=== PATIENT | male | born 1955 | race Caucasian/White ===

== ENCOUNTER 2017-10-15 14:39 | Emergency (ER) | payer MEDICARE ==
[2017-10-15] MEDS ORDERED: Sodium Chloride 0.9% 1000 ML 1,000 ML IV STA (15:03)
[2017-10-15] MEDS ORDERED: solu-MEDROL 125 MG IV ONE (15:03)
[2017-10-15] MEDS ORDERED: PROVENTIL 2.5 MG/3 ML NEB IH ONE ×2 (15:03→15:11)
--- NOTE | 2017-10-15 15:10 | ERPHSYRPT ---
- History of Present Illness Time Seen by Provider: 10/15/17 15:00 Source: patient Exam Limitations: no limitations Patient Subjective Stated Complaint: Pt states "I cannot catch my breath, I am having horrible body aches and I feel like crap" Triage Nursing Assessment: Pt alert and oriented X3, skin pwd. PT ambulates weakly, audible wheezes noted, able to speak in clear full sentences but gets short of breath when he speaks Physician History: 61-year-old white male with history of asthma, COPD arrives with complaint of shortness of breath cough productive of yellow sputum wheezing and generalized aches symptoms for one week. Patient denies any vomiting. Past medical history includes asthma, COPD. Past surgical history includes appendectomy and back surgery Timing/Duration: week(s) (1 week) Activities at Onset: none Severity of Dyspnea-Max: moderate Severity of Dyspnea-Current: moderate Possible Cause: occasional episodes Associated Symptoms: constant, cough, wheezing, weakness, productive cough, No anxiety, No chest pain/discomfort, No edema, No fever, No insomnia, No loss of appetite, No lightheadedness, No ankle swelling, No chills, No hemoptysis, No calf pain, No dizziness, No heaviness, No heart racing, No lightheadedness, No leg swelling, No muscle spasms feet, No muscle spasms hands, No painful breathing, No sweating, No tightness, No tingling face, No tingling hands International travel in last 2 weeks: No Allergies/Adverse Reactions: milk Allergy (Mild, Verified 10/15/17 14:55) Penicillins Allergy (Verified 06/19/13 16:47) RASH Home Medications: Aspirin EC 325 mg [Ecotrin 325 MG] 325 mg PO DAILY 06/19/13 [History] Carvedilol 3.125 mg [Coreg 3.125 MG] 6.25 mg PO BID 06/19/13 [History] Cyclobenzaprine HCl 10 mg [Cyclobenzaprine 10 MG] 0.5 tab PO BID 06/19/13 [History] Furosemide 20 mg [Lasix 20 mg] 20 mg PO DAILY 06/19/13 [History] Lisinopril [Zestril] 5 mg PO DAILY 06/19/13 [History] Loratadine 10 mg [Claritin 10 mg] 10 mg PO DAILY 06/19/13 [History] Omeprazole 20 MG [Prilosec 20 mg] 20 mg PO DAILY 06/19/13 [History] Ropinirole HCl 0.5 mg [Requip 0.5 MG] 2 - 3 tab PO HS 06/19/13 [History] Tramadol HCl 50 mg [Ultram 50 mg] 50 mg PO CLARIFY 06/19/13 [History] Hx Tetanus, Diphtheria Vaccination/Date Given: No Hx Influenza Vaccination/Date Given: Yes Hx Pneumococcal Vaccination/Date Given: Yes Immunizations Up to Date: Yes - Review of Systems Constitutional: Malaise, Weakness, No Fever, No Chills Eyes: No Symptoms Ears, Nose, & Throat: No Symptoms, Nose Congestion, No Ear Pain, No Ear Discharge, No Hearing Changes, No Tinnitus, No Nose Pain, No Nose Discharge, No Sinus Drainage, No Epistaxis, No Mouth Pain, No Mouth Swelling, No Loose Teeth, No Throat Pain, No Throat Swelling, No Hoarse, No Painful Swallowing, No Snoring , No Stridor Respiratory: Cough, Dyspnea, Wheezing Cardiac: No Chest Pain, No Edema, No Syncope Abdominal/Gastrointestinal: No Abdominal Pain, No Nausea, No Vomiting, No Diarrhea Genitourinary Symptoms: No Dysuria Musculoskeletal: Myalgias, No Back Pain, No Neck Pain Skin: No Symptoms, No Rash Neurological: No Dizziness, No Focal Weakness, No Sensory Changes Psychological: No Symptoms Endocrine: No Symptoms All Other Systems: Reviewed and Negative - Past Medical History Pertinent Past Medical History: Yes Cardiac History: Other Respiratory History: Asthma, COPD - Past Surgical History Past Surgical History: Yes Gastrointestinal: Appendectomy Other Surgical History: BACK SURG - Social History Smoking Status: Former smoker Exposure to second hand smoke: Yes Drug Use: none Patient Lives Alone: No - Nursing Vital Signs Nursing Vital Signs: Initial Vital Signs Temperature 97.5 F 10/15/17 14:49 Pulse Rate 78 10/15/17 14:49 Respiratory Rate 24 10/15/17 14:49 Blood Pressure 128/87 10/15/17 14:49 O2 Sat by Pulse Oximetry 96 10/15/17 14:49 Pain Scale Pain Intensity 9 - Physical Exam General Appearance: mild distress Eye Exam: PERRL/EOMI (patient him), eyes nml inspection, No scleral icterus, No pale conjunctivae, No photophobia Ears, Nose, Throat Exam: hearing grossly normal, normal ENT inspection, normal pharynx, No abnormal TM (R), No abnormal TM (L), No sinus pain/drainage, No hearing decreased, No nasal congestion, No tonsillar exudate Neck Exam: normal inspection, supple Respiratory Exam: diminished breath sounds, wheezing Cardiovascular/Chest Exam: normal heart sounds, regular rate/rhythm Abdominal/Gastrointestinal Exam: soft, No tenderness, No distention, No mass Extremity Exam: non-tender, normal range of motion, normal inspection, no calf tenderness, no pedal edema Peripheral Pulses Exam: dorsalis-pedis (R): 2+, dorsalis-pedis (L): 2+ Neurologic Exam: alert, oriented x 3, cooperative, regulatory intern II-XII nml as tested, sensation nml, No motor deficits Skin Exam: normal color, warm, No dry SpO2 Interpretation: normal (96%) SpO2: 96 Oxygen Delivery: Room Air - Course Nursing assessment & vital signs reviewed: Yes EKG Interpreted by Me: RATE (74 bpm), Other (EKG: Sinus arrhythmia with frequent PVCs 74 bpm, left axis deviation no acute ST or T wave changes noted Pacer spikes noted) - Radiology Exams Chest X-ray Interpretation: Discussed w/ radiologist (chest x-ray: Normal heart, lungs , and bony thorax with incidental calcified granuloma and left sided dual-lead pacemaker ), No Pneumonia, No Pneumothorax Ordered Tests: Active Orders 24 hr Category Date Time Status [place] Mine STAT Care 10/15/17 15:04 Active EKG-ER Only STAT Care 10/15/17 15:03 Active IV Insertion STAT Care 10/15/17 15:03 Active CHEST 1 VIEW (PORTABLE) Stat Exams 10/15/17 15:04 Completed BLOOD CULTURE Stat Lab 10/15/17 15:20 Received CBC W DIFF Stat Lab 10/15/17 15:20 Completed CMP Stat Lab 10/15/17 15:20 Completed CULTURE,SPUTUM Stat Lab 10/15/17 16:30 Received Manual Differential NC Stat Lab 10/15/17 15:20 Completed NT PRO BNP Stat Lab 10/15/17 15:20 Completed TROPONIN Q3H Lab 12/08/17 18:15 Ordered TROPONIN Q3H Lab 10/15/17 21:15 Ordered TROPONIN Q3H Lab 10/16/17 00:15 Ordered TROPONIN Q3H Lab 10/16/17 03:15 Ordered TROPONIN Stat Lab 10/15/17 15:20 Completed VENOUS BLOOD GAS Stat Lab 10/15/17 15:25 Completed Respiratory Nebulizer STAT RT 10/15/17 15:05 Completed Respiratory Nebulizer STAT RT 10/15/17 17:03 Completed Medication Summary Discontinued Medications Generic Name Dose Route Start Last Admin Trade Name Tyrone PRN Reason Stop Dose Admin Albuterol Sulfate 2.5 mg 10/15/17 15:03 10/15/17 15:12 Proventil 2.5 Mg/3 Ml Neb IH 10/15/17 15:04 2.5 mg STAT ONE Administration Albuterol Sulfate Confirm 10/15/17 15:11 Proventil 2.5 Mg/3 Ml Neb Administered 10/15/17 15:12 Dose 2.5 mg IH .STK-MED ONE Albuterol/Ipratropium 3 ml 10/15/17 17:03 10/15/17 17:09 Duoneb 0.5-3 Mg/3 Ml Neb IH 10/15/17 17:04 3 ml STAT ONE Administration Albuterol/Ipratropium Confirm 10/15/17 17:07 Duoneb 0.5-3 Mg/3 Ml Neb Administered 10/15/17 17:08 Dose 3 ml IH .STK-MED ONE Sodium Chloride 1,000 mls @ 999 mls/hr 10/15/17 15:03 10/15/17 15:32 Sodium Chloride 0.9% 1000 Ml IV 10/15/17 16:03 999 mls/hr .Q1H1M STA Administration Sodium Chloride Confirm 10/15/17 15:12 Sodium Chloride 0.9% 1000 Ml Administered 10/15/17 15:13 Dose 1,000 mls @ ud .ROUTE .STK-MED ONE Methylprednisolone Sodium Succinate 125 mg 10/15/17 15:03 10/15/17 15:36 Solu-Medrol 125 Mg IV 10/15/17 15:04 125 mg STAT ONE Administration Methylprednisolone Sodium Succinate Confirm 10/15/17 15:12 Solu-Medrol 125 Mg Administered 10/15/17 15:13 Dose 125 mg .ROUTE .STK-MED ONE Lab/Rad Data: Laboratory Result Diagrams 10/15/17 15:20 10/15/17 15:20 Laboratory Results 10/15/17 10/15/17 10/15/17 Range/Units 15:25 15:20 15:20 WBC 4.8 (4.0-10.5) K/mm3 RBC 4.39 (4.1-5.6) M/mm3 Hgb 13.7 (12.5-18.0) gm/dl Hct 41.1 L (42-50) % MCV 93.6 (78-100) fl MCH 31.2 (26-32) pg MCHC 33.3 (32-36) g/dl RDW 14.7 H (11.5-14.0) % Plt Count 176 (150-450) K/mm3 MPV 10.7 H (6-9.5) fl Segmented Neutrophils 54 (36.-66.) % Band Neutrophils 1 (0.0-2.0) % Lymphocytes (Manual) 36 (24-44) % Monocytes (Manual) 5 (0.0-12.0) % Differential Comment NORMAL Atypical Lymphocytes 4 % Platelet Estimate NORMAL (NORMAL) VBG pH 7.44 H (7.32-7.42) VBG pCO2 at Pat Temp 36 L (42-55) mm/Hg VBG pO2 at Pat Temp 38 (25-40) mm/Hg VBG HCO3 24.5 (22-28) meq/L VBG O2 Sat ([place]) 78.1 L (95-100) VBG Base Excess 0.7 (-2.0-2.0) VBG Hemoglobin 15.0 VBG Carboxyhemoglobin 2.2 (0.0-6.9) % T HGB POC Potassium 5.1 (3.5-5.1) Sodium 135 L (136-145) mEq/L Potassium 5.2 H (3.5-5.1) mEq/L Chloride 100 (98-107) mEq/L Carbon Dioxide 24.9 (21-32) mEq/L Anion Gap 15.5 H (5-15) MEQ/L BUN 14 (9-20) mg/dL Creatinine 1.01 (0.55-1.30) mg/dl Estimated GFR > 60 ML/MIN Glucose 98 (70-110) MG/DL Calcium 8.8 (8.5-10.1) mg/dL Total Bilirubin 0.30 (0.2-1.0) mg/dL AST 26 (15-37) U/L ALT 28 (12-78) U/L Alkaline Phosphatase 59 (46-116) U/L Troponin I < 0.017 (0.000-0.056) ng/ml NT-Pro-B Natriuret Pep 530 H (0-125) pg/ml Serum Total Protein 6.4 (6.4-8.2) gm/dL Albumin 3.1 L (3.4-5.0) g/dL - Progress Progress: improved Air Movement: fair Progress Note: 10/15/17 17:03 This is a 61-year-old white male with history of COPD arrives with complaint of shortness of breath cough productive of yellow sputum and wheezing feeling Patient with a moderate distress on arrival wheezes throughout his lung gore the patient is given Solu-Medrol IV DuoNeb treatment IV fluids. Patient is feeling much better chest x-ray on this patient no acute disease process noted EKG sinus arrhythmia with PVCs there does appear to be a paced rhythm underlying no acute changes are noted Labs essentially normal potassium is mildly elevated at 5.2 patient has been eating bananas troponin within normal limits BNP 530 CBC 4.8 patient is feeling markedly better he states he would like to go home if possible. Patient with still a few wheezes on the reexamination Will give patient an albuterol treatment. If he continues to feel well and wants to go home we will consider Zithromax prednisone and home on nebulizers. 10/15/17 17:39 Patient markedly improved.lungs are essentially clear Will discharge. 10/15/17 17:39 - Departure Time of Disposition: 17:39 Departure Disposition: Home Clinical Impression: COPD with exacerbation, Shortness of breath Condition: Fair Critical Care Time: No Referrals: DOCTOR,NO FAMILY [Primary Care Provider] - Instructions: Chronic Obstructive Pulmonary Disease Additional Instructions: Return home. Zithromax Z-MALENA as directed. Use your albuterol inhaler every 4-6 hours as needed for shortness of breath or wheezing. Tapering dose of prednisone as directed. Follow-up with your family doctor. Return for acute distress or for severe symptoms. Prescriptions: Azithromycin 250 mg [Zithromax 250 MG TABLET] 0 mg PO ZPACK #6 tablet
[2017-10-15] MEDS ORDERED: Sodium Chloride 0.9% 1000 ML 1,000 ML ONE (15:12)
[2017-10-15] MEDS ORDERED: solu-MEDROL 125 MG ONE (15:12)
--- NOTE | 2017-10-15 15:20 | XRAY ---
Indication: Cough. Comparison: None Portable chest demonstrates normal heart, lungs, and bony thorax with incidental calcified granulomas and left-sided dual-lead pacemaker.
[2017-10-15 15:31] LABS: VBG BASE EXCESS 0.7 (-2.0-2.0); VBG CARBOXYHEMOGLOBIN 2.2 % T HGB (0.0-6.9); VBG HCO3- 24.5 meq/L (22-28); VBG O2 SATURATION 78.1 (95-100); VBG POTASSIUM 5.1 (3.5-5.1); VBG pH 7.44 (7.32-7.42)
[2017-10-15 15:44] LABS: Mean Cell Volume 93.6 fl (78-100); Mean Corpuscular Hemoglobin 31.2 pg (26-32); Mean Platelet Volume 10.7 fl (6-9.5); Platelet Count 176 K/mm3 (150-450); Red Blood Count 4.39 M/mm3 (4.1-5.6); Red Cell Distribution Width 14.7 % (11.5-14.0); White Blood Count 4.8 K/mm3 (4.0-10.5)
[2017-10-15 16:45] LABS: ALBUMIN 3.1 g/dL (3.4-5.0); ALKALINE PHOSPHATASE 59 U/L (46-116); ANION GAP 15.5 MEQ/L (5-15); BLOOD UREA NITROGEN 14 mg/dL (9-20); CHLORIDE 100 mEq/L (98-107); Carbon Dioxide 24.9 mEq/L (21-32); Glucose 98 MG/DL (70-110); Potassium 5.2 mEq/L (3.5-5.1); SGOT/AST 26 U/L (15-37); SGPT/ALT 28 U/L (12-78); SODIUM 135 mEq/L (136-145); Total Protein 6.4 gm/dL (6.4-8.2)
[2017-10-15 16:49] LABS: TROPONIN < 0.017 ng/ml (0.000-0.056)
[2017-10-15 16:54] LABS: ATYPICAL LYMPHS 4 %; BAND 1 % (0.0-2.0); Platelet Estimate NORMAL (NORMAL); Total Cells Counted 100
[2017-10-15 16:58] VITALS: BP 123/69
[2017-10-15] MEDS ORDERED: DUONEB 0.5-3 MG/3 ml Neb IH ONE ×2 (17:03→17:07)
[2017-10-15 17:44] VITALS: PULSE 74; O2SAT 96
== END 2017-10-15 18:13 | disposition home or self-care (01) ==
LOC: ED 14:39
DX: J44.1 Chronic obstructive pulmonary disease with (acute) exacerbation (principal); R06.02 Shortness of breath
CPT/HCPCS: 36000; 36415; 71010; 80053; 82805; 83880; 84484; 85025; 87040; 87070; 87077; 93005; 93041; 94640; 96360; 96374; 99284; J2930; A9270-GY

== ENCOUNTER 2017-10-31 | Emergency (ER) | payer MEDICARE ==
[2017-10-31] MEDS ORDERED: DUONEB 0.5-3 MG/3 ml Neb IH ONE ×2 (00:23→01:01)
[2017-10-31] MEDS ORDERED: solu-MEDROL 125 MG IM ONE (00:23)
--- NOTE | 2017-10-31 00:25 | ERPHSYRPT ---
- History of Present Illness Time Seen by Provider: 10/31/17 00:25 Source: patient Exam Limitations: no limitations Patient Subjective Stated Complaint: pt states he has been having increased nasal congestion and shortness of breath at home. Triage Nursing Assessment: pt alert and oriented, answers questions approp. pt arrive per ambulance and transfered over without assist. skin pink warm and dry. respirations nonlabored with insp and exp wheezes throughout. Physician History: pt states he has been having increased nasal congestion and shortness of breath at home. Timing/Duration: day(s) (3-4 days) Activities at Onset: none Severity of Dyspnea-Max: mild Severity of Dyspnea-Current: moderate Possible Cause: frequent episodes Associated Symptoms: cough, wheezing, productive cough Allergies/Adverse Reactions: milk Allergy (Mild, Verified 10/31/17 00:45) Penicillins Allergy (Verified 10/31/17 00:45) RASH ipratropium Adverse Reaction (Verified 10/31/17 01:26) Vomiting Home Medications: Aspirin EC 325 mg [Ecotrin 325 MG] 325 mg PO DAILY 06/19/13 [History] Furosemide 20 mg [Lasix 20 mg] 20 mg PO DAILY 06/19/13 [History] Lisinopril [Zestril] 5 mg PO BID 06/19/13 [History] Loratadine 10 mg [Claritin 10 mg] 10 mg PO DAILY 06/19/13 [History] Omeprazole 20 MG [Prilosec 20 mg] 40 mg PO DAILY 06/19/13 [History] Ropinirole HCl 0.5 mg [Requip 0.5 MG] 2 - 3 tab PO HS 06/19/13 [History] Tramadol HCl 50 mg [Ultram 50 mg] 50 mg PO BID 06/19/13 [History] Cholecalciferol (Vitamin D3) [Vitamin D] 1,000 unit PO DAILY 10/31/17 [ History] Fluticasone/Salmeterol [Advair 250-50 Diskus] 1 each IH BID 10/31/17 [History] Hx Tetanus, Diphtheria Vaccination/Date Given: No Hx Influenza Vaccination/Date Given: Yes Hx Pneumococcal Vaccination/Date Given: Yes Immunizations Up to Date: No - Review of Systems Constitutional: No Fever, No Chills Eyes: No Symptoms Ears, Nose, & Throat: No Symptoms Respiratory: Cough, Dyspnea on Exertion (MADERA), Wheezing, No Dyspnea Cardiac: No Chest Pain, No Edema, No Syncope Abdominal/Gastrointestinal: No Abdominal Pain, No Nausea, No Vomiting, No Diarrhea Genitourinary Symptoms: No Dysuria Musculoskeletal: No Back Pain, No Neck Pain Skin: No Rash Neurological: No Dizziness, No Focal Weakness, No Sensory Changes Psychological: No Symptoms Endocrine: No Symptoms All Other Systems: Reviewed and Negative - Past Medical History Pertinent Past Medical History: Yes Cardiac History: Other Respiratory History: Asthma, COPD Other Medical History: pacer defib - Past Surgical History Past Surgical History: Yes Cardiac: Internal Defibrillator, Pacemaker Gastrointestinal: Appendectomy Other Surgical History: BACK SURG - Social History Smoking Status: Former smoker Exposure to second hand smoke: Yes Drug Use: none Patient Lives Alone: No - Nursing Vital Signs Nursing Vital Signs: Initial Vital Signs Temperature 99.1 F 10/31/17 00:07 Pulse Rate 98 H 10/31/17 00:07 Respiratory Rate 18 10/31/17 00:07 Blood Pressure 136/67 10/31/17 00:07 O2 Sat by Pulse Oximetry 94 L 10/31/17 00:07 Pain Scale Pain Intensity 0 - Physical Exam General Appearance: no apparent distress, alert Eye Exam: PERRL/EOMI Neck Exam: normal inspection, supple Respiratory Exam: diminished breath sounds, rhonchi, wheezing Cardiovascular/Chest Exam: normal heart sounds, regular rate/rhythm Abdominal/Gastrointestinal Exam: soft, No tenderness, No distention, No mass Extremity Exam: non-tender, normal range of motion, normal inspection, no calf tenderness, no pedal edema Neurologic Exam: alert, oriented x 3, cooperative, finance effectiveness manager II-XII nml as tested, sensation nml, No motor deficits Skin Exam: normal color, warm, No dry SpO2 Interpretation: borderline oxygenation SpO2: 94 Oxygen Delivery: Room Air - Course Nursing assessment & vital signs reviewed: Yes - Radiology Exams Chest X-ray Interpretation: Reviewed by me Ordered Tests: Active Orders 24 hr Category Date Time Status EKG-ER Only STAT Care 10/31/17 00:45 Active Oxygen-ED Only NASAL CANNULA 2 lpm Care 10/31/17 00:23 Active CHEST 2 VIEWS (PA AND LAT) Stat Exams 12/24/17 00:24 Taken CBC W DIFF Stat Lab 10/31/17 01:20 Completed CMP Stat Lab 10/31/17 01:20 Completed TROPONIN Q3H Lab 10/31/17 00:45 Ordered TROPONIN Q3H Lab 10/31/17 03:45 Ordered TROPONIN Q3H Lab 10/31/17 06:45 Ordered TROPONIN Q3H Lab 10/31/17 09:45 Ordered TROPONIN Q3H Lab 10/31/17 12:45 Ordered TROPONIN Q3H Lab 10/31/17 15:45 Ordered TROPONIN Q3H Lab 10/31/17 18:45 Ordered TROPONIN Q3H Lab 10/31/17 21:45 Ordered Respiratory Nebulizer STAT RT 10/31/17 00:33 Completed Medication Summary Discontinued Medications Generic Name Dose Route Start Last Admin Trade Name Freq PRN Reason Stop Dose Admin Albuterol Sulfate 2.5 mg 10/31/17 01:23 10/31/17 01:25 Proventil 2.5 Mg/3 Ml Neb IH 10/31/17 01:24 2.5 mg STAT ONE Administration Albuterol Sulfate Confirm 10/31/17 01:24 Proventil 2.5 Mg/3 Ml Neb Administered 10/31/17 01:25 Dose 2.5 mg IH .STK-MED ONE Albuterol/Ipratropium 3 ml 10/31/17 00:23 Duoneb 0.5-3 Mg/3 Ml Neb IH 10/31/17 00:24 STAT ONE Albuterol/Ipratropium Confirm 10/31/17 01:01 Duoneb 0.5-3 Mg/3 Ml Neb Administered 10/31/17 01:02 Dose 3 ml IH .STK-MED ONE Budesonide 0.5 mg 10/31/17 00:33 Pulmicort 0.5 Mg/2 Ml Respules IH 10/31/17 00:34 STAT ONE Ceftriaxone Sodium 1,000 mg 10/31/17 00:34 Rocephin 1000 Mg Inj IM 10/31/17 00:35 STAT ONE Ceftriaxone Sodium/Dextrose Confirm 10/31/17 00:42 Rocephin 1 Gm-D5w 50 Ml Bag Administered 10/31/17 00:43 Dose 1 g in 50 mls @ IV .STK-MED ONE Ceftriaxone Sodium/Dextrose 1 g in 50 mls @ 100 mls/hr 10/31/17 00:48 00:54 Rocephin 1 Gm-D5w 50 Ml Bag IV 10/31/17 01:17 100 mls/hr STAT STA Administration Methylprednisolone Sodium Succinate 125 mg 10/31/17 00:23 Solu-Medrol 125 Mg IM 10/31/17 00:24 STAT ONE Methylprednisolone Sodium Succinate Confirm 10/31/17 00:39 Solu-Medrol 125 Mg Administered 10/31/17 00:40 Dose 125 mg .ROUTE .STK-MED ONE Methylprednisolone Sodium Succinate 125 mg 10/31/17 00:47 10/31/17 00:53 Solu-Medrol 125 Mg IV 10/31/17 00:48 125 mg STAT ONE Administration Lab/Rad Data: Laboratory Result Diagrams 10/31/17 01:20 10/31/17 01:20 Laboratory Results 10/31/17 10/31/17 Range/Units 01:20 01:20 WBC 7.4 (4.0-10.5) K/mm3 RBC 4.30 (4.1-5.6) M/mm3 Hgb 13.3 (12.5-18.0) gm/dl Hct 41.2 L (42-50) % MCV 95.8 (78-100) fl MCH 30.9 (26-32) pg MCHC 32.3 (32-36) g/dl RDW 14.8 H (11.5-14.0) % Plt Count 162 (150-450) K/mm3 MPV 10.1 H (6-9.5) fl Gran % 69.1 H (36.0-66.0) % Lymphocytes % 15.9 L (24.0-44.0) % Monocytes % 14.3 H (0.0-12.0) % Eosinophils % 0.3 (0.00-5.0) % Basophils % 0.4 (0.0-0.4) % Basophils # 0.03 (0-0.4) Sodium 137 (136-145) mEq/L Potassium 4.2 (3.5-5.1) mEq/L Chloride 98 (98-107) mEq/L Carbon Dioxide 31.0 (21-32) mEq/L Anion Gap 12.2 (5-15) MEQ/L BUN 18 (9-20) mg/dL Creatinine 1.28 (0.55-1.30) mg/dl Estimated GFR > 60 ML/MIN Glucose 108 (70-110) MG/DL Calcium 8.9 (8.5-10.1) mg/dL Total Bilirubin 0.50 (0.2-1.0) mg/dL AST 13 L (15-37) U/L ALT 18 (12-78) U/L Alkaline Phosphatase 64 (46-116) U/L Serum Total Protein 6.8 (6.4-8.2) gm/dL Albumin 3.0 L (3.4-5.0) g/dL - Progress Progress: improved Air Movement: good Blood Culture(s) Obtained: No Antibiotics given: Yes Counseled pt/family regarding: lab results, diagnosis, need for follow-up, rad results - Departure Time of Disposition: 02:03 Departure Disposition: Home Clinical Impression: Chronic bronchitis with acute exacerbation Condition: Stable Critical Care Time: No Referrals: DOCTOR,NO FAMILY [Primary Care Provider] - Instructions: Chronic Obstructive Pulmonary Disease Additional Instructions: Please follow the instructions given to you. Please take your medication as prescribed if given. If symptoms recur or get worse, come back to the emergency room if you cannot reach your primary care physician, or call your primary care physician for an appointment. Again if your symptoms get worse, come back to the emergency room. Thanks for visiting emergency room, and let us take care of you. Prescriptions: Doxycycline Hyclate 100 mg PO BID #20 tablet Methylprednisolone Packet [Medrol Dosepack] 4 mg PO UD #30 packet Guaifenesin/Dextromethorphan [Mucinex Dm ER 600-30 mg Tablet] 1 each PO BID #20 tab.er.12h
[2017-10-31] MEDS ORDERED: PULMICORT 0.5 MG/2 ML RESPULES IH ONE (00:33)
[2017-10-31] MEDS ORDERED: Rocephin 1000 MG INJ IM ONE (00:34)
[2017-10-31] MEDS ORDERED: solu-MEDROL 125 MG ONE (00:39)
[2017-10-31] MEDS ORDERED: ROCEPHIN 1 Gm-D5w 50 ml Bag** 1 G/50 ML IVPB IV ONE (00:42)
[2017-10-31] MEDS ORDERED: solu-MEDROL 125 MG IV ONE (00:47)
[2017-10-31] MEDS ORDERED: ROCEPHIN 1 Gm-D5w 50 ml Bag** 1 G/50 ML IVPB IV STA (00:48)
[2017-10-31] MEDS ORDERED: PROVENTIL 2.5 MG/3 ML NEB IH ONE ×2 (01:23→01:24)
[2017-10-31 01:25] LABS: BASOPHIL % 0.4 % (0.0-0.4); Eosinophil % 0.3 % (0.00-5.0); Granulocytes % 69.1 % (36.0-66.0); Lymphocytes % 15.9 % (24.0-44.0); Mean Cell Volume 95.8 fl (78-100); Mean Corpuscular Hemoglobin 30.9 pg (26-32); Mean Platelet Volume 10.1 fl (6-9.5); Monocytes % 14.3 % (0.0-12.0); Platelet Count 162 K/mm3 (150-450); Red Cell Distribution Width 14.8 % (11.5-14.0); White Blood Count 7.4 K/mm3 (4.0-10.5)
[2017-10-31 01:46] LABS: ALKALINE PHOSPHATASE 64 U/L (46-116); ANION GAP 12.2 MEQ/L (5-15); BLOOD UREA NITROGEN 18 mg/dL (9-20); CHLORIDE 98 mEq/L (98-107); Glucose 108 MG/DL (70-110); Potassium 4.2 mEq/L (3.5-5.1); SGOT/AST 13 U/L (15-37); SGPT/ALT 18 U/L (12-78); SODIUM 137 mEq/L (136-145); Total Protein 6.8 gm/dL (6.4-8.2)
[2017-10-31 02:42] VITALS: BP 126/87; PULSE 73; O2SAT 100
--- NOTE | 2017-10-31 09:06 | XRAY ---
Indication: Short of breath. Comparison: October 15, 2017. Portable chest again hyperinflated and clear with incidental calcified granulomas. Heart and mediastinal structures within normal limits again with left-sided dual-lead pacemaker. No new/acute findings. Impression: Stable nonacute chest with chronic features.
== END 2017-10-31 02:40 | disposition home or self-care (01) ==
LOC: ED
DX: J44.1 Chronic obstructive pulmonary disease with (acute) exacerbation (principal); R05 Cough; R06.02 Shortness of breath; R06.2 Wheezing; R09.81 Nasal congestion; Z79.899 Other long term (current) drug therapy
CPT/HCPCS: 36415; 71020; 80053; 84484; 85025; 93005; 94640; 96374; 99284; J0696; J2930; A9270-GY

== ENCOUNTER 2019-07-28 17:37 | Emergency (ER) | payer MEDICARE ==
[2019-07-28] MEDS ORDERED: Zithromax 250 MG TABLET PO ONE (18:00)
[2019-07-28] MEDS ORDERED: DUONEB 0.5-3 MG/3 ml Neb IH ONE ×2 (18:00→18:13)
--- NOTE | 2019-07-28 18:00 | ERPHSYRPT ---
- History of Present Illness Time Seen by Provider: 07/28/19 17:40 Source: patient, family Exam Limitations: no limitations Physician History: patient came to the ER with a history of sore throat for 2 days. also has a cough with productive sputum.. Patient states he has a history of COPD. Last time he had this he ended up having pneumonia. Timing/Duration: day(s) (2) Cough Quality/Degree: moderate, productive cough Possible Cause: occasional episodes Modifying Factors: Improves With: nothing Associated Symptoms: cough, sore throat International travel in last 2 weeks: No Allergies/Adverse Reactions: milk Allergy (Mild, Verified 10/31/17 00:45) Penicillins Allergy (Verified 10/31/17 00:45) RASH ipratropium Adverse Reaction (Verified 10/31/17 01:26) Vomiting Home Medications: Aspirin EC 325 mg [Ecotrin 325 MG] 325 mg PO DAILY 06/19/13 [History] Furosemide 20 mg [Lasix 20 mg] 20 mg PO DAILY 06/19/13 [History] Lisinopril [Zestril] 5 mg PO BID 06/19/13 [History] Loratadine 10 mg [Claritin 10 mg] 10 mg PO DAILY 06/19/13 [History] Omeprazole 20 MG [Prilosec 20 mg] 40 mg PO DAILY 06/19/13 [History] Ropinirole HCl 0.5 mg [Requip 0.5 MG] 2 - 3 tab PO HS 06/19/13 [History] Tramadol HCl 50 mg [Ultram 50 mg] 50 mg PO BID 06/19/13 [History] Cholecalciferol (Vitamin D3) [Vitamin D] 1,000 unit PO DAILY 10/31/17 [ History] Fluticasone/Salmeterol [Advair 250-50 Diskus] 1 each IH BID 10/31/17 [History] Hx Tetanus, Diphtheria Vaccination/Date Given: No Hx Influenza Vaccination/Date Given: Yes Hx Pneumococcal Vaccination/Date Given: Yes - Review of Systems Constitutional: No Fever, No Chills Eyes: No Symptoms Ears, Nose, & Throat: Throat Pain Respiratory: Cough Cardiac: No Chest Pain, No Edema, No Syncope Abdominal/Gastrointestinal: No Abdominal Pain, No Nausea, No Vomiting, No Diarrhea Genitourinary Symptoms: No Dysuria Musculoskeletal: No Back Pain, No Neck Pain Skin: No Rash Neurological: No Dizziness, No Focal Weakness, No Sensory Changes Psychological: No Symptoms Endocrine: No Symptoms All Other Systems: Reviewed and Negative - Past Medical History Pertinent Past Medical History: Yes Cardiac History: Other Respiratory History: Asthma, COPD Other Medical History: pacer defib - Past Surgical History Past Surgical History: Yes Cardiac: Internal Defibrillator, Pacemaker Gastrointestinal: Appendectomy Other Surgical History: BACK SURG - Social History Smoking Status: Former smoker Exposure to second hand smoke: Yes Drug Use: none Patient Lives Alone: No - Physical Exam General Appearance: no apparent distress, alert Eye Exam: PERRL/EOMI, eyes nml inspection Ears, Nose, Throat Exam: normal ENT inspection, TMs normal, moist mucous membranes, pharyngeal erythema Neck Exam: normal inspection, non-tender, supple, full range of motion Respiratory Exam: normal breath sounds, lungs clear, No respiratory distress Cardiovascular Exam: regular rate/rhythm, normal heart sounds Gastrointestinal/Abdomen Exam: soft, No tenderness Back Exam: normal inspection, No CVA tenderness, No vertebral tenderness Extremity Exam: normal inspection, normal range of motion Neurologic Exam: alert, oriented x 3, cooperative, normal mood/affect, sensation nml, No motor deficits Skin Exam: normal color, warm, dry, No rash Lymphatic Exam: No adenopathy O2 Delivery: Room Air - Course Nursing assessment & vital signs reviewed: Yes Ordered Tests: Medication Summary Discontinued Medications Generic Name Dose Route Start Last Admin Trade Name Freq PRN Reason Stop Dose Admin Albuterol/Ipratropium 3 ml 07/28/19 18:00 Duoneb 0.5-3 Mg/3 Ml Neb IH 07/28/19 18:01 STAT ONE Azithromycin 500 mg 07/28/19 18:00 Zithromax 250 Mg Tablet PO 07/28/19 18:01 STAT ONE - Progress Progress: improved, unchanged Air Movement: fair Blood Culture(s) Obtained: No Antibiotics given: Yes Discussed with : Other Will see patient in: office Counseled pt/family regarding: diagnosis, need for follow-up - Departure Departure Disposition: Home Clinical Impression: Acute pharyngitis Qualifiers: Pharyngitis/tonsillitis etiology: unspecified etiology Qualified Code(s): J02.9 - Acute pharyngitis, unspecified Acute bronchitis Qualifiers: Bronchitis organism: unspecified organism Qualified Code(s): J20.9 - Acute bronchitis, unspecified Condition: Stable Critical Care Time: No Referrals: BEATRIZ ALMENDAREZ [Primary Care Provider] - Instructions: Sore Throat, Adult (DC) Prescriptions: Azithromycin 250 mg [Zithromax 250 MG TABLET] 250 mg PO ZPACK #6 tablet
[2019-07-28 18:03] VITALS: BP 99/63
[2019-07-28] MEDS ORDERED: Zithromax 250 MG TABLET ONE (18:13)
[2019-07-28 18:28] VITALS: PULSE 81; O2SAT 96
== END 2019-07-28 18:39 | disposition home or self-care (01) ==
LOC: ED 17:37
DX: J02.9 Acute pharyngitis, unspecified (principal); J20.9 Acute bronchitis, unspecified
CPT/HCPCS: 94640; 99283; A9270-GY

== ENCOUNTER 2019-08-22 09:17 | Emergency (ER) | payer OTHER, MEDICARE ==
--- NOTE | 2019-08-22 09:40 | ERPHSYRPT ---
- History of Present Illness Time Seen by Provider: 08/22/19 09:35 Source: patient, family Exam Limitations: no limitations Patient Subjective Stated Complaint: pt states that he ran out inhaler, pt states that he was short of breath at 6 this morning, pt states he has hx of copd Triage Nursing Assessment: pt was wheeled into the er with sob, pt has increase resp rate, wheezing exp, pt stated at 93% on ra, pt on 2L via N, vitals wnl Physician History: 63 y/o white male former smoker not on home oxygen therapy, presents with cough and soa. sx present for a week but worsened this am. pt ran out of his inhalers a week ago. pt denies fever and denies cp. pt denies abd pain. pt has h/o recurrent bronchitis and copd exacerbation Timing/Duration: today, worse Activities at Onset: none Severity of Dyspnea-Max: moderate Severity of Dyspnea-Current: moderate Possible Cause: occasional episodes Modifying Factors: Improves With: coughing Associated Symptoms: cough, No chest pain/discomfort, No fever, No chills, No heaviness Allergies/Adverse Reactions: milk Allergy (Mild, Verified 08/22/19 09:38) Penicillins Allergy (Verified 08/22/19 09:38) RASH ipratropium Adverse Reaction (Verified 08/22/19 09:38) Vomiting Home Medications: Furosemide 20 mg [Lasix 20 mg] 20 mg PO DAILY 06/19/13 [History] Lisinopril [Zestril] 5 mg PO BID 06/19/13 [History] Omeprazole 20 MG [Prilosec 20 mg] 20 mg PO DAILY 06/19/13 [History] Ropinirole HCl 0.5 mg [Requip 0.5 MG] 4 mg PO HS 06/19/13 [History] Tramadol HCl 50 mg [Ultram 50 mg] 50 mg PO TID 06/19/13 [History] Cholecalciferol (Vitamin D3) [Vitamin D] 1,000 unit PO TID 10/31/17 [ History] Fluticasone/Salmeterol [Advair 250-50 Diskus] 1 each IH BID 10/31/17 [History] Carvedilol 12.5 mg [Coreg 12.5 mg] 12.5 mg PO BID 08/22/19 [History] Fexofenadine HCl [Allergy Relief] 180 mg PO DAILY 08/22/19 [History] Metformin HCl [Metformin ER Osmotic] 500 mg PO BID 08/22/19 [History] Potassium Chloride [K-Dur] 20 meq PO DAILY 08/22/19 [History] Propylene Glycol/Peg 400 [Systane 0.3-0.4% Eye Drops] 1 drop OP QID 08/22/19 [ History] Tramadol HCl [Ultram] 100 mg PO HS 08/22/19 [History] Hx Tetanus, Diphtheria Vaccination/Date Given: No Hx Influenza Vaccination/Date Given: No Hx Pneumococcal Vaccination/Date Given: No - Review of Systems Constitutional: No Symptoms Eyes: No Symptoms Ears, Nose, & Throat: No Symptoms Respiratory: Cough, Dyspnea Cardiac: No Symptoms, No Chest Pain, No Palpitations Abdominal/Gastrointestinal: No Symptoms Genitourinary Symptoms: No Symptoms Musculoskeletal: No Symptoms Skin: No Symptoms Neurological: No Symptoms Psychological: No Symptoms Endocrine: No Symptoms Hematologic/Lymphatic: No Symptoms Immunological/Allergic: No Symptoms All Other Systems: Reviewed and Negative - Past Medical History Pertinent Past Medical History: Yes Neurological History: Seizures, TIA ENT History: No Pertinent History Cardiac History: Other Respiratory History: Asthma, COPD Endocrine Medical History: Diabetes Type II Musculoskeletal History: Arthritis GI Medical History: No Pertinent History History: No Pertinent History Psycho-Social History: No Pertinent History Male Reproductive Disorders: No Pertinent History Other Medical History: pacer defib - Past Surgical History Past Surgical History: Yes Neuro Surgical History: No Pertinent History Cardiac: Internal Defibrillator, Pacemaker Respiratory: No Pertinent History Gastrointestinal: Appendectomy Genitourinary: No Pertinent History Musculoskeletal: Orthopedic Surgery Male Surgical History: No Pertinent History Other Surgical History: BACK SURG - Social History Smoking Status: Former smoker Exposure to second hand smoke: Yes Drug Use: none Patient Lives Alone: No - Nursing Vital Signs Nursing Vital Signs: Initial Vital Signs Temperature 97.8 F 08/22/19 09:18 Pulse Rate 89 08/22/19 09:18 Respiratory Rate 23 08/22/19 09:18 Blood Pressure 119/80 08/22/19 09:18 O2 Sat by Pulse Oximetry 98 08/22/19 09:18 Pain Scale Pain Intensity 8 - Physical Exam General Appearance: mild distress, alert, anxiety Eye Exam: PERRL/EOMI, eyes nml inspection Ears, Nose, Throat Exam: hearing grossly normal Neck Exam: normal inspection, non-tender, supple, full range of motion Respiratory Exam: airway intact, diminished breath sounds, No chest tenderness, No respiratory distress Cardiovascular/Chest Exam: normal heart sounds, regular rate/rhythm, normal peripheral pulses Abdominal/Gastrointestinal Exam: soft, normal bowel sounds, No tenderness Rectal Exam: not done Extremity Exam: non-tender, normal range of motion, normal inspection Neurologic Exam: alert, oriented x 3, cooperative, delivery table feeder II-XII nml as tested, nml cerebellar function, nml station & gait Skin Exam: normal color, warm, dry Lymphatic Exam: No adenopathy SpO2 Interpretation: normal SpO2: 98 O2 Delivery: Nasal Cannula - Course Nursing assessment & vital signs reviewed: Yes EKG Interpreted by Me: RATE, Left [place] Deviation, NORMAL INTERVALS, NORMAL QRS, Other (comparison ekg 10/31/17, new bradycardia, new left axis deviation, nonspecific st segment changes resolved) Ordered Tests: Active Orders 24 hr Category Date Time Status Barrel Lathe Operator Outside STAT Care 08/22/19 09:42 Active EKG-ER Only STAT Care 08/22/19 09:41 Active EKG-ER Only STAT Care 08/22/19 12:37 Active IV Insertion STAT Care 08/22/19 09:41 Active Pulse Oximetry (ED) STAT Care 08/22/19 09:41 Active CHEST 1 VIEW (PORTABLE) Stat Exams 08/22/19 09:43 Completed CBC W DIFF Stat Lab 08/22/19 09:41 Completed CMP Stat Lab 08/22/19 09:41 Completed NT PRO BNP Stat Lab 08/22/19 09:41 Completed TROPONIN Q3H Lab 08/22/19 10:00 Completed TROPONIN Q3H Lab 08/22/19 13:00 Ordered TROPONIN Q3H Lab 08/22/19 16:00 Ordered TROPONIN Q3H Lab 08/22/19 19:00 Ordered TROPONIN Q3H Lab 08/22/19 22:00 Ordered Medication Summary Discontinued Medications Generic Name Dose Route Start Last Admin Trade Name Freq PRN Reason Stop Dose Admin Methylprednisolone Sodium Succinate 125 mg 08/22/19 09:41 08/22/19 09:51 Solu-Medrol 125 Mg IV 08/22/19 09:42 125 mg STAT ONE Administration Methylprednisolone Sodium Succinate Confirm 08/22/19 09:47 Solu-Medrol 125 Mg Administered 08/22/19 09:48 Dose 125 mg .ROUTE .STK-MED ONE Lab/Rad Data: Laboratory Result Diagrams 08/22/19 09:41 08/22/19 09:41 Laboratory Results 08/22/19 08/22/19 08/22/19 Range/Units 10:00 09:41 09:41 WBC 6.6 (4.0-10.5) K/mm3 RBC 5.14 (4.1-5.6) M/mm3 Hgb 15.4 (12.5-18.0) gm/dl Hct 47.5 (42-50) % MCV 92.4 (78-100) fl MCH 30.0 (26-32) pg MCHC 32.4 (32-36) g/dl RDW 13.9 (11.5-14.0) % Plt Count 222 (150-450) K/mm3 MPV 10.3 H (6-9.5) fl Gran % 61.4 (36.0-66.0) % Eos # (Auto) 0.16 (0-0.5) Absolute Lymphs (auto) 1.81 (1.0-4.6) Absolute Monos (auto) 0.53 (0.0-1.3) Lymphocytes % 27.4 (24.0-44.0) % Monocytes % 8.0 (0.0-12.0) % Eosinophils % 2.4 (0.00-5.0) % Basophils % 0.8 (0.0-0.4) % Absolute Granulocytes 4.05 (1.4-6.9) Basophils # 0.05 (0-0.4) Sodium 139 (137-145) mmol/L Potassium 5.0 (3.5-5.1) mmol/L Chloride 98 (98-107) mmol/L Carbon Dioxide 31 H (22-30) mmol/L Anion Gap 14.6 (5-15) MEQ/L BUN 19 (9-20) mg/dL Creatinine 1.04 (0.66-1.25) mg/dL Estimated GFR > 60.0 ML/MIN Glucose 122 H (74-106) mg/dL Calcium 9.8 (8.4-10.2) mg/dL Total Bilirubin 0.40 (0.2-1.3) mg/dL AST 22 (17-59) U/L ALT 17 (0-50) U/L Alkaline Phosphatase 74 (38-126) U/L Troponin I < 0.012 (0.000-0.034) ng/mL NT-Pro-B Natriuret Pep 332 (0-900) pg/mL Serum Total Protein 7.7 (6.3-8.2) g/dL Albumin 4.2 (3.5-5.0) g/dL - Progress Progress: improved Air Movement: good Progress Note: 08/22/19 12:45 repeat 12 ekg bradycardia resolved @ 1241 hr 68 left axis deviation. nonspecific st segment changes. 08/22/19 12:47 pt states he is out of spiriva Blood Culture(s) Obtained: No Antibiotics given: No Counseled pt/family regarding: lab results, diagnosis, need for follow-up, rad results - Departure Departure Disposition: Home Clinical Impression: Shortness of breath, Bradycardia Condition: Stable Critical Care Time: No Referrals: BEATRIZ ALMENDAREZ [Primary Care Provider] - Additional Instructions: follow up with hospital per holter monitor instructions. take medications as prescribed. Prescriptions: Tiotropium [place] [Spiriva] 18 mcg UD #1 cap.w.dev
[2019-08-22] MEDS ORDERED: solu-MEDROL 125 MG IV ONE (09:41)
[2019-08-22] MEDS ORDERED: solu-MEDROL 125 MG ONE (09:47)
[2019-08-22 10:00] LABS: Absolute Neutrophil Ct (ANC) 4.05 (1.4-6.9); BASOPHIL % 0.8 % (0.0-0.4); Basophil (Absolute #) 0.05 (0-0.4); Eosinophil % 2.4 % (0.00-5.0); Eosinophil (Absolute #) 0.16 (0-0.5); Hematocrit 47.5 % (42-50); Hemoglobin 15.4 gm/dl (12.5-18.0); Lymphocyte (Absolute #) 1.81 (1.0-4.6); Lymphocytes % 27.4 % (24.0-44.0); Mean Cell Volume 92.4 fl (78-100); Mean Corpuscular Hgb Concent. 32.4 g/dl (32-36); Mean Platelet Volume 10.3 fl (6-9.5); Monocyte (Absolute #) 0.53 (0.0-1.3); Neutrophil % 61.4 % (36.0-66.0); Platelet Count 222 K/mm3 (150-450); Red Blood Count 5.14 M/mm3 (4.1-5.6); Red Cell Distribution Width 13.9 % (11.5-14.0); White Blood Count 6.6 K/mm3 (4.0-10.5)
--- NOTE | 2019-08-22 10:10 | XRAY ---
Indication: Short of breath. Comparison: October 31, 2017. Portable chest again demonstrates normal heart and lungs with incidental right base calcified granuloma and left sided pacemaker/leads. Bony thorax intact. No new/acute findings.
[2019-08-22 10:14] LABS: ALBUMIN 4.2 g/dL (3.5-5.0); ALKALINE PHOSPHATASE 74 U/L (38-126); ANION GAP 14.6 MEQ/L (5-15); BLOOD UREA NITROGEN 19 mg/dL (9-20); CHLORIDE 98 mmol/L (98-107); Calcium 9.8 mg/dL (8.4-10.2); Carbon Dioxide 31 mmol/L (22-30); Creatinine 1 1.04 mg/dL (0.66-1.25); Glucose 122 mg/dL (74-106); NT PRO BNP 332 pg/mL (0-900); SGOT/AST 22 U/L (17-59); SGPT/ALT 17 U/L (0-50); SODIUM 139 mmol/L (137-145); Total Protein 7.7 g/dL (6.3-8.2)
[2019-08-22 12:54] VITALS: BP 107/67; PULSE 77; O2SAT 95
== END 2019-08-22 13:16 | disposition home or self-care (01) ==
LOC: ED 09:17
DX: R06.02 Shortness of breath (principal); R00.1 Bradycardia, unspecified; J44.9 Chronic obstructive pulmonary disease, unspecified; R05 Cough; Z87.891 Personal history of nicotine dependence; Z79.899 Other long term (current) drug therapy; E11.9 Type 2 diabetes mellitus without complications; Z95.0 Presence of cardiac pacemaker; Z95.810 Presence of automatic (implantable) cardiac defibrillator
CPT/HCPCS: 36000; 36415; 71045; 80053; 83880; 84484; 85025; 93005; 93041; 94760; 96374; 99284; J2930

== ENCOUNTER 2020-01-26 06:37 | Emergency (ER) | payer MEDICARE, OTHER ==
[2020-01-26] MEDS ORDERED: PROVENTIL 2.5 MG/3 ML NEB IH ONE ×2 (06:43→07:37)
[2020-01-26] MEDS ORDERED: Zithromax 500 MG/ 250 ML NaCl Premix 500 MG/250 ML IVPB IV STA (06:43)
[2020-01-26] MEDS ORDERED: ROCEPHIN 1 Gm-D5w 50 ml Bag** 1 G/50 ML IVPB IV STA (06:43)
--- NOTE | 2020-01-26 06:43 | ERPHSYRPT ---
- History of Present Illness Source: patient Exam Limitations: no limitations Hx Tetanus, Diphtheria Vaccination/Date Given: No Hx Influenza Vaccination/Date Given: No Hx Pneumococcal Vaccination/Date Given: No <JULIA BRYANT - Last Filed: 01/26/20 06:57> <ELTON FARRIS - Last Filed: 01/26/20 09:35> - History of Present Illness Time Seen by Provider: 01/26/20 06:37 Physician History: For the past 2 days pt has had a cough productive of yellow-green phlegm; for the past 7 hours diaphoresis; today a sore throat. Pt denies vomiting, abdominal pain, rash; admits to restless legs. (JULIA BRYANT) Allergies/Adverse Reactions: milk Allergy (Mild, Verified 01/26/20 06:55) Penicillins Allergy (Verified 01/26/20 06:55) RASH ipratropium Adverse Reaction (Verified 01/26/20 06:55) Vomiting Home Medications: Furosemide 20 mg [Lasix 20 mg] 20 mg PO DAILY 06/19/13 [History] Omeprazole 20 MG [Prilosec 20 mg] 20 mg PO DAILY 06/19/13 [History] Ropinirole HCl 0.5 mg [Requip 0.5 MG] 2 mg PO BID 06/19/13 [History] Tramadol HCl 50 mg [Ultram 50 mg] 50 mg PO TID 06/19/13 [History] lisinopriL [Zestril] 5 mg PO DAILY 06/19/13 [History] Cholecalciferol (Vitamin D3) [Vitamin D] 1,000 unit PO TID 10/31/17 [ History] Fluticasone/Salmeterol [Advair 250-50 Diskus] 1 each IH BID 10/31/17 [History] Carvedilol 12.5 mg [Coreg 12.5 mg] 25 mg PO BID 08/22/19 [History] Fexofenadine HCl [Allergy Relief] 180 mg PO DAILY 08/22/19 [History] Metformin HCl [Metformin ER Osmotic] 500 mg PO BID 08/22/19 [History] Potassium Chloride [K-Dur] 20 meq PO DAILY 08/22/19 [History] Propylene Glycol/Peg 400 [Systane 0.3-0.4% Eye Drops] 1 drop OP QID 08/22/19 [ History] Tramadol HCl [Ultram] 100 mg PO HS 08/22/19 [History] Meloxicam 15 mg PO DAILY 01/26/20 [History] Ropinirole 2Mg [Requip 2Mg Tab] 6 mg PO HS 01/26/20 [History] - Review of Systems Constitutional: Other (diaphoresis) Ears, Nose, & Throat: Throat Pain Respiratory: Cough Cardiac: No Chest Pain Abdominal/Gastrointestinal: No Abdominal Pain, No Vomiting Neurological: Other (restless legs) All Other Systems: Reviewed and Negative <JULIA BRYANT - Last Filed: 01/26/20 06:57> - Past Medical History Pertinent Past Medical History: Yes Neurological History: Other ENT History: No Pertinent History Cardiac History: Arrhythmia, Coronary Artery Disease, High Cholesterol, Hypertension, Myocardial Infarction ([place]) Respiratory History: COPD Endocrine Medical History: Diabetes Type II Musculoskeletal History: Arthritis, Rheumatoid Arthritis GI Medical History: No Pertinent History History: No Pertinent History Psycho-Social History: No Pertinent History Male Reproductive Disorders: No Pertinent History Other Medical History: PACEMAKER - Past Surgical History Past Surgical History: Yes Neuro Surgical History: No Pertinent History Cardiac: Internal Defibrillator, Pacemaker Respiratory: No Pertinent History Gastrointestinal: Appendectomy Genitourinary: No Pertinent History Musculoskeletal: Orthopedic Surgery Male Surgical History: No Pertinent History Other Surgical History: BACK SURG - Social History Smoking Status: Former smoker Exposure to second hand smoke: Yes Drug Use: none Patient Lives Alone: No <JULIA BRYANT - Last Filed: 01/26/20 06:57> - Physical Exam General Appearance: alert Eye Exam: PERRL/EOMI Ears, Nose, Throat Exam: pharyngeal erythema Neck Exam: normal inspection Respiratory Exam: wheezing (mild expiratory wheezing over bases A & P.) Cardiovascular Exam: normal heart sounds Gastrointestinal/Abdomen Exam: soft, normal bowel sounds Back Exam: rash (psoriasis over right lower back) Extremity Exam: No pedal edema Neurologic Exam: alert, cooperative, sensation nml, No motor deficits Skin Exam: rash (scattered psoriasis) SpO2 Interpretation: normal SpO2: 97 O2 Delivery: Room Air <JULIA BRYANT - Last Filed: 01/26/20 06:57> <ELTON FARRIS - Last Filed: 01/26/20 09:35> - Nursing Vital Signs Nursing Vital Signs: Initial Vital Signs Temperature 98 F 01/26/20 06:42 Pulse Rate 84 01/26/20 06:42 Respiratory Rate 23 01/26/20 06:42 Blood Pressure 129/78 01/26/20 06:42 O2 Sat by Pulse Oximetry 97 01/26/20 06:42 Pain Scale Pain Intensity 0 Ordered Tests: Active Orders 24 hr Category Date Time Status Estimator Paperboard Boxes STAT Care 01/26/20 06:46 Active EKG-ER Only STAT Care 01/26/20 06:43 Active IV Insertion STAT Care 01/26/20 06:43 Active Oxygen-ED Only Nasal Cannula 2 lpm Care 01/26/20 06:43 Active Pulse Oximetry (ED) STAT Care 01/26/20 06:43 Active CHEST 2 VIEWS (PA AND LAT) Stat Exams 01/26/20 06:46 Taken BLOOD CULTURE Stat Lab 01/26/20 08:03 Received CBC W DIFF Stat Lab 01/26/20 07:00 Completed CMP Stat Lab 01/26/20 07:00 Completed CULTURE,SPUTUM Stat Lab 01/26/20 06:46 Uncollected D-DIMER QUANTITATIVE Stat Lab 01/26/20 07:00 Completed MAGNESIUM Stat Lab 01/26/20 07:00 Completed NT PRO BNP Stat Lab 01/26/20 07:00 Completed TROPONIN Q3H Lab 01/26/20 07:00 Completed TROPONIN Q3H Lab 01/26/20 09:45 Ordered TROPONIN Q3H Lab 01/26/20 12:45 Ordered TROPONIN Q3H Lab 01/26/20 15:45 Ordered TROPONIN Q3H Lab 01/26/20 18:45 Ordered UA W/RFX UR CULTURE Stat Lab 01/26/20 07:45 Completed VENOUS BLOOD GAS Stat Lab 01/26/20 07:30 Completed Peak Expiratory Flow Rate ONCE RT 01/26/20 07:41 Active Respiratory Therapy Assessment ONCE RT 01/26/20 07:41 Active Medication Summary Generic Name Dose Route Start Last Admin Trade Name Freq PRN Reason Stop Dose Admin Sodium Chloride 1,000 mls @ 100 mls/hr 01/26/20 06:45 01/26/20 07:39 Sodium Chloride 0.9% 1000 Ml IV 02/25/20 06:44 100 mls/hr .Q10H GINA Administration Discontinued Medications Generic Name Dose Route Start Last Admin Trade Name [place] PRN Reason Stop Dose Admin Albuterol Sulfate 2.5 mg 01/26/20 06:43 01/26/20 07:44 Proventil 2.5 Mg/3 Ml Neb IH 01/26/20 06:44 2.5 mg STAT ONE Administration Albuterol Sulfate Confirm 01/26/20 07:37 Proventil 2.5 Mg/3 Ml Neb Administered 01/26/20 07:38 Dose 2.5 mg IH .STK-MED ONE Furosemide 40 mg 01/26/20 08:25 01/26/20 08:38 Lasix 40 Mg/4 Ml IV 01/26/20 08:26 40 mg STAT ONE Administration Furosemide Confirm 01/26/20 08:33 Lasix 40 Mg/4 Ml Administered 01/26/20 08:34 Dose 40 mg .ROUTE .STK-MED ONE Ceftriaxone Sodium/Dextrose 1 g in 50 mls @ 100 mls/hr 01/26/20 06:43 09:05 Rocephin 1 Gm-D5w 50 Ml Bag IV 01/26/20 07:12 Infused STAT STA Infusion Azithromycin 500 mg in 250 mls @ 250 mls/hr 01/26/20 06:43 01/26/20 09:05 Zithromax 500 Mg/ 250 Ml Nacl Premix IV 01/26/20 07:42 Infused STAT STA Infusion Azithromycin Confirm 01/26/20 07:30 Zithromax 500 Mg/ 250 Ml Nacl Premix Administered 01/26/20 07:31 Dose 500 mg in 250 mls @ ud IV .STK-MED ONE Ceftriaxone Sodium/Dextrose Confirm 01/26/20 07:30 Rocephin 1 Gm-D5w 50 Ml Bag Administered 01/26/20 07:31 Dose 1 g in 50 mls @ ud IV .STK-MED ONE Methylprednisolone Sodium Succinate 125 mg 01/26/20 08:25 01/26/20 08:38 Solu-Medrol 125 Mg IV 01/26/20 08:26 125 mg STAT ONE Administration Methylprednisolone Sodium Succinate Confirm 01/26/20 08:33 Solu-Medrol 125 Mg Administered 01/26/20 08:34 Dose 125 mg .ROUTE .STK-MED ONE Lab/Rad Data: Laboratory Result Diagrams 01/26/20 07:00 01/26/20 07:00 Laboratory Results 01/26/20 01/26/20 01/26/20 Range/Units 07:45 07:30 07:11 WBC (4.0-10.5) K/mm3 RBC (4.1-5.6) M/mm3 Hgb (12.5-18.0) gm/dl Hct (42-50) % MCV (78-100) fl MCH (26-32) pg MCHC (32-36) g/dl RDW (11.5-14.0) % Plt Count (150-450) K/mm3 MPV (7.5-11.0) fl Gran % (36.0-66.0) % Eos # (Auto) (0-0.5) Absolute Lymphs (auto) (1.0-4.6) Absolute Monos (auto) (0.0-1.3) Lymphocytes % (24.0-44.0) % Monocytes % (0.0-12.0) % Eosinophils % (0.00-5.0) % Basophils % (0.0-0.4) % Absolute Granulocytes (1.4-6.9) Basophils # (0-0.4) D-Dimer (215-500) ng/mL pO2/FiO2 Ratio 21.0 % VBG pH 7.41 (7.32-7.42) VBG pCO2 at Pat Temp 45 (42-55) mm/Hg VBG pO2 at Pat Temp 75 H (25-40) mm/Hg VBG HCO3 28.5 H (22-28) meq/L VBG O2 Sat ([place]) 96.7 (95-100) VBG Base Excess 3.2 H (-2.0-2.0) VBG Hemoglobin 13.9 VBG Carboxyhemoglobin 2.4 (0.0-6.9) % T HGB POC Potassium 4.0 (3.5-5.1) Sodium (137-145) mmol/L Potassium (3.5-5.1) mmol/L Chloride (98-107) mmol/L Carbon Dioxide (22-30) mmol/L Anion Gap (5-15) MEQ/L BUN (9-20) mg/dL Creatinine (0.66-1.25) mg/dL Estimated GFR ML/MIN Glucose (74-106) mg/dL Calcium (8.4-10.2) mg/dL Magnesium (1.6-2.3) mg/dL Total Bilirubin (0.2-1.3) mg/dL AST (17-59) U/L ALT (0-50) U/L Alkaline Phosphatase (38-126) U/L Troponin I (0.000-0.034) ng/mL NT-Pro-B Natriuret Pep (0-900) pg/mL Serum Total Protein (6.3-8.2) g/dL Albumin (3.5-5.0) g/dL Urine Color YELLOW (YELLOW) Urine Appearance CLEAR (CLEAR) Urine pH 5.0 (5-6) Ur Specific [place] 1.012 (1.005-1.025) Urine Protein NEGATIVE (Negative) Urine Ketones NEGATIVE (NEGATIVE) Urine Blood NEGATIVE (0-5) Marc/ul Urine Nitrite NEGATIVE (NEGATIVE) Urine Bilirubin NEGATIVE (NEGATIVE) Urine Urobilinogen NEGATIVE (0-1) mg/dL Ur Leukocyte Esterase NEGATIVE (NEGATIVE) Urine WBC (Auto) NONE (0-5) /HPF Urine RBC (Auto) NONE (0-2) /HPF U Hyaline Cast (Auto) 3-5 (0-2) /LPF U Epithel Cells (Auto) NONE (FEW) /HPF Urine Bacteria (Auto) NONE (NEGATIVE) /HPF Urine Mucus (Auto) SLIGHT (NEGATIVE) /HPF Urine Sperm (Auto) PRESENT (NEGATIVE) /HPF Urine Culture Reflexed NO (NO) Urine Glucose NEGATIVE (NEGATIVE) mg/dL Influenza Type A Ag NEGATIVE (NEGATIVE) Influenza Type B Ag NEGATIVE (NEGATIVE) RSV (PCR) NEGATIVE (Negative) Group A Strep Antibody NOT DETECTED (NEGATIVE) 01/26/20 01/26/20 01/26/20 Range/Units 07:00 07:00 07:00 WBC (4.0-10.5) K/mm3 RBC (4.1-5.6) M/mm3 Hgb (12.5-18.0) gm/dl Hct (42-50) % MCV (78-100) fl MCH (26-32) pg MCHC (32-36) g/dl RDW (11.5-14.0) % Plt Count (150-450) K/mm3 MPV (7.5-11.0) fl Gran % (36.0-66.0) % Eos # (Auto) (0-0.5) Absolute Lymphs (auto) (1.0-4.6) Absolute Monos (auto) (0.0-1.3) Lymphocytes % (24.0-44.0) % Monocytes % (0.0-12.0) % Eosinophils % (0.00-5.0) % Basophils % (0.0-0.4) % Absolute Granulocytes (1.4-6.9) Basophils # (0-0.4) D-Dimer 475 (215-500) ng/mL pO2/FiO2 Ratio % VBG pH (7.32-7.42) VBG pCO2 at Pat Temp (42-55) mm/Hg VBG pO2 at Pat Temp (25-40) mm/Hg VBG HCO3 (22-28) meq/L VBG O2 Sat ([place]) (95-100) VBG Base Excess (-2.0-2.0) VBG Hemoglobin VBG Carboxyhemoglobin (0.0-6.9) % T HGB POC Potassium (3.5-5.1) Sodium 137 (137-145) mmol/L Potassium 3.8 (3.5-5.1) mmol/L Chloride 103 (98-107) mmol/L Carbon Dioxide 25 (22-30) mmol/L Anion Gap 12.8 (5-15) MEQ/L BUN 16 (9-20) mg/dL Creatinine 0.91 (0.66-1.25) mg/dL Estimated GFR > 60.0 ML/MIN Glucose 104 (74-106) mg/dL Calcium 8.6 (8.4-10.2) mg/dL Magnesium 1.4 L (1.6-2.3) mg/dL Total Bilirubin 0.50 (0.2-1.3) mg/dL AST 20 (17-59) U/L ALT 16 (0-50) U/L Alkaline Phosphatase 84 (38-126) U/L Troponin I < 0.012 (0.000-0.034) ng/mL NT-Pro-B Natriuret Pep 1030 H (0-900) pg/mL Serum Total Protein 6.5 (6.3-8.2) g/dL Albumin 3.6 (3.5-5.0) g/dL Urine Color (YELLOW) Urine Appearance (CLEAR) Urine pH (5-6) Ur Specific [place] (1.005-1.025) Urine Protein (Negative) Urine Ketones (NEGATIVE) Urine Blood (0-5) Marc/ul Urine Nitrite (NEGATIVE) Urine Bilirubin (NEGATIVE) Urine Urobilinogen (0-1) mg/dL Ur Leukocyte Esterase (NEGATIVE) Urine WBC (Auto) (0-5) /HPF Urine RBC (Auto) (0-2) /HPF U Hyaline Cast (Auto) (0-2) /LPF U Epithel Cells (Auto) (FEW) /HPF Urine Bacteria (Auto) (NEGATIVE) /HPF Urine Mucus (Auto) (NEGATIVE) /HPF Urine Sperm (Auto) (NEGATIVE) /HPF Urine Culture Reflexed (NO) Urine Glucose (NEGATIVE) mg/dL Influenza Type A Ag (NEGATIVE) Influenza Type B Ag (NEGATIVE) RSV (PCR) (Negative) Group A Strep Antibody (NEGATIVE) 01/26/20 Range/Units 07:00 WBC 11.1 H (4.0-10.5) K/mm3 RBC 4.30 (4.1-5.6) M/mm3 Hgb 13.3 (12.5-18.0) gm/dl Hct 40.5 L (42-50) % MCV 94.2 (78-100) fl MCH 30.9 (26-32) pg MCHC 32.8 (32-36) g/dl RDW 13.4 (11.5-14.0) % Plt Count 162 (150-450) K/mm3 MPV 11.1 H (7.5-11.0) fl Gran % 71.5 H (36.0-66.0) % Eos # (Auto) 0.18 (0-0.5) Absolute Lymphs (auto) 1.99 (1.0-4.6) Absolute Monos (auto) 0.93 (0.0-1.3) Lymphocytes % 18.0 L (24.0-44.0) % Monocytes % 8.4 (0.0-12.0) % Eosinophils % 1.6 (0.00-5.0) % Basophils % 0.5 (0.0-0.4) % Absolute Granulocytes 7.92 H (1.4-6.9) Basophils # 0.05 (0-0.4) D-Dimer (215-500) ng/mL pO2/FiO2 Ratio % VBG pH (7.32-7.42) VBG pCO2 at Pat Temp (42-55) mm/Hg VBG pO2 at Pat Temp (25-40) mm/Hg VBG HCO3 (22-28) meq/L VBG O2 Sat ([place]) (95-100) VBG Base Excess (-2.0-2.0) VBG Hemoglobin VBG Carboxyhemoglobin (0.0-6.9) % T HGB POC Potassium (3.5-5.1) Sodium (137-145) mmol/L Potassium (3.5-5.1) mmol/L Chloride (98-107) mmol/L Carbon Dioxide (22-30) mmol/L Anion Gap (5-15) MEQ/L BUN (9-20) mg/dL Creatinine (0.66-1.25) mg/dL Estimated GFR ML/MIN Glucose (74-106) mg/dL Calcium (8.4-10.2) mg/dL Magnesium (1.6-2.3) mg/dL Total Bilirubin (0.2-1.3) mg/dL AST (17-59) U/L ALT (0-50) U/L Alkaline Phosphatase (38-126) U/L Troponin I (0.000-0.034) ng/mL NT-Pro-B Natriuret Pep (0-900) pg/mL Serum Total Protein (6.3-8.2) g/dL Albumin (3.5-5.0) g/dL Urine Color (YELLOW) Urine Appearance (CLEAR) Urine pH (5-6) Ur Specific [place] (1.005-1.025) Urine Protein (Negative) Urine Ketones (NEGATIVE) Urine Blood (0-5) Marc/ul Urine Nitrite (NEGATIVE) Urine Bilirubin (NEGATIVE) Urine Urobilinogen (0-1) mg/dL Ur Leukocyte Esterase (NEGATIVE) Urine WBC (Auto) (0-5) /HPF Urine RBC (Auto) (0-2) /HPF U Hyaline Cast (Auto) (0-2) /LPF U Epithel Cells (Auto) (FEW) /HPF Urine Bacteria (Auto) (NEGATIVE) /HPF Urine Mucus (Auto) (NEGATIVE) /HPF Urine Sperm (Auto) (NEGATIVE) /HPF Urine Culture Reflexed (NO) Urine Glucose (NEGATIVE) mg/dL Influenza Type A Ag (NEGATIVE) Influenza Type B Ag (NEGATIVE) RSV (PCR) (Negative) Group A Strep Antibody (NEGATIVE) <JULIA BRYANT - Last Filed: 01/26/20 06:57> - Progress Progress: improved Air Movement: good Blood Culture(s) Obtained: Yes Antibiotics given: Yes Counseled pt/family regarding: lab results, diagnosis, need for follow-up, rad results <ELTON FARRIS - Last Filed: 01/26/20 09:35> - Progress Progress Note: 01/26/20 09:34 Chest x-ray reveals right lower lobe atelectasis versus early infiltrate. Not significantly different from chest x-ray dated August 22, 2019 (ELTON FARRIS) <JULIA BRYANT - Last Filed: 01/26/20 06:57> - Departure Departure Disposition: Home Critical Care Time: No <ELTON FARRIS - Last Filed: 01/26/20 09:35> - Departure Clinical Impression: Mild congestive heart failure, Bronchitis Condition: Stable Referrals: BEATRIZ ALMENDAREZ [Primary Care Provider] - Instructions: Heart Failure Additional Instructions: Take your medication as prescribed. Follow-up with your prescribing physician for further management. Prescriptions: Azithromycin 250 mg [Zithromax 250 MG TABLET] 250 mg PO ZPACK #6 tablet Hydrocodone Bit/Acetaminophen [Hydrocodone-Acetaminophen Soln] 10 ml PO Q6H # 120 ml
[2020-01-26] MEDS ORDERED: Sodium Chloride 0.9% 1000 ML 1,000 ML IV SCH (06:45)
[2020-01-26] MEDS ORDERED: ROCEPHIN 1 Gm-D5w 50 ml Bag** 1 G/50 ML IVPB IV ONE (07:30)
[2020-01-26] MEDS ORDERED: Zithromax 500 MG/ 250 ML NaCl Premix 500 MG/250 ML IVPB IV ONE (07:30)
[2020-01-26] MEDS ORDERED: Sodium Chloride 0.9% 1000 ML 1,000 ML ONE (07:30)
[2020-01-26 07:31] LABS: Absolute Neutrophil Ct (ANC) 7.92 (1.4-6.9); BASOPHIL % 0.5 % (0.0-0.4); Basophil (Absolute #) 0.05 (0-0.4); Eosinophil % 1.6 % (0.00-5.0); Eosinophil (Absolute #) 0.18 (0-0.5); Hematocrit 40.5 % (42-50); Hemoglobin 13.3 gm/dl (12.5-18.0); Lymphocyte (Absolute #) 1.99 (1.0-4.6); Mean Cell Volume 94.2 fl (78-100); Mean Corpuscular Hemoglobin 30.9 pg (26-32); Mean Corpuscular Hgb Concent. 32.8 g/dl (32-36); Mean Platelet Volume 11.1 fl (7.5-11.0); Monocyte (Absolute #) 0.93 (0.0-1.3); Monocytes % 8.4 % (0.0-12.0); Neutrophil % 71.5 % (36.0-66.0); Platelet Count 162 K/mm3 (150-450); Red Cell Distribution Width 13.4 % (11.5-14.0); White Blood Count 11.1 K/mm3 (4.0-10.5)
[2020-01-26 07:35] LABS: VBG BASE EXCESS 3.2 (-2.0-2.0); VBG CARBOXYHEMOGLOBIN 2.4 % T HGB (0.0-6.9); VBG HCO3- 28.5 meq/L (22-28); VBG HEMOGLOBIN 13.9; VBG O2 SATURATION 96.7 (95-100); VBG pH 7.41 (7.32-7.42)
[2020-01-26 07:50] LABS: ALBUMIN 3.6 g/dL (3.5-5.0); ALKALINE PHOSPHATASE 84 U/L (38-126); ANION GAP 12.8 MEQ/L (5-15); BLOOD UREA NITROGEN 16 mg/dL (9-20); CHLORIDE 103 mmol/L (98-107); Calcium 8.6 mg/dL (8.4-10.2); Carbon Dioxide 25 mmol/L (22-30); Creatinine 1 0.91 mg/dL (0.66-1.25); Glucose 104 mg/dL (74-106); MAGNESIUM 1.4 mg/dL (1.6-2.3); NT PRO BNP 1030 pg/mL (0-900); Potassium 3.8 mmol/L (3.5-5.1); SGOT/AST 20 U/L (17-59); SGPT/ALT 16 U/L (0-50); SODIUM 137 mmol/L (137-145); Total Protein 6.5 g/dL (6.3-8.2)
[2020-01-26 08:05] VITALS: BP 129/94
[2020-01-26 08:15] LABS: Appearance CLEAR (CLEAR); Bilirubin NEGATIVE (NEGATIVE); Blood NEGATIVE Ery/ul (0-5); Glucose NEGATIVE (NEGATIVE); Ketones NEGATIVE (NEGATIVE); Leukocyte Esterase NEGATIVE (NEGATIVE); Mucus SLIGHT /HPF (NEGATIVE); Nitrite NEGATIVE (NEGATIVE); Protein,Urine Dip NEGATIVE (Negative); Specific Gravity 1.012 (1.005-1.025); Sperm PRESENT /HPF (NEGATIVE); Urobilinogen NEGATIVE mg/dL (0-1)
[2020-01-26 08:20] LABS: Group A Strep NOT DETECTED (NEGATIVE)
[2020-01-26] MEDS ORDERED: Lasix 40 MG/4 ML IV ONE (08:25)
[2020-01-26] MEDS ORDERED: solu-MEDROL 125 MG IV ONE (08:25)
[2020-01-26 08:30] LABS: INFLUENZA A NEGATIVE (NEGATIVE); INFLUENZA B NEGATIVE (NEGATIVE); RESPIRATORY SYNCTIAL VIRUS NEGATIVE (Negative)
[2020-01-26] MEDS ORDERED: solu-MEDROL 125 MG ONE (08:33)
[2020-01-26] MEDS ORDERED: Lasix 40 MG/4 ML ONE (08:33)
--- NOTE | 2020-01-26 09:45 | XRAY ---
Indication: Cough, congestion, short of breath, and weakness. Comparison: August 22, 2019. PA/lateral chest remains clear again with a few incidental calcified granulomas. Heart is not enlarged again with left-sided dual-lead pacemaker. Bony thorax intact. Impression: Continue nonacute chest with chronic features.
[2020-01-26 10:04] VITALS: PULSE 85; O2SAT 97
== END 2020-01-26 10:33 | disposition home or self-care (01) ==
LOC: ED 06:37
DX: I50.9 Heart failure, unspecified (principal); J40 Bronchitis, not specified as acute or chronic; Z95.810 Presence of automatic (implantable) cardiac defibrillator; Z79.899 Other long term (current) drug therapy; I25.10 Atherosclerotic heart disease of native coronary artery without angina pectoris; E78.00 Pure hypercholesterolemia, unspecified; I10 Essential (primary) hypertension; I25.2 Old myocardial infarction; E11.9 Type 2 diabetes mellitus without complications; M06.9 Rheumatoid arthritis, unspecified
CPT/HCPCS: 36000; 36415; 71046; 80053; 81001; 82805; 83735; 83880; 84484; 85025; 85379; 87040; 87070; 87631; 87651; 93005; 93041; 94150; 94640; 94760; 96360; 96361; 96365; 96368; 96374; 96375; 99285; J0456; J0696; J1940; J2930; J7609; A9270-GY

== ENCOUNTER 2020-03-31 01:20 | Observation (INO) | payer OTHER ==
[2020-03-31] MEDS ORDERED: solu-MEDROL 125 MG IV ONE (01:49)
[2020-03-31] MEDS ORDERED: solu-MEDROL 125 MG ONE (01:58)
[2020-03-31] MEDS ORDERED: Sodium Chloride 0.9% 1000 ML 1,000 ML ONE (01:58)
[2020-03-31] MEDS ORDERED: Sodium Chloride 0.9% 1000 ML 1,000 ML IV SCH ×2 (02:00→04:30)
[2020-03-31] MEDS ORDERED: Xopenex 1.25 MG/0.5 ML UD NEBULE IH ONE ×2 (02:29)
[2020-03-31] MEDS ORDERED: Sodium Chloride 3 ML UD NEBULES IH ONE (02:30)
[2020-03-31 02:32] LABS: Absolute Neutrophil Ct (ANC) 6.29 (1.4-6.9); BASOPHIL % 0.2 % (0.0-0.4); Basophil (Absolute #) 0.02 (0-0.4); Eosinophil % 1.9 % (0.00-5.0); Eosinophil (Absolute #) 0.17 (0-0.5); Hematocrit 40.3 % (42-50); Hemoglobin 13.2 gm/dl (12.5-18.0); Lymphocytes % 19.1 % (24.0-44.0); Mean Cell Volume 94.2 fl (78-100); Mean Corpuscular Hemoglobin 30.8 pg (26-32); Mean Corpuscular Hgb Concent. 32.8 g/dl (32-36); Mean Platelet Volume 10.9 fl (7.5-11.0); Monocyte (Absolute #) 0.72 (0.0-1.3); Monocytes % 8.1 % (0.0-12.0); Neutrophil % 70.7 % (36.0-66.0); Platelet Count 175 K/mm3 (150-450); Red Blood Count 4.28 M/mm3 (4.1-5.6); Red Cell Distribution Width 13.5 % (11.5-14.0); White Blood Count 8.9 K/mm3 (4.0-10.5)
[2020-03-31 02:40] LABS: INR 1.51 (0.8-3.0); PROTIME 17.2 SECONDS (8.83-12.87)
[2020-03-31 02:43] LABS: PTT 40.4 SECONDS (24.1-36.1)
[2020-03-31 02:54] LABS: ALBUMIN 3.5 g/dL (3.5-5.0); ALKALINE PHOSPHATASE 76 U/L (38-126); ANION GAP 11.8 MEQ/L (5-15); BLOOD UREA NITROGEN 13 mg/dL (9-20); CHLORIDE 102 mmol/L (98-107); Calcium 8.9 mg/dL (8.4-10.2); Carbon Dioxide 27 mmol/L (22-30); Glucose 123 mg/dL (74-106); MAGNESIUM 1.7 mg/dL (1.6-2.3); NT PRO BNP 614 pg/mL (0-900); Potassium 3.9 mmol/L (3.5-5.1); SGOT/AST 15 U/L (17-59); SGPT/ALT 15 U/L (0-50); SODIUM 137 mmol/L (137-145); Total Protein 6.4 g/dL (6.3-8.2)
[2020-03-31 03:22] LABS: Appearance CLEAR (CLEAR); Bilirubin NEGATIVE (NEGATIVE); Blood NEGATIVE Ery/ul (0-5); Glucose NEGATIVE (NEGATIVE); Hyaline Casts 0-2 /LPF (0-2); Ketones NEGATIVE (NEGATIVE); Leukocyte Esterase NEGATIVE (NEGATIVE); Nitrite NEGATIVE (NEGATIVE); Protein,Urine Dip NEGATIVE (Negative); Urobilinogen NEGATIVE mg/dL (0-1)
[2020-03-31 03:28] LABS: INFLUENZA A NEGATIVE (NEGATIVE); INFLUENZA B NEGATIVE (NEGATIVE); RESPIRATORY SYNCTIAL VIRUS NEGATIVE (Negative)
--- NOTE | 2020-03-31 03:46 | ERPHSYRPT ---
- History of Present Illness Time Seen by Provider: 03/31/20 01:30 Patient Subjective Stated Complaint: SOB / lung pain while coughing Triage Nursing Assessment: pt to ED by EMS c/o SOB and cough x3 days. states hx COPD and states this feels like a flare up. no fever at home and pt has not been out in public lately. pt on RA at home but has home breathing tx that he has been using with no relief. pt lives home with . lung sounds dimished and wheezing throughout. heart sounds clear. bowel sounds in all quads. pt ambulatory to EMS cot from home and from cot to bed with minimal assistance. A& Ox3. Physician History: 64 yo male w COPD worse over past three days.Increased cough and sputum production.very dyspneic "cant breath.Not on home O2. denies any F,C,S. Timing/Duration: day(s) Activities at Onset: activity Severity of Dyspnea-Max: moderate Severity of Dyspnea-Current: moderate Possible Cause: occasional episodes Modifying Factors: Improves With: activity, albuterol nebulizer, coughing Associated Symptoms: cough, wheezing, No fever, No chills Allergies/Adverse Reactions: milk Allergy (Mild, Verified 03/31/20 01:44) hornet venom Allergy (Verified 03/31/20 01:43) Penicillins Allergy (Verified 03/31/20 01:44) RASH ipratropium Adverse Reaction (Verified 03/31/20 01:44) Vomiting Home Medications: Furosemide 20 mg [Lasix 20 mg] 20 mg PO DAILY 06/19/13 [History] Omeprazole 20 MG [Prilosec 20 mg] 20 mg PO DAILY 06/19/13 [History] Ropinirole HCl 0.5 mg [Requip 0.5 MG] 2 mg PO BID 06/19/13 [History] Tramadol HCl 50 mg [Ultram 50 mg] 50 mg PO TID 06/19/13 [History] lisinopriL [Zestril] 5 mg PO DAILY 06/19/13 [History] Cholecalciferol (Vitamin D3) [Vitamin D] 1,000 unit PO TID 10/31/17 [ History] Fluticasone/Salmeterol [Advair 250-50 Diskus] 1 each IH BID 10/31/17 [History] Carvedilol 12.5 mg [Coreg 12.5 mg] 25 mg PO BID 08/22/19 [History] Fexofenadine HCl [Allergy Relief] 180 mg PO DAILY 08/22/19 [History] Metformin HCl [Metformin ER Osmotic] 500 mg PO BID 08/22/19 [History] Potassium Chloride [K-Dur] 20 meq PO DAILY 08/22/19 [History] Propylene Glycol/Peg 400 [Systane 0.3-0.4% Eye Drops] 1 drop OP QID 08/22/19 [ History] Tramadol HCl [Ultram] 100 mg PO HS 08/22/19 [History] Meloxicam 15 mg PO DAILY 01/26/20 [History] Ropinirole 2Mg [Requip 2Mg Tab] 6 mg PO HS 01/26/20 [History] Hx Tetanus, Diphtheria Vaccination/Date Given: No Hx Influenza Vaccination/Date Given: No Hx Pneumococcal Vaccination/Date Given: No Travel Risk - International Travel Have you traveled outside of the country in past 3 weeks: No Have you or anyone close to you been diagnosed with or: No Do your reside in a community with a known COVID-19 case?: Yes If Yes where:: [place] - Coronavirus Screening Has patient experienced Coronavirus symptoms: Yes Symptoms experienced: respiratory symptoms (i.e.Cought,shortness of breath) Date of respiratory symptoms onset:: 03/27/20 - Review of Systems Constitutional: No Fever, No Chills Eyes: No Symptoms Ears, Nose, & Throat: No Symptoms Respiratory: Cough, Dyspnea, Dyspnea on Exertion (MADERA), Wheezing Cardiac: No Chest Pain, No Edema, No Syncope Abdominal/Gastrointestinal: No Abdominal Pain, No Nausea, No Vomiting, No Diarrhea Genitourinary Symptoms: No Dysuria Musculoskeletal: No Back Pain, No Neck Pain Skin: No Rash Neurological: No Dizziness, No Focal Weakness, No Sensory Changes Psychological: No Symptoms Endocrine: No Symptoms All Other Systems: Reviewed and Negative - Past Medical History Pertinent Past Medical History: Yes Neurological History: Other ENT History: No Pertinent History Cardiac History: Arrhythmia, Coronary Artery Disease, High Cholesterol, Hypertension, Myocardial Infarction ([place]) Respiratory History: COPD Endocrine Medical History: Diabetes Type II Musculoskeletal History: Arthritis, Rheumatoid Arthritis GI Medical History: No Pertinent History History: No Pertinent History Psycho-Social History: No Pertinent History Male Reproductive Disorders: No Pertinent History Other Medical History: PACEMAKER - Past Surgical History Past Surgical History: Yes Neuro Surgical History: No Pertinent History Cardiac: Internal Defibrillator, Pacemaker Respiratory: No Pertinent History Gastrointestinal: Appendectomy Genitourinary: No Pertinent History Musculoskeletal: Orthopedic Surgery Male Surgical History: No Pertinent History Other Surgical History: BACK SURG - Social History Smoking Status: Former smoker Exposure to second hand smoke: Yes Drug Use: none Patient Lives Alone: No - Nursing Vital Signs Nursing Vital Signs: Initial Vital Signs Temperature 97.4 F 03/31/20 01:25 Pulse Rate 77 03/31/20 01:25 Respiratory Rate 28 H 03/31/20 01:25 Blood Pressure 109/58 03/31/20 01:25 O2 Sat by Pulse Oximetry 95 03/31/20 01:25 Pain Scale Pain Intensity 5 - Physical Exam General Appearance: moderate distress, alert Eye Exam: PERRL/EOMI Neck Exam: normal inspection, supple Respiratory Exam: respiratory distress, diminished breath sounds, crackles/rales , rhonchi, wheezing Cardiovascular/Chest Exam: normal heart sounds, regular rate/rhythm Abdominal/Gastrointestinal Exam: soft, No tenderness, No distention, No mass Extremity Exam: non-tender, normal range of motion, normal inspection, no calf tenderness, no pedal edema Peripheral Pulses Exam: carotid (R): 2+, carotid (L): 2+ Neurologic Exam: alert, oriented x 3, cooperative, mems device scientist II-XII nml as tested, sensation nml, No motor deficits Skin Exam: normal color, warm, No dry SpO2 Interpretation: normal SpO2: 97 O2 Delivery: Nasal Cannula (2L) - Course Nursing assessment & vital signs reviewed: Yes EKG Interpreted by Me: RATE (71), Sinus Rhythm, Left [place] Deviation, NORMAL INTERVALS, Non-specific ST Changes, Other (poor R wave progression) - Radiology Exams Chest X-ray Interpretation: Interpreted by me, Other (COPD) Ordered Tests: Active Orders 24 hr Category Date Time Status Hospice Physician STAT Care 03/31/20 01:50 Active EKG-ER Only STAT Care 03/31/20 01:49 Active Isolation, Initiate & Maintain Q12H Care 03/31/20 01:40 Active Oxygen-ED Only Nasal Cannula 3 lpm Care 03/31/20 01:49 Active CHEST 1 VIEW (PORTABLE) Stat Exams 03/31/20 01:49 Taken CBC W DIFF Stat Lab 03/31/20 02:00 Completed CMP Stat Lab 03/31/20 02:00 Completed CULTURE,SPUTUM Stat Lab 03/31/20 01:49 Ordered D-DIMER QUANTITATIVE Stat Lab 03/31/20 02:00 Completed Lactic Acid Stat Lab 03/31/20 02:32 Completed MAGNESIUM Stat Lab 03/31/20 02:00 Completed NT PRO BNP Stat Lab 03/31/20 02:00 Completed PROTIME WITH INR Stat Lab 03/31/20 02:00 Completed PTT Stat Lab 03/31/20 02:00 Completed TROPONIN Q3H Lab 03/31/20 02:00 Completed TROPONIN Q3H Lab 03/31/20 05:00 Ordered TROPONIN Q3H Lab 03/31/20 08:00 Ordered TROPONIN Q3H Lab 03/31/20 11:00 Ordered TROPONIN Q3H Lab 03/31/20 14:00 Ordered UA W/RFX UR CULTURE Stat Lab 03/31/20 02:55 Completed Respiratory Therapy Consult ONCE RT 03/31/20 01:52 Active Medication Summary Generic Name Dose Route Start Last Admin Trade Name Freq PRN Reason Stop Dose Admin Sodium Chloride 1,000 mls @ 100 mls/hr 03/31/20 02:00 03/31/20 02:02 Sodium Chloride 0.9% 1000 Ml IV 04/30/20 01:59 100 mls/hr .Q10H GINA Administration Discontinued Medications Generic Name Dose Route Start Last Admin Trade Name Freq PRN Reason Stop Dose Admin Levalbuterol HCl 1.25 mg 03/31/20 02:29 Xopenex 1.25 Mg/0.5 Ml Ud Nebule IH 03/31/20 02:30 STAT ONE Levalbuterol HCl Confirm 03/31/20 02:29 Xopenex 1.25 Mg/0.5 Ml Ud Nebule Administered 03/31/20 02:30 Dose 1.25 mg IH .STK-MED ONE Methylprednisolone Sodium Succinate 125 mg 03/31/20 01:49 03/31/20 02:02 Solu-Medrol 125 Mg IV 03/31/20 01:50 125 mg STAT ONE Administration Methylprednisolone Sodium Succinate Confirm 03/31/20 01:58 Solu-Medrol 125 Mg Administered 03/31/20 01:59 Dose 125 mg .ROUTE .STK-MED ONE Sodium Chloride Confirm 03/31/20 02:30 Sodium Chloride 3 Ml Ud Nebules Administered 03/31/20 02:31 Dose 3 ml IH .STK-MED ONE Lab/Rad Data: Laboratory Result Diagrams 03/31/20 02:00 03/31/20 02:00 Laboratory Results 03/31/20 03/31/20 03/31/20 Range/Units 02:55 02:55 02:32 WBC (4.0-10.5) K/mm3 RBC (4.1-5.6) M/mm3 Hgb (12.5-18.0) gm/dl Hct (42-50) % MCV (78-100) fl MCH (26-32) pg MCHC (32-36) g/dl RDW (11.5-14.0) % Plt Count (150-450) K/mm3 MPV (7.5-11.0) fl Gran % (36.0-66.0) % Eos # (Auto) (0-0.5) Absolute Lymphs (auto) (1.0-4.6) Absolute Monos (auto) (0.0-1.3) Lymphocytes % (24.0-44.0) % Monocytes % (0.0-12.0) % Eosinophils % (0.00-5.0) % Basophils % (0.0-0.4) % Absolute Granulocytes (1.4-6.9) Basophils # (0-0.4) PT (8.83-12.87) SECONDS INR (0.8-3.0) APTT (24.1-36.1) SECONDS D-Dimer (215-500) ng/mL Sodium (137-145) mmol/L Potassium (3.5-5.1) mmol/L Chloride (98-107) mmol/L Carbon Dioxide (22-30) mmol/L Anion Gap (5-15) MEQ/L BUN (9-20) mg/dL Creatinine (0.66-1.25) mg/dL Estimated GFR ML/MIN Glucose (74-106) mg/dL Lactic Acid 1.7 (0.4-2.0) Calcium (8.4-10.2) mg/dL Magnesium (1.6-2.3) mg/dL Total Bilirubin (0.2-1.3) mg/dL AST (17-59) U/L ALT (0-50) U/L Alkaline Phosphatase (38-126) U/L Troponin I (0.000-0.034) ng/mL NT-Pro-B Natriuret Pep (0-900) pg/mL Serum Total Protein (6.3-8.2) g/dL Albumin (3.5-5.0) g/dL Urine Color YELLOW (YELLOW) Urine Appearance CLEAR (CLEAR) Urine pH 5.0 (5-6) Ur Specific [place] 1.020 (1.005-1.025) Urine Protein NEGATIVE (Negative) Urine Ketones NEGATIVE (NEGATIVE) Urine Blood NEGATIVE (0-5) Marc/ul Urine Nitrite NEGATIVE (NEGATIVE) Urine Bilirubin NEGATIVE (NEGATIVE) Urine Urobilinogen NEGATIVE (0-1) mg/dL Ur Leukocyte Esterase NEGATIVE (NEGATIVE) Urine WBC (Auto) NONE (0-5) /HPF Urine RBC (Auto) NONE (0-2) /HPF U Hyaline Cast (Auto) 0-2 (0-2) /LPF U Epithel Cells (Auto) NONE (FEW) /HPF Urine Bacteria (Auto) NONE (NEGATIVE) /HPF Urine Culture Reflexed NO (NO) Urine Glucose NEGATIVE (NEGATIVE) mg/dL Influenza Type A Ag NEGATIVE (NEGATIVE) Influenza Type B Ag NEGATIVE (NEGATIVE) RSV (PCR) NEGATIVE (Negative) 03/31/20 03/31/20 03/31/20 Range/Units 02:00 02:00 02:00 WBC (4.0-10.5) K/mm3 RBC (4.1-5.6) M/mm3 Hgb (12.5-18.0) gm/dl Hct (42-50) % MCV (78-100) fl MCH (26-32) pg MCHC (32-36) g/dl RDW (11.5-14.0) % Plt Count (150-450) K/mm3 MPV (7.5-11.0) fl Gran % (36.0-66.0) % Eos # (Auto) (0-0.5) Absolute Lymphs (auto) (1.0-4.6) Absolute Monos (auto) (0.0-1.3) Lymphocytes % (24.0-44.0) % Monocytes % (0.0-12.0) % Eosinophils % (0.00-5.0) % Basophils % (0.0-0.4) % Absolute Granulocytes (1.4-6.9) Basophils # (0-0.4) PT 17.2 H (8.83-12.87) SECONDS INR 1.51 (0.8-3.0) APTT 40.4 H (24.1-36.1) SECONDS D-Dimer 232 (215-500) ng/mL Sodium 137 (137-145) mmol/L Potassium 3.9 (3.5-5.1) mmol/L Chloride 102 (98-107) mmol/L Carbon Dioxide 27 (22-30) mmol/L Anion Gap 11.8 (5-15) MEQ/L BUN 13 (9-20) mg/dL Creatinine 1.00 (0.66-1.25) mg/dL Estimated GFR > 60.0 ML/MIN Glucose 123 H (74-106) mg/dL Lactic Acid (0.4-2.0) Calcium 8.9 (8.4-10.2) mg/dL Magnesium 1.7 (1.6-2.3) mg/dL Total Bilirubin 0.30 (0.2-1.3) mg/dL AST 15 L (17-59) U/L ALT 15 (0-50) U/L Alkaline Phosphatase 76 (38-126) U/L Troponin I < 0.012 (0.000-0.034) ng/mL NT-Pro-B Natriuret Pep 614 (0-900) pg/mL Serum Total Protein 6.4 (6.3-8.2) g/dL Albumin 3.5 (3.5-5.0) g/dL Urine Color (YELLOW) Urine Appearance (CLEAR) Urine pH (5-6) Ur Specific [place] (1.005-1.025) Urine Protein (Negative) Urine Ketones (NEGATIVE) Urine Blood (0-5) Marc/ul Urine Nitrite (NEGATIVE) Urine Bilirubin (NEGATIVE) Urine Urobilinogen (0-1) mg/dL Ur Leukocyte Esterase (NEGATIVE) Urine WBC (Auto) (0-5) /HPF Urine RBC (Auto) (0-2) /HPF U Hyaline Cast (Auto) (0-2) /LPF U Epithel Cells (Auto) (FEW) /HPF Urine Bacteria (Auto) (NEGATIVE) /HPF Urine Culture Reflexed (NO) Urine Glucose (NEGATIVE) mg/dL Influenza Type A Ag (NEGATIVE) Influenza Type B Ag (NEGATIVE) RSV (PCR) (Negative) 03/31/20 Range/Units 02:00 WBC 8.9 (4.0-10.5) K/mm3 RBC 4.28 (4.1-5.6) M/mm3 Hgb 13.2 (12.5-18.0) gm/dl Hct 40.3 L (42-50) % MCV 94.2 (78-100) fl MCH 30.8 (26-32) pg MCHC 32.8 (32-36) g/dl RDW 13.5 (11.5-14.0) % Plt Count 175 (150-450) K/mm3 MPV 10.9 (7.5-11.0) fl Gran % 70.7 H (36.0-66.0) % Eos # (Auto) 0.17 (0-0.5) Absolute Lymphs (auto) 1.70 (1.0-4.6) Absolute Monos (auto) 0.72 (0.0-1.3) Lymphocytes % 19.1 L (24.0-44.0) % Monocytes % 8.1 (0.0-12.0) % Eosinophils % 1.9 (0.00-5.0) % Basophils % 0.2 (0.0-0.4) % Absolute Granulocytes 6.29 (1.4-6.9) Basophils # 0.02 (0-0.4) PT (8.83-12.87) SECONDS INR (0.8-3.0) APTT (24.1-36.1) SECONDS D-Dimer (215-500) ng/mL Sodium (137-145) mmol/L Potassium (3.5-5.1) mmol/L Chloride (98-107) mmol/L Carbon Dioxide (22-30) mmol/L Anion Gap (5-15) MEQ/L BUN (9-20) mg/dL Creatinine (0.66-1.25) mg/dL Estimated GFR ML/MIN Glucose (74-106) mg/dL Lactic Acid (0.4-2.0) Calcium (8.4-10.2) mg/dL Magnesium (1.6-2.3) mg/dL Total Bilirubin (0.2-1.3) mg/dL AST (17-59) U/L ALT (0-50) U/L Alkaline Phosphatase (38-126) U/L Troponin I (0.000-0.034) ng/mL NT-Pro-B Natriuret Pep (0-900) pg/mL Serum Total Protein (6.3-8.2) g/dL Albumin (3.5-5.0) g/dL Urine Color (YELLOW) Urine Appearance (CLEAR) Urine pH (5-6) Ur Specific [place] (1.005-1.025) Urine Protein (Negative) Urine Ketones (NEGATIVE) Urine Blood (0-5) Marc/ul Urine Nitrite (NEGATIVE) Urine Bilirubin (NEGATIVE) Urine Urobilinogen (0-1) mg/dL Ur Leukocyte Esterase (NEGATIVE) Urine WBC (Auto) (0-5) /HPF Urine RBC (Auto) (0-2) /HPF U Hyaline Cast (Auto) (0-2) /LPF U Epithel Cells (Auto) (FEW) /HPF Urine Bacteria (Auto) (NEGATIVE) /HPF Urine Culture Reflexed (NO) Urine Glucose (NEGATIVE) mg/dL Influenza Type A Ag (NEGATIVE) Influenza Type B Ag (NEGATIVE) RSV (PCR) (Negative) - Progress Progress: improved Air Movement: fair Blood Culture(s) Obtained: Yes Antibiotics given: Yes Discussed with DrMichael: [place], Other (Dr Barlow) - Departure Departure Disposition: Observation Clinical Impression: COPD exacerbation, COVID-19 Condition: Fair Critical Care Time: No Referrals: BEATRIZ ALMENDAREZ [Primary Care Provider] - Instructions: Chronic Obstructive Pulmonary Disease, Exacerbation of COPD (DC)
[2020-03-31] MEDS ORDERED: Merrem 1 GM IV ONE (05:21)
[2020-03-31] MEDS ORDERED: Sodium Chloride 100ML MINI-BAG PLUS 100 ML IV ONE (05:23)
[2020-03-31] MEDS: Merrem 1 GM 1 G in Sodium Chloride 100ML MINI-BAG PLUS 100 ML IV SCH ×3 (06:34→22:33)
[2020-03-31] MEDS: PROVENTIL 2.5 MG/3 ML NEB IH SCH ×3 (07:57→19:48)
[2020-03-31] MEDS: ADVAIR 250-50 DISKUS 14 DOSE IH SCH ×2 (07:58→19:48)
--- NOTE | 2020-03-31 08:04 | XRAY ---
Indication: Short of breath. Comparison: January 26, 2020. Portable chest unchanged again demonstrating normal heart and lungs with incidental calcified granulomas and left pacemaker. Bony thorax intact. No new/acute findings.
[2020-03-31] MEDS: Zithromax 500 MG/ 250 ML NaCl Premix 500 MG/250 ML IVPB IV SCH (10:16)
[2020-03-31] MEDS ORDERED: TYLENOL EXTRA STRENGTH 500 MG PO PRN (12:16)
[2020-03-31] MEDS: HUMALOG SQ PRN ×3 (12:48→22:34)
[2020-03-31] MEDS: Spiriva 18 Mcg/Cap Inhaler IH SCH (13:08)
[2020-03-31] MEDS ORDERED: PEG OP PRN (13:34)
[2020-03-31] MEDS ORDERED: PROPYLENE GLYCOL OP PRN (13:34)
[2020-03-31] MEDS ORDERED: Artificial Tears 15 ML OP PRN (13:45)
[2020-03-31] MEDS: Flonase NASAL NS SCH (14:16)
[2020-03-31] MEDS: CLARITIN 10 MG PO SCH (14:17)
[2020-03-31] MEDS: COREG 12.5 MG PO SCH ×2 (14:17→22:33)
[2020-03-31] MEDS: Klor Con 10 MEQ PO SCH (14:17)
[2020-03-31] MEDS: MELOXICAM PO SCH (14:18)
[2020-03-31] MEDS: LASIX 20 MG PO SCH (14:18)
[2020-03-31] MEDS: Protonix 40MG Tablet PO SCH (14:18)
[2020-03-31] MEDS: Sodium Chloride 0.9% 10 ML FLUSH Syringe IV SCH ×2 (14:20→22:33)
[2020-03-31] MEDS: Zestril 5 MG PO SCH (14:21)
[2020-03-31] MEDS: XARELTO 10 MG TABLET PO SCH (14:21)
[2020-03-31] MEDS: ULTRAM 50 MG PO SCH ×2 (14:21→22:33)
[2020-03-31] MEDS: Glucophage 500 MG PO SCH (17:11)
[2020-03-31] MEDS ORDERED: REQUIP 2MG TAB PO SCH ×2 (22:00)
[2020-04-01] MEDS ORDERED: OCEAN Nasal Spray NS PRN (00:28)
[2020-04-01 05:56] LABS: Hematocrit 38.8 % (42-50); Hemoglobin 12.6 gm/dl (12.5-18.0); Mean Cell Volume 93.9 fl (78-100); Mean Corpuscular Hemoglobin 30.5 pg (26-32); Mean Corpuscular Hgb Concent. 32.5 g/dl (32-36); Mean Platelet Volume 10.7 fl (7.5-11.0); Platelet Count 165 K/mm3 (150-450); Red Blood Count 4.13 M/mm3 (4.1-5.6); Red Cell Distribution Width 13.2 % (11.5-14.0); White Blood Count 11.5 K/mm3 (4.0-10.5)
[2020-04-01 06:14] LABS: ALBUMIN 3.4 g/dL (3.5-5.0); ALKALINE PHOSPHATASE 62 U/L (38-126); ANION GAP 12.5 MEQ/L (5-15); BLOOD UREA NITROGEN 17 mg/dL (9-20); CHLORIDE 101 mmol/L (98-107); Calcium 8.4 mg/dL (8.4-10.2); Carbon Dioxide 26 mmol/L (22-30); Creatinine 1 0.92 mg/dL (0.66-1.25); Glucose 142 mg/dL (74-106); NT PRO BNP 2300 pg/mL (0-900); Potassium 4.4 mmol/L (3.5-5.1); SGOT/AST 14 U/L (17-59); SGPT/ALT 14 U/L (0-50); SODIUM 135 mmol/L (137-145); Total Protein 6.2 g/dL (6.3-8.2)
[2020-04-01] MEDS: Merrem 1 GM 1 G in Sodium Chloride 100ML MINI-BAG PLUS 100 ML IV SCH (06:30)
[2020-04-01] MEDS: Sodium Chloride 0.9% 10 ML FLUSH Syringe IV SCH (06:30)
[2020-04-01] MEDS ORDERED: VENTOLIN COMMON CANISTER IH SCH (07:00)
[2020-04-01] MEDS: Glucophage 500 MG PO SCH (07:38)
[2020-04-01] MEDS: ADVAIR 250-50 DISKUS 14 DOSE IH SCH (07:45)
[2020-04-01 07:50] VITALS: BP 115/73
[2020-04-01] MEDS ORDERED: REQUIP 2MG TAB PO SCH (08:00)
[2020-04-01] MEDS: XARELTO 10 MG TABLET PO SCH (09:29)
[2020-04-01] MEDS: Zithromax 500 MG/ 250 ML NaCl Premix 500 MG/250 ML IVPB IV SCH (09:29)
[2020-04-01] MEDS: Spiriva 18 Mcg/Cap Inhaler IH SCH (09:29)
[2020-04-01] MEDS: Zestril 5 MG PO SCH (09:30)
[2020-04-01] MEDS: Klor Con 10 MEQ PO SCH (09:30)
[2020-04-01] MEDS: CLARITIN 10 MG PO SCH (09:30)
[2020-04-01] MEDS: ULTRAM 50 MG PO SCH (09:30)
[2020-04-01] MEDS: Protonix 40MG Tablet PO SCH (09:30)
[2020-04-01] MEDS: COREG 12.5 MG PO SCH (09:30)
[2020-04-01] MEDS: Flonase NASAL NS SCH (09:31)
[2020-04-01] MEDS: LASIX 20 MG PO SCH (09:31)
[2020-04-01] MEDS: MELOXICAM PO SCH (09:31)
[2020-04-01] MEDS ORDERED: NON-FORMULARY ITEM (Omeprazole 20 Mg [Prilosec 20 Mg] 20 MG) PO SCH (10:00)
[2020-04-01] MEDS ORDERED: NON-FORMULARY ITEM (Potassium Chloride [K-Dur] 20 MEQ) PO SCH (10:00)
[2020-04-01] MEDS ORDERED: NON-FORMULARY ITEM (Rivaroxaban [Xarelto] 20 MG) PO SCH (10:00)
[2020-04-01] MEDS ORDERED: LISINOPRIL 5 MG PO SCH (10:00)
[2020-04-01 10:16] VITALS: PULSE 83
[2020-04-01 12:04] VITALS: O2SAT 96
== END 2020-04-01 11:30 | disposition home or self-care (01) ==
LOC: ED 01:20 → INTOOBSV 04:54 → MED SURG 04:54
PROVIDERS: ADMIT Family Medicine; ATTEND Family Medicine
DX: J44.1 Chronic obstructive pulmonary disease with (acute) exacerbation (principal); I10 Essential (primary) hypertension; E11.9 Type 2 diabetes mellitus without complications; E78.00 Pure hypercholesterolemia, unspecified; Z86.79 Personal history of other diseases of the circulatory system; I25.2 Old myocardial infarction; Z79.899 Other long term (current) drug therapy
CPT/HCPCS: 36000; 36415; 71045; 80053; 81001; 82962; 83605; 83735; 83880; 84484; 85025; 85027; 85379; 85610; 85730; 87070; 87077; 87631; 93005; 93041; 93268; 94640; 94762; 96360; 96361; 96374; 99284; G0378; U0003; J0456; J1817; J2930; J7609; A9270-GY

== ENCOUNTER 2020-09-26 09:41 | Emergency (ER) | payer MEDICARE ==
[2020-09-26] MEDS ORDERED: Sodium Chloride 0.9% 1000 ML 1,000 ML IV STA (10:01)
[2020-09-26] MEDS ORDERED: Sodium Chloride 0.9% 1000 ML 1,000 ML ONE (10:19)
--- NOTE | 2020-09-26 10:27 | XRAY ---
Indication: Dyspnea. Comparison: March 31, 2020. Portable chest unchanged again demonstrating normal heart and lungs with incidental calcified granulomas and left dual-lead pacemaker. Bony thorax intact. No new/acute findings.
[2020-09-26 10:49] LABS: VBG BASE EXCESS 2.8 (-2.0-2.0); VBG CARBOXYHEMOGLOBIN 3.6 % T HGB (0.0-6.9); VBG HCO3- 28.5 meq/L (22-28); VBG HEMOGLOBIN 14.2; VBG O2 SATURATION 72.3 (95-100); VBG POTASSIUM 4.4 (3.5-5.1); VBG pH 7.39 (7.32-7.42)
[2020-09-26 11:03] LABS: Absolute Neutrophil Ct (ANC) 7.22 (1.4-6.9); BASOPHIL % 0.4 % (0.0-0.4); Basophil (Absolute #) 0.04 (0-0.4); Hemoglobin 13.3 gm/dl (12.5-18.0); Lymphocyte (Absolute #) 1.83 (1.0-4.6); Lymphocytes % 18.2 % (24.0-44.0); Mean Cell Volume 94.8 fl (78-100); Mean Corpuscular Hgb Concent. 31.7 g/dl (32-36); Mean Platelet Volume 10.7 fl (7.5-11.0); Monocyte (Absolute #) 0.84 (0.0-1.3); Monocytes % 8.4 % (0.0-12.0); Platelet Count 168 K/mm3 (150-450); Red Blood Count 4.43 M/mm3 (4.1-5.6); Red Cell Distribution Width 13.5 % (11.5-14.0)
[2020-09-26 11:06] LABS: INR 2.1 (0.8-3.0); PROTIME 23.9 SECONDS (8.83-12.87)
[2020-09-26 11:09] LABS: PTT 44.9 SECONDS (24.1-36.1)
[2020-09-26 11:12] LABS: Appearance CLEAR (CLEAR); Bilirubin NEGATIVE (NEGATIVE); Blood NEGATIVE Ery/ul (0-5); Glucose NEGATIVE (NEGATIVE); Hyaline Casts 0-2 /LPF (0-2); Ketones NEGATIVE (NEGATIVE); Leukocyte Esterase NEGATIVE (NEGATIVE); Mucus SLIGHT /HPF (NEGATIVE); Nitrite NEGATIVE (NEGATIVE); Protein,Urine Dip NEGATIVE (Negative); Specific Gravity 1.005 (1.005-1.025); Urobilinogen NEGATIVE mg/dL (0-1)
[2020-09-26 11:14] LABS: Bacteria FEW /HPF (NEGATIVE); Epithelial Cells FEW /HPF (FEW); RBC 0-2 /HPF (0-2); WBC 0-2 /HPF (0-5)
[2020-09-26 11:21] LABS: ALBUMIN 3.6 g/dL (3.5-5.0); ALKALINE PHOSPHATASE 72 U/L (38-126); ANION GAP 9.7 MEQ/L (5-15); BLOOD UREA NITROGEN 18 mg/dL (9-20); CHLORIDE 101 mmol/L (98-107); Calcium 8.6 mg/dL (8.4-10.2); Carbon Dioxide 28 mmol/L (22-30); Creatinine 1 0.96 mg/dL (0.66-1.25); EST GLOMERULAR FILTRATION RATE > 60.0 ML/MIN; Glucose 114 mg/dL (74-106); MAGNESIUM 1.8 mg/dL (1.6-2.3); NT PRO BNP 574 pg/mL (0-900); Potassium 4.8 mmol/L (3.5-5.1); SGOT/AST 15 U/L (17-59); SGPT/ALT 13 U/L (0-50); SODIUM 134 mmol/L (137-145); Total Protein 6.5 g/dL (6.3-8.2)
--- NOTE | 2020-09-26 11:23 | ERPHSYRPT ---
- History of Present Illness Time Seen by Provider: 09/26/20 10:25 Source: patient Exam Limitations: no limitations Patient Subjective Stated Complaint: pt here for increase sob for last 3 days with a cough, no fever, Triage Nursing Assessment: pt arrvied per wc, resp labored with excertion, skin w/d/p, has face mask in place, moves all ext well, cap refill 3 seconds Physician History: Patient has had three days of cough with increased sputum production with mild shortness of breath Timing/Duration: day(s) (three) Activities at Onset: none Severity of Dyspnea-Max: mild Severity of Dyspnea-Current: mild Possible Cause: occasional episodes Modifying Factors: Worsens With: activity, coughing Associated Symptoms: intermittent, cough, wheezing, productive cough, No anxiety, No chest pain/discomfort, No fever, No loss of appetite, No lightheadedness, No weakness, No ankle swelling, No chills, No dizziness, No heart racing, No lightheadedness, No leg swelling, No muscle spasms hands, No painful breathing, No sweating Allergies/Adverse Reactions: Penicillins Allergy (Intermediate, Verified 09/26/20 10:10) RASH milk Allergy (Mild, Verified 09/26/20 10:10) hornet venom Allergy (Verified 09/26/20 10:10) ipratropium Adverse Reaction (Intermediate, Verified 09/26/20 10:10) Vomiting Home Medications: Furosemide 20 mg [Lasix 20 mg] 20 mg PO DAILY 06/19/13 [History] Omeprazole 20 MG [Prilosec 20 mg] 20 mg PO DAILY 06/19/13 [History] Tramadol HCl 50 mg [Ultram 50 mg] 50 mg PO TID 06/19/13 [History] lisinopriL [Zestril] 5 mg PO DAILY 06/19/13 [History] Cholecalciferol (Vitamin D3) [Vitamin D] 1,000 unit PO DAILY 10/31/17 [History] Fluticasone/Salmeterol [Advair 250-50 Diskus] 1 each IH BID 10/31/17 [History] Carvedilol 12.5 mg [Coreg 12.5 mg] 25 mg PO BID 08/22/19 [History] Potassium Chloride [K-Dur] 20 meq PO DAILY 08/22/19 [History] Propylene Glycol/Peg 400 [Systane 0.3-0.4% Eye Drops] 1 drop OP QIDPRN PRN 08/22/19 [History] Meloxicam 15 mg PO DAILY 01/26/20 [History] Ropinirole 2Mg [Requip 2Mg Tab] 6 mg PO HS 01/26/20 [History] Albuterol 2.5 mg/3 ml Neb [Proventil 2.5 mg/3 ml Neb] 2.5 mg IH UD 03/31/20 [History] Fluticasone Propionate [Flonase NASAL] 2 puff NS DAILY 03/31/20 [History] Ipratropium/Albuterol Sulfate [Iprat-Albut 0.5-3(2.5) mg/3 ml] 3 ml IH Q6H 03/31/20 [History] Loratadine 10 mg [Claritin 10 mg] 10 mg PO DAILY 03/31/20 [History] Metformin HCl 500 mg [Glucophage 500 MG] 500 mg PO BIDWM 03/31/20 [History] Rivaroxaban [Xarelto] 20 mg PO DAILY 03/31/20 [History] Ropinirole 2Mg [Requip 2Mg Tab] 2 mg PO BIDWM 03/31/20 [History] Hx Tetanus, Diphtheria Vaccination/Date Given: No Hx Influenza Vaccination/Date Given: No Hx Pneumococcal Vaccination/Date Given: No Immunizations Up to Date: Yes Travel Risk - International Travel Have you traveled outside of the country in past 3 weeks: No - Coronavirus Screening Are you exhibiting any of the following symptoms?: Yes Symptoms: Shortness of Breath Close contact with a COVID-19 positive Pt in past 14-21 Days: No - Review of Systems Constitutional: No Fever, No Chills Eyes: No Discharge, No Eye Pain Ears, Nose, & Throat: No Symptoms, No Nose Congestion, No Sinus Drainage, No Throat Pain Respiratory: Cough, Dyspnea, No Dyspnea on Exertion ([place]ER[place]) Cardiac: No Chest Pain, No Edema, No Syncope Abdominal/Gastrointestinal: No Abdominal Pain, No Nausea, No Vomiting, No Diarrhea Genitourinary Symptoms: No Dysuria, No Hematuria, No Flank Pain Musculoskeletal: No Back Pain, No Neck Pain Skin: No Rash Neurological: No Dizziness, No Focal Weakness, No Sensory Changes Psychological: No Anxiety Endocrine: No Symptoms Hematologic/Lymphatic: No Easy Bleeding All Other Systems: Reviewed and Negative - Past Medical History Pertinent Past Medical History: Yes Neurological History: Other ENT History: No Pertinent History Cardiac History: Arrhythmia, Coronary Artery Disease, High Cholesterol, Hypertension, Myocardial Infarction ([place]) Respiratory History: COPD Endocrine Medical History: Diabetes Type II Musculoskeletal History: Arthritis, Rheumatoid Arthritis GI Medical History: No Pertinent History History: No Pertinent History Psycho-Social History: No Pertinent History Male Reproductive Disorders: No Pertinent History Other Medical History: PACEMAKER - Past Surgical History Past Surgical History: Yes Neuro Surgical History: No Pertinent History Cardiac: Internal Defibrillator, Pacemaker Respiratory: No Pertinent History Gastrointestinal: Appendectomy Genitourinary: No Pertinent History Musculoskeletal: Orthopedic Surgery Male Surgical History: No Pertinent History Other Surgical History: BACK SURG - Social History Smoking Status: Former smoker Exposure to second hand smoke: No Drug Use: none Patient Lives Alone: No - Nursing Vital Signs Nursing Vital Signs: Initial Vital Signs Temperature 98.2 F 09/26/20 10:02 Pulse Rate 64 09/26/20 10:02 Respiratory Rate 28 H 09/26/20 10:02 Blood Pressure 121/67 09/26/20 10:02 O2 Sat by Pulse Oximetry 96 09/26/20 10:02 Pain Scale Pain Intensity 0 - Physical Exam General Appearance: no apparent distress, alert Eye Exam: PERRL/EOMI Ears, Nose, Throat Exam: normal pharynx, No abnormal TM (R), No abnormal TM (L), No sinus pain/drainage, No nasal congestion, No pharyngeal erythema Neck Exam: normal inspection, non-tender, supple, full range of motion, No meningismus, No JVD, No lymphadenopathy (R), No lymphadenopathy (L), No t enderness lateral, No tenderness midline Cardiovascular/Chest Exam: normal heart sounds, regular rate/rhythm Abdominal/Gastrointestinal Exam: soft, normal bowel sounds, No tenderness, No distention, No mass, No guarding, No rebound Extremity Exam: non-tender, normal range of motion, normal inspection, no calf tenderness, no pedal edema Neurologic Exam: alert, oriented x 3, cooperative, legal coordinator II-XII nml as tested, sensation nml, No motor deficits Skin Exam: normal color, warm, No dry, No rash, No petechiae, No jaundice SpO2 Interpretation: normal SpO2: 97 O2 Delivery: Room Air - Course Nursing assessment & vital signs reviewed: Yes EKG Interpreted by Me: RATE (71), Other (Paced rhythm with occasional PVC appreciable change in comparison to EKG from 08/22/2019) - Radiology Exams Chest X-ray Interpretation: Interpreted by me, Reviewed by me, Other (Per radiologist interpretation, in comparison to chest x-ray from 03/31/2020, portable chest unchanged again demonstrating normal heart and lungs with incidental calcified granulomas and left dual-lead pacemaker. Bony thorax intact. No new/acute findings) Ordered Tests: Active Orders 24 hr Category Date Time Status EKG-ER Only STAT Care 09/26/20 10:15 Active Pulse Oximetry (ED) STAT Care 09/26/20 10:01 Active CHEST 1 VIEW (PORTABLE) Stat Exams 09/26/20 10:02 Completed BLOOD CULTURE Stat Lab 09/26/20 10:43 Received BNP [NT PRO BNP] Stat Lab 09/26/20 10:40 Completed CBC W DIFF Stat Lab 09/26/20 10:01 Completed CMP Stat Lab 09/26/20 10:40 Completed INFLUENZA A+B HAFSA Stat Lab 09/26/20 10:45 Received Lactic Acid Stat Lab 09/26/20 10:45 Completed MAGNESIUM Stat Lab 09/26/20 10:40 Completed MAGNESIUM Stat Lab 09/26/20 10:40 Completed NT PRO BNP Stat Lab 09/26/20 10:40 Completed PROTIME WITH INR Stat Lab 09/26/20 10:40 Completed PTT Stat Lab 09/26/20 10:40 Completed TROPONIN Q3H Lab 09/26/20 10:40 Completed TROPONIN Q3H Lab 09/26/20 13:15 Ordered TROPONIN Q3H Lab 09/26/20 16:15 Ordered TROPONIN Q3H Lab 09/26/20 19:15 Ordered TROPONIN Q3H Lab 09/26/20 22:15 Ordered UA W/RFX UR CULTURE Stat Lab 09/26/20 10:12 Completed VENOUS BLOOD GAS Stat Lab 09/26/20 10:45 Completed Medication Summary Discontinued Medications Generic Name Dose Route Start Last Admin Trade Name Freq PRN Reason Stop Dose Admin Sodium Chloride 1,000 mls @ 999 mls/hr 09/26/20 10:01 09/26/20 11:39 Sodium Chloride 0.9% 1000 Ml IV 09/26/20 11:01 Infused .Q1H1M STA Infusion Sodium Chloride Confirm 09/26/20 10:19 Sodium Chloride 0.9% 1000 Ml Administered 09/26/20 10:20 Dose 1,000 mls @ ud .ROUTE .STK-MED ONE Lab/Rad Data: Laboratory Result Diagrams 09/26/20 10:01 09/26/20 10:40 Laboratory Results 09/26/20 09/26/20 09/26/20 Range/Units 10:45 10:45 10:40 WBC (4.0-10.5) K/mm3 RBC (4.1-5.6) M/mm3 Hgb (12.5-18.0) gm/dl Hct (42-50) % MCV (78-100) fl MCH (26-32) pg MCHC (32-36) g/dl RDW (11.5-14.0) % Plt Count (150-450) K/mm3 MPV (7.5-11.0) fl Gran % (36.0-66.0) % Eos # (Auto) (0-0.5) Absolute Lymphs (auto) (1.0-4.6) Absolute Monos (auto) (0.0-1.3) Lymphocytes % (24.0-44.0) % Monocytes % (0.0-12.0) % Eosinophils % (0.00-5.0) % Basophils % (0.0-0.4) % Absolute Granulocytes (1.4-6.9) Basophils # (0-0.4) PT (8.83-12.87) SECONDS INR (0.8-3.0) APTT (24.1-36.1) SECONDS pO2/FiO2 Ratio 21.0 % VBG pH 7.39 (7.32-7.42) VBG pCO2 at Pat Temp 47 (42-55) mm/Hg VBG pO2 at Pat Temp 41 H (25-40) mm/Hg VBG HCO3 28.5 H (22-28) meq/L VBG O2 Sat ([place]) 72.3 L (95-100) VBG Base Excess 2.8 H (-2.0-2.0) VBG Hemoglobin 14.2 VBG Carboxyhemoglobin 3.6 (0.0-6.9) % T HGB POC Potassium 4.4 (3.5-5.1) Sodium (137-145) mmol/L Potassium (3.5-5.1) mmol/L Chloride (98-107) mmol/L Carbon Dioxide (22-30) mmol/L Anion Gap (5-15) MEQ/L BUN (9-20) mg/dL Creatinine (0.66-1.25) mg/dL Estimated GFR ML/MIN Glucose (74-106) mg/dL Lactic Acid 1.0 (0.4-2.0) Calcium (8.4-10.2) mg/dL Magnesium (1.6-2.3) mg/dL Total Bilirubin (0.2-1.3) mg/dL AST (17-59) U/L ALT (0-50) U/L Alkaline Phosphatase (38-126) U/L Troponin I < 0.012 (0.000-0.034) ng/mL NT-Pro-B Natriuret Pep (0-900) pg/mL Serum Total Protein (6.3-8.2) g/dL Albumin (3.5-5.0) g/dL Urine Color (YELLOW) Urine Appearance (CLEAR) Urine pH (5-6) Ur Specific Coila (1.005-1.025) Urine Protein (Negative) Urine Ketones (NEGATIVE) Urine Blood (0-5) Marc/ul Urine Nitrite (NEGATIVE) Urine Bilirubin (NEGATIVE) Urine Urobilinogen (0-1) mg/dL Ur Leukocyte Esterase (NEGATIVE) Urine WBC (Auto) (0-5) /HPF Urine RBC (Auto) (0-2) /HPF U Hyaline Cast (Auto) (0-2) /LPF U Epithel Cells (Auto) (FEW) /HPF Urine Bacteria (Auto) (NEGATIVE) /HPF Urine Mucus (Auto) (NEGATIVE) /HPF Urine Culture Reflexed (NO) Urine Glucose (NEGATIVE) mg/dL 09/26/20 09/26/20 09/26/20 Range/Units 10:40 10:40 10:40 WBC (4.0-10.5) K/mm3 RBC (4.1-5.6) M/mm3 Hgb (12.5-18.0) gm/dl Hct (42-50) % MCV (78-100) fl MCH (26-32) pg MCHC (32-36) g/dl RDW (11.5-14.0) % Plt Count (150-450) K/mm3 MPV (7.5-11.0) fl Gran % (36.0-66.0) % Eos # (Auto) (0-0.5) Absolute Lymphs (auto) (1.0-4.6) Absolute Monos (auto) (0.0-1.3) Lymphocytes % (24.0-44.0) % Monocytes % (0.0-12.0) % Eosinophils % (0.00-5.0) % Basophils % (0.0-0.4) % Absolute Granulocytes (1.4-6.9) Basophils # (0-0.4) PT 23.9 H (8.83-12.87) SECONDS INR 2.10 (0.8-3.0) APTT 44.9 H (24.1-36.1) SECONDS pO2/FiO2 Ratio % VBG pH (7.32-7.42) VBG pCO2 at Pat Temp (42-55) mm/Hg VBG pO2 at Pat Temp (25-40) mm/Hg VBG HCO3 (22-28) meq/L VBG O2 Sat ([place]) (95-100) VBG Base Excess (-2.0-2.0) VBG Hemoglobin VBG Carboxyhemoglobin (0.0-6.9) % T HGB POC Potassium (3.5-5.1) Sodium (137-145) mmol/L Potassium (3.5-5.1) mmol/L Chloride (98-107) mmol/L Carbon Dioxide (22-30) mmol/L Anion Gap (5-15) MEQ/L BUN (9-20) mg/dL Creatinine (0.66-1.25) mg/dL Estimated GFR ML/MIN Glucose (74-106) mg/dL Lactic Acid (0.4-2.0) Calcium (8.4-10.2) mg/dL Magnesium 1.8 (1.6-2.3) mg/dL Total Bilirubin (0.2-1.3) mg/dL AST (17-59) U/L ALT (0-50) U/L Alkaline Phosphatase (38-126) U/L Troponin I (0.000-0.034) ng/mL NT-Pro-B Natriuret Pep 582 (0-900) pg/mL Serum Total Protein (6.3-8.2) g/dL Albumin (3.5-5.0) g/dL Urine Color (YELLOW) Urine Appearance (CLEAR) Urine pH (5-6) Ur Specific [place] (1.005-1.025) Urine Protein (Negative) Urine Ketones (NEGATIVE) Urine Blood (0-5) Marc/ul Urine Nitrite (NEGATIVE) Urine Bilirubin (NEGATIVE) Urine Urobilinogen (0-1) mg/dL Ur Leukocyte Esterase (NEGATIVE) Urine WBC (Auto) (0-5) /HPF Urine RBC (Auto) (0-2) /HPF U Hyaline Cast (Auto) (0-2) /LPF U Epithel Cells (Auto) (FEW) /HPF Urine Bacteria (Auto) (NEGATIVE) /HPF Urine Mucus (Auto) (NEGATIVE) /HPF Urine Culture Reflexed (NO) Urine Glucose (NEGATIVE) mg/dL 09/26/20 09/26/20 09/26/20 Range/Units 10:40 10:12 10:01 WBC 10.0 (4.0-10.5) K/mm3 RBC 4.43 (4.1-5.6) M/mm3 Hgb 13.3 (12.5-18.0) gm/dl Hct 42.0 (42-50) % MCV 94.8 (78-100) fl MCH 30.0 (26-32) pg MCHC 31.7 L (32-36) g/dl RDW 13.5 (11.5-14.0) % Plt Count 168 (150-450) K/mm3 MPV 10.7 (7.5-11.0) fl Gran % 72.0 H (36.0-66.0) % Eos # (Auto) 0.10 (0-0.5) Absolute Lymphs (auto) 1.83 (1.0-4.6) Absolute Monos (auto) 0.84 (0.0-1.3) Lymphocytes % 18.2 L (24.0-44.0) % Monocytes % 8.4 (0.0-12.0) % Eosinophils % 1.0 (0.00-5.0) % Basophils % 0.4 (0.0-0.4) % Absolute Granulocytes 7.22 H (1.4-6.9) Basophils # 0.04 (0-0.4) PT (8.83-12.87) SECONDS INR (0.8-3.0) APTT (24.1-36.1) SECONDS pO2/FiO2 Ratio % VBG pH (7.32-7.42) VBG pCO2 at Pat Temp (42-55) mm/Hg VBG pO2 at Pat Temp (25-40) mm/Hg VBG HCO3 (22-28) meq/L VBG O2 Sat ([place]) (95-100) VBG Base Excess (-2.0-2.0) VBG Hemoglobin VBG Carboxyhemoglobin (0.0-6.9) % T HGB POC Potassium (3.5-5.1) Sodium 134 L (137-145) mmol/L Potassium 4.8 (3.5-5.1) mmol/L Chloride 101 (98-107) mmol/L Carbon Dioxide 28 (22-30) mmol/L Anion Gap 9.7 (5-15) MEQ/L BUN 18 (9-20) mg/dL Creatinine 0.96 (0.66-1.25) mg/dL Estimated GFR > 60.0 ML/MIN Glucose 114 H (74-106) mg/dL Lactic Acid (0.4-2.0) Calcium 8.6 (8.4-10.2) mg/dL Magnesium 1.8 (1.6-2.3) mg/dL Total Bilirubin 0.50 (0.2-1.3) mg/dL AST 15 L (17-59) U/L ALT 13 (0-50) U/L Alkaline Phosphatase 72 (38-126) U/L Troponin I (0.000-0.034) ng/mL NT-Pro-B Natriuret Pep 574 (0-900) pg/mL Serum Total Protein 6.5 (6.3-8.2) g/dL Albumin 3.6 (3.5-5.0) g/dL Urine Color STRAW (YELLOW) Urine Appearance CLEAR (CLEAR) Urine pH 5.0 (5-6) Ur Specific [place] 1.005 (1.005-1.025) Urine Protein NEGATIVE (Negative) Urine Ketones NEGATIVE (NEGATIVE) Urine Blood NEGATIVE (0-5) Marc/ul Urine Nitrite NEGATIVE (NEGATIVE) Urine Bilirubin NEGATIVE (NEGATIVE) Urine Urobilinogen NEGATIVE (0-1) mg/dL Ur Leukocyte Esterase NEGATIVE (NEGATIVE) Urine WBC (Auto) 0-2 (0-5) /HPF Urine RBC (Auto) 0-2 (0-2) /HPF U Hyaline Cast (Auto) 0-2 (0-2) /LPF U Epithel Cells (Auto) FEW (FEW) /HPF Urine Bacteria (Auto) FEW (NEGATIVE) /HPF Urine Mucus (Auto) SLIGHT (NEGATIVE) /HPF Urine Culture Reflexed NO (NO) Urine Glucose NEGATIVE (NEGATIVE) mg/dL - Progress Progress: re-examined Air Movement: fair Progress Note: 09/26/20 11:47 Patient has no tachypnea, no hypoxia, no accessory muscle use and appears to be in no type of distress and does not require inpatient mission for further monitoring, treatment or any other further evaluation required here in the emergency department this time 09/26/20 12:00 Patient came in with increasing sputum production and mild shortness of breath as he has a history of COPD. Patient's work-up did not show any significant abnormalities as he had a paced rhythm on his EKG chest x-ray was negative and his lab work did not show any acute changes but his troponin was negative and h is proBNP was in a very manageable range with negative chest x-ray and no signs of failure on his examination. Patient did not require any oxygen support or any breathing treatments here in the emergency department as he maintained his oxygenation throughout his time in the emergency department and maintained in a paced rhythm and had a normal venous blood gas here in the emergency department. Patient be sent home with dami mcdonnell to every 4 hours, a short 3-day burst of prednisone as well as doxycycline for 1 week as he probably has a mild exacerbation of his COPD to go along with his medications he already takes. I reviewed with patient the importance of follow-up as we did do a nasopharyngeal swab for SARS-CoV-2, but the result is not back at the time of disposition. I reviewed in detail with the patient with signs and symptoms to return back to the emergency department as he does not meet criteria for inpatient admission at this time as he did not require any supportive measures or further treatments with his negative evaluation at this time Blood Culture(s) Obtained: No Antibiotics given: No Counseled pt/family regarding: lab results, diagnosis, need for follow-up, rad results - Departure Departure Disposition: Home Clinical Impression: COPD with exacerbation Hypertension Qualifiers: Hypertension type: essential hypertension Qualified Code(s): I10 - Essential (primary) hypertension Clinical Impression: (Ruled Out): CKD (chronic kidney disease) stage 3, GFR 30-59 ml/min Condition: Stable Critical Care Time: No Referrals: BEATRIZ ALMENDAREZ [Primary Care Provider] - Follow Up with PCP/3 days Instructions: High Blood Pressure (DC), Shortness of Breath (Dyspnea) (DC), Exacerbation of COPD (DC) Additional Instructions: Return immediately back to the emergency room if you have any worsening shortness of breath, new fever, new productive cough, new coughing up blood, new chest pain, new back pain, new abdominal pain, new blood in the stool, new blood in the urine, controlled with diarrhea or any other concerning signs or symptoms that were not present at today's emergency room visit for immediate reevaluation in the emergency department Prescriptions: Albuterol/Ipratropium 3ml Neb* [DUONEB 0.5-3 MG/3 ml Neb] 3 ml NEBULIZE Q4H PRN PRN #1 box PRN Reason: Wheezing/Chest Congestion Prednisone 20 mg [Deltasone 20 mg] 60 mg PO DAILY PRN #9 tablet PRN Reason: Sore Throat Relief Doxycycline Hyclate 100 mg [Vibramycin 100 MG] 100 mg PO BID #14 tab
[2020-09-26 11:47] VITALS: O2SAT 97
[2020-09-26 12:16] VITALS: BP 128/73; PULSE 80
[2020-09-26 12:46] LABS: INFLUENZA A NEGATIVE (NEGATIVE); INFLUENZA B NEGATIVE (NEGATIVE)
== END 2020-09-26 12:13 | disposition home or self-care (01) ==
LOC: ED 09:41
DX: I10 Essential (primary) hypertension (principal); N18.30 Chronic kidney disease, stage 3 unspecified; J44.1 Chronic obstructive pulmonary disease with (acute) exacerbation; R05 Cough; I25.10 Atherosclerotic heart disease of native coronary artery without angina pectoris; R06.02 Shortness of breath; E78.00 Pure hypercholesterolemia, unspecified; I25.2 Old myocardial infarction; E11.9 Type 2 diabetes mellitus without complications; Z20.828 Contact with and (suspected) exposure to other viral communicable diseases; Z79.899 Other long term (current) drug therapy
CPT/HCPCS: 36415; 71045; 80053; 81001; 82805; 83605; 83735; 83880; 84484; 85025; 85610; 85730; 87040; 87400; 93005; 93041; 94760; 96360; 99284; 99291; U0003

== ENCOUNTER → 2021-01-21 | Day surgery (SDC) | payer MEDICARE ==
[2013-06-19 17:17] VITALS: BP 131/87
== END ==
LOC: SDC 14:00
PROVIDERS: ATTEND Surgery
DX: Z53.8 Procedure and treatment not carried out for other reasons (principal)

== ENCOUNTER 2021-06-22 00:20 | Emergency (ER) | payer MEDICARE, OTHER ==
--- NOTE | 2021-06-22 00:46 | ERPHSYRPT ---
- History of Present Illness Time Seen by Provider: 06/22/21 00:41 Source: patient Exam Limitations: no limitations Physician History: pt relates that he has had nausea and vomiting dry heaves last few days, and even had brief CP today and has PMHx for defib implant and decreased EF following with Farhat Maldonado. No CP now. abd is questionable tenderness - se will check CT - has Diarrhea also and on blood thinner for heart. Timing/Duration: day(s) Severity: moderate Modifying Factors: Improves With: nothing Associated Symptoms: nausea, vomiting, abdominal pain, chest pain, malaise Allergies/Adverse Reactions: Penicillins Allergy (Intermediate, Verified 06/22/21 00:32) RASH milk Allergy (Mild, Verified 06/22/21 00:32) hornet venom Allergy (Verified 06/22/21 00:32) ipratropium Adverse Reaction (Intermediate, Verified 06/22/21 00:32) Vomiting Home Medications: Furosemide 20 mg [Lasix 20 mg] 20 mg PO DAILY 06/19/13 [History] Omeprazole 20 MG [Prilosec 20 mg] 20 mg PO DAILY 06/19/13 [History] lisinopriL [Zestril] 5 mg PO DAILY 06/19/13 [History] Cholecalciferol (Vitamin D3) [Vitamin D] 1,000 unit PO TID 10/31/17 [History] Fluticasone/Salmeterol [Advair 250-50 Diskus] 1 each IH BID 10/31/17 [History] Carvedilol 12.5 mg [Coreg 12.5 mg] 6.25 mg PO BID 08/22/19 [History] Potassium Chloride [K-Dur] 20 meq PO DAILY 08/22/19 [History] Meloxicam 15 mg PO DAILY 01/26/20 [History] Ropinirole 2Mg [Requip 2Mg Tab] 6 mg PO HS 01/26/20 [History] Fluticasone Propionate [Flonase NASAL] 2 puff NS BID 03/31/20 [History] Ipratropium/Albuterol Sulfate [Iprat-Albut 0.5-3(2.5) mg/3 ml] 3 ml IH Q6H 03/31/20 [History] Loratadine 10 mg [Claritin 10 mg] 10 mg PO DAILY 03/31/20 [History] Metformin HCl 500 mg [Glucophage 500 MG] 500 mg PO BIDWM 03/31/20 [History] Rivaroxaban [Xarelto] 20 mg PO DAILY 03/31/20 [History] Ropinirole 2Mg [Requip 2Mg Tab] 2 mg PO DAILY 03/31/20 [History] Albuterol/Ipratropium 3ml Neb* [DUONEB 0.5-3 MG/3 ml Neb] 3 ml NEBULIZE Q6HPRN PRN 01/10/21 [History] Hx Tetanus, Diphtheria Vaccination/Date Given: No Hx Influenza Vaccination/Date Given: No Hx Pneumococcal Vaccination/Date Given: No - Review of Systems Constitutional: Malaise, No Fever, No Chills Eyes: No Symptoms Ears, Nose, & Throat: No Symptoms Respiratory: No Cough, No Dyspnea Cardiac: Chest Pain, No Edema, No Syncope Abdominal/Gastrointestinal: Abdominal Pain, Nausea, Vomiting, No Diarrhea Genitourinary Symptoms: No Dysuria Musculoskeletal: No Back Pain, No Neck Pain Skin: No Symptoms, No Rash Neurological: No Dizziness, No Focal Weakness, No Sensory Changes Psychological: No Symptoms Endocrine: No Symptoms Hematologic/Lymphatic: No Symptoms Immunological/Allergic: No Symptoms All Other Systems: Reviewed and Negative - Past Medical History Pertinent Past Medical History: Yes Neurological History: Other ENT History: No Pertinent History Cardiac History: Arrhythmia, Coronary Artery Disease, High Cholesterol, Hypertension, Myocardial Infarction ([place]) Respiratory History: COPD Endocrine Medical History: Diabetes Type II, Liver Disease Musculoskeletal History: Arthritis, Rheumatoid Arthritis GI Medical History: No Pertinent History History: Other Psycho-Social History: No Pertinent History Male Reproductive Disorders: No Pertinent History Other Medical History: PACEMAKER - Past Surgical History Past Surgical History: Yes Neuro Surgical History: No Pertinent History Cardiac: Internal Defibrillator, Pacemaker Respiratory: No Pertinent History Gastrointestinal: Appendectomy Genitourinary: No Pertinent History Musculoskeletal: Orthopedic Surgery Male Surgical History: No Pertinent History Other Surgical History: BACK SURG - Social History Smoking Status: Former smoker Exposure to second hand smoke: No Drug Use: none Patient Lives Alone: No - Nursing Vital Signs Nursing Vital Signs: Initial Vital Signs Temperature 97.9 F 08/15/21 00:32 Pulse Rate 96 H 06/22/21 00:32 Respiratory Rate 24 06/22/21 00:32 Blood Pressure 123/67 06/22/21 00:32 O2 Sat by Pulse Oximetry 95 06/22/21 00:32 Pain Scale Pain Intensity 6 - Physical Exam General Appearance: no apparent distress, alert Eye Exam: PERRL/EOMI, eyes nml inspection Ears, Nose, Throat Exam: normal ENT inspection, TMs normal, pharynx normal, moist mucous membranes Neck Exam: normal inspection, non-tender, supple, full range of motion Respiratory Exam: normal breath sounds, lungs clear, airway intact, No respiratory distress Cardiovascular Exam: regular rate/rhythm, normal heart sounds, normal peripheral pulses Gastrointestinal/Abdomen Exam: soft, normal bowel sounds, tenderness, distention, guarding, No mass, No pulsatile mass, No rebound Rectal Exam: deferred Back Exam: normal inspection, normal range of motion, No CVA tenderness, No vertebral tenderness Extremity Exam: normal inspection, normal range of motion, pelvis stable Neurologic Exam: alert, oriented x 3, cooperative, normal mood/affect, nml cerebellar function, nml station & gait, sensation nml, No motor deficits Skin Exam: normal color, warm, dry, No rash Lymphatic Exam: No adenopathy - Course Nursing assessment & vital signs reviewed: Yes EKG Interpreted by Me: Sinus Rhythm, Non-specific ST Changes, Other (PVCs) - CT Exams Abdomen/Pelvis CT Interpretation: No appendicitis, Other (bilateral perinephric stranding but nontender and nl UA.) Ordered Tests: Active Orders 24 hr Category Date Time Status EKG-ER Only STAT Care 06/22/21 00:47 Active IV Insertion STAT Care 06/22/21 00:47 Active ABDOMEN AND PELVIS W/0 CONTRAS [CT] Stat Exams 06/22/21 00:48 Taken AMYLASE Stat Lab 06/22/21 01:00 Completed CBC W DIFF Stat Lab 06/22/21 01:00 Completed CMP Stat Lab 06/22/21 01:00 Completed LIPASE Stat Lab 06/22/21 01:00 Completed Lactic Acid Stat Lab 06/22/21 01:00 Completed Lactic Acid Stat Lab 06/22/21 03:10 Received TROPONIN Q3H Lab 06/22/21 01:00 Completed TROPONIN Q3H Lab 06/22/21 04:00 Completed TROPONIN Q3H Lab 06/22/21 07:00 Ordered TROPONIN Q3H Lab 06/22/21 10:00 Ordered TROPONIN Q3H Lab 06/22/21 13:00 Ordered UA W/RFX UR CULTURE Stat Lab 06/22/21 01:54 Completed Medication Summary Generic Name Dose Route Start Last Admin Trade Name Tyrone PRN Reason Stop Dose Admin Sodium Chloride 1,000 mls @ 100 mls/hr 06/22/21 01:00 06/22/21 01:12 Sodium Chloride 0.9% 1000 Ml IV 07/22/21 00:59 100 mls/hr .Q10H GINA Administration Discontinued Medications Generic Name Dose Route Start Last Admin Trade Name Freq PRN Reason Stop Dose Admin Famotidine 20 mg 06/22/21 00:47 06/22/21 01:11 Pepcid 20 Mg Vial IV 06/22/21 00:48 20 mg STAT ONE Administration Famotidine Confirm 06/22/21 01:09 Pepcid 20 Mg Vial Administered 06/22/21 01:10 Dose 20 mg IV .STK-MED ONE Ondansetron HCl 4 mg 06/22/21 00:47 06/22/21 01:11 Zofran 4 Mg/2 Ml Vial IV 06/22/21 00:48 4 mg STAT ONE Administration Ondansetron HCl Confirm 06/22/21 01:09 Zofran 4 Mg/2 Ml Vial Administered 06/22/21 01:10 Dose 4 mg .ROUTE .STK-MED ONE Pantoprazole Sodium 40 mg 06/22/21 00:47 06/22/21 01:11 Protonix 40 Mg Iv IV 06/22/21 00:48 40 mg STAT ONE Administration Pantoprazole Sodium Confirm 06/22/21 01:09 Protonix 40 Mg Iv Administered 06/22/21 01:10 Dose 40 mg IV .STK-MED ONE Lab/Rad Data: Laboratory Result Diagrams 06/22/21 01:00 06/22/21 01:00 Laboratory Results 06/22/21 06/22/21 06/22/21 Range/Units 04:00 01:54 01:00 WBC (4.0-10.5) K/mm3 RBC (4.1-5.6) M/mm3 Hgb (12.5-18.0) gm/dl Hct (42-50) % MCV (78-100) fl MCH (26-32) pg MCHC (32-36) g/dl RDW (11.5-14.0) % Plt Count (150-450) K/mm3 MPV (7.5-11.0) fl Gran % (36.0-66.0) % Eos # (Auto) (0-0.5) Absolute Lymphs (auto) (1.0-4.6) Absolute Monos (auto) (0.0-1.3) Lymphocytes % (24.0-44.0) % Monocytes % (0.0-12.0) % Eosinophils % (0.00-5.0) % Basophils % (0.0-0.4) % Absolute Granulocytes (1.4-6.9) Basophils # (0-0.4) Sodium (137-145) mmol/L Potassium (3.5-5.1) mmol/L Chloride (98-107) mmol/L Carbon Dioxide (22-30) mmol/L Anion Gap (5-15) MEQ/L BUN (9-20) mg/dL Creatinine (0.66-1.25) mg/dL Estimated GFR ML/MIN Glucose (74-106) mg/dL Lactic Acid (0.4-2.0) Calcium (8.4-10.2) mg/dL Total Bilirubin (0.2-1.3) mg/dL AST (17-59) U/L ALT (0-50) U/L Alkaline Phosphatase (38-126) U/L Troponin I 0.013 < 0.012 (0.000-0.034) ng/mL Serum Total Protein (6.3-8.2) g/dL Albumin (3.5-5.0) g/dL Amylase (30-110) U/L Lipase (23-300) U/L Urine Color YELLOW (YELLOW) Urine Appearance CLEAR (CLEAR) Urine pH 5.0 (5-6) Ur Specific [place] 1.025 (1.005-1.025) Urine Protein NEGATIVE (Negative) Urine Ketones NEGATIVE (NEGATIVE) Urine Blood NEGATIVE (0-5) Marc/ul Urine Nitrite NEGATIVE (NEGATIVE) Urine Bilirubin NEGATIVE (NEGATIVE) Urine Urobilinogen NEGATIVE (0-1) mg/dL Ur Leukocyte Esterase NEGATIVE (NEGATIVE) Urine WBC (Auto) 0-2 (0-5) /HPF Urine RBC (Auto) NONE (0-2) /HPF U Epithel Cells (Auto) NONE (FEW) /HPF Urine Bacteria (Auto) NONE (NEGATIVE) /HPF Urine Mucus (Auto) SLIGHT (NEGATIVE) /HPF Urine Culture Reflexed NO (NO) Urine Glucose NEGATIVE (NEGATIVE) mg/dL 06/22/21 06/22/21 06/22/21 Range/Units 01:00 01:00 01:00 WBC 4.9 (4.0-10.5) K/mm3 RBC 4.33 (4.1-5.6) M/mm3 Hgb 12.7 (12.5-18.0) gm/dl Hct 39.6 L (42-50) % MCV 91.5 (78-100) fl MCH 29.3 (26-32) pg MCHC 32.1 (32-36) g/dl RDW 13.7 (11.5-14.0) % Plt Count 176 (150-450) K/mm3 MPV 10.0 (7.5-11.0) fl Gran % 67.6 H (36.0-66.0) % Eos # (Auto) 0.09 (0-0.5) Absolute Lymphs (auto) 0.88 L (1.0-4.6) Absolute Monos (auto) 0.61 (0.0-1.3) Lymphocytes % 17.8 L (24.0-44.0) % Monocytes % 12.4 H (0.0-12.0) % Eosinophils % 1.8 (0.00-5.0) % Basophils % 0.4 (0.0-0.4) % Absolute Granulocytes 3.33 (1.4-6.9) Basophils # 0.02 (0-0.4) Sodium 129 L (137-145) mmol/L Potassium 4.0 (3.5-5.1) mmol/L Chloride 96 L (98-107) mmol/L Carbon Dioxide 23 (22-30) mmol/L Anion Gap 13.9 (5-15) MEQ/L BUN 15 (9-20) mg/dL Creatinine 1.08 (0.66-1.25) mg/dL Estimated GFR > 60.0 ML/MIN Glucose 146 H (74-106) mg/dL Lactic Acid 2.5 H (0.4-2.0) Calcium 8.9 (8.4-10.2) mg/dL Total Bilirubin 0.30 (0.2-1.3) mg/dL AST 26 (17-59) U/L ALT 23 (0-50) U/L Alkaline Phosphatase 89 (38-126) U/L Troponin I (0.000-0.034) ng/mL Serum Total Protein 6.1 L (6.3-8.2) g/dL Albumin 3.4 L (3.5-5.0) g/dL Amylase 54 (30-110) U/L Lipase 125 (23-300) U/L Urine Color (YELLOW) Urine Appearance (CLEAR) Urine pH (5-6) Ur Specific [place] (1.005-1.025) Urine Protein (Negative) Urine Ketones (NEGATIVE) Urine Blood (0-5) Marc/ul Urine Nitrite (NEGATIVE) Urine Bilirubin (NEGATIVE) Urine Urobilinogen (0-1) mg/dL Ur Leukocyte Esterase (NEGATIVE) Urine WBC (Auto) (0-5) /HPF Urine RBC (Auto) (0-2) /HPF U Epithel Cells (Auto) (FEW) /HPF Urine Bacteria (Auto) (NEGATIVE) /HPF Urine Mucus (Auto) (NEGATIVE) /HPF Urine Culture Reflexed (NO) Urine Glucose (NEGATIVE) mg/dL - Progress Progress: improved, re-examined Progress Note: 06/22/21 03:[address] read progress and found that there are delays tonight at the reading center. 06/22/21 05:14 discussed findings with pt and that undetected pathology abd, cardiac , vascular or other could be evolving undetected - some signs of lyte abnormalities, slight elevated lactate and others all require further workup - he prefers outpt f/u rather than further w/u in ER at this time and has the capacity to make this choice. now jed PO well - he states that his diarrhea actually has been chronic ever since GB out . Counseled pt/family regarding: lab results, diagnosis, need for follow-up, rad results - Departure Departure Disposition: Home Clinical Impression: vomiting, unknown cause, electrolyte abn Condition: Good Critical Care Time: No Referrals: MARGARITA KABA [Primary Care Provider] - Instructions: Nausea and Vomiting, Adult (DC), Hyponatremia (DC), Dehydration, Adult (DC) Additional Instructions: we have not determined a precise cause for your vomiting and since serious conditions could still be evolving, further workup with your is advised. You do have hyponatremia - low blood sodium , and some signs of dehydration which may be from the vomiting itself , but could be from your required CHF treatments and chronic for you. In the meantime return if you have any symptoms of concern, dizziness, shortness of breath ,chest or abdominal pain or other concerns.
[2021-06-22] MEDS ORDERED: PROTONIX 40 MG IV IV ONE ×2 (00:47→01:09)
[2021-06-22] MEDS ORDERED: Pepcid 20 MG VIAL IV ONE ×2 (00:47→01:09)
[2021-06-22] MEDS ORDERED: Zofran 4 MG/2 ML VIAL IV ONE (00:47)
[2021-06-22] MEDS ORDERED: Sodium Chloride 0.9% 1000 ML 1,000 ML IV SCH (01:00)
[2021-06-22] MEDS ORDERED: Zofran 4 MG/2 ML VIAL ONE (01:09)
[2021-06-22] MEDS ORDERED: Sodium Chloride 0.9% 1000 ML 1,000 ML ONE (01:09)
[2021-06-22 01:12] LABS: Absolute Neutrophil Ct (ANC) 3.33 (1.4-6.9); BASOPHIL % 0.4 % (0.0-0.4); Basophil (Absolute #) 0.02 (0-0.4); Eosinophil % 1.8 % (0.00-5.0); Eosinophil (Absolute #) 0.09 (0-0.5); Hematocrit 39.6 % (42-50); Hemoglobin 12.7 gm/dl (12.5-18.0); Lymphocyte (Absolute #) 0.88 (1.0-4.6); Lymphocytes % 17.8 % (24.0-44.0); Mean Cell Volume 91.5 fl (78-100); Mean Corpuscular Hemoglobin 29.3 pg (26-32); Mean Corpuscular Hgb Concent. 32.1 g/dl (32-36); Monocyte (Absolute #) 0.61 (0.0-1.3); Monocytes % 12.4 % (0.0-12.0); Neutrophil % 67.6 % (36.0-66.0); Platelet Count 176 K/mm3 (150-450); Red Blood Count 4.33 M/mm3 (4.1-5.6); Red Cell Distribution Width 13.7 % (11.5-14.0); White Blood Count 4.9 K/mm3 (4.0-10.5)
[2021-06-22 01:55] LABS: ALBUMIN 3.4 g/dL (3.5-5.0); ALKALINE PHOSPHATASE 89 U/L (38-126); AMYLASE 54 U/L (30-110); ANION GAP 13.9 MEQ/L (5-15); BLOOD UREA NITROGEN 15 mg/dL (9-20); CHLORIDE 96 mmol/L (98-107); Calcium 8.9 mg/dL (8.4-10.2); Carbon Dioxide 23 mmol/L (22-30); Creatinine 1 1.08 mg/dL (0.66-1.25); EST GLOMERULAR FILTRATION RATE > 60.0 ML/MIN; Glucose 146 mg/dL (74-106); LIPASE 125 U/L (23-300); SGOT/AST 26 U/L (17-59); SGPT/ALT 23 U/L (0-50); SODIUM 129 mmol/L (137-145); Total Protein 6.1 g/dL (6.3-8.2)
[2021-06-22 01:59] LABS: Appearance CLEAR (CLEAR); Bilirubin NEGATIVE (NEGATIVE); Blood NEGATIVE Ery/ul (0-5); Glucose NEGATIVE (NEGATIVE); Ketones NEGATIVE (NEGATIVE); Leukocyte Esterase NEGATIVE (NEGATIVE); Mucus SLIGHT /HPF (NEGATIVE); Nitrite NEGATIVE (NEGATIVE); Protein,Urine Dip NEGATIVE (Negative); Specific Gravity 1.025 (1.005-1.025); Urobilinogen NEGATIVE mg/dL (0-1); WBC 0-2 /HPF (0-5)
[2021-06-22 06:10] VITALS: BP 115/73; PULSE 88; O2SAT 97
--- NOTE | 2021-06-22 06:57 | XRAY ---
Indication: Abdomen pain, nausea, and vomiting. Multiple contiguous axial images obtained through the abdomen and pelvis without contrast. Comparison: None Lung bases demonstrates small right lower lobe calcified granuloma. No infiltrate or effusion. Heart is not enlarged with incidental pacer leads. Noncontrasted stomach and bowel loops appear nonobstructed. Appendectomy reported. Mild scattered left hemicolon diverticulosis. Previous cholecystectomy. No free fluid/air. Remaining liver, pancreas, spleen, adrenal glands, kidneys, ureters, and bladder are unremarkable for noncontrast exam. Heavy scattered vascular calcifications, especially iliac vessels bilaterally. Osseous structures intact with minimal degenerative changes throughout the spine. Impression: 1. Colonic diverticulosis, scattered arteriosclerotic disease, and old granulomatous disease. 2. Remaining CT abdomen/pelvis without contrast exam is negative. Comment: Preliminary interpretation made by C. No critical discrepancy.
== END 2021-06-22 06:15 | disposition home or self-care (01) ==
LOC: ED 00:20
DX: R11.10 Vomiting, unspecified (principal); E87.8 Other disorders of electrolyte and fluid balance, not elsewhere classified; Z79.899 Other long term (current) drug therapy; E11.9 Type 2 diabetes mellitus without complications; Z95.810 Presence of automatic (implantable) cardiac defibrillator; M06.9 Rheumatoid arthritis, unspecified; K76.9 Liver disease, unspecified
CPT/HCPCS: 36000; 36415; 74176; 80053; 81001; 82150; 83605; 83690; 84484; 85025; 93005; 96360; 96361; 96374; 99284; J2405

== ENCOUNTER 2021-06-25 19:51 | Observation (INO) | payer MEDICARE, OTHER ==
[2021-06-25 20:41] LABS: Absolute Neutrophil Ct (ANC) 3.25 (1.4-6.9); BASOPHIL % 0.2 % (0.0-0.4); Basophil (Absolute #) 0.01 (0-0.4); Eosinophil % 0.4 % (0.00-5.0); Eosinophil (Absolute #) 0.02 (0-0.5); Lymphocyte (Absolute #) 1.21 (1.0-4.6); Lymphocytes % 24.7 % (24.0-44.0); Mean Cell Volume 86.6 fl (78-100); Mean Corpuscular Hemoglobin 29.7 pg (26-32); Mean Corpuscular Hgb Concent. 34.3 g/dl (32-36); Mean Platelet Volume 10.5 fl (7.5-11.0); Monocyte (Absolute #) 0.41 (0.0-1.3); Monocytes % 8.4 % (0.0-12.0); Neutrophil % 66.3 % (36.0-66.0); Platelet Count 182 K/mm3 (150-450); Red Blood Count 4.04 M/mm3 (4.1-5.6); Red Cell Distribution Width 13.2 % (11.5-14.0); White Blood Count 4.9 K/mm3 (4.0-10.5)
[2021-06-25 20:53] LABS: ALBUMIN 3.3 g/dL (3.5-5.0); ALKALINE PHOSPHATASE 49 U/L (38-126); ANION GAP 11.6 MEQ/L (5-15); BLOOD UREA NITROGEN 11 mg/dL (9-20); CHLORIDE 87 mmol/L (98-107); Carbon Dioxide 25 mmol/L (22-30); Creatinine 1 0.91 mg/dL (0.66-1.25); EST GLOMERULAR FILTRATION RATE > 60.0 ML/MIN; Glucose 111 mg/dL (74-106); SGOT/AST 39 U/L (17-59); SGPT/ALT 30 U/L (0-50)
[2021-06-25 21:02] LABS: INFLUENZA A NEGATIVE (NEGATIVE); INFLUENZA B NEGATIVE (NEGATIVE)
[2021-06-25 21:05] LABS: SODIUM 119 mmol/L (137-145)
[2021-06-25] MEDS ORDERED: solu-MEDROL 125 MG, Sterile H2O 10 ml 2 ML IV ONE ×2 (21:28)
[2021-06-25] MEDS ORDERED: PROVENTIL 2.5 MG/3 ML NEB IH ONE ×2 (21:28→21:31)
--- NOTE | 2021-06-25 21:31 | ERPHSYRPT ---
- History of Present Illness Time Seen by Provider: 06/25/21 20:20 Source: patient Exam Limitations: no limitations Patient Subjective Stated Complaint: pt states he was here 4 days ago with shortness of breath and has been more short of breath today. states he has been waking up with increased shortness of breath and panicking and gasping. Triage Nursing Assessment: pt alert and oriented, answers questions approp. pt back per wheelchair and transfers to stretcher with minimal assist of 1. skin warm and dry. pt short of breath with exertion. exp wheezes noted throughout. Physician History: Patient is a 65-year-old male presents to our emergency department for evaluation of shortness of breath. Patient states he has been experiencing shortness of breath for the past week. He presented to our ED 4 days ago for the same. Patient was discharged home. Patient states his symptoms progressively worsen. Patient states shortness of breath wakes him at night. Patient wakes up in a panic and gasping for air. Symptoms are progressive. Patient is currently wheezing. No fevers. No nausea or vomiting. No chest pain. Patient voices no other complaints or concerns at this time. Timing/Duration: day(s) (4 days ago) Activities at Onset: sleep Severity of Dyspnea-Max: moderate Severity of Dyspnea-Current: mild Possible Cause: occasional episodes Modifying Factors: Improves With: lying down Associated Symptoms: anxiety, cough, wheezing, lightheadedness, painful breathing, tightness, tingling face, No intermittent, No edema, No fever, No ankle swelling Allergies/Adverse Reactions: Penicillins Allergy (Intermediate, Verified 06/22/21 00:32) RASH milk Allergy (Mild, Verified 06/22/21 00:32) hornet venom Allergy (Verified 06/22/21 00:32) ipratropium Adverse Reaction (Intermediate, Verified 06/22/21 00:32) Vomiting Home Medications: Furosemide 20 mg [Lasix 20 mg] 20 mg PO DAILY 06/19/13 [History] Omeprazole 20 MG [Prilosec 20 mg] 20 mg PO DAILY 06/19/13 [History] lisinopriL [Zestril] 5 mg PO DAILY 06/19/13 [History] Cholecalciferol (Vitamin D3) [Vitamin D] 1,000 unit PO TID 10/31/17 [History] Fluticasone/Salmeterol [Advair 250-50 Diskus] 1 each IH BID 10/31/17 [History] Carvedilol 12.5 mg [Coreg 12.5 mg] 6.25 mg PO BID 08/22/19 [History] Potassium Chloride [K-Dur] 20 meq PO DAILY 08/22/19 [History] Meloxicam 15 mg PO DAILY 01/26/20 [History] Ropinirole 2Mg [Requip 2Mg Tab] 6 mg PO HS 01/26/20 [History] Fluticasone Propionate [Flonase NASAL] 2 puff NS BID 03/31/20 [History] Ipratropium/Albuterol Sulfate [Iprat-Albut 0.5-3(2.5) mg/3 ml] 3 ml IH Q6H 03/31/20 [History] Loratadine 10 mg [Claritin 10 mg] 10 mg PO DAILY 03/31/20 [History] Metformin HCl 500 mg [Glucophage 500 MG] 500 mg PO BIDWM 03/31/20 [Histo ry] Rivaroxaban [Xarelto] 20 mg PO DAILY 03/31/20 [History] Ropinirole 2Mg [Requip 2Mg Tab] 2 mg PO DAILY 03/31/20 [History] Albuterol/Ipratropium 3ml Neb* [DUONEB 0.5-3 MG/3 ml Neb] 3 ml NEBULIZE Q6HPRN PRN 01/10/21 [History] Hx Tetanus, Diphtheria Vaccination/Date Given: No Hx Influenza Vaccination/Date Given: No Hx Pneumococcal Vaccination/Date Given: No Immunizations Up to Date: No Travel Risk - International Travel Have you traveled outside of the country in past 3 weeks: No - Coronavirus Screening Are you exhibiting any of the following symptoms?: Yes Symptoms: Shortness of Breath, Vomiting/Diarrhea, Headaches/Body Aches/Fatigue Close contact with a COVID-19 positive Pt in past 14-21 Days: No - Vaccine Status Have you recieved a Covid-19 vaccination: Yes Back Closer: [facility] - Review of Systems Constitutional: No Symptoms, No Fever, No Chills Eyes: No Symptoms Ears, Nose, & Throat: No Symptoms Respiratory: No Symptoms, No Cough, No Dyspnea Cardiac: No Symptoms, No Chest Pain, No Edema, No Syncope Abdominal/Gastrointestinal: No Symptoms, No Abdominal Pain, No Nausea, No Vomit ing, No Diarrhea Genitourinary Symptoms: No Symptoms, No Dysuria Musculoskeletal: No Symptoms, No Back Pain, No Neck Pain Skin: No Symptoms, No Rash Neurological: No Symptoms, No Dizziness, No Focal Weakness, No Sensory Changes Psychological: No Symptoms Endocrine: No Symptoms Hematologic/Lymphatic: No Symptoms Immunological/Allergic: No Symptoms All Other Systems: Reviewed and Negative - Past Medical History Pertinent Past Medical History: Yes Neurological History: Other ENT History: No Pertinent History Cardiac History: Arrhythmia, Coronary Artery Disease, High Cholesterol, Hypertension, Myocardial Infarction ([place]) Respiratory History: COPD Endocrine Medical History: Diabetes Type II, Liver Disease Musculoskeletal History: Arthritis, Rheumatoid Arthritis GI Medical History: No Pertinent History History: Other Psycho-Social History: No Pertinent History Male Reproductive Disorders: No Pertinent History Other Medical History: PACEMAKER - Past Surgical History Past Surgical History: Yes Neuro Surgical History: No Pertinent History Cardiac: Internal Defibrillator, Pacemaker Respiratory: No Pertinent History Gastrointestinal: Appendectomy Genitourinary: No Pertinent History Musculoskeletal: Orthopedic Surgery Male Surgical History: No Pertinent History Other Surgical History: BACK SURG - Social History Smoking Status: Former smoker Exposure to second hand smoke: No Drug Use: none Patient Lives Alone: No - Nursing Vital Signs Nursing Vital Signs: Initial Vital Signs Temperature 97.8 F 06/25/21 20:12 Pulse Rate 76 06/25/21 20:12 Respiratory Rate 24 06/25/21 20:12 Blood Pressure 99/53 06/25/21 20:12 O2 Sat by Pulse Oximetry 97 06/25/21 20:12 Pain Scale Pain Intensity 0 - Physical Exam General Appearance: no apparent distress, alert Eye Exam: PERRL/EOMI Ears, Nose, Throat Exam: hearing grossly normal, normal ENT inspection, normal pharynx Neck Exam: normal inspection, supple, full range of motion Respiratory Exam: airway intact, wheezing, No respiratory distress Cardiovascular/Chest Exam: normal heart sounds, regular rate/rhythm Abdominal/Gastrointestinal Exam: soft, No tenderness, No distention, No mass Extremity Exam: non-tender, normal range of motion, normal inspection, no calf tenderness, no pedal edema Neurologic Exam: alert, oriented x 3, cooperative, peeler 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 Normal heart and lungs. Calcified granuloma. Left dual lead pacemaker. Intact bony thorax.) Ordered Tests: Active Orders 24 hr Category Date Time Status Leather Roller STAT Care 06/25/21 20:11 Active EKG-ER Only STAT Care 06/25/21 20:10 Active IV Insertion STAT Care 06/25/21 20:10 Active Pulse Oximetry (ED) STAT Care 06/25/21 20:10 Active CHEST 1 VIEW (PORTABLE) Stat Exams 06/25/21 20:11 Taken BLOOD CULTURE Stat Lab 06/25/21 20:12 Ordered CBC W DIFF Stat Lab 06/25/21 20:10 Completed CMP Stat Lab 06/25/21 20:10 Completed INFLUENZA A+B HAFSA Stat Lab 06/25/21 Completed TROPONIN Q3H Lab 06/25/21 20:15 Completed TROPONIN Q3H Lab 06/25/21 23:05 Completed TROPONIN Q3H Lab 06/26/21 02:15 Ordered TROPONIN Q3H Lab 06/26/21 05:15 Ordered TROPONIN Q3H Lab 06/26/21 08:15 Ordered UA W/RFX UR CULTURE Stat Lab 06/25/21 22:25 Completed Respiratory Therapy Assessment DAILY RT 06/25/21 21:39 Active Medication Summary Generic Name Dose Route Start Last Admin Trade Name Freq PRN Reason Stop Dose Admin Doxycycline Hyclate 100 mg/ 100 mls @ 100 mls/hr 06/26/21 10:00 06/25/21 22:23 Dextrose IV 07/26/21 09:59 100 mls/hr Q12HT GINA Administration Remdesivir 250 mg/ Sodium 250 mls @ 125 mls/hr 06/26/21 00:22 Chloride IV 06/26/21 02:21 ONCE ONE Discontinued Medications Generic Name Dose Route Start Last Admin Trade Name Freq PRN Reason Stop Dose Admin Albuterol Sulfate 2.5 mg 06/25/21 21:28 06/25/21 21:36 Proventil 2.5 Mg/3 Ml Neb IH 06/25/21 21:29 2.5 mg STAT ONE Administration Albuterol Sulfate Confirm 06/25/21 21:31 Proventil 2.5 Mg/3 Ml Neb Administered 06/25/21 21:32 Dose 2.5 mg IH .STK-MED ONE Methylprednisolone Sodium 0 mg 06/25/21 21:28 06/25/21 21:37 Succinate 125 mg/ Sterile IV 06/25/21 21:29 125 mg Water 2 ml STAT ONE Administration Doxycycline Hyclate Confirm 06/25/21 22:21 Vibramycin 100 Mg Administered 06/25/21 22:22 Dose 100 mg IV .STK-MED ONE Dextrose Confirm 06/25/21 22:21 D5w 100ml Mini Bag 100 Ml Administered 06/25/21 22:22 Dose 100 mls @ ud IV .STK-MED ONE Methylprednisolone Sodium Succinate Confirm 06/25/21 21:35 Solu-Medrol Administered 06/25/21 21:36 Dose 125 mg .ROUTE .STK-MED ONE Sterile Water Confirm 06/25/21 21:35 Sterile H2o 10 Ml Administered 06/25/21 21:36 Dose 10 ml IJ .STK-MED ONE Lab/Rad Data: Laboratory Result Diagrams 06/25/21 20:10 06/25/21 20:10 Laboratory Results 06/25/21 06/25/21 06/25/21 Range/Units Unknown 23:05 22:39 WBC (4.0-10.5) K/mm3 RBC (4.1-5.6) M/mm3 Hgb (12.5-18.0) gm/dl Hct (42-50) % MCV (78-100) fl MCH (26-32) pg MCHC (32-36) g/dl RDW (11.5-14.0) % Plt Count (150-450) K/mm3 MPV (7.5-11.0) fl Gran % (36.0-66.0) % Eos # (Auto) (0-0.5) Absolute Lymphs (auto) (1.0-4.6) Absolute Monos (auto) (0.0-1.3) Lymphocytes % (24.0-44.0) % Monocytes % (0.0-12.0) % Eosinophils % (0.00-5.0) % Basophils % (0.0-0.4) % Absolute Granulocytes (1.4-6.9) Basophils # (0-0.4) Sodium (137-145) mmol/L Potassium (3.5-5.1) mmol/L Chloride (98-107) mmol/L Carbon Dioxide (22-30) mmol/L Anion Gap (5-15) MEQ/L BUN (9-20) mg/dL Creatinine (0.66-1.25) mg/dL Estimated GFR ML/MIN Glucose (74-106) mg/dL Calcium (8.4-10.2) mg/dL Total Bilirubin (0.2-1.3) mg/dL AST (17-59) U/L ALT (0-50) U/L Alkaline Phosphatase (38-126) U/L Troponin I 0.025 (0.000-0.034) ng/mL Serum Total Protein (6.3-8.2) g/dL Albumin (3.5-5.0) g/dL Urine Color (YELLOW) Urine Appearance (CLEAR) Urine pH (5-6) Ur Specific [place] (1.005-1.025) Urine Protein (Negative) Urine Ketones (NEGATIVE) Urine Blood (0-5) Marc/ul Urine Nitrite (NEGATIVE) Urine Bilirubin (NEGATIVE) Urine Urobilinogen (0-1) mg/dL Ur Leukocyte Esterase (NEGATIVE) Urine WBC (Auto) (0-5) /HPF Urine RBC (Auto) (0-2) /HPF U Hyaline Cast (Auto) (0-2) /LPF U Epithel Cells (Auto) (FEW) /HPF Urine Bacteria (Auto) (NEGATIVE) /HPF Urine Culture Reflexed (NO) Urine Glucose (NEGATIVE) mg/dL Influenza Type A Ag NEGATIVE (NEGATIVE) Influenza Type B Ag NEGATIVE (NEGATIVE) SARS-CoV-2 (PCR) POSITIVE A (NEGATIVE) 06/25/21 06/25/21 06/25/21 Range/Units 22:25 20:15 20:10 WBC (4.0-10.5) K/mm3 RBC (4.1-5.6) M/mm3 Hgb (12.5-18.0) gm/dl Hct (42-50) % MCV (78-100) fl MCH (26-32) pg MCHC (32-36) g/dl RDW (11.5-14.0) % Plt Count (150-450) K/mm3 MPV (7.5-11.0) fl Gran % (36.0-66.0) % Eos # (Auto) (0-0.5) Absolute Lymphs (auto) (1.0-4.6) Absolute Monos (auto) (0.0-1.3) Lymphocytes % (24.0-44.0) % Monocytes % (0.0-12.0) % Eosinophils % (0.00-5.0) % Basophils % (0.0-0.4) % Absolute Granulocytes (1.4-6.9) Basophils # (0-0.4) Sodium 119 L* (137-145) mmol/L Potassium 4.0 (3.5-5.1) mmol/L Chloride 87 L (98-107) mmol/L Carbon Dioxide 25 (22-30) mmol/L Anion Gap 11.6 (5-15) MEQ/L BUN 11 (9-20) mg/dL Creatinine 0.91 (0.66-1.25) mg/dL Estimated GFR > 60.0 ML/MIN Glucose 111 H (74-106) mg/dL Calcium 8.0 L (8.4-10.2) mg/dL Total Bilirubin 0.40 (0.2-1.3) mg/dL AST 39 (17-59) U/L ALT 30 (0-50) U/L Alkaline Phosphatase 49 (38-126) U/L Troponin I 0.019 (0.000-0.034) ng/mL Serum Total Protein 6.0 L (6.3-8.2) g/dL Albumin 3.3 L (3.5-5.0) g/dL Urine Color YELLOW (YELLOW) Urine Appearance CLEAR (CLEAR) Urine pH 5.0 (5-6) Ur Specific [place] 1.015 (1.005-1.025) Urine Protein NEGATIVE (Negative) Urine Ketones NEGATIVE (NEGATIVE) Urine Blood NEGATIVE (0-5) Marc/ul Urine Nitrite NEGATIVE (NEGATIVE) Urine Bilirubin NEGATIVE (NEGATIVE) Urine Urobilinogen NEGATIVE (0-1) mg/dL Ur Leukocyte Esterase NEGATIVE (NEGATIVE) Urine WBC (Auto) NONE (0-5) /HPF Urine RBC (Auto) NONE (0-2) /HPF U Hyaline Cast (Auto) 0-2 (0-2) /LPF U Epithel Cells (Auto) NONE (FEW) /HPF Urine Bacteria (Auto) NONE (NEGATIVE) /HPF Urine Culture Reflexed NO (NO) Urine Glucose NEGATIVE (NEGATIVE) mg/dL Influenza Type A Ag (NEGATIVE) Influenza Type B Ag (NEGATIVE) SARS-CoV-2 (PCR) (NEGATIVE) 06/25/21 Range/Units 20:10 WBC 4.9 (4.0-10.5) K/mm3 RBC 4.04 L (4.1-5.6) M/mm3 Hgb 12.0 L (12.5-18.0) gm/dl Hct 35.0 L (42-50) % MCV 86.6 (78-100) fl MCH 29.7 (26-32) pg MCHC 34.3 (32-36) g/dl RDW 13.2 (11.5-14.0) % Plt Count 182 (150-450) K/mm3 MPV 10.5 (7.5-11.0) fl Gran % 66.3 H (36.0-66.0) % Eos # (Auto) 0.02 (0-0.5) Absolute Lymphs (auto) 1.21 (1.0-4.6) Absolute Monos (auto) 0.41 (0.0-1.3) Lymphocytes % 24.7 (24.0-44.0) % Monocytes % 8.4 (0.0-12.0) % Eosinophils % 0.4 (0.00-5.0) % Basophils % 0.2 (0.0-0.4) % Absolute Granulocytes 3.25 (1.4-6.9) Basophils # 0.01 (0-0.4) Sodium (137-145) mmol/L Potassium (3.5-5.1) mmol/L Chloride (98-107) mmol/L Carbon Dioxide (22-30) mmol/L Anion Gap (5-15) MEQ/L BUN (9-20) mg/dL Creatinine (0.66-1.25) mg/dL Estimated GFR ML/MIN Glucose (74-106) mg/dL Calcium (8.4-10.2) mg/dL Total Bilirubin (0.2-1.3) mg/dL AST (17-59) U/L ALT (0-50) U/L Alkaline Phosphatase (38-126) U/L Troponin I (0.000-0.034) ng/mL Serum Total Protein (6.3-8.2) g/dL Albumin (3.5-5.0) g/dL Urine Color (YELLOW) Urine Appearance (CLEAR) Urine pH (5-6) Ur Specific [place] (1.005-1.025) Urine Protein (Negative) Urine Ketones (NEGATIVE) Urine Blood (0-5) Marc/ul Urine Nitrite (NEGATIVE) Urine Bilirubin (NEGATIVE) Urine Urobilinogen (0-1) mg/dL Ur Leukocyte Esterase (NEGATIVE) Urine WBC (Auto) (0-5) /HPF Urine RBC (Auto) (0-2) /HPF U Hyaline Cast (Auto) (0-2) /LPF U Epithel Cells (Auto) (FEW) /HPF Urine Bacteria (Auto) (NEGATIVE) /HPF Urine Culture Reflexed (NO) Urine Glucose (NEGATIVE) mg/dL Influenza Type A Ag (NEGATIVE) Influenza Type B Ag (NEGATIVE) SARS-CoV-2 (PCR) (NEGATIVE) - Progress Progress: improved Air Movement: good Progress Note: Patient is a 65-year-old male with a history of COPD. Patient arrived to our ED via EMS. Patient complained of progressive shortness of breath. He was in our ED 4 days ago for the same. Patient wheezing. Patient likely experiencing a COPD exacerbation additionally patient is hyponatremic at 119. Patient Covid positive. Blood cultures obtained. Antibiotics infused. Patient received a dose of Solu-Medrol. IV fluids infused. Case discussed with Dr. Gomez who accepts admission. Troponin negative x2. However second troponin is somewhat higher than the first. We will continue to monitor troponin. Patient has no chest pain. We will admit patient to the Covid unit plan of care discussed with patient. He agrees to admission [facility] for further evaluation. 06/26/21 00:25 Blood Culture(s) Obtained: Yes Antibiotics given: Yes Will see patient in: hospital (observation) Counseled pt/family regarding: lab results, diagnosis, need for follow-up, rad results - Departure Departure Disposition: Observation Clinical Impression: Hyponatremia, SOB (shortness of breath), Wheezing, COPD exacerbation, COVID-19 Condition: Stable Critical Care Time: No Referrals: MARGARITA KABA [Primary Care Provider] - Instructions: Chronic Obstructive Pulmonary Disease Additional Instructions: Discharge/Care Plan ANABELLA SHER was seen on 06/25/21 in the Emergency Room. The patient was counseled regarding Diagnosis,Lab results, Imaging studies, need for follow up and when to return to the Emergency Room. Prescriptions given: Discharge Note I have spoken with the patient and/or caregivers. I have explained the patient's condition, diagnosis and treatment plan based on the information available to me at this time. I have answered the patient's and/or caregiver's questions and addressed any concerns. The patient and/or caregivers have as good understanding of the patient's diagnosis, condition and treatment plan as can be expected at this point. The vital signs have been stable. The patient's condition is stable and appropriate for discharge from the emergency department. The patient will pursue further outpatient evaluation with the primary care physician or other designated or consulting physician as outlined in the discharge instructions. The patient and/or caregivers are agreeable to this plan of care and follow-up instructions have been explained in detail. The patient and/or caregivers have received these instruction. The patient/and or caregivers are aware that any significant change in condition or worsening of symptoms should prompt an immediate return to this or the closest emergency department or call 911.
[2021-06-25] MEDS ORDERED: Sterile H2O 10 ml IJ ONE (21:35)
[2021-06-25] MEDS ORDERED: solu-MEDROL ONE (21:35)
[2021-06-25] MEDS ORDERED: D5w 100ML Mini Bag 100 ML 100 ML IV ONE (22:21)
[2021-06-25] MEDS ORDERED: VIBRAMYCIN 100 MG IV ONE (22:21)
[2021-06-25 22:45] LABS: Appearance CLEAR (CLEAR); Bilirubin NEGATIVE (NEGATIVE); Blood NEGATIVE Ery/ul (0-5); Glucose NEGATIVE (NEGATIVE); Hyaline Casts 0-2 /LPF (0-2); Ketones NEGATIVE (NEGATIVE); Leukocyte Esterase NEGATIVE (NEGATIVE); Nitrite NEGATIVE (NEGATIVE); Protein,Urine Dip NEGATIVE (Negative); Specific Gravity 1.015 (1.005-1.025); Urobilinogen NEGATIVE mg/dL (0-1)
[2021-06-26] MEDS ORDERED: REMDESIVIR 250 MG in Sodium Chloride 0.9% 250 ML 250 ML IV ONE (00:22)
[2021-06-26] MEDS ORDERED: REMDESIVIR 200 MG in Sodium Chloride 0.9% 250 ML 250 ML IV ONE (01:56)
[2021-06-26] MEDS ORDERED: VENTOLIN COMMON CANISTER IH PRN (02:04)
[2021-06-26] MEDS ORDERED: MORPHINE SULFATE 4 MG INJ IV PRN (02:04)
[2021-06-26] MEDS: VENTOLIN COMMON CANISTER IH SCH ×2 (02:38→07:14)
[2021-06-26] MEDS ORDERED: Sodium Chloride 0.9% 250 ML 250 ML IV ONE (02:41)
[2021-06-26 05:57] LABS: Absolute Neutrophil Ct (ANC) 2.17 (1.4-6.9); BASOPHIL % 0.4 % (0.0-0.4); Basophil (Absolute #) 0.01 (0-0.4); Eosinophil % 0.4 % (0.00-5.0); Eosinophil (Absolute #) 0.01 (0-0.5); Hematocrit 40.5 % (42-50); Hemoglobin 13.9 gm/dl (12.5-18.0); Lymphocyte (Absolute #) 0.46 (1.0-4.6); Lymphocytes % 16.8 % (24.0-44.0); Mean Cell Volume 86.2 fl (78-100); Mean Corpuscular Hemoglobin 29.6 pg (26-32); Mean Corpuscular Hgb Concent. 34.3 g/dl (32-36); Mean Platelet Volume 10.4 fl (7.5-11.0); Monocyte (Absolute #) 0.09 (0.0-1.3); Monocytes % 3.3 % (0.0-12.0); Neutrophil % 79.1 % (36.0-66.0); Platelet Count 157 K/mm3 (150-450); Red Cell Distribution Width 13.4 % (11.5-14.0); White Blood Count 2.7 K/mm3 (4.0-10.5)
[2021-06-26 06:05] VITALS: O2SAT 96
[2021-06-26 06:09] LABS: INR 2.03 (0.8-3.0)
[2021-06-26 06:12] LABS: ALKALINE PHOSPHATASE 61 U/L (38-126); ANION GAP 16.5 MEQ/L (5-15); BLOOD UREA NITROGEN 10 mg/dL (9-20); CHLORIDE 89 mmol/L (98-107); Calcium 8.7 mg/dL (8.4-10.2); Carbon Dioxide 24 mmol/L (22-30); Creatinine 1 0.81 mg/dL (0.66-1.25); EST GLOMERULAR FILTRATION RATE > 60.0 ML/MIN; Glucose 237 mg/dL (74-106); Potassium 4.6 mmol/L (3.5-5.1); SGOT/AST 41 U/L (17-59); SGPT/ALT 37 U/L (0-50); SODIUM 125 mmol/L (137-145); Total Protein 6.8 g/dL (6.3-8.2)
[2021-06-26 07:01] LABS: Slide Review 1 YES
[2021-06-26] MEDS ORDERED: HUMALOG SQ PRN (07:23)
[2021-06-26] MEDS ORDERED: DECADRON 10MG INJ. IV SCH (08:00)
--- NOTE | 2021-06-26 09:21 | XRAY ---
Indication: Short of breath. Comparison: September 26, 2020. Portable chest again clear of focal infiltrate, consolidation, or large effusion. Stable right base calcified granuloma. Heart not enlarged again with left AICD. Bony thorax intact again with mild osteopenia. Impression: Continued nonacute chest with chronic features.
[2021-06-26] MEDS ORDERED: VIBRAMYCIN 100 MG*** 100 MG in Dextrose 5%/Water IV Soln. 100ML PLUS BAG 100 ML IV SCH (10:00)
[2021-06-26] MEDS ORDERED: TYLENOL 325 MG PO PRN (10:45)
[2021-06-26 11:00] VITALS: BP 142/68; PULSE 92
[2021-06-26] MEDS ORDERED: CLARITIN 10 MG PO SCH (11:00)
[2021-06-26] MEDS ORDERED: QUESTRAN Light 4 GM Packet PO SCH (11:00)
[2021-06-26] MEDS ORDERED: Coreg 6.25 MG PO SCH (11:00)
[2021-06-26] MEDS ORDERED: LASIX 20 MG PO SCH (11:00)
[2021-06-26] MEDS ORDERED: Zestril 5 MG PO SCH (11:15)
[2021-06-26] MEDS ORDERED: MELOXICAM PO SCH (11:15)
--- NOTE | 2021-06-26 13:29 | HP ---
CHIEF COMPLAINT: Weakness, diarrhea, instability of gait worse than usual, cough. HISTORY OF PRESENT ILLNESS: The patient was apparently in the emergency room four days ago with similar symptoms. He got worse and came in this evening very short of breath, panicking and gasping. His COVID test was positive. He has multiple health problems and he had a serious head injury apparently when he was in the [employer] perhaps. Sometimes I wonder if the history is true. He may be confabulating a little bit but states he lost his records for many years. He was actually here last year with pneumonia and he was in the COVID unit and discharged from the COVID unit because he had plain pneumonia. He denies having panic attacks. He does not know where he has been exposed to COVID and he states he has had the vaccine for COVID this year with the [employer]. 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 Coronary artery disease. He said "I have a maker but no coronary surgery". However he does have a defibrillator and pacemaker in. He is anticoagulated. He states he has disability of gait and he has to use a cane and a lot of trouble walking the last few days. 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 SOCIAL HISTORY: He does not smoke or drink, he states, but he used to smoke a lot. He lives alone. PHYSICAL EXAMINATION: The patient is alert, orientated, talks with oppressed speech, rapid, jumping from one subject to the next. VITAL SIGNS: Temperature 98F, pulse 72, respirations 20. Pulse ox was 93% on room air. HEENT: Pupils equal and reactive to light. NECK: Supple without adenopathy. CHEST: Clear. CVS: Regular rate. ABDOMEN: Soft. No masses or organomegaly. Scars from gallbladder surgery. LAB DATA AND TESTS: Abnormal lab with white count 2.7. His sodium was decreased to 125, glucose 237. INR was normal at 2.03. D-Dimer was normal at 236. Apparently his COVID test is positive. IMPRESSION: The patient has COVID and symptoms of cough but no severe shortness of breath, no severe hypoxia. Gait instability chronic but made worse by his weakness. Diarrhea perhaps from his post-gallbladder surgery from viral colitis or perhaps his Metformin. Diabetes mellitus, seizure disorder, cardiomyopathy, atrial fibrillation, history of stroke. PLAN: The patient will be treated with COVID medications Remdesivir, Decadron. He is already anticoagulated and we gave him Questran for his diarrhea. Consideration of discontinuing the Metformin and see if that does not stop the diarrhea. PROGNOSIS: Considered good.
[2021-06-26] MEDS ORDERED: VITAMIN D PO SCH (15:00)
[2021-06-26] MEDS ORDERED: Glucophage 500 MG PO SCH (17:00)
[2021-06-26] MEDS ORDERED: COREG 12.5 MG PO SCH (22:00)
[2021-06-26] MEDS ORDERED: REQUIP 2MG TAB PO SCH (22:00)
[2021-06-26] MEDS ORDERED: REMDESIVIR 100 MG in Sodium Chloride 0.9% 100 ML BAG 100 ML IV SCH (22:00)
[2021-06-26] MEDS ORDERED: Flonase NASAL NS SCH (22:00)
[2021-06-27] MEDS ORDERED: REQUIP 2MG TAB PO SCH (10:00)
[2021-06-27] MEDS ORDERED: Protonix 40MG Tablet PO SCH (10:00)
[2021-06-27] MEDS ORDERED: Spiriva 18 Mcg/Cap Inhaler IH SCH (10:00)
[2021-06-27] MEDS ORDERED: DECADRON 10MG INJ. IV SCH (10:00)
[2021-06-27] MEDS ORDERED: NON-FORMULARY ITEM (Omeprazole 20 Mg [Prilosec 20 Mg] 20 MG) PO SCH (10:00)
[2021-06-27] MEDS ORDERED: NON-FORMULARY ITEM (Potassium Chloride [K-Dur] 20 MEQ) PO SCH (10:00)
[2021-06-27] MEDS ORDERED: NON-FORMULARY ITEM (Rivaroxaban [Xarelto] 20 MG) PO SCH (10:00)
[2021-06-27] MEDS ORDERED: NON-FORMULARY ITEM (Fexofenadine Hcl [Allegra Allergy] 180 MG) PO SCH (10:00)
[2021-06-27] MEDS ORDERED: LISINOPRIL 5 MG PO SCH (10:00)
[2021-06-27] MEDS ORDERED: Klor Con 10 MEQ PO SCH (10:00)
[2021-06-27] MEDS ORDERED: XARELTO 10 MG TABLET PO SCH (10:00)
== END 2021-06-26 11:36 | disposition home or self-care (01) ==
LOC: ED 19:51 → MED SURG 06-26 01:55
PROVIDERS: ADMIT Family Medicine; ATTEND Family Medicine
DX: U07.1 COVID-19 (principal); R51.9 Headache, unspecified; J44.1 Chronic obstructive pulmonary disease with (acute) exacerbation; I10 Essential (primary) hypertension; E78.00 Pure hypercholesterolemia, unspecified; E87.1 Hypo-osmolality and hyponatremia; R53.1 Weakness; E11.9 Type 2 diabetes mellitus without complications; R19.7 Diarrhea, unspecified; Z79.01 Long term (current) use of anticoagulants; R26.89 Other abnormalities of gait and mobility; Z20.822 Contact with and (suspected) exposure to COVID-19; Z79.899 Other long term (current) drug therapy; Z95.0 Presence of cardiac pacemaker
CPT/HCPCS: 36000; 36415; 71045; 80053; 81001; 83036; 84484; 85025; 85379; 85610; 87400; 93005; 93041; 93268; 94640; 94760; 94762; 96374; 99284; G0378; U0003; J1100; J1817; J2930; J7609; A9270-GY

== ENCOUNTER 2023-07-06 09:20 | Emergency (ER) | payer OTHER, MEDICARE ==
[2023-07-06 09:51] VITALS: BP 102/55; RESP 17; TEMP 96.6
--- NOTE | 2023-07-06 10:25 | XRAY ---
Indication: Great toe pain following crush injury. Comparison: None 2 nonweightbearing views right foot demonstrates tiny plantar heel spur, tiny navicular/base 5th metatarsal accessory ossicles, and mild scattered vascular calcifications. No other bony, articular, or soft tissue abnormalities.
--- NOTE | 2023-07-06 10:36 | ERPHSYRPT ---
- History of Present Illness Time Seen by Provider: 07/06/23 10:37 Source: patient Exam Limitations: no limitations Patient Subjective Stated Complaint: Pt reports approx 3-4 days ago he was carrying a bucket of led when the handle broke and it droppped on first toe on right foot. Pt states today he noticed his nail is now black and first toe on right foot is more red than it was. Triage Nursing Assessment: Pt alert and oriented x3. No apparent respiratory distress. Accompanied by spouse. Ambulated to ED cot with assist of cane with steady gait. First toe on right foot red and nail thick and underneath nail is blackened. Physician History: Patient is a 67-year-old male presents to our ED for evaluation of pain to his right foot and toes. 3 to 4 days ago patient was carrying a bucket of lead. The handle broke and the bucket of lead fell onto the patient's foot. Patient is here today as he feels his toe appears to be turning red and the toenail is dark in color. No other injuries reported. Pain described as an ache that is localized. However patient declined pain medication. Patient is a and gets his care at the [place]. at bedside. They voiced no other complaints or concerns at this time. Portions of this note were created with voice recognition technology. There may be grammatical, spelling, punctuation or sound alike errors Method of Injury: direct blow Occurred: days ago (3 to 4 days ago) Quality: constant Severity of Pain-Max: moderate Severity of Pain-Current: mild Lower Extremities Pain: foot: right, 1st toe: right, 2nd toe: right Modifying Factors: Improves With: movement (Movement and palpation reproduce pain) Associated Symptoms: none Allergies/Adverse Reactions: Penicillins Allergy (Intermediate, Verified 07/06/23 09:40) RASH milk Allergy (Mild, Verified 07/06/23 09:40) hornet venom Allergy (Verified 07/06/23 09:40) ipratropium Adverse Reaction (Intermediate, Verified 07/06/23 09:40) Vomiting Home Medications: Furosemide 20 mg [Lasix 20 mg] 20 mg PO DAILY 06/19/13 [History] Omeprazole 20 MG [Prilosec 20 mg] 20 mg PO DAILY 06/19/13 [History] lisinopriL [Zestril] 5 mg PO DAILY 06/19/13 [History] Cholecalciferol (Vitamin D3) [Vitamin D] 1,000 unit PO TID 10/31/17 [History] Carvedilol 12.5 mg [Coreg 12.5 mg] 6.25 mg PO BID 08/22/19 [History] Potassium Chloride [K-Dur] 20 meq PO DAILY 08/22/19 [History] Meloxicam 15 mg PO DAILY 01/26/20 [History] Ropinirole 2Mg [Requip 2Mg Tab] 6 mg PO HS 01/26/20 [History] Fluticasone Propionate [Flonase NASAL] 2 puff NS BID 03/31/20 [History] Metformin HCl 500 mg [Glucophage 500 MG] 500 mg PO BIDWM 03/31/20 [History] Rivaroxaban [Xarelto] 20 mg PO DAILY 03/31/20 [History] Ropinirole 2Mg [Requip 2Mg Tab] 2 mg PO DAILY 03/31/20 [History] Acetaminophen 325 mg [Tylenol 325 mg] 650 mg PO Q4H PRN PRN 06/26/21 [History] Albuterol 2.5 mg/0.5 ml [PROVENTIL Solution 2.5 MG/0.5 ML] 2.5 mg IH Q6H PRN PRN 06/26/21 [History] Fexofenadine HCl [Aysha Allergy] 180 mg PO DAILY 06/26/21 [History] Tiotropium [place] Inhaler [Spiriva 18 Mcg/Cap Inhaler] 2 puff IH DAILY 06/26/21 [History] Hx Tetanus, Diphtheria Vaccination/Date Given: Yes Hx Influenza Vaccination/Date Given: Yes Hx Pneumococcal Vaccination/Date Given: Yes Travel Risk - International Travel Have you traveled outside of the country in past 3 weeks: No - Coronavirus Screening Are you exhibiting any of the following symptoms?: No Close contact with a COVID-19 positive Pt in past 14-21 Days: No - Vaccine Status Have you recieved a Covid-19 vaccination: Yes [employer]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: [employer] - Review of Systems Constitutional: No Symptoms, No Fever, No Chills Eyes: No Symptoms Ears, Nose, & Throat: No Symptoms Respiratory: No Symptoms, No Cough, No Dyspnea Cardiac: No Symptoms, No Chest Pain, No Edema, No Syncope Abdominal/Gastrointestinal: No Symptoms, No Abdominal Pain, No Nausea, No Vomiti ng, No Diarrhea Genitourinary Symptoms: No Symptoms, No Dysuria Musculoskeletal: No Symptoms, No Back Pain, No Neck Pain Skin: No Symptoms, No Rash Neurological: No Symptoms, No Dizziness, No Focal Weakness, No Sensory Changes Psychological: No Symptoms Endocrine: No Symptoms Hematologic/Lymphatic: No Symptoms Immunological/Allergic: No Symptoms All Other Systems: Reviewed and Negative - Past Medical History Pertinent Past Medical History: Yes Neurological History: Other ENT History: No Pertinent History Cardiac History: Arrhythmia, Coronary Artery Disease, High Cholesterol, Hypertension, Myocardial Infarction (ID) Respiratory History: COPD Endocrine Medical History: Diabetes Type II, Liver Disease Musculoskeletal History: Arthritis, Rheumatoid Arthritis GI Medical History: No Pertinent History History: Other Psycho-Social History: No Pertinent History Male Reproductive Disorders: No Pertinent History Other Medical History: PACEMAKER, Head injury 1974 - Past Surgical History Past Surgical History: Yes Neuro Surgical History: No Pertinent History Cardiac: Internal Defibrillator, Pacemaker Respiratory: No Pertinent History Gastrointestinal: Appendectomy, Cholecystectomy Genitourinary: No Pertinent History Musculoskeletal: Orthopedic Surgery Male Surgical History: No Pertinent History Other Surgical History: BACK SURG - Social History Smoking Status: Former smoker Exposure to second hand smoke: No Drug Use: none Patient Lives Alone: No - Nursing Vital Signs Nursing Vital Signs: Initial Vital Signs Temperature 96.6 F 07/06/23 09:40 Pulse Rate 74 07/06/23 09:40 Respiratory Rate 17 07/06/23 09:40 Blood Pressure 102/55 07/06/23 09:40 O2 Sat by Pulse Oximetry 97 07/06/23 09:40 Pain Scale Pain Intensity 0 - Physical Exam General Appearance: alert Eyes, Ears, Nose, Throat Exam: moist mucous membranes Neck Exam: non-tender, supple Cardiovascular/Respiratory Exam: chest non-tender, normal breath sounds, regular rate/rhythm, no respiratory distress Gastrointestinal/Abdominal Exam: non-tender, guarding Back Exam: normal inspection, No vertebral tenderness Hips Exam: bilateral: non-tender, normal inspection, normal range of motion, no evidence of injury Legs Exam: bilateral leg: non-tender, normal inspection, normal range of motion, no evidence of injury Knees Exam: bilateral knee: non-tender, normal inspection, normal range of motion, no evidence of injury Ankle Exam: bilateral ankle: non-tender, normal inspection, normal range of motion, no evidence of injury Foot Exam: right foot: pain, soft tissue tenderness (Contusion right great toe. Intact nail plate. Slight subungual hematoma), left foot: non-tender, normal inspection, normal range of motion, no evidence of injury Neuro/Tendon Exam: normal sensation, normal motor functions Mental Status Exam: alert, oriented x 3, cooperative Skin Exam: normal color, warm, dry SpO2 Interpretation: normal SpO2: 97 O2 Delivery: Room Air - Course Nursing assessment & vital signs reviewed: Yes - Radiology Exams Foot X-ray Interpretation: Teleradiologist Report (No fracture or dislocation. Chronic findings. Tiny plantar heel spur and accessory ossicle.) Ordered Tests: Active Orders 24 hr Category Date Time Status FOOT (2 VIEWS) Stat Exams 07/06/23 09:51 Completed - Progress Progress: improved Progress Note: Patient is a 67-year-old male presents to our ED for evaluation of right toe pain. Patient dropped a bucket full of LAT onto his foot 3 to 4 days ago. Patient observed that somewhat to be red and swollen. Toenail was darkening. X-ray negative for fracture dislocation. Patient has a toe contusion. Patient declined pain medication. A prescription for Toradol forwarded to patient's pharmacy. Patient agrees to follow-up with his primary care doctor within 48 hours for reevaluation. Patient voices no other complaints or concerns at this time. Portions of this note were created with voice recognition technology. There may be grammatical, spelling, punctuation or sound alike errors Complexity of problems addressed is low acute uncomplicated No critical care time Complexity of data reviewed and analyzed is moderate. X-ray dependently reviewed by Dr. Henderson. X-ray report generated by radiologist was reviewed by Dr. Henderson as well. Clinical correlation made between findings and history and physical examination. Risk complication and or risk morbidity/mortality patient management is moderate. A prescription for Toradol forwarded to patient's pharmacy. Patient be discharged home. Plan of care established for shared decision making. Time to discharge patient approximately 15 minutes. Vital stable. No social determinants of health presents impede follow-up. at bedside. They voiced no other complaints concerns at this time. Portions of this note were created with voice recognition technology. There may be grammatical, spelling, punctuation or sound alike errors 07/06/23 10:41 Patient declined crutches and orthopedic shoe 07/06/23 10:49 Counseled pt/family regarding: diagnosis, need for follow-up, rad results - Departure Departure Disposition: Home Clinical Impression: Toe contusion, Subungual hematoma Condition: Stable Critical Care Time: No Additional Instructions: Discharge/Care Plan ANABELLA SHER was seen on 07/06/23 in the Emergency Room. The patient was counseled regarding Diagnosis,Lab results, Imaging studies, need for follow up and when to return to the Emergency Room. Prescriptions given: Discharge Note I have spoken with the patient and/or caregivers. I have explained the patient's condition, diagnosis and treatment plan based on the information available to me at this time. I have answered the patient's and/or caregiver's questions and addressed any concerns. The patient and/or caregivers have as good understanding of the patient's diagnosis, condition and treatment plan as can be expected at this point. The vital signs have been stable. The patient's condition is stable and appropriate for discharge from the emergency department. The patient will pursue further outpatient evaluation with the primary care physician or other designated or consulting physician as outlined in the discharge instructions. The patient and/or caregivers are agreeable to this plan of care and follow-up instructions have been explained in detail. The patient and/or caregivers have received these instruction. The patient/and or caregivers are aware that any significant change in condition or worsening of symptoms should prompt an immediate return to this or the closest emergency department or call 911. Prescriptions: Ketorolac Trometh 10 mg Tab [TORAdol 10 MG TABLET] 10 mg PO TID 5 Days #15 tablet
[2023-07-06 10:58] VITALS: PULSE 78; O2SAT 96
== END 2023-07-06 11:03 | disposition home or self-care (01) ==
LOC: ED 09:20
DX: S90.211A Contusion of right great toe with damage to nail, initial encounter (principal); W20.8XXA Other cause of strike by thrown, projected or falling object, initial encounter; E78.5 Hyperlipidemia, unspecified; I10 Essential (primary) hypertension; E11.9 Type 2 diabetes mellitus without complications; Z79.01 Long term (current) use of anticoagulants; Z79.84 Long term (current) use of oral hypoglycemic drugs; Z79.899 Other long term (current) drug therapy
CPT/HCPCS: 73620; 99282

== ENCOUNTER 2023-11-18 12:16 | Observation (INO) | payer MEDICARE, OTHER ==
[2023-11-18] MEDS ORDERED: Sodium Chloride 0.9% 500 ML 500 ML IV ONE ×2 (12:51→13:15)
[2023-11-18 13:09] LABS: Absolute Neutrophil Ct (ANC) 3.85 x10^3/uL (1.4-6.9); BASOPHIL % 1.2 % (0.0-0.4); Basophil (Absolute #) 0.07 x10^3/uL (0-0.4); Eosinophil % 2.5 % (0.00-5.0); Eosinophil (Absolute #) 0.15 x10^3/uL (0-0.5); Hematocrit 44.2 % (42-50); IMMATURE GRAN # 0.01 x10^3u/L (0.00-0.03); IMMATURE GRAN % 0.2 % (0.00-0.4); Lymphocyte (Absolute #) 1.35 x10^3/uL (1.0-4.6); Lymphocytes % 22.8 % (24.0-44.0); Mean Cell Volume 93.2 fL (78-100); Mean Corpuscular Hemoglobin 29.5 pg (26-32); Mean Corpuscular Hgb Concent. 31.7 g/dL (32-36); Mean Platelet Volume 10.4 fL (7.5-11.0); Monocyte (Absolute #) 0.48 x10^3/uL (0.0-1.3); Monocytes % 8.1 % (0.0-12.0); Neutrophil % 65.2 % (36.0-66.0); Platelet Count 212 x10^3/uL (150-450); Red Blood Count 4.74 x10^6/uL (4.1-5.6); Red Cell Distribution Width 15.2 % (11.5-14.0); White Blood Count 5.9 x10^3/uL (4.0-10.5)
[2023-11-18 13:35] LABS: ANION GAP 11.9 MEQ/L (5-15); BILIRUBIN,TOTAL 0.5 mg/dL (0.2-1.3); Calcium 8.8 mg/dL (8.4-10.2); Creatinine 1 1.13 mg/dL (0.66-1.25); EST GLOMERULAR FILTRATION RATE 71.2 ML/MIN; MAGNESIUM 1.9 mg/dL (1.6-2.3); Potassium 3.9 mmol/L (3.5-5.1); Total Protein 7.1 g/dL (6.3-8.2)
--- NOTE | 2023-11-18 13:36 | XRAY ---
Indication: Hypertension. Comparison: June 25, 2021 Portable chest again hyperinflated with small right base calcified granuloma. No focal infiltrate, consolidation, or large effusion. Heart not enlarged again with left pacemaker. Bony thorax intact again with osteopenia. Impression: Continued nonacute chest with chronic features.
--- NOTE | 2023-11-18 16:26 | ERPHSYRPT ---
- History of Present Illness Time Seen by Provider: 11/18/23 12:50 Source: patient, family Exam Limitations: no limitations Patient Subjective Stated Complaint: pt sent here by home health nurse for low b/p at home today. pt drove self here . pt and are poor historians Triage Nursing Assessment: pt alert, resp easy, walked in, able to undress, skin w/d/p. slight edema noted to lower legs that is normal for him. pt is a poor historian Physician History: 68 old male with history of hypertension, hyperlipidemia, diabetes mellitus, COPD presented in the ER with complaints of low blood pressure noticed by home health nurse twice today. Patient reports he took his routine medication quarter to eat and around 830 his pressure was 80 systolic and later on again at 11:00 it was 78 systolic. Patient denies having any chest pain palpitations or shortness of breath but does report feeling a little weak than usual. Denies any difficulty breathing low back but he has at his baseline. No abdominal pain nausea vomiting or urinary complaints. No fever or chills reported. Patient blood pressure is in the 90s during my evaluation. Orthostatics are positive dropping from 114 systolic to 91 with standing from si tting position. Allergies/Adverse Reactions: Penicillins Allergy (Intermediate, Verified 11/18/23 12:32) RASH milk Allergy (Mild, Verified 11/18/23 12:32) hornet venom Allergy (Verified 11/18/23 12:32) lithium Allergy (Verified 11/19/23 10:04) verified by [facility] medication list ipratropium Adverse Reaction (Intermediate, Verified 11/18/23 12:32) Vomiting Home Medications: Omeprazole 20 MG [Prilosec 20 mg] 20 mg PO DAILY 06/19/13 [History] Cholecalciferol (Vitamin D3) [Vitamin D] 1,000 unit PO UD 10/31/17 [History] Carvedilol 12.5 mg [Coreg 12.5 mg] 6.25 mg PO BID 08/22/19 [History] Ropinirole 2Mg [Requip 2Mg Tab] 2 mg PO DAILY 01/26/20 [History] Fluticasone Propionate [Flonase NASAL] 2 sprays NS BID 03/31/20 [History] Metformin HCl 500 mg [Glucophage 500 MG] 500 mg PO BIDWM 03/31/20 [Hist ory] Rivaroxaban [Xarelto] 20 mg PO DAILY 03/31/20 [History] Ropinirole 2Mg [Requip 2Mg Tab] 6 mg PO HS 03/31/20 [History] Acetaminophen 325 mg [Tylenol 325 mg] 650 mg PO TID 06/26/21 [History] Albuterol 2.5 mg/0.5 ml [PROVENTIL Solution 2.5 MG/0.5 ML] 2.5 mg IH TID 06/26/21 [History] Fexofenadine HCl [Aysha Allergy] 180 mg PO HS 06/26/21 [History] Tiotropium Gaffney Inhaler [Spiriva 18 Mcg/Cap Inhaler] 2 puff IH DAILY 06/26/21 [History] Atorvastatin Calcium 10 mg PO HS 11/19/23 [History] Benzonatate 100 mg PO TID 11/19/23 [History] Empagliflozin [Jardiance] 10 mg PO DAILY 11/19/23 [History] Fluticasone Propion/Salmeterol [Wixela 500-50 Inhub] 1 puff IH BID 11/19/23 [History] Gabapentin 300 mg PO HS 11/19/23 [History] Guaifenesin/Dextromethorphan [Mucus Dm Max ER 1,200-60 mg Tb] 600 mg PO BIDPRN PRN 11/19/23 [History] Propylene Glycol/Peg 400/Pf [Lubricant Eye 0.4%-0.3% Drop] 1 drop OP QIDPRN PRN 11/19/23 [History] Sildenafil Citrate 100 mg PO DAILY PRN PRN 11/19/23 [History] Solifenacin Succinate 10 mg PO DAILY 11/19/23 [History] Tamsulosin HCl 0.4 mg [Flomax 0.4 MG] 0.4 mg PO DAILY 11/19/23 [History] Hx Tetanus, Diphtheria Vaccination/Date Given: Yes Hx Influenza Vaccination/Date Given: Yes Hx Pneumococcal Vaccination/Date Given: Yes Immunizations Up to Date: Yes Travel Risk - International Travel Have you traveled outside of the country in past 3 weeks: No - Coronavirus Screening Are you exhibiting any of the following symptoms?: No Close contact with a COVID-19 positive Pt in past 14-21 Days: No - Vaccine Status Have you recieved a Covid-19 vaccination: 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 - Review of Systems Constitutional: Fatigue Eyes: No Symptoms Ears, Nose, & Throat: No Symptoms Respiratory: Dyspnea Cardiac: No Symptoms Abdominal/Gastrointestinal: No Symptoms Genitourinary Symptoms: No Symptoms Neurological: No Symptoms Endocrine: No Symptoms Hematologic/Lymphatic: No Symptoms - Past Medical History Pertinent Past Medical History: Yes Neurological History: Other ENT History: No Pertinent History Cardiac History: Arrhythmia, Coronary Artery Disease, High Cholesterol, Hyper tension, Myocardial Infarction ([place]) Respiratory History: COPD Endocrine Medical History: Diabetes Type II, Liver Disease Musculoskeletal History: Arthritis, Rheumatoid Arthritis GI Medical History: No Pertinent History History: Other Psycho-Social History: No Pertinent History Male Reproductive Disorders: No Pertinent History Other Medical History: PACEMAKER, Head injury 1974 - Past Surgical History Past Surgical History: Yes Neuro Surgical History: No Pertinent History Cardiac: Internal Defibrillator, Pacemaker Respiratory: No Pertinent History Gastrointestinal: Appendectomy, Cholecystectomy Genitourinary: No Pertinent History Musculoskeletal: Orthopedic Surgery Male Surgical History: No Pertinent History Other Surgical History: BACK SURG - Social History Smoking Status: Former smoker Exposure to second hand smoke: No Drug Use: none Patient Lives Alone: No - Nursing Vital Signs Nursing Vital Signs: Initial Vital Signs Temperature 97.0 F 11/18/23 12:34 Pulse Rate 95 H 11/18/23 12:34 Respiratory Rate 20 11/18/23 12:34 Blood Pressure 101/61 11/18/23 12:34 O2 Sat by Pulse Oximetry 96 11/18/23 12:34 Pain Scale Pain Intensity 0 - Physical Exam General Appearance: no apparent distress, alert Eye Exam: PERRL/EOMI Ears, Nose, Throat Exam: normal ENT inspection Neck Exam: normal inspection, supple, full range of motion Respiratory Exam: normal breath sounds, lungs clear Cardiovascular Exam: regular rate/rhythm, normal heart sounds Gastrointestinal/Abdomen Exam: soft, normal bowel sounds, No tenderness Extremity Exam: normal inspection, normal range of motion Neurologic Exam: alert, oriented x 3, 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, 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 Skin Exam: normal color SpO2 Interpretation: O2 applied SpO2: 92 O2 Delivery: Nasal Cannula - Course EKG Interpreted by Me: RATE (77 atrial paced), Left [place] Deviation, Left Bundle Branch Block, Q-wave, Non-specific ST Changes Ordered Tests: Medication Summary Discontinued Medications Generic Name Dose Route Start Last Admin Trade Name Freq PRN Reason Stop Dose Admin Acetaminophen 650 mg 11/19/23 11:00 11/19/23 11:14 Acetaminophen 325 Mg Tablet PO 12/19/23 10:59 650 mg TID GINA Administration Albuterol Sulfate 2.5 mg 11/19/23 07:00 11/19/23 07:01 Albuterol Sulfate 2.5 Mg/3 Ml Neb IH 12/19/23 06:59 2.5 mg BIDRT GINA Administration Artificial Tears 0 ml 11/19/23 10:57 Polyvinyl Alcohol 15 Ml Bottle OP 12/19/23 10:56 QIDPRN PRN dry eyes Benzonatate 100 mg 11/19/23 11:00 11/19/23 11:14 Benzonatate 100 Mg Capsule PO 12/19/23 10:59 100 mg TID GINA Administration Carvedilol 6.25 mg 11/19/23 11:00 11/19/23 11:15 Carvedilol 6.25 Mg Tablet PO 12/19/23 10:59 6.25 mg BID GINA Administration Cholecalciferol 1,000 unit 11/19/23 11:00 11/19/23 11:14 Cholecalciferol (Vitamin D3) 1000 Unit Tablet PO 12/19/23 10:59 1,000 unit QAM GINA Administration Cholecalciferol 2,000 unit 11/19/23 22:00 Cholecalciferol (Vitamin D3) 1000 Unit Tablet PO 12/19/23 21:59 HS GINA Empagliflozin 10 mg 11/19/23 11:00 11/19/23 11:14 Empagliflozin 10 Mg Tablet PO 12/19/23 10:59 10 mg DAILY GINA Administration Enoxaparin Sodium 40 mg 11/19/23 10:00 11/19/23 11:13 Enoxaparin Sodium 40 Mg/0.4 Ml Syringe SQ 12/19/23 09:59 40 mg DAILY GINA Administration Fluticasone Propionate 0 gm 11/19/23 11:00 11/19/23 11:15 Fluticasone Propionate 16 Gm Bottle Nasal [place] NS 12/19/23 10:59 1 gm BID GINA Administration Gabapentin 300 mg 11/19/23 22:00 Gabapentin 300 Mg Capsule PO 12/19/23 21:59 HS GINA Guaifenesin/Dextromethorphan 2 tablet 11/19/23 10:54 Guaifenesin Dm 600mg/30 Mg Tablet PO 12/19/23 10:53 BIDPRN PRN congestion Sodium Chloride 500 mls @ 500 mls/hr 11/18/23 12:51 11/18/23 14:23 Sodium Chloride 0.9% 500 Ml IV 11/18/23 13:50 Infused .Q1H ONE Infusion Sodium Chloride Confirm 11/18/23 13:15 Sodium Chloride 0.9% 500 Ml Administered 11/18/23 13:16 Dose 500 mls @ ud IV .STK-MED ONE Lactated Ringer's 1,000 mls @ 100 mls/hr 11/18/23 23:00 11/19/23 09:12 Lactated Ringers IV 12/18/23 22:59 100 mls/hr .Q10H GINA Administration Insulin Human Lispro 0 unit 11/19/23 05:12 Insulin Lispro 1 Unit SQ 12/19/23 05:11 UD PRN HYPERGLYCEMIA Loratadine 10 mg 11/19/23 22:00 Loratadine 10 Mg Tablet PO 12/19/23 21:59 HS GINA Oxybutynin Chloride 5 mg 11/19/23 11:00 11/19/23 11:15 Oxybutynin Chloride 5 Mg Tablet PO 12/19/23 10:59 5 mg BID GINA Administration Pantoprazole Sodium 40 mg 11/19/23 11:00 11/19/23 11:15 Protonix (Pantoprazole) 40 Mg Tablet PO 12/19/23 10:59 40 mg DAILY GINA Administration Ropinirole HCl 2 mg 11/19/23 11:00 11/19/23 11:14 Ropinirole Hcl 2 Mg Tablet PO 12/19/23 10:59 2 mg DAILY GINA Administration Ropinirole HCl 6 mg 11/19/23 22:00 Ropinirole Hcl 2 Mg Tablet PO 12/19/23 21:59 HS GINA Fluticasone/Salmeterol 2 puff 11/19/23 07:00 11/19/23 07:33 Fluticasone/Salmeterol 115/21 - 120 Puff Common Canister IH 12/19/23 06:59 2 puff BIDRT GINA Administration Simvastatin 10 mg 11/19/23 22:00 Simvastatin 10 Mg Tablet PO 12/19/23 21:59 HS GINA Tamsulosin HCl 0.4 mg 11/19/23 11:00 11/19/23 11:14 Tamsulosin Hcl 0.4 Mg Cap PO 12/19/23 10:59 0.4 mg DAILY GINA Administration Tiotropium Gaffney 1 ea 11/19/23 10:00 11/19/23 07:10 Tiotropium Gaffney 18 Mcg/Cap Inhaler IH 12/19/23 09:59 1 ea DAILY GINA Administration Lab/Rad Data: Laboratory Result Diagrams 11/18/23 13:00 11/18/23 13:00 Laboratory Results 11/18/23 11/18/23 11/18/23 Range/Units 17:40 17:35 13:10 WBC (4.0-10.5) x10^3/uL RBC (4.1-5.6) x10^6/uL Hgb (12.5-18.0) g/dL Hct (42-50) % MCV (78-100) fL MCH (26-32) pg MCHC (32-36) g/dL RDW (11.5-14.0) % Plt Count (150-450) x10^3/uL MPV (7.5-11.0) fL Gran % (36.0-66.0) % Immature Gran % (Auto) (0.00-0.4) % Nucleat RBC Rel Count (0.00-0.1) % Eos # (Auto) (0-0.5) x10^3/uL Immature Gran # (Auto) (0.00-0.03) x10^3u/L Absolute Lymphs (auto) (1.0-4.6) x10^3/uL Absolute Monos (auto) (0.0-1.3) x10^3/uL Absolute Nucleated RBC (0.00-0.01) x10^3u/L Lymphocytes % (24.0-44.0) % Monocytes % (0.0-12.0) % Eosinophils % (0.00-5.0) % Basophils % (0.0-0.4) % Absolute Granulocytes (1.4-6.9) x10^3/uL Basophils # (0-0.4) x10^3/uL Sodium (137-145) mmol/L Potassium (3.5-5.1) mmol/L Chloride (98-107) mmol/L Carbon Dioxide (22-30) mmol/L Anion Gap (5-15) MEQ/L BUN (9-20) mg/dL Creatinine (0.66-1.25) mg/dL Estimated GFR ML/MIN Glucose (74-106) mg/dL Lactic Acid 1.4 2.7 H (0.4-2.0) Calcium (8.4-10.2) mg/dL Magnesium (1.6-2.3) mg/dL Total Bilirubin (0.2-1.3) mg/dL AST (17-59) U/L ALT (0-50) U/L Alkaline Phosphatase (38-126) U/L Troponin I 0.014 (0.000-0.034) ng/mL NT-Pro-B Natriuret Pep (<300) pg/mL Serum Total Protein (6.3-8.2) g/dL Albumin (3.5-5.0) g/dL 11/18/23 11/18/23 11/18/23 Range/Units 13:00 13:00 13:00 WBC 5.9 (4.0-10.5) x10^3/uL RBC 4.74 (4.1-5.6) x10^6/uL Hgb 14.0 (12.5-18.0) g/dL Hct 44.2 (42-50) % MCV 93.2 (78-100) fL MCH 29.5 (26-32) pg MCHC 31.7 L (32-36) g/dL RDW 15.2 H (11.5-14.0) % Plt Count 212 (150-450) x10^3/uL MPV 10.4 (7.5-11.0) fL Gran % 65.2 (36.0-66.0) % Immature Gran % (Auto) 0.2 (0.00-0.4) % Nucleat RBC Rel Count 0.0 (0.00-0.1) % Eos # (Auto) 0.15 (0-0.5) x10^3/uL Immature Gran # (Auto) 0.01 (0.00-0.03) x10^3u/L Absolute Lymphs (auto) 1.35 (1.0-4.6) x10^3/uL Absolute Monos (auto) 0.48 (0.0-1.3) x10^3/uL Absolute Nucleated RBC 0.00 (0.00-0.01) x10^3u/L Lymphocytes % 22.8 L (24.0-44.0) % Monocytes % 8.1 (0.0-12.0) % Eosinophils % 2.5 (0.00-5.0) % Basophils % 1.2 (0.0-0.4) % Absolute Granulocytes 3.85 (1.4-6.9) x10^3/uL Basophils # 0.07 (0-0.4) x10^3/uL Sodium 135 L (137-145) mmol/L Potassium 3.9 (3.5-5.1) mmol/L Chloride 105 (98-107) mmol/L Carbon Dioxide 22 (22-30) mmol/L Anion Gap 11.9 (5-15) MEQ/L BUN 24 H (9-20) mg/dL Creatinine 1.13 (0.66-1.25) mg/dL Estimated GFR 71.2 ML/MIN Glucose 142 H (74-106) mg/dL Lactic Acid (0.4-2.0) Calcium 8.8 (8.4-10.2) mg/dL Magnesium 1.9 (1.6-2.3) mg/dL Total Bilirubin 0.50 (0.2-1.3) mg/dL AST 18 (17-59) U/L ALT 16 (0-50) U/L Alkaline Phosphatase 92 (38-126) U/L Troponin I 0.013 (0.000-0.034) ng/mL NT-Pro-B Natriuret Pep 1300 (<300) pg/mL Serum Total Protein 7.1 (6.3-8.2) g/dL Albumin 4.0 (3.5-5.0) g/dL - Progress Progress: improved Progress Note: 11/18/23 16:25 68-year-old is evaluated for hypotension at home. Patient is given gentle hydration as he had a positive orthostatics. EKG is paced rhythm with no acute ischemic changes and negative troponins. Has a lactate of 2.7 with no focus of infection. Chest x-ray negative for any acute cardiopulmonary findings. I believe patient needs adjustment in dose of his antihypertensives. I have call ed hospitalist and patient would be admitted. 11/18/23 18:35 Called and discussed with hospitalist here, since patient is a [place] patient and we need to talk to [facility] before admitting here. I have spoken with Dr. Marshall at [place] hospitalist, reviewed history, recommended patient can be observed h ere overnight. Discussed with Dr. Tse and patient is being admitted. Discussed with Dr.: Other (Dr. Tse hospitalist) Counseled pt/family regarding: lab results, diagnosis, need for follow-up, rad results Medical Desision Making - Independent Historian Additional History obtained from: Spouse (Dr. Ramires [place] and Dr. Tse [facility] hospitalist) - Discussion of managment Care discussed with:: hospitalist (Dr. Tse) Reviewed:: Test results Agreed on:: Treatment plan Will see patient: in hospital - Diagnostic Testing Diagnostic test were ordered, analyzed, and reviewed by me: Yes Radiological Interpretation: Reviewed by me - Risk of complications The pt has a high risk of morbidity or mortality based on: Decision regarding hospitilization or escalation of hosp level of care - Departure Departure Disposition: Observation Clinical Impression: Orthostatic hypotension Condition: Stable Critical Care Time: No
--- NOTE | 2023-11-18 22:56 | PCM.HP ---
History of Present Illness - Chief Complaint Chief Complaint: Orthostatic Hypotension Date: 11/18/23 History of Present Illness: Mr. Harrison is a 68 year-old male with DM2, HTN, HLD, COPD, and prior CVA who presents with orthostatic hypotension His home health nurse noticed this morning that he was hypotensive with systolics in the 70s when taking him to the shower thus prompting care at [place]. Upon arrival, all his laboaratory data was unremarkable, and on exam, his SBP dropped from 114 to 91 from a sitting to standing position in the ED. On my examination, he is resting comfortably denying any current fevers, chills, nausea, vomiting, diarrhea, syncope, presyncope, visual changes, orthopnea, PND, odynophagia, dysphagia, chest pain, shortness of breath, belly pain, dysuria, hematuria, melena, hematochezia, or neurological changes. All other systems were reviewed and were negative. - Review of Systems Constitutional: No Fever, No Chills Eyes: No Symptoms Ears, Nose, & Throat: No Symptoms Respiratory: No Cough, No Short Of Breath Cardiac: No Chest Pain, No Edema, No Syncope Abdominal/Gastrointestinal: No Abdominal Pain, No Nausea, No Vomiting, No Diarrhea Genitourinary Symptoms: No Dysuria Musculoskeletal: No Back Pain, No Neck Pain Skin: No Rash Neurological: No Dizziness, No Focal Weakness, No Sensory Changes Psychological: No Symptoms Endocrine: No Symptoms Hematologic/Lymphatic: No Symptoms Immunological/Allergic: No Symptoms Medications & Allergies Home Medications: Home Medication List Furosemide 20 mg [Lasix 20 mg] 20 mg PO DAILY 06/19/13 [History Confirmed 06/26/21] Omeprazole 20 MG [Prilosec 20 mg] 20 mg PO DAILY 06/19/13 [History Confirmed 06/26/21] lisinopriL [Zestril] 5 mg PO DAILY 06/19/13 [History Confirmed 06/26/21] Cholecalciferol (Vitamin D3) [Vitamin D] 1,000 unit PO TID 10/31/17 [History Confirmed 06/26/21] Carvedilol 12.5 mg [Coreg 12.5 mg] 6.25 mg PO BID 08/22/19 [History Confirmed 06/26/21] Potassium Chloride [K-Dur] 20 meq PO DAILY 08/22/19 [History Confirmed 06/26/21] Meloxicam 15 mg PO DAILY 01/26/20 [History Confirmed 06/26/21] Ropinirole 2Mg [Requip 2Mg Tab] 6 mg PO HS 01/26/20 [History Confirmed 06/26/21] Fluticasone Propionate [Flonase NASAL] 2 puff NS BID 03/31/20 [History Confirmed 06/26/21] Metformin HCl 500 mg [Glucophage 500 MG] 500 mg PO BIDWM 03/31/20 [History Confirmed 06/26/21] Rivaroxaban [Xarelto] 20 mg PO DAILY 03/31/20 [History Confirmed 06/26/21] Ropinirole 2Mg [Requip 2Mg Tab] 2 mg PO DAILY 03/31/20 [History Confirmed 06/26/21] Acetaminophen 325 mg [Tylenol 325 mg] 650 mg PO Q4H PRN PRN 06/26/21 [History Confirmed 06/26/21] Albuterol 2.5 mg/0.5 ml [PROVENTIL Solution 2.5 MG/0.5 ML] 2.5 mg IH Q6H PRN PRN 06/26/21 [History Confirmed 06/26/21] Cholestyramine Light 4 gm [QUESTRAN Light 4 GM Packet] 4 gm PO DAILY #30 packet 06/26/21 [Rx] Fexofenadine HCl [Aysha Allergy] 180 mg PO DAILY 06/26/21 [History Confirmed 06/26/21] Tiotropium [place] Inhaler [Spiriva 18 Mcg/Cap Inhaler] 2 puff IH DAILY 06/26/21 [History Confirmed 06/26/21] Ketorolac Trometh 10 mg Tab [TORAdol 10 MG TABLET] 10 mg PO TID 5 Days #15 tablet 07/06/23 [Rx] Allergies/Adverse Reactions: Allergies Allergy/AdvReac Type Severity Reaction Status Date / Time Penicillins Allergy Intermediate Verified 11/18/23 12:32 milk Allergy Mild Verified 11/18/23 12:32 hornet venom Allergy Verified 11/18/23 12:32 ipratropium AdvReac Intermediate Vomiting Verified 11/18/23 12:32 - Past Medical History Past Medical History: Yes Neurological History: Other ENT History: No Pertinent History Cardiac History: Arrhythmia, Coronary Artery Disease, High Cholesterol, Hypertension, Myocardial Infarction (ID) Respiratory History: COPD Endocrine Medical History: Diabetes Type II, Liver Disease Musculoskelatal History: Arthritis, Rheumatoid Arthritis GI Medical History: No Pertinent History History: Other Pyscho-Social History: No Pertinent History Male Reproductive Disorders: No Pertinent History Comment: PACEMAKER, Head injury 1974 - Past Surgical History Past Surgical History: Yes Neuro Surgical History: No Pertinent History Cardiac History: Internal Defibrillator, Pacemaker Respiratory Surgery: No Pertinent History GI Surgical History: Appendectomy, Cholecystectomy Genitourinary Surgical Hx: No Pertinent History Musculskeletal Surgical Hx: Orthopedic Surgery Male Surgical History: No Pertinent History Other Surgical History: BACK SURG - Social History Smoking Status: Former smoker Exposure to second hand smoke: No Alcohol: None Drug Use: none - Physical Exam Vital Signs: Vital Signs - 24 hr Temp Pulse Resp BP BP Pulse Ox 11/18/23 20:13 97.1 F 70 19 116/71 97 11/18/23 19:35 97 11/18/23 18:38 92 L 11/18/23 18:11 74 19 111/78 95 11/18/23 18:00 78 19 110/78 89 L 11/18/23 17:50 72 27 H 111/67 95 11/18/23 17:40 78 20 112/82 95 11/18/23 17:30 72 27 H 114/68 95 11/18/23 17:10 75 20 102/71 95 11/18/23 17:00 75 23 111/67 94 L 11/18/23 16:50 74 21 111/72 93 L 11/18/23 16:40 73 21 102/67 95 11/18/23 16:30 82 25 H 101/64 93 L 11/18/23 16:20 76 19 102/64 94 L 11/18/23 16:10 70 17 97/60 95 11/18/23 16:00 71 20 98/59 95 11/18/23 15:50 86 17 102/61 92 L 11/18/23 15:40 75 19 95/63 94 L 11/18/23 15:31 79 21 91/58 94 L 11/18/23 15:26 79 24 114/56 92 L 11/18/23 15:23 54 L 22 91/64 94 L 11/18/23 15:20 75 20 100/61 94 L 11/18/23 15:10 77 14 91/57 95 11/18/23 15:09 79 21 90/61 96 11/18/23 15:08 71 25 H 93/63 95 11/18/23 15:05 76 23 91/59 94 L 11/18/23 15:00 74 18 95/56 93 L 11/18/23 14:45 75 16 101/65 92 L 11/18/23 14:30 73 20 96/48 93 L 11/18/23 14:15 78 22 95/58 92 L 11/18/23 14:00 90 20 91/64 92 L 11/18/23 13:45 74 19 97/59 91 L 11/18/23 13:30 79 18 94/60 90 L 11/18/23 13:16 72 21 93/60 91 L 11/18/23 13:04 79 25 H 91/67 93 L 11/18/23 13:00 86 24 93/54 93 L 11/18/23 12:34 97.0 F 95 H 20 101/61 96 General Appearance: no apparent distress, alert Neurologic Exam: alert, oriented x 3, cooperative, normal mood/affect, nml cerebellar function, nml station & gait, sensation nml, No motor deficits Eye Exam: PERRL/EOMI, eyes nml inspection Ears, Nose, Throat Exam: normal ENT inspection, TMs normal, pharynx normal, moist mucous membranes Neck Exam: normal inspection, non-tender, supple, full range of motion Respiratory Exam: normal breath sounds, lungs clear, No respiratory distress Cardiovascular Exam: regular rate/rhythm, normal heart sounds, normal peripheral pulses Gastrointestinal/Abdomen Exam: soft, normal bowel sounds, No tenderness, No mass Back Exam: normal inspection, normal range of motion, No CVA tenderness, No vertebral tenderness Extremity Exam: normal inspection, normal range of motion, pelvis stable Skin Exam: normal color, warm, dry, No rash Lymphatic Exam: No adenopathy Results - Labs Lab/Micro Results: Lab Results-Last 24 Hours 11/18/23 11/18/23 11/18/23 Range/Units 13:00 13:00 13:00 WBC 5.9 (4.0-10.5) x10^3/uL RBC 4.74 (4.1-5.6) x10^6/uL Hgb 14.0 (12.5-18.0) g/dL Hct 44.2 (42-50) % MCV 93.2 (78-100) fL MCH 29.5 (26-32) pg MCHC 31.7 L (32-36) g/dL RDW 15.2 H (11.5-14.0) % Plt Count 212 (150-450) x10^3/uL MPV 10.4 (7.5-11.0) fL Gran % 65.2 (36.0-66.0) % Immature Gran % (Auto) 0.2 (0.00-0.4) % Nucleat RBC Rel Count 0.0 (0.00-0.1) % Eos # (Auto) 0.15 (0-0.5) x10^3/uL Immature Gran # (Auto) 0.01 (0.00-0.03) x10^3u/L Absolute Lymphs (auto) 1.35 (1.0-4.6) x10^3/uL Absolute Monos (auto) 0.48 (0.0-1.3) x10^3/uL Absolute Nucleated RBC 0.00 (0.00-0.01) x10^3u/L Lymphocytes % 22.8 L (24.0-44.0) % Monocytes % 8.1 (0.0-12.0) % Eosinophils % 2.5 (0.00-5.0) % Basophils % 1.2 (0.0-0.4) % Absolute Granulocytes 3.85 (1.4-6.9) x10^3/uL Basophils # 0.07 (0-0.4) x10^3/uL Sodium 135 L (137-145) mmol/L Potassium 3.9 (3.5-5.1) mmol/L Chloride 105 (98-107) mmol/L Carbon Dioxide 22 (22-30) mmol/L Anion Gap 11.9 (5-15) MEQ/L BUN 24 H (9-20) mg/dL Creatinine 1.13 (0.66-1.25) mg/dL Estimated GFR 71.2 ML/MIN Glucose 142 H (74-106) mg/dL POC Glucometer (74 to 106) mg/dL Lactic Acid (0.4-2.0) Calcium 8.8 (8.4-10.2) mg/dL Magnesium 1.9 (1.6-2.3) mg/dL Total Bilirubin 0.50 (0.2-1.3) mg/dL AST 18 (17-59) U/L ALT 16 (0-50) U/L Alkaline Phosphatase 92 (38-126) U/L Troponin I 0.013 (0.000-0.034) ng/mL NT-Pro-B Natriuret Pep 1300 (<300) pg/mL Serum Total Protein 7.1 (6.3-8.2) g/dL Albumin 4.0 (3.5-5.0) g/dL 11/18/23 11/18/23 11/18/23 Range/Units 13:10 17:35 17:40 WBC (4.0-10.5) x10^3/uL RBC (4.1-5.6) x10^6/uL Hgb (12.5-18.0) g/dL Hct (42-50) % MCV (78-100) fL MCH (26-32) pg MCHC (32-36) g/dL RDW (11.5-14.0) % Plt Count (150-450) x10^3/uL MPV (7.5-11.0) fL Gran % (36.0-66.0) % Immature Gran % (Auto) (0.00-0.4) % Nucleat RBC Rel Count (0.00-0.1) % Eos # (Auto) (0-0.5) x10^3/uL Immature Gran # (Auto) (0.00-0.03) x10^3u/L Absolute Lymphs (auto) (1.0-4.6) x10^3/uL Absolute Monos (auto) (0.0-1.3) x10^3/uL Absolute Nucleated RBC (0.00-0.01) x10^3u/L Lymphocytes % (24.0-44.0) % Monocytes % (0.0-12.0) % Eosinophils % (0.00-5.0) % Basophils % (0.0-0.4) % Absolute Granulocytes (1.4-6.9) x10^3/uL Basophils # (0-0.4) x10^3/uL Sodium (137-145) mmol/L Potassium (3.5-5.1) mmol/L Chloride (98-107) mmol/L Carbon Dioxide (22-30) mmol/L Anion Gap (5-15) MEQ/L BUN (9-20) mg/dL Creatinine (0.66-1.25) mg/dL Estimated GFR ML/MIN Glucose (74-106) mg/dL POC Glucometer (74 to 106) mg/dL Lactic Acid 2.7 H 1.4 (0.4-2.0) Calcium (8.4-10.2) mg/dL Magnesium (1.6-2.3) mg/dL Total Bilirubin (0.2-1.3) mg/dL AST (17-59) U/L ALT (0-50) U/L Alkaline Phosphatase (38-126) U/L Troponin I 0.014 (0.000-0.034) ng/mL NT-Pro-B Natriuret Pep (<300) pg/mL Serum Total Protein (6.3-8.2) g/dL Albumin (3.5-5.0) g/dL 11/18/23 11/18/23 Range/Units 20:55 21:40 WBC (4.0-10.5) x10^3/uL RBC (4.1-5.6) x10^6/uL Hgb (12.5-18.0) g/dL Hct (42-50) % MCV (78-100) fL MCH (26-32) pg MCHC (32-36) g/dL RDW (11.5-14.0) % Plt Count (150-450) x10^3/uL MPV (7.5-11.0) fL Gran % (36.0-66.0) % Immature Gran % (Auto) (0.00-0.4) % Nucleat RBC Rel Count (0.00-0.1) % Eos # (Auto) (0-0.5) x10^3/uL Immature Gran # (Auto) (0.00-0.03) x10^3u/L Absolute Lymphs (auto) (1.0-4.6) x10^3/uL Absolute Monos (auto) (0.0-1.3) x10^3/uL Absolute Nucleated RBC (0.00-0.01) x10^3u/L Lymphocytes % (24.0-44.0) % Monocytes % (0.0-12.0) % Eosinophils % (0.00-5.0) % Basophils % (0.0-0.4) % Absolute Granulocytes (1.4-6.9) x10^3/uL Basophils # (0-0.4) x10^3/uL Sodium (137-145) mmol/L Potassium (3.5-5.1) mmol/L Chloride (98-107) mmol/L Carbon Dioxide (22-30) mmol/L Anion Gap (5-15) MEQ/L BUN (9-20) mg/dL Creatinine (0.66-1.25) mg/dL Estimated GFR ML/MIN Glucose (74-106) mg/dL POC Glucometer 97 (74 to 106) mg/dL Lactic Acid (0.4-2.0) Calcium (8.4-10.2) mg/dL Magnesium (1.6-2.3) mg/dL Total Bilirubin (0.2-1.3) mg/dL AST (17-59) U/L ALT (0-50) U/L Alkaline Phosphatase (38-126) U/L Troponin I < 0.012 (0.000-0.034) ng/mL NT-Pro-B Natriuret Pep (<300) pg/mL Serum Total Protein (6.3-8.2) g/dL Albumin (3.5-5.0) g/dL - Radiology Impressions Radiology Exams & Impressions: Radiology Procedures Category Date Time Status CHEST 1 VIEW (PORTABLE) Stat Exams 11/18/23 12:50 Completed - Other Procedures and Tests Respiratory Therapy 11/18/23 19:35 Respiratory Therapy Consult ONCE Assessment/Plan (1) Orthostatic hypotension Current Visit: Yes Status: Acute Assessment & Plan: ASSESSMENT 1. Orthostatic Hypotension 2. Type II Diabetes Mellitus 3. Hypertension 4. Hyperlipidemia 5. COPD 6. Prior CVA PLAN 1. Hydration with fluids 2. Check orthostatics in AM 3. Hold home medications until they can be properly reconciled in the AM Lovenox The entirety of this encounter was done via telemedicine Miquel Benton MD Pulmonary and Critical Care Medicine Code(s): I95.1 - ORTHOSTATIC HYPOTENSION Telemedicine Encounter - Telemedicine Encounter Telemedicine Encounter: The entirety of this encounter was performed via Telemedicine"
[2023-11-18] MEDS: Lactated Ringers 1,000 ML IV SCH (23:12)
[2023-11-19 04:52] LABS: BASOPHIL % 0.9 % (0.0-0.4); Basophil (Absolute #) 0.06 x10^3/uL (0-0.4); Eosinophil % 2.5 % (0.00-5.0); Eosinophil (Absolute #) 0.17 x10^3/uL (0-0.5); Hematocrit 42.4 % (42-50); Hemoglobin 13.2 g/dL (12.5-18.0); IMMATURE GRAN # 0.02 x10^3u/L (0.00-0.03); IMMATURE GRAN % 0.3 % (0.00-0.4); Lymphocyte (Absolute #) 1.84 x10^3/uL (1.0-4.6); Lymphocytes % 27.1 % (24.0-44.0); Mean Cell Volume 92.2 fL (78-100); Mean Corpuscular Hemoglobin 28.7 pg (26-32); Mean Corpuscular Hgb Concent. 31.1 g/dL (32-36); Mean Platelet Volume 10.7 fL (7.5-11.0); Monocyte (Absolute #) 0.51 x10^3/uL (0.0-1.3); Monocytes % 7.5 % (0.0-12.0); Neutrophil % 61.7 % (36.0-66.0); Platelet Count 192 x10^3/uL (150-450); Red Cell Distribution Width 15.4 % (11.5-14.0); White Blood Count 6.8 x10^3/uL (4.0-10.5)
--- NOTE | 2023-11-19 05:11 | PCM.NOTE ---
Date and Time: 11/19/23 0506 Subjective Assessment: Mr. Harrison is a 68 year-old male with DM2, HTN, HLD, COPD, and prior CVA who presents with orthostatic hypotension His home health nurse noticed this morning that he was hypotensive with systolics in the 70s when taking him to the shower thus prompting care at [place]. Upon arrival, all his laboaratory data was unremarkable, and on exam, his SBP dropped from 114 to 91 from a sitting to standing position in the ED. Patient admitted for observation of orthostatic hypotension OBJECTIVE DATA Vital Signs: Vital Signs - 24 hr Temp Pulse Resp BP BP Pulse Ox 11/19/23 04:00 97.2 F 78 20 126/61 93 L 11/19/23 00:00 97.6 F 92 H 20 109/55 93 L 11/18/23 20:13 97.1 F 70 19 116/71 97 11/18/23 19:45 80 18 96 11/18/23 19:35 97 11/18/23 18:38 92 L 11/18/23 18:11 74 19 111/78 95 11/18/23 18:00 78 19 110/78 89 L 11/18/23 17:50 72 27 H 111/67 95 11/18/23 17:40 78 20 112/82 95 11/18/23 17:30 72 27 H 114/68 95 11/18/23 17:10 75 20 102/71 95 11/18/23 17:00 75 23 111/67 94 L 11/18/23 16:50 74 21 111/72 93 L 11/18/23 16:40 73 21 102/67 95 11/18/23 16:30 82 25 H 101/64 93 L 11/18/23 16:20 76 19 102/64 94 L 11/18/23 16:10 70 17 97/60 95 11/18/23 16:00 71 20 98/59 95 11/18/23 15:50 86 17 102/61 92 L 11/18/23 15:40 75 19 95/63 94 L 11/18/23 15:31 79 21 91/58 94 L 11/18/23 15:26 79 24 114/56 92 L 11/18/23 15:23 54 L 22 91/64 94 L 11/18/23 15:20 75 20 100/61 94 L 11/18/23 15:10 77 14 91/57 95 11/18/23 15:09 79 21 90/61 96 11/18/23 15:08 71 25 H 93/63 95 11/18/23 15:05 76 23 91/59 94 L 11/18/23 15:00 74 18 95/56 93 L 11/18/23 14:45 75 16 101/65 92 L 11/18/23 14:30 73 20 96/48 93 L 11/18/23 14:15 78 22 95/58 92 L 11/18/23 14:00 90 20 91/64 92 L 11/18/23 13:45 74 19 97/59 91 L 11/18/23 13:30 79 18 94/60 90 L 11/18/23 13:16 72 21 93/60 91 L 11/18/23 13:04 79 25 H 91/67 93 L 11/18/23 13:00 86 24 93/54 93 L 11/18/23 12:34 97.0 F 95 H 20 101/61 96 Pain Assessment - Last Documented Pain Intensity 0 Intake and Output: Intake & Output 11/16/23 11/17/23 11/18/23 11/19/23 11:59 11:59 11:59 11:59 Intake Total 1040 Balance 1040 Weight 73.7 kg Lab Results: Lab Results-Last 24 Hours 11/18/23 11/18/23 11/18/23 Range/Units 13:00 13:00 13:00 WBC 5.9 (4.0-10.5) x10^3/uL RBC 4.74 (4.1-5.6) x10^6/uL Hgb 14.0 (12.5-18.0) g/dL Hct 44.2 (42-50) % MCV 93.2 (78-100) fL MCH 29.5 (26-32) pg MCHC 31.7 L (32-36) g/dL RDW 15.2 H (11.5-14.0) % Plt Count 212 (150-450) x10^3/uL MPV 10.4 (7.5-11.0) fL Gran % 65.2 (36.0-66.0) % Immature Gran % (Auto) 0.2 (0.00-0.4) % Nucleat RBC Rel Count 0.0 (0.00-0.1) % Eos # (Auto) 0.15 (0-0.5) x10^3/uL Immature Gran # (Auto) 0.01 (0.00-0.03) x10^3u/L Absolute Lymphs (auto) 1.35 (1.0-4.6) x10^3/uL Absolute Monos (auto) 0.48 (0.0-1.3) x10^3/uL Absolute Nucleated RBC 0.00 (0.00-0.01) x10^3u/L Lymphocytes % 22.8 L (24.0-44.0) % Monocytes % 8.1 (0.0-12.0) % Eosinophils % 2.5 (0.00-5.0) % Basophils % 1.2 (0.0-0.4) % Absolute Granulocytes 3.85 (1.4-6.9) x10^3/uL Basophils # 0.07 (0-0.4) x10^3/uL Sodium 135 L (137-145) mmol/L Potassium 3.9 (3.5-5.1) mmol/L Chloride 105 (98-107) mmol/L Carbon Dioxide 22 (22-30) mmol/L Anion Gap 11.9 (5-15) MEQ/L BUN 24 H (9-20) mg/dL Creatinine 1.13 (0.66-1.25) mg/dL Estimated GFR 71.2 ML/MIN Glucose 142 H (74-106) mg/dL POC Glucometer (74 to 106) mg/dL Lactic Acid (0.4-2.0) Calcium 8.8 (8.4-10.2) mg/dL Magnesium 1.9 (1.6-2.3) mg/dL Total Bilirubin 0.50 (0.2-1.3) mg/dL AST 18 (17-59) U/L ALT 16 (0-50) U/L Alkaline Phosphatase 92 (38-126) U/L Troponin I 0.013 (0.000-0.034) ng/mL NT-Pro-B Natriuret Pep 1300 (<300) pg/mL Serum Total Protein 7.1 (6.3-8.2) g/dL Albumin 4.0 (3.5-5.0) g/dL 11/18/23 11/18/23 11/18/23 Range/Units 13:10 17:35 17:40 WBC (4.0-10.5) x10^3/uL RBC (4.1-5.6) x10^6/uL Hgb (12.5-18.0) g/dL Hct (42-50) % MCV (78-100) fL MCH (26-32) pg MCHC (32-36) g/dL RDW (11.5-14.0) % Plt Count (150-450) x10^3/uL MPV (7.5-11.0) fL Gran % (36.0-66.0) % Immature Gran % (Auto) (0.00-0.4) % Nucleat RBC Rel Count (0.00-0.1) % Eos # (Auto) (0-0.5) x10^3/uL Immature Gran # (Auto) (0.00-0.03) x10^3u/L Absolute Lymphs (auto) (1.0-4.6) x10^3/uL Absolute Monos (auto) (0.0-1.3) x10^3/uL Absolute Nucleated RBC (0.00-0.01) x10^3u/L Lymphocytes % (24.0-44.0) % Monocytes % (0.0-12.0) % Eosinophils % (0.00-5.0) % Basophils % (0.0-0.4) % Absolute Granulocytes (1.4-6.9) x10^3/uL Basophils # (0-0.4) x10^3/uL Sodium (137-145) mmol/L Potassium (3.5-5.1) mmol/L Chloride (98-107) mmol/L Carbon Dioxide (22-30) mmol/L Anion Gap (5-15) MEQ/L BUN (9-20) mg/dL Creatinine (0.66-1.25) mg/dL Estimated GFR ML/MIN Glucose (74-106) mg/dL POC Glucometer (74 to 106) mg/dL Lactic Acid 2.7 H 1.4 (0.4-2.0) Calcium (8.4-10.2) mg/dL Magnesium (1.6-2.3) mg/dL Total Bilirubin (0.2-1.3) mg/dL AST (17-59) U/L ALT (0-50) U/L Alkaline Phosphatase (38-126) U/L Troponin I 0.014 (0.000-0.034) ng/mL NT-Pro-B Natriuret Pep (<300) pg/mL Serum Total Protein (6.3-8.2) g/dL Albumin (3.5-5.0) g/dL 11/18/23 11/18/23 11/19/23 Range/Units 20:55 21:40 04:35 WBC 6.8 (4.0-10.5) x10^3/uL RBC 4.60 (4.1-5.6) x10^6/uL Hgb 13.2 (12.5-18.0) g/dL Hct 42.4 (42-50) % MCV 92.2 (78-100) fL MCH 28.7 (26-32) pg MCHC 31.1 L (32-36) g/dL RDW 15.4 H (11.5-14.0) % Plt Count 192 (150-450) x10^3/uL MPV 10.7 (7.5-11.0) fL Gran % 61.7 (36.0-66.0) % Immature Gran % (Auto) 0.3 (0.00-0.4) % Nucleat RBC Rel Count 0.0 (0.00-0.1) % Eos # (Auto) 0.17 (0-0.5) x10^3/uL Immature Gran # (Auto) 0.02 (0.00-0.03) x10^3u/L Absolute Lymphs (auto) 1.84 (1.0-4.6) x10^3/uL Absolute Monos (auto) 0.51 (0.0-1.3) x10^3/uL Absolute Nucleated RBC 0.00 (0.00-0.01) x10^3u/L Lymphocytes % 27.1 (24.0-44.0) % Monocytes % 7.5 (0.0-12.0) % Eosinophils % 2.5 (0.00-5.0) % Basophils % 0.9 (0.0-0.4) % Absolute Granulocytes 4.20 (1.4-6.9) x10^3/uL Basophils # 0.06 (0-0.4) x10^3/uL Sodium (137-145) mmol/L Potassium (3.5-5.1) mmol/L Chloride (98-107) mmol/L Carbon Dioxide (22-30) mmol/L Anion Gap (5-15) MEQ/L BUN (9-20) mg/dL Creatinine (0.66-1.25) mg/dL Estimated GFR ML/MIN Glucose (74-106) mg/dL POC Glucometer 97 (74 to 106) mg/dL Lactic Acid (0.4-2.0) Calcium (8.4-10.2) mg/dL Magnesium (1.6-2.3) mg/dL Total Bilirubin (0.2-1.3) mg/dL AST (17-59) U/L ALT (0-50) U/L Alkaline Phosphatase (38-126) U/L Troponin I < 0.012 (0.000-0.034) ng/mL NT-Pro-B Natriuret Pep (<300) pg/mL Serum Total Protein (6.3-8.2) g/dL Albumin (3.5-5.0) g/dL Radiology Exams: Radiology Procedures Category Date Time Status CHEST 1 VIEW (PORTABLE) Stat Exams 11/18/23 12:50 Completed Assessment/Plan (1) Orthostatic hypotension Current Visit: Yes Status: Acute Assessment & Plan: 1. Hydration with fluids 2. Check orthostatics in AM 3. Hold home medications until they can be properly reconciled in the AM Code(s): I95.1 - ORTHOSTATIC HYPOTENSION (2) COPD (chronic obstructive pulmonary disease) Current Visit: Yes Status: Acute Assessment & Plan: -does not appear to be in exacerbation -supplemental oxygen for spo2 goal of >92% -duoNebs/inhalers prn (3) HTN (hypertension) Current Visit: Yes Status: Acute Assessment & Plan: -Patient with orthostatic hypotension, hold meds for now Code(s): I10 - ESSENTIAL (PRIMARY) HYPERTENSION (4) Diabetes mellitus Current Visit: Yes Status: Acute Assessment & Plan: -ADA diet -SSI -Accuchecks -A1c Code(s): E11.9 - TYPE 2 DIABETES MELLITUS WITHOUT COMPLICATIONS
[2023-11-19] MEDS ORDERED: HUMALOG SQ PRN (05:12)
[2023-11-19 05:38] LABS: ALBUMIN 3.4 g/dL (3.5-5.0); ANION GAP 11.8 MEQ/L (5-15); BILIRUBIN,TOTAL 0.5 mg/dL (0.2-1.3); Calcium 8.9 mg/dL (8.4-10.2); Creatinine 1 0.94 mg/dL (0.66-1.25); EST GLOMERULAR FILTRATION RATE 88.9 ML/MIN; Potassium 3.9 mmol/L (3.5-5.1); Total Protein 5.8 g/dL (6.3-8.2)
[2023-11-19] MEDS ORDERED: FLUTICASONE-SALMETEROL 250-50 IH SCH (07:00)
[2023-11-19] MEDS ORDERED: Advair Hfa 115/21 Common canister IH SCH ×2 (07:00)
[2023-11-19] MEDS ORDERED: PROVENTIL 2.5 MG/3 ML NEB IH SCH (07:00)
[2023-11-19] MEDS: Lactated Ringers 1,000 ML IV SCH (09:12)
[2023-11-19] MEDS ORDERED: Spiriva 18 Mcg/Cap Inhaler IH SCH (10:00)
[2023-11-19] MEDS ORDERED: ENOXAPARIN SODIUM SQ SCH (10:00)
[2023-11-19] MEDS ORDERED: MUCINEX DM 600/30MG PO PRN (10:54)
[2023-11-19] MEDS ORDERED: Artificial Tears 15 ML OP PRN (10:57)
[2023-11-19] MEDS ORDERED: VITAMIN D PO SCH ×2 (11:00→22:00)
[2023-11-19] MEDS ORDERED: Ditropan 5 MG PO SCH (11:00)
[2023-11-19] MEDS ORDERED: Coreg PO SCH (11:00)
[2023-11-19] MEDS ORDERED: Flonase NASAL NS SCH (11:00)
[2023-11-19] MEDS ORDERED: Flomax 0.4 MG PO SCH (11:00)
[2023-11-19] MEDS ORDERED: Protonix 40MG Tablet PO SCH (11:00)
[2023-11-19] MEDS ORDERED: Tessalon Perles 100 MG PO SCH (11:00)
[2023-11-19] MEDS ORDERED: TYLENOL 325 MG PO SCH (11:00)
[2023-11-19] MEDS ORDERED: REQUIP 2MG TAB PO SCH ×2 (11:00→22:00)
[2023-11-19] MEDS ORDERED: JARDIANCE PO SCH (11:00)
--- NOTE | 2023-11-19 11:12 | PCM.DS ---
Discharge Summary Date of Admission: 11/18/23 19:41 Date of Discharge: 11/19/23 Admitting Physician: ADELA GORMAN MD Primary Care Provider: [facility] <CHIVO LEWIS - Last Filed: 11/19/23 12:02> Date of Admission: 11/18/23 19:41 Admitting Physician: ADELA GORMAN MD Primary Care Provider: [facility] <ADELA GORMAN - Last Filed: 11/19/23 23:06> Allergies <CHIVO LEWIS - Last Filed: 11/19/23 12:02> <ADELA GORMAN - Last Filed: 11/19/23 23:06> Allergies Penicillins Allergy (Intermediate, Verified 11/18/23 12:32) RASH milk Allergy (Mild, Verified 11/18/23 12:32) hornet venom Allergy (Verified 11/18/23 12:32) lithium Allergy (Verified 11/19/23 10:04) verified by [facility] medication list ipratropium Adverse Reaction (Intermediate, Verified 11/18/23 12:32) Vomiting Hospital Summary - Hospital Course Hospital Course: Mr. Harrison is a 68 year-old male with DM2, HTN, HLD, COPD, and prior CVA who presents with orthostatic hypotension His home health nurse noticed this morning that he was hypotensive with systolics in the 70s when taking him to the shower thus prompting care at [place]. Upon arrival, all his laboaratory data was unremarkable, and on exam, his SBP dropped from 114 to 91 from a sitting to standing position in the ED. Patient admitted for observation of orthostatic hypotension. He received IVF with noted improvement. Most likely secondary to ho me medications. Orthostatic vitals negative this morning. Will hold Entresto and lasix until follow up with PCP. Patient stable, requesting discharge. Discharge Note New Diagnosis: Orthostatic hypotension New Medications: Hold lasix/entresto Follow Up: PCP/cardiololgy ([place]) Latest Assessment & Plan (1) Orthostatic hypotension Current Visit: Yes Status: Acute Assessment & Plan: 1. Hydration with fluids 2. Check orthostatics in AM 3. Hold home medications until they can be properly reconciled in the AM Code(s): I95.1 - ORTHOSTATIC HYPOTENSION (2) COPD (chronic obstructive pulmonary disease) Current Visit: Yes Status: Acute Assessment & Plan: -does not appear to be in exacerbation -supplemental oxygen for spo2 goal of >92% -duoNebs/inhalers prn (3) HTN (hypertension) Current Visit: Yes Status: Acute Assessment & Plan: -Patient with orthostatic hypotension, hold meds for now Code(s): I10 - ESSENTIAL (PRIMARY) HYPERTENSION (4) Diabetes mellitus Current Visit: Yes Status: Acute Assessment & Plan: -ADA diet -SSI -Accuchecks -A1c I spent 35 minutes [id number] with the patient on the day of discharge performing discharge exam, discussing hospital stay and discharge instructions with patient and caregivers, preparation of discharge records, prescriptions & referral forms and addressing any questions/concerns the patient had as documented above. - Vitals & Intake/Output Vital Signs: Vital Signs Temperature 97.3 F 11/19/23 06:52 Pulse Rate 89 11/19/23 07:01 Respiratory Rate 16 11/19/23 07:47 Blood Pressure 122/70 11/19/23 06:52 O2 Sat by Pulse Oximetry 94 L 11/19/23 07:01 Intake & Output: Intake & Output 11/16/23 11/17/23 11/18/23 11/19/23 11:59 11:59 11:59 11:59 Intake Total 1280 Output Total 300 Balance 980 Weight 73.7 kg - Lab Result Diagrams: 11/19/23 04:35 11/19/23 04:35 Lab Results-Last 24 Hrs: Lab Results-Last 24 Hours 11/18/23 11/18/23 11/18/23 Range/Units 13:00 13:00 13:00 WBC 5.9 (4.0-10.5) x10^3/uL RBC 4.74 (4.1-5.6) x10^6/uL Hgb 14.0 (12.5-18.0) g/dL Hct 44.2 (42-50) % MCV 93.2 (78-100) fL MCH 29.5 (26-32) pg MCHC 31.7 L (32-36) g/dL RDW 15.2 H (11.5-14.0) % Plt Count 212 (150-450) x10^3/uL MPV 10.4 (7.5-11.0) fL Gran % 65.2 (36.0-66.0) % Immature Gran % (Auto) 0.2 (0.00-0.4) % Nucleat RBC Rel Count 0.0 (0.00-0.1) % Eos # (Auto) 0.15 (0-0.5) x10^3/uL Immature Gran # (Auto) 0.01 (0.00-0.03) x10^3u/L Absolute Lymphs (auto) 1.35 (1.0-4.6) x10^3/uL Absolute Monos (auto) 0.48 (0.0-1.3) x10^3/uL Absolute Nucleated RBC 0.00 (0.00-0.01) x10^3u/L Lymphocytes % 22.8 L (24.0-44.0) % Monocytes % 8.1 (0.0-12.0) % Eosinophils % 2.5 (0.00-5.0) % Basophils % 1.2 (0.0-0.4) % Absolute Granulocytes 3.85 (1.4-6.9) x10^3/uL Basophils # 0.07 (0-0.4) x10^3/uL Sodium 135 L (137-145) mmol/L Potassium 3.9 (3.5-5.1) mmol/L Chloride 105 (98-107) mmol/L Carbon Dioxide 22 (22-30) mmol/L Anion Gap 11.9 (5-15) MEQ/L BUN 24 H (9-20) mg/dL Creatinine 1.13 (0.66-1.25) mg/dL Estimated GFR 71.2 ML/MIN Glucose 142 H (74-106) mg/dL POC Glucometer (74 to 106) mg/dL Hemoglobin A1c (4.5-6.0) % Lactic Acid (0.4-2.0) Calcium 8.8 (8.4-10.2) mg/dL Magnesium 1.9 (1.6-2.3) mg/dL Total Bilirubin 0.50 (0.2-1.3) mg/dL AST 18 (17-59) U/L ALT 16 (0-50) U/L Alkaline Phosphatase 92 (38-126) U/L Troponin I 0.013 (0.000-0.034) ng/mL NT-Pro-B Natriuret Pep 1300 (<300) pg/mL Serum Total Protein 7.1 (6.3-8.2) g/dL Albumin 4.0 (3.5-5.0) g/dL 11/18/23 11/18/23 11/18/23 Range/Units 13:10 17:35 17:40 WBC (4.0-10.5) x10^3/uL RBC (4.1-5.6) x10^6/uL Hgb (12.5-18.0) g/dL Hct (42-50) % MCV (78-100) fL MCH (26-32) pg MCHC (32-36) g/dL RDW (11.5-14.0) % Plt Count (150-450) x10^3/uL MPV (7.5-11.0) fL Gran % (36.0-66.0) % Immature Gran % (Auto) (0.00-0.4) % Nucleat RBC Rel Count (0.00-0.1) % Eos # (Auto) (0-0.5) x10^3/uL Immature Gran # (Auto) (0.00-0.03) x10^3u/L Absolute Lymphs (auto) (1.0-4.6) x10^3/uL Absolute Monos (auto) (0.0-1.3) x10^3/uL Absolute Nucleated RBC (0.00-0.01) x10^3u/L Lymphocytes % (24.0-44.0) % Monocytes % (0.0-12.0) % Eosinophils % (0.00-5.0) % Basophils % (0.0-0.4) % Absolute Granulocytes (1.4-6.9) x10^3/uL Basophils # (0-0.4) x10^3/uL Sodium (137-145) mmol/L Potassium (3.5-5.1) mmol/L Chloride (98-107) mmol/L Carbon Dioxide (22-30) mmol/L Anion Gap (5-15) MEQ/L BUN (9-20) mg/dL Creatinine (0.66-1.25) mg/dL Estimated GFR ML/MIN Glucose (74-106) mg/dL POC Glucometer (74 to 106) mg/dL Hemoglobin A1c (4.5-6.0) % Lactic Acid 2.7 H 1.4 (0.4-2.0) Calcium (8.4-10.2) mg/dL Magnesium (1.6-2.3) mg/dL Total Bilirubin (0.2-1.3) mg/dL AST (17-59) U/L ALT (0-50) U/L Alkaline Phosphatase (38-126) U/L Troponin I 0.014 (0.000-0.034) ng/mL NT-Pro-B Natriuret Pep (<300) pg/mL Serum Total Protein (6.3-8.2) g/dL Albumin (3.5-5.0) g/dL 11/18/23 11/18/23 11/19/23 Range/Units 20:55 21:40 04:35 WBC (4.0-10.5) x10^3/uL RBC (4.1-5.6) x10^6/uL Hgb (12.5-18.0) g/dL Hct (42-50) % MCV (78-100) fL MCH (26-32) pg MCHC (32-36) g/dL RDW (11.5-14.0) % Plt Count (150-450) x10^3/uL MPV (7.5-11.0) fL Gran % (36.0-66.0) % Immature Gran % (Auto) (0.00-0.4) % Nucleat RBC Rel Count (0.00-0.1) % Eos # (Auto) (0-0.5) x10^3/uL Immature Gran # (Auto) (0.00-0.03) x10^3u/L Absolute Lymphs (auto) (1.0-4.6) x10^3/uL Absolute Monos (auto) (0.0-1.3) x10^3/uL Absolute Nucleated RBC (0.00-0.01) x10^3u/L Lymphocytes % (24.0-44.0) % Monocytes % (0.0-12.0) % Eosinophils % (0.00-5.0) % Basophils % (0.0-0.4) % Absolute Granulocytes (1.4-6.9) x10^3/uL Basophils # (0-0.4) x10^3/uL Sodium 136 L (137-145) mmol/L Potassium 3.9 (3.5-5.1) mmol/L Chloride 107 (98-107) mmol/L Carbon Dioxide 20 L (22-30) mmol/L Anion Gap 11.8 (5-15) MEQ/L BUN 22 H (9-20) mg/dL Creatinine 0.94 (0.66-1.25) mg/dL Estimated GFR 88.9 ML/MIN Glucose 99 (74-106) mg/dL POC Glucometer 97 (74 to 106) mg/dL Hemoglobin A1c (4.5-6.0) % Lactic Acid (0.4-2.0) Calcium 8.9 (8.4-10.2) mg/dL Magnesium (1.6-2.3) mg/dL Total Bilirubin 0.50 (0.2-1.3) mg/dL AST 17 (17-59) U/L ALT 14 (0-50) U/L Alkaline Phosphatase 72 (38-126) U/L Troponin I < 0.012 (0.000-0.034) ng/mL NT-Pro-B Natriuret Pep (<300) pg/mL Serum Total Protein 5.8 L (6.3-8.2) g/dL Albumin 3.4 L (3.5-5.0) g/dL 11/19/23 11/19/23 11/19/23 Range/Units 04:35 04:35 04:45 WBC 6.8 (4.0-10.5) x10^3/uL RBC 4.60 (4.1-5.6) x10^6/uL Hgb 13.2 (12.5-18.0) g/dL Hct 42.4 (42-50) % MCV 92.2 (78-100) fL MCH 28.7 (26-32) pg MCHC 31.1 L (32-36) g/dL RDW 15.4 H (11.5-14.0) % Plt Count 192 (150-450) x10^3/uL MPV 10.7 (7.5-11.0) fL Gran % 61.7 (36.0-66.0) % Immature Gran % (Auto) 0.3 (0.00-0.4) % Nucleat RBC Rel Count 0.0 (0.00-0.1) % Eos # (Auto) 0.17 (0-0.5) x10^3/uL Immature Gran # (Auto) 0.02 (0.00-0.03) x10^3u/L Absolute Lymphs (auto) 1.84 (1.0-4.6) x10^3/uL Absolute Monos (auto) 0.51 (0.0-1.3) x10^3/uL Absolute Nucleated RBC 0.00 (0.00-0.01) x10^3u/L Lymphocytes % 27.1 (24.0-44.0) % Monocytes % 7.5 (0.0-12.0) % Eosinophils % 2.5 (0.00-5.0) % Basophils % 0.9 (0.0-0.4) % Absolute Granulocytes 4.20 (1.4-6.9) x10^3/uL Basophils # 0.06 (0-0.4) x10^3/uL Sodium (137-145) mmol/L Potassium (3.5-5.1) mmol/L Chloride (98-107) mmol/L Carbon Dioxide (22-30) mmol/L Anion Gap (5-15) MEQ/L BUN (9-20) mg/dL Creatinine (0.66-1.25) mg/dL Estimated GFR ML/MIN Glucose (74-106) mg/dL POC Glucometer (74 to 106) mg/dL Hemoglobin A1c 5.92 (4.5-6.0) % Lactic Acid (0.4-2.0) Calcium (8.4-10.2) mg/dL Magnesium 1.9 (1.6-2.3) mg/dL Total Bilirubin (0.2-1.3) mg/dL AST (17-59) U/L ALT (0-50) U/L Alkaline Phosphatase (38-126) U/L Troponin I (0.000-0.034) ng/mL NT-Pro-B Natriuret Pep (<300) pg/mL Serum Total Protein (6.3-8.2) g/dL Albumin (3.5-5.0) g/dL 11/19/23 Range/Units 06:42 WBC (4.0-10.5) x10^3/uL RBC (4.1-5.6) x10^6/uL Hgb (12.5-18.0) g/dL Hct (42-50) % MCV (78-100) fL MCH (26-32) pg MCHC (32-36) g/dL RDW (11.5-14.0) % Plt Count (150-450) x10^3/uL MPV (7.5-11.0) fL Gran % (36.0-66.0) % Immature Gran % (Auto) (0.00-0.4) % Nucleat RBC Rel Count (0.00-0.1) % Eos # (Auto) (0-0.5) x10^3/uL Immature Gran # (Auto) (0.00-0.03) x10^3u/L Absolute Lymphs (auto) (1.0-4.6) x10^3/uL Absolute Monos (auto) (0.0-1.3) x10^3/uL Absolute Nucleated RBC (0.00-0.01) x10^3u/L Lymphocytes % (24.0-44.0) % Monocytes % (0.0-12.0) % Eosinophils % (0.00-5.0) % Basophils % (0.0-0.4) % Absolute Granulocytes (1.4-6.9) x10^3/uL Basophils # (0-0.4) x10^3/uL Sodium (137-145) mmol/L Potassium (3.5-5.1) mmol/L Chloride (98-107) mmol/L Carbon Dioxide (22-30) mmol/L Anion Gap (5-15) MEQ/L BUN (9-20) mg/dL Creatinine (0.66-1.25) mg/dL Estimated GFR ML/MIN Glucose (74-106) mg/dL POC Glucometer 99 (74 to 106) mg/dL Hemoglobin A1c (4.5-6.0) % Lactic Acid (0.4-2.0) Calcium (8.4-10.2) mg/dL Magnesium (1.6-2.3) mg/dL Total Bilirubin (0.2-1.3) mg/dL AST (17-59) U/L ALT (0-50) U/L Alkaline Phosphatase (38-126) U/L Troponin I (0.000-0.034) ng/mL NT-Pro-B Natriuret Pep (<300) pg/mL Serum Total Protein (6.3-8.2) g/dL Albumin (3.5-5.0) g/dL Micro Results-Entire Visit: Accuchecks Date 11/19/23 Time 06:52 - Radiology Exams Ordered Rad Exams-Entire Visit: Radiology Procedures Category Date Time Status CHEST 1 VIEW (PORTABLE) Stat Exams 11/18/23 12:50 Completed - Procedures and Test Procedures and Tests throughout Hospitalization: Therapy Orders & Screens 11/18/23 19:35 Respiratory Therapy Consult ONCE Comment: Reason For Exam: 11/18/23 23:09 Respiratory Therapy Assessment DAILY Comment: Diagnosis: Orthostatic Hypotension <CHIVO LEWIS - Last Filed: 11/19/23 12:02> - Vitals & Intake/Output Vital Signs: Vital Signs Temperature 97.5 F 11/19/23 11:58 Pulse Rate 92 H 11/19/23 11:58 Respiratory Rate 17 11/19/23 12:00 Blood Pressure 130/66 11/19/23 11:58 O2 Sat by Pulse Oximetry 94 L 11/19/23 11:58 Intake & Output: Intake & Output 11/17/23 11/18/23 11/19/23 11/20/23 11:59 11:59 11:59 11:59 Intake Total 1280 240 Output Total 1000 300 Balance 280 -60 Weight 73.7 kg - Lab Result Diagrams: 11/19/23 04:35 11/19/23 04:35 Lab Results-Last 24 Hrs: Lab Results-Last 24 Hours 11/19/23 11/19/23 11/19/23 Range/Units 04:35 04:35 04:35 WBC 6.8 (4.0-10.5) x10^3/uL RBC 4.60 (4.1-5.6) x10^6/uL Hgb 13.2 (12.5-18.0) g/dL Hct 42.4 (42-50) % MCV 92.2 (78-100) fL MCH 28.7 (26-32) pg MCHC 31.1 L (32-36) g/dL RDW 15.4 H (11.5-14.0) % Plt Count 192 (150-450) x10^3/uL MPV 10.7 (7.5-11.0) fL Gran % 61.7 (36.0-66.0) % Immature Gran % (Auto) 0.3 (0.00-0.4) % Nucleat RBC Rel Count 0.0 (0.00-0.1) % Eos # (Auto) 0.17 (0-0.5) x10^3/uL Immature Gran # (Auto) 0.02 (0.00-0.03) x10^3u/L Absolute Lymphs (auto) 1.84 (1.0-4.6) x10^3/uL Absolute Monos (auto) 0.51 (0.0-1.3) x10^3/uL Absolute Nucleated RBC 0.00 (0.00-0.01) x10^3u/L Lymphocytes % 27.1 (24.0-44.0) % Monocytes % 7.5 (0.0-12.0) % Eosinophils % 2.5 (0.00-5.0) % Basophils % 0.9 (0.0-0.4) % Absolute Granulocytes 4.20 (1.4-6.9) x10^3/uL Basophils # 0.06 (0-0.4) x10^3/uL Sodium 136 L (137-145) mmol/L Potassium 3.9 (3.5-5.1) mmol/L Chloride 107 (98-107) mmol/L Carbon Dioxide 20 L (22-30) mmol/L Anion Gap 11.8 (5-15) MEQ/L BUN 22 H (9-20) mg/dL Creatinine 0.94 (0.66-1.25) mg/dL Estimated GFR 88.9 ML/MIN Glucose 99 (74-106) mg/dL POC Glucometer (74 to 106) mg/dL Hemoglobin A1c (4.5-6.0) % Calcium 8.9 (8.4-10.2) mg/dL Magnesium 1.9 (1.6-2.3) mg/dL Total Bilirubin 0.50 (0.2-1.3) mg/dL AST 17 (17-59) U/L ALT 14 (0-50) U/L Alkaline Phosphatase 72 (38-126) U/L Serum Total Protein 5.8 L (6.3-8.2) g/dL Albumin 3.4 L (3.5-5.0) g/dL 11/19/23 11/19/23 11/19/23 Range/Units 04:45 06:42 11:48 WBC (4.0-10.5) x10^3/uL RBC (4.1-5.6) x10^6/uL Hgb (12.5-18.0) g/dL Hct (42-50) % MCV (78-100) fL MCH (26-32) pg MCHC (32-36) g/dL RDW (11.5-14.0) % Plt Count (150-450) x10^3/uL MPV (7.5-11.0) fL Gran % (36.0-66.0) % Immature Gran % (Auto) (0.00-0.4) % Nucleat RBC Rel Count (0.00-0.1) % Eos # (Auto) (0-0.5) x10^3/uL Immature Gran # (Auto) (0.00-0.03) x10^3u/L Absolute Lymphs (auto) (1.0-4.6) x10^3/uL Absolute Monos (auto) (0.0-1.3) x10^3/uL Absolute Nucleated RBC (0.00-0.01) x10^3u/L Lymphocytes % (24.0-44.0) % Monocytes % (0.0-12.0) % Eosinophils % (0.00-5.0) % Basophils % (0.0-0.4) % Absolute Granulocytes (1.4-6.9) x10^3/uL Basophils # (0-0.4) x10^3/uL Sodium (137-145) mmol/L Potassium (3.5-5.1) mmol/L Chloride (98-107) mmol/L Carbon Dioxide (22-30) mmol/L Anion Gap (5-15) MEQ/L BUN (9-20) mg/dL Creatinine (0.66-1.25) mg/dL Estimated GFR ML/MIN Glucose (74-106) mg/dL POC Glucometer 99 127 H (74 to 106) mg/dL Hemoglobin A1c 5.92 (4.5-6.0) % Calcium (8.4-10.2) mg/dL Magnesium (1.6-2.3) mg/dL Total Bilirubin (0.2-1.3) mg/dL AST (17-59) U/L ALT (0-50) U/L Alkaline Phosphatase (38-126) U/L Serum Total Protein (6.3-8.2) g/dL Albumin (3.5-5.0) g/dL Micro Results-Entire Visit: Accuchecks Date 11/19/23 Date 11/19/23 Time 11:57 Time 06:52 - Radiology Exams Ordered Rad Exams-Entire Visit: Radiology Procedures Category Date Time Status CHEST 1 VIEW (PORTABLE) Stat Exams 11/18/23 12:50 Completed - Procedures and Test Procedures and Tests throughout Hospitalization: Therapy Orders & Screens 11/18/23 19:35 Respiratory Therapy Consult ONCE Comment: Reason For Exam: 11/18/23 23:09 Respiratory Therapy Assessment DAILY Comment: Diagnosis: Orthostatic Hypotension <ADELA GORMAN - Last Filed: 11/19/23 23:06> Discharge Exam General Appearance: no apparent distress Neurologic Exam: alert, oriented x 3, cooperative Eye Exam: PERRL Ears, Nose, Throat Exam: normal ENT inspection Neck Exam: normal inspection Respiratory Exam: normal breath sounds, lungs clear Cardiovascular Exam: regular rate/rhythm, normal heart sounds Gastrointestinal/Abdomen Exam: soft, normal bowel sounds Male Genitalia Exam: deferred Rectal Exam: deferred Back Exam: normal inspection Extremity Exam: other (Residual weakness s/p TBI left -side) Skin Exam: normal color <CHIVO LEWIS - Last Filed: 11/19/23 12:02> Final Diagnosis/Problem List - Final Discharge Diagnosis/Problem (1) Orthostatic hypotension Status: Acute Code(s): I95.1 - ORTHOSTATIC HYPOTENSION (2) COPD (chronic obstructive pulmonary disease) Status: Acute (3) HTN (hypertension) Status: Acute Code(s): I10 - ESSENTIAL (PRIMARY) HYPERTENSION (4) Diabetes mellitus Status: Acute Code(s): E11.9 - TYPE 2 DIABETES MELLITUS WITHOUT COMPLICATIONS <CHIVO LEWIS - Last Filed: 11/19/23 12:02> <CHIVO LEWIS - Last Filed: 11/19/23 12:02> <ADELA GORMAN - Last Filed: 11/19/23 23:06> - Discharge Disposition: Home, Self-Care Condition: Stable Prescriptions: Continue Omeprazole 20 MG [Prilosec 20 mg] 20 mg PO DAILY Cholecalciferol (Vitamin D3) [Vitamin D] 1,000 unit PO UD Carvedilol 12.5 mg [Coreg 12.5 mg] 6.25 mg PO BID Ropinirole 2Mg [Requip 2Mg Tab] 2 mg PO DAILY Metformin HCl 500 mg [Glucophage 500 MG] 500 mg PO BIDWM Fluticasone Propionate [Flonase NASAL] 2 sprays NS BID Rivaroxaban [Xarelto] 20 mg PO DAILY Ropinirole 2Mg [Requip 2Mg Tab] 6 mg PO HS Acetaminophen 325 mg [Tylenol 325 mg] 650 mg PO TID Tiotropium Hallam Inhaler [Spiriva 18 Mcg/Cap Inhaler] 2 puff IH DAILY Albuterol 2.5 mg/0.5 ml [PROVENTIL Solution 2.5 MG/0.5 ML] 2.5 mg IH TID Fexofenadine HCl [Aysha Allergy] 180 mg PO HS Atorvastatin Calcium 10 mg PO HS Benzonatate 100 mg PO TID Empagliflozin [Jardiance] 10 mg PO DAILY Fluticasone Propion/Salmeterol [Wixela 500-50 Inhub] 1 puff IH BID Gabapentin 300 mg PO HS Guaifenesin/Dextromethorphan [Mucus Dm Max ER 1,200-60 mg Tb] 600 mg PO BIDPRN PRN PRN Reason: congestion Propylene Glycol/Peg 400/Pf [Lubricant Eye 0.4%-0.3% Drop] 1 drop OP QIDPRN PRN PRN Reason: dry eyes Sildenafil Citrate 100 mg PO DAILY PRN PRN PRN Reason: ED Solifenacin Succinate 10 mg PO DAILY Tamsulosin HCl 0.4 mg [Flomax 0.4 MG] 0.4 mg PO DAILY Discontinued Furosemide 20 mg [Lasix 20 mg] 20 mg PO UD Sacubitril/Valsartan [Entresto 24 mg-26 mg Tablet] 1 tablet PO BID Instructions: Orthostatic Hypotension (DC) Follow up with: [facility] [Primary Care Provider] - 11/23/23 1:00 pm ([facility] [phone] fax [phone]Rajoli ángel Moise/ACTIVITY COORDINATOR ) JOVON Encounter - JOVON Encounter Attestation JOVON Encounter Attestation: "ANABELLA Boothe andhavediscussed pertinent aspects of their care with Chivo Montes agree with the history, physical exam (any modifications based on my personal exam will be noted below), assessment, and plan as outlined in original note. Please see immediately below for my summary of findings and additional assessment and plan along with any meaningful corrections/explanations to the Subjective/Objective portions of the JOVON note will be noted." My portion of the encounter took place via telemedicine. <ADELA GORMAN - Last Filed: 11/19/23 23:06>
[2023-11-19 11:58] VITALS: BP 130/66; PULSE 92; RESP 17; TEMP 97.5
[2023-11-19] MEDS ORDERED: Zocor 10MG PO SCH (22:00)
[2023-11-19] MEDS ORDERED: NEURONTIN PO SCH (22:00)
[2023-11-19] MEDS ORDERED: CLARITIN 10 MG PO SCH (22:00)
[2023-11-20 18:46] VITALS: O2SAT 92
== END 2023-11-19 12:49 | disposition home or self-care (01) ==
LOC: ED 12:16 → MED SURG 19:41
PROVIDERS: ADMIT Internal Medicine; ATTEND Internal Medicine
DX: I95.1 Orthostatic hypotension (principal); J44.9 Chronic obstructive pulmonary disease, unspecified; I10 Essential (primary) hypertension; E11.9 Type 2 diabetes mellitus without complications; E78.5 Hyperlipidemia, unspecified; I25.10 Atherosclerotic heart disease of native coronary artery without angina pectoris; I25.2 Old myocardial infarction; Z79.01 Long term (current) use of anticoagulants; Z79.899 Other long term (current) drug therapy; Z20.828 Contact with and (suspected) exposure to other viral communicable diseases; Z86.73 Personal history of transient ischemic attack (TIA), and cerebral infarction without residual deficits
CPT/HCPCS: 36000; 36415; 71045; 80053; 82947; 83036; 83605; 83735; 83880; 84484; 85025; 93005; 93041; 93268; 94640; 94760; 99285; J1650; J7609; Q3014; A9270-GY; G0378

== ENCOUNTER 2024-08-23 13:58 | Observation (INO) | payer OTHER ==
[2024-08-23] MEDS ORDERED: PROVENTIL 2.5 MG/3 ML NEB IH ONE (15:00)
[2024-08-23 15:02] LABS: Absolute Neutrophil Ct (ANC) 4.23 x10^3/uL (1.78-5.38); Basophil (Absolute #) 0.06 x10^3/uL (0.01-0.08); Eosinophil % 2.6 % (0.8-7.0); Eosinophil (Absolute #) 0.15 x10^3/uL (0.04-0.54); Hematocrit 36.8 % (40.1-51.0); Hemoglobin 11.9 g/dL (13.7-17.5); IMMATURE GRAN # 0.03 x10^3u/L (0.001-0.031); IMMATURE GRAN % 0.5 % (0.001-0.429); Lymphocyte (Absolute #) 0.91 x10^3/uL (1.32-3.57); Lymphocytes % 15.5 % (21.8-53.1); Mean Cell Volume 89.1 fL (79.0-92.2); Mean Corpuscular Hemoglobin 28.8 pg (25.7-32.2); Mean Corpuscular Hgb Concent. 32.3 g/dL (32.3-36.5); Mean Platelet Volume 10.3 fL (9.4-12.4); Monocyte (Absolute #) 0.48 x10^3/uL (0.30-0.82); Monocytes % 8.2 % (5.3-12.2); Neutrophil % 72.2 % (34.0-67.9); Platelet Count 250 x10^3/uL (163-337); Red Blood Count 4.13 x10^6/uL (4.63-6.08); White Blood Count 5.9 x10^3/uL (4.23-9.07)
--- NOTE | 2024-08-23 15:08 | ERPHSYRPT ---
- History of Present Illness Time Seen by Provider: 08/23/24 14:15 Source: patient, EMS Exam Limitations: no limitations Patient Subjective Stated Complaint: C/O SOB with a productive cough for a few days Triage Nursing Assessment: Patient arrived by ambulance. He is alert and oriented. Moist, non-productive cough present during assessment; reports productive at home. Patient noted to have labored breathing but states, "I have COPD so this is normal." Skin tone normal. Physician History: 68-year-old male with history of atrial fibrillation anticoagulated on Xarelto, pacemaker/defibrillator implant, hypertension, chronic respiratory failure 2.5 L oxygen, stroke presented in the ER with complaints of increasing cough productive of yellow-green sputum with some blood-tinged at time for the last 2 days. Patient report her oxygen saturation was dropping in low 80s despite being on 2.5 L. Patient reports generalized chest tightness and pressure but no pain. No fever or chills reported. When EMS arrival patient oxygen saturation was in mid 90s. Allergies/Adverse Reactions: Penicillins Allergy (Intermediate, Verified 08/23/24 14:30) RASH milk Allergy (Mild, Verified 08/23/24 14:30) hornet venom Allergy (Verified 08/23/24 14:30) lithium Allergy (Verified 08/23/24 14:30) verified by [facility] medication list ipratropium Adverse Reaction (Intermediate, Verified 08/23/24 14:30) Vomiting Home Medications: Cholecalciferol (Vitamin D3) [Vitamin D] 1,000 unit PO TID 10/31/17 [History] Ropinirole 2Mg [Requip 2Mg Tab] 2 mg PO DAILY 01/26/20 [History] Fluticasone Propionate [Flonase NASAL] 2 sprays NS BID 03/31/20 [History] Metformin HCl 500 mg [Glucophage 500 MG] 500 mg PO BIDWM 03/31/20 [History] Rivaroxaban [Xarelto] 20 mg PO HS 03/31/20 [History] Ropinirole 2Mg [Requip 2Mg Tab] 6 mg PO HS 03/31/20 [History] Atorvastatin Calcium 10 mg PO DAILY 11/19/23 [History] Empagliflozin [Jardiance] 10 mg PO DAILY 11/19/23 [History] Fluticasone Propion/Salmeterol [Wixela 500-50 Inhub] 1 puff IH BID 11/19/23 [His tory] Gabapentin 300 mg PO HS 11/19/23 [History] Solifenacin Succinate 10 mg PO DAILY 11/19/23 [History] Amiodarone HCl 200 mg PO BID 08/24/24 [History] Betamethasone Dipropionate [Diprosone CREAM 0.05% ] 1 dose TOP BID 08/24/24 [History] Calcipotriene 1 dose TP BID 08/24/24 [History] Diclofenac Sodium 2 gm TP UD PRN 08/24/24 [History] Fexofenadine HCl [Aysha Allergy] 60 mg PO BID 08/24/24 [History] Furosemide 20 mg [Lasix 20 mg] 20 mg PO DAILY 08/24/24 [History] Melatonin 5 mg PO HS 08/24/24 [History] Midodrine HCl [Proamatine] 10 mg PO DAILY 08/24/24 [History] Nitroglycerin 0.4 mg Tablet [Nitrostat 0.4 MG Tablet] 1 tab SL Q5M PRN 08/24/24 [History] Non-Formulary Drug [Non-Formulary Item] 2 puff IH DAILY 08/24/24 [History] Omeprazole 40 mg PO DAILY 08/24/24 [History] Roflumilast [Daliresp] 500 mcg PO DAILY 08/24/24 [History] Sacubitril/Valsartan [Entresto 24 mg-26 mg Tablet] 0.5 tab PO BID 08/24/24 [History] Spironolactone 25 mg [Aldactone 25 MG] 0.5 tab PO DAILY 08/24/24 [History] Hx Tetanus, Diphtheria Vaccination/Date Given: Yes Hx Influenza Vaccination/Date Given: Yes Hx Pneumococcal Vaccination/Date Given: Yes Immunizations Up to Date: Yes Travel Risk - International Travel Have you traveled outside of the country in past 3 weeks: No - Emerging Infectious Disease Are you exhibiting symptoms associated with any current EIDs: Yes Symptoms: Cough: New Onset, Shortness of Breath - Review of Systems Constitutional: Fatigue Eyes: No Symptoms Ears, Nose, & Throat: No Symptoms Respiratory: Cough, Dyspnea, Wheezing Cardiac: No Symptoms Abdominal/Gastrointestinal: No Symptoms Genitourinary Symptoms: No Symptoms Musculoskeletal: Arthralgias Skin: No Symptoms Neurological: No Symptoms Endocrine: No Symptoms Hematologic/Lymphatic: No Symptoms Immunological/Allergic: No Symptoms - Past Medical History Pertinent Past Medical History: Yes Neurological History: Other ENT History: No Pertinent History Cardiac History: Arrhythmia, Coronary Artery Disease, High Cholesterol, Hypertension, Myocardial Infarction ([place]) Respiratory History: COPD Endocrine Medical History: Diabetes Type II, Liver Disease Musculoskeletal History: Arthritis, Rheumatoid Arthritis GI Medical History: No Pertinent History History: Other Psycho-Social History: No Pertinent History Male Reproductive Disorders: No Pertinent History 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 - Past Surgical History Past Surgical History: Yes Neuro Surgical History: No Pertinent History Cardiac: Internal Defibrillator, Pacemaker Respiratory: No Pertinent History Gastrointestinal: Appendectomy, Cholecystectomy Genitourinary: No Pertinent History Musculoskeletal: Orthopedic Surgery Male Surgical History: No Pertinent History Other Surgical History: BACK SURG - Social History Smoking Status: Former smoker Exposure to second hand smoke: No Drug Use: none Patient Lives Alone: No - Social Determinants of Health Will the patient participate in the screening: Declined to provide - Nursing Vital Signs Nursing Vital Signs: Initial Vital Signs Temperature 98 F 08/23/24 13:59 Pulse Rate 70 08/23/24 13:59 Respiratory Rate 24 08/23/24 13:59 Blood Pressure 100/54 08/23/24 13:59 O2 Sat by Pulse Oximetry 97 08/23/24 13:59 Pain Scale Pain Intensity 4 - Physical Exam General Appearance: no apparent distress, alert Eye Exam: PERRL/EOMI Ears, Nose, Throat Exam: hearing grossly normal, normal ENT inspection Neck Exam: normal inspection, non-tender, supple, full range of motion Respiratory Exam: diminished breath sounds, rhonchi, wheezing Cardiovascular/Chest Exam: normal heart sounds, regular rate/rhythm Abdominal/Gastrointestinal Exam: soft, normal bowel sounds, No tenderness Extremity Exam: non-tender, normal range of motion Neurologic Exam: alert, oriented x 3, cooperative Skin Exam: normal color SpO2 Interpretation: O2 applied SpO2: 95 O2 Delivery: Nasal Cannula (3L) Ordered Tests: Active Orders 24 hr Category Date Time Status Intern Brand STAT Care 08/23/24 14:54 Completed Code Status Order ROUTINE Care 08/23/24 19:38 Active EKG-ER Only STAT Care 08/23/24 14:53 Completed IV Insertion STAT Care 08/23/24 14:53 Completed Oxygen-ED Only Nasal Cannula 3 lpm Care 08/23/24 14:[address] in Observation ROUTINE Care 08/23/24 19:38 Active Telemetry q6h Care 08/23/24 19:38 Active CHEST 1 VIEW (PORTABLE) Stat Exams 08/23/24 14:53 Completed BLOOD CULTURE Stat Lab 08/23/24 15:06 Received CBC W DIFF Stat Lab 08/23/24 15:00 Completed CMP Stat Lab 08/23/24 15:00 Completed Lactic Acid Stat Lab 08/23/24 15:05 Completed MAGNESIUM Stat Lab 08/23/24 15:00 Completed NT PRO BNPII Stat Lab 08/23/24 15:00 Completed TROPONIN Q4H Lab 08/23/24 15:00 Completed TROPONIN Q4H Lab 08/23/24 19:15 Completed TROPONIN Q4H Lab 08/23/24 23:10 Completed Oxygen Nasal Cannula 3 lpm RT 08/23/24 19:38 Active Pulse Oximetry CONTINUOUS RT 08/23/24 19:38 Active Medication Summary Generic Name Dose Route Start Last Admin Trade Name Freq PRN Reason Stop Dose Admin Acetaminophen 650 mg 08/23/24 19:50 08/24/24 00:43 Acetaminophen 325 Mg Tablet PO 09/22/24 19:49 650 mg Q6H PRN PRN Administration PAIN AND/OR FEVER Albuterol Sulfate 2.5 mg 08/23/24 21:04 08/24/24 06:26 Albuterol Sulfate 2.5 Mg/3 Ml Neb IH 09/22/24 21:03 2.5 mg Q4H PRN PRN Administration SHORTNESS OF BREATH/WHEEZING Azithromycin 500 mg in 250 mls @ 250 mls/hr 08/24/24 10:00 08/24/24 09:19 Zithromax 500 Mg/ 250 Ml Nacl Premix IV 09/23/24 09:59 250 mls/hr Q24H10 GINA Administration Insulin Human Lispro 0 unit 08/23/24 19:50 08/24/24 00:43 Insulin Lispro 1 Unit SQ 09/22/24 19:49 5 unit UD PRN Administration HYPERGLYCEMIA Prednisone 40 mg 08/24/24 10:00 08/24/24 09:19 Prednisone 20 Mg Tablet PO 09/23/24 09:59 40 mg DAILY GINA Administration Rivaroxaban 20 mg 08/24/24 10:00 08/24/24 09:19 Rivaroxaban 10 Mg Tablet PO 09/23/24 09:59 20 mg DAILY GINA Administration Ropinirole HCl 6 mg 08/24/24 22:00 08/24/24 00:42 Ropinirole Hcl 2 Mg Tablet PO 09/23/24 21:59 6 mg HS GINA Administration Fluticasone/Salmeterol 2 puff 08/24/24 07:00 08/24/24 06:26 Fluticasone/Salmeterol 115/21 60 Puff Aer.W.Adap 09/23/24 06:59 2 puff BIDRT GINA Administration Tiotropium [place] 1 ea 08/24/24 10:00 08/24/24 06:26 Tiotropium [place] 18 Mcg/Cap Inhaler 09/23/24 09:59 1 ea DAILY GINA Administration Discontinued Medications Generic Name Dose Route Start Last Admin Trade Name Freq PRN Reason Stop Dose Admin Albuterol Sulfate 2.5 mg 08/23/24 14:53 08/23/24 15:09 Albuterol Sulfate 2.5 Mg/3 Ml [facility] 08/23/24 14:54 2.5 mg STAT ONE Administration Albuterol Sulfate Confirm 08/23/24 15:00 Albuterol Sulfate 2.5 Mg/3 Ml Neb Administered 08/23/24 15:01 Dose 2.5 mg IH .STK-MED ONE Albuterol/Ipratropium 3 ml 08/23/24 19:50 Ipratropium/Albuterol Sulfate 3 Ml Ampul.Neb 09/22/24 19:49 Q4HPRN PRN SHORTNESS OF BREATH/WHEEZING Methylprednisolone Sodium 0 mg 08/23/24 16:57 08/23/24 17:25 Succinate 125 mg/ Sterile IV 08/23/24 16:58 125 mg Water 2 ml STAT ONE Administration Furosemide 40 mg 08/23/24 20:00 08/23/24 20:24 Furosemide 40 Mg/4 Ml Vial IV 09/22/24 19:59 40 mg BID DIURETIC GINA Administration Furosemide Confirm 08/23/24 20:21 Furosemide 40 Mg/4 Ml Vial Administered 08/23/24 20:22 Dose 40 mg .ROUTE .STK-MED ONE Levofloxacin/Dextrose 750 mg in 150 mls @ 100 mls/hr 08/23/24 16:56 08/23/24 19:00 Levofloxacin 750mg/150ml D5w IV 08/23/24 18:25 Infused STAT STA Infusion Levofloxacin/Dextrose Confirm 08/23/24 17:21 Levofloxacin 750mg/150ml D5w Administered 08/23/24 17:22 Dose 750 mg in 150 mls @ ud IV .STK-MED ONE Methylprednisolone Sodium Succinate Confirm 08/23/24 17:21 Methylprednis Sod Succ 125 Mg/2 Ml Vial Administered 08/23/24 17:22 Dose 125 mg .ROUTE .STK-MED ONE Ropinirole HCl Confirm 08/24/24 00:39 Ropinirole Hcl 2 Mg Tablet Administered 08/24/24 00:40 Dose 6 mg .ROUTE .STK-MED ONE Sterile Water Confirm 08/23/24 17:20 Water For Injection,Sterile 10 Ml Vial Administered 08/23/24 17:21 Dose 10 ml IJ .STK-MED ONE Lab/Rad Data: Laboratory Result Diagrams 08/23/24 15:00 08/23/24 15:00 Laboratory Results 08/23/24 08/23/24 08/23/24 Range/Units 19:15 17:24 15:05 WBC (4.23-9.07) x10^3/uL RBC (4.63-6.08) x10^6/uL Hgb (13.7-17.5) g/dL Hct (40.1-51.0) % MCV (79.0-92.2) fL MCH (25.7-32.2) pg MCHC (32.3-36.5) g/dL RDW (11.6-14.4) % Plt Count (163-337) x10^3/uL MPV (9.4-12.4) fL Gran % (34.0-67.9) % Immature Gran % (Auto) (0.001-0.429) % Nucleat RBC Rel Count (0.00-0.2) % Eos # (Auto) (0.04-0.54) x10^3/uL Immature Gran # (Auto) (0.001-0.031) x10^3u/L Absolute Lymphs (auto) (1.32-3.57) x10^3/uL Absolute Monos (auto) (0.30-0.82) x10^3/uL Absolute Nucleated RBC (0.00-0.012) x10^3u/L Lymphocytes % (21.8-53.1) % Monocytes % (5.3-12.2) % Eosinophils % (0.8-7.0) % Basophils % (0.2-1.2) % Absolute Granulocytes (1.78-5.38) x10^3/uL Basophils # (0.01-0.08) x10^3/uL Sodium (135-145) mmol/L Potassium (3.5-5.1) mmol/L Chloride (98-107) mmol/L Carbon Dioxide (22-30) mmol/L Anion Gap (5-15) MEQ/L BUN (9-20) mg/dL Creatinine (0.66-1.25) mg/dL Estimated GFR ML/MIN Glucose (74-106) mg/dL Lactic Acid 3.8 H (0.4-2.0) Calcium (8.4-10.2) mg/dL Magnesium (1.6-2.3) mg/dL Total Bilirubin (0.2-1.3) mg/dL AST (17-59) U/L ALT (0-50) U/L Alkaline Phosphatase (38-126) U/L Troponin I < 0.012 (0.000-0.033) ng/mL NT-Pro-B Natriuret Pep (<300) pg/mL Serum Total Protein (6.3-8.2) g/dL Albumin (3.5-5.0) g/dL Influenza Type A Ag NEGATIVE (NEGATIVE) Influenza Type B Ag NEGATIVE (NEGATIVE) RSV (PCR) NEGATIVE (NEGATIVE) SARS-CoV-2 (PCR) NEGATIVE (NEGATIVE) 08/23/24 08/23/24 08/23/24 Range/Units 15:00 15:00 15:00 WBC 5.9 (4.23-9.07) x10^3/uL RBC 4.13 L (4.63-6.08) x10^6/uL Hgb 11.9 L (13.7-17.5) g/dL Hct 36.8 L (40.1-51.0) % MCV 89.1 (79.0-92.2) fL MCH 28.8 (25.7-32.2) pg MCHC 32.3 (32.3-36.5) g/dL RDW 17.0 H (11.6-14.4) % Plt Count 250 (163-337) x10^3/uL MPV 10.3 (9.4-12.4) fL Gran % 72.2 H (34.0-67.9) % Immature Gran % (Auto) 0.5 H (0.001-0.429) % Nucleat RBC Rel Count 0.0 (0.00-0.2) % Eos # (Auto) 0.15 (0.04-0.54) x10^3/uL Immature Gran # (Auto) 0.03 (0.001-0.031) x10^3u/L Absolute Lymphs (auto) 0.91 L (1.32-3.57) x10^3/uL Absolute Monos (auto) 0.48 (0.30-0.82) x10^3/uL Absolute Nucleated RBC 0.00 (0.00-0.012) x10^3u/L Lymphocytes % 15.5 L (21.8-53.1) % Monocytes % 8.2 (5.3-12.2) % Eosinophils % 2.6 (0.8-7.0) % Basophils % 1.0 (0.2-1.2) % Absolute Granulocytes 4.23 (1.78-5.38) x10^3/uL Basophils # 0.06 (0.01-0.08) x10^3/uL Sodium 136 (135-145) mmol/L Potassium 4.0 (3.5-5.1) mmol/L Chloride 100 (98-107) mmol/L Carbon Dioxide 25 (22-30) mmol/L Anion Gap 15.8 H (5-15) MEQ/L BUN 24 H (9-20) mg/dL Creatinine 1.15 (0.66-1.25) mg/dL Estimated GFR 69.8 ML/MIN Glucose 133 H (74-106) mg/dL Lactic Acid (0.4-2.0) Calcium 9.2 (8.4-10.2) mg/dL Magnesium 1.6 (1.6-2.3) mg/dL Total Bilirubin 0.40 (0.2-1.3) mg/dL AST 38 (17-59) U/L ALT 55 H (0-50) U/L Alkaline Phosphatase 104 (38-126) U/L Troponin I < 0.012 (0.000-0.033) ng/mL NT-Pro-B Natriuret Pep 1120 (<300) pg/mL Serum Total Protein 6.2 L (6.3-8.2) g/dL Albumin 3.6 (3.5-5.0) g/dL Influenza Type A Ag (NEGATIVE) Influenza Type B Ag (NEGATIVE) RSV (PCR) (NEGATIVE) SARS-CoV-2 (PCR) (NEGATIVE) 08/23/24 Range/Units 05:15 WBC (4.23-9.07) x10^3/uL RBC (4.63-6.08) x10^6/uL Hgb (13.7-17.5) g/dL Hct (40.1-51.0) % MCV (79.0-92.2) fL MCH (25.7-32.2) pg MCHC (32.3-36.5) g/dL RDW (11.6-14.4) % Plt Count (163-337) x10^3/uL MPV (9.4-12.4) fL Gran % (34.0-67.9) % Immature Gran % (Auto) (0.001-0.429) % Nucleat RBC Rel Count (0.00-0.2) % Eos # (Auto) (0.04-0.54) x10^3/uL Immature Gran # (Auto) (0.001-0.031) x10^3u/L Absolute Lymphs (auto) (1.32-3.57) x10^3/uL Absolute Monos (auto) (0.30-0.82) x10^3/uL Absolute Nucleated RBC (0.00-0.012) x10^3u/L Lymphocytes % (21.8-53.1) % Monocytes % (5.3-12.2) % Eosinophils % (0.8-7.0) % Basophils % (0.2-1.2) % Absolute Granulocytes (1.78-5.38) x10^3/uL Basophils # (0.01-0.08) x10^3/uL Sodium (135-145) mmol/L Potassium (3.5-5.1) mmol/L Chloride (98-107) mmol/L Carbon Dioxide (22-30) mmol/L Anion Gap (5-15) MEQ/L BUN (9-20) mg/dL Creatinine (0.66-1.25) mg/dL Estimated GFR ML/MIN Glucose (74-106) mg/dL Lactic Acid 2.5 H (0.4-2.0) Calcium (8.4-10.2) mg/dL Magnesium (1.6-2.3) mg/dL Total Bilirubin (0.2-1.3) mg/dL AST (17-59) U/L ALT (0-50) U/L Alkaline Phosphatase (38-126) U/L Troponin I (0.000-0.033) ng/mL NT-Pro-B Natriuret Pep (<300) pg/mL Serum Total Protein (6.3-8.2) g/dL Albumin (3.5-5.0) g/dL Influenza Type A Ag (NEGATIVE) Influenza Type B Ag (NEGATIVE) RSV (PCR) (NEGATIVE) SARS-CoV-2 (PCR) (NEGATIVE) - Progress Progress: improved, re-examined Air Movement: fair Progress Note: 08/23/24 17:16 68-year-old with history of atrial fibrillation on Xarelto, hypertension, COPD with respiratory failure is evaluated for increasing cough productive of yellow- green sputum with some hypoxia earlier at home. Patient is given DuoNeb and steroid, on reevaluation he is feeling much improved. Chest x-ray showed bibasilar atelectasis/infiltrates and given a dose of Levaquin. Workup showed normal white count, negative initial troponin and EKG atrial paced rhythm with left bundle branch block. Chemistries fairly unremarkable except for lactate of 3.8. Patient does have history of CHF and not taking any diuretics. Last echo on file 4 years ago was EF around 30%. Could have some element of CHF exacerbation/CHF as well. Discussed with hospitalist Dr. Tse and patient is being admitted. Blood Culture(s) Obtained: Yes Antibiotics given: Yes Discussed with Dr.: Other (Carmencita) Will see patient in: hospital (observation) Counseled pt/family regarding: lab results, diagnosis, rad results Medical Desision Making - Discussion of managment Care discussed with:: hospitalist (Dr. Tse) Reviewed:: Test results Agreed on:: Treatment plan Will see patient: in hospital - Diagnostic Testing Diagnostic test were ordered, analyzed, and reviewed by me: Yes Radiological Interpretation: Reviewed by me - Risk of complications The pt has a mod risk of morbidity or mortality based on: Need for prescription drug management - Departure Departure Disposition: Observation Clinical Impression: COPD with exacerbation, Pneumonia Condition: Stable Critical Care Time: No
[2024-08-23] MEDS: PROVENTIL 2.5 MG/3 ML NEB IH ONE (15:09)
[2024-08-23 15:16] LABS: ALBUMIN 3.6 g/dL (3.5-5.0); ANION GAP 15.8 MEQ/L (5-15); BILIRUBIN,TOTAL 0.4 mg/dL (0.2-1.3); Calcium 9.2 mg/dL (8.4-10.2); Creatinine 1 1.15 mg/dL (0.66-1.25); EST GLOMERULAR FILTRATION RATE 69.8 ML/MIN; MAGNESIUM 1.6 mg/dL (1.6-2.3); Total Protein 6.2 g/dL (6.3-8.2)
[2024-08-23 15:27] LABS: NT PRO BNPII 1120 pg/mL (<300); TROPONIN < 0.012 ng/mL (0.000-0.033)
--- NOTE | 2024-08-23 16:27 | XRAY ---
Indication: Short of breath. Cough. Comparison: November 18, 2023 Portable chest again hyperinflated with new mild bibasilar infiltrates/atelectasis, left greater than right. No consolidation/large effusion. Heart not enlarged again with left pacemaker. Bony thorax intact again with osteopenia.
[2024-08-23] MEDS ORDERED: Sterile H2O 10 ml IJ ONE (17:20)
[2024-08-23] MEDS ORDERED: solu-MEDROL ONE (17:21)
[2024-08-23] MEDS ORDERED: LEVOFLOXACIN 750MG/150ML D5W 750 MG/150 ML BAG IV ONE (17:21)
[2024-08-23] MEDS: solu-MEDROL 125 MG, Sterile H2O 10 ml 2 ML IV ONE (17:25)
[2024-08-23] MEDS: LEVOFLOXACIN 750MG/150ML D5W 750 MG/150 ML BAG IV STA (17:29)
[2024-08-23 18:05] LABS: INFLUENZA A NEGATIVE (NEGATIVE); INFLUENZA B NEGATIVE (NEGATIVE); RESPIRATORY SYNCTIAL VIRUS NEGATIVE (NEGATIVE); SARS-CoV-2 Xpert Express NEGATIVE (NEGATIVE)
[2024-08-23] MEDS ORDERED: DUONEB 0.5-3 MG/3 ml Neb IH PRN (19:50)
[2024-08-23] MEDS ORDERED: Lasix 40 MG/4 ML ONE (20:21)
[2024-08-23] MEDS: Lasix 40 MG/4 ML IV SCH (20:24)
[2024-08-23] MEDS: PROVENTIL 2.5 MG/3 ML NEB IH PRN (21:23)
--- NOTE | 2024-08-23 23:45 | PCM.HP ---
History of Present Illness - Chief Complaint Chief Complaint: cough Date: 08/23/24 History of Present Illness: 68 y/o M with h/o COPD on home oxygen, HFrEF with EF 15%, possible A-fib, DM2, CVA, here with cough and dyspnea. Patient states that he has been having multipl e hospitalizations for COPD and pneumonia recently, and he feels like it's happening again. He noted two days of worsening cough, more frequent sputum, and thicker sputum, with occasional post-tussive emesis and chills. He at first thought it was just his COPD. He remained on his home 2.5L oxygen, but does not measure SpO2 at home. He took his rescue inhaler more frequently but did not note any relief. Eventually, he had some blood in his sputum, so came to the ED today. He denies orthopnea, PND, or leg edema. He does not know his medication list, and [facility]. He thinks he is back on his Lasix, and that the tobacco flavorer told him his heart was worse, "down to 15% now". However, he said he has not been on low-sodium diets because his sodium levels gets too low. He has an ICD and says it fired about a month ago, when he also had pneumonia, but he has not seen cardiology since then. He is on Xarelto, but says it was because of a stroke; he is aware of A- fib, but is unsure if he has even been diagnosed with it. He denies chest pain. - Review of Systems All Other Systems: Reviewed and Negative Medications & Allergies Home Medications: Home Medication List Omeprazole 20 MG [Prilosec 20 mg] 20 mg PO DAILY 06/19/13 [History Confirmed 11/19/23] Cholecalciferol (Vitamin D3) [Vitamin D] 1,000 unit PO UD 10/31/17 [History Confirmed 11/19/23] Carvedilol 12.5 mg [Coreg 12.5 mg] 6.25 mg PO BID 08/22/19 [History Confirmed 11/19/23] Ropinirole 2Mg [Requip 2Mg Tab] 2 mg PO DAILY 01/26/20 [History Confirmed 11/19/23] Fluticasone Propionate [Flonase NASAL] 2 sprays NS BID 03/31/20 [History Confirmed 11/19/23] Metformin HCl 500 mg [Glucophage 500 MG] 500 mg PO BIDWM 03/31/20 [History Confirmed 11/19/23] Rivaroxaban [Xarelto] 20 mg PO DAILY 03/31/20 [History Confirmed 11/19/23] Ropinirole 2Mg [Requip 2Mg Tab] 6 mg PO HS 03/31/20 [History Confirmed 11/19/23] Acetaminophen 325 mg [Tylenol 325 mg] 650 mg PO TID 06/26/21 [History Confirmed 11/19/23] Albuterol 2.5 mg/0.5 ml [PROVENTIL Solution 2.5 MG/0.5 ML] 2.5 mg IH TID 06/26/21 [History Confirmed 11/19/23] Fexofenadine HCl [Aysha Allergy] 180 mg PO HS 06/26/21 [History Confirmed 11/19/23] Tiotropium [place] Inhaler [Spiriva 18 Mcg/Cap Inhaler] 2 puff IH DAILY 06/26/21 [History Confirmed 11/19/23] Atorvastatin Calcium 10 mg PO HS 11/19/23 [History Confirmed 11/19/23] Benzonatate 100 mg PO TID 11/19/23 [History Confirmed 11/19/23] Empagliflozin [Jardiance] 10 mg PO DAILY 11/19/23 [History Confirmed 11/19/23] Fluticasone Propion/Salmeterol [Wixela 500-50 Inhub] 1 puff IH BID 11/19/23 [History Confirmed 11/19/23] Gabapentin 300 mg PO HS 11/19/23 [History Confirmed 11/19/23] Guaifenesin/Dextromethorphan [Mucus Dm Max ER 1,200-60 mg Tb] 600 mg PO BIDPRN PRN 11/19/23 [History Confirmed 11/19/23] Propylene Glycol/Peg 400/Pf [Lubricant Eye 0.4%-0.3% Drop] 1 drop OP QIDPRN PRN 11/19/23 [History Confirmed 11/19/23] Sildenafil Citrate 100 mg PO DAILY PRN PRN 11/19/23 [History Confirmed 11/19/23] Solifenacin Succinate 10 mg PO DAILY 11/19/23 [History Confirmed 11/19/23] Tamsulosin HCl 0.4 mg [Flomax 0.4 MG] 0.4 mg PO DAILY 11/19/23 [History Confirmed 11/19/23] Allergies/Adverse Reactions: Allergies Allergy/AdvReac Type Severity Reaction Status Date / Time Penicillins Allergy Intermediate Verified 08/23/24 14:30 milk Allergy Mild Verified 08/23/24 14:30 hornet venom Allergy Verified 08/23/24 14:30 lithium Allergy Verified 08/23/24 14:30 ipratropium AdvReac Intermediate Vomiting Verified 08/23/24 14:30 - Past Medical History Past Medical History: Yes Neurological History: TIA, Other ENT History: No Pertinent History Cardiac History: Arrhythmia (possibly A-fib? s/p ICD placement), Congestive Heart Failure (last EF reportedly 15%), Coronary Artery Disease (with LAD lesion), High Cholesterol, Hypertension, Myocardial Infarction ([place]) Respiratory History: COPD (on 2.5 oxygen at home) Endocrine Medical History: Diabetes Type II (on oral meds at home), Liver Disease Musculoskelatal History: Rheumatoid Arthritis GI Medical History: No Pertinent History History: No Pertinent History Pyscho-Social History: No Pertinent History Male Reproductive Disorders: No Pertinent History Comment: Golf Course Manager: Dr. Yanni Maldonado - Past Surgical History Past Surgical History: Yes Neuro Surgical History: No Pertinent History Cardiac History: Internal Defibrillator, Pacemaker Respiratory Surgery: No Pertinent History GI Surgical History: Appendectomy, Cholecystectomy Genitourinary Surgical Hx: No Pertinent History Musculskeletal Surgical Hx: Orthopedic Surgery Male Surgical History: No Pertinent History Other Surgical History: BACK SURG Significant Family History: no pertinent family hx - Social History Smoking Status: Former smoker Exposure to second hand smoke: Yes (not much) Alcohol: None Drug Use: none - Social Determinants of Health Will the patient participate in the screening: Yes Do you worry about a steady place to live?: No Do you have any problems with any of the following?: Pest (bugs,ants,or mice) In the past 12 months,have you had to go without utilities?: No Have you or anyone in your house had to go without enough: No Transportation Issues: Yes Has anyone in your support network made you feel unsafe?: No Does the patient want assistance with any of the above?: No Comment: pt drives but is starting to have problems at times - Physical Exam Vital Signs: Vital Signs - 24 hr Temp Pulse Resp BP BP Pulse Ox 08/23/24 21:27 74 16 95 08/23/24 20:42 97.9 F 86 18 127/59 92 L 08/23/24 19:01 80 16 116/59 93 L 08/23/24 18:31 87 20 101/87 92 L 08/23/24 18:00 88 21 103/70 08/23/24 17:30 82 19 109/79 08/23/24 17:20 95 08/23/24 17:00 72 20 115/65 90 L 08/23/24 16:30 70 19 118/63 93 L 08/23/24 16:00 71 18 111/76 93 L 08/23/24 15:30 70 20 120/65 91 L 08/23/24 15:20 71 18 93 L 08/23/24 15:12 72 18 93 L 08/23/24 15:10 71 93 L 08/23/24 15:03 93 L 08/23/24 14:30 105/57 95 08/23/24 14:11 96/50 95 08/23/24 14:10 97 08/23/24 13:59 98 F 70 24 100/54 97 General Appearance: no apparent distress Neurologic Exam: alert, oriented x 3, sensation nml, No motor deficits Eye Exam: PERRL/EOMI Respiratory Exam: normal breath sounds, lungs clear, other (on 3L oxygen by [place]), No respiratory distress, No accessory muscle use, No crackles/rales, No wheezing Cardiovascular Exam: regular rate/rhythm, normal heart sounds, No murmur, No edema Gastrointestinal/Abdomen Exam: No tenderness, No distention Skin Exam: normal color, No rash Results - Labs Lab/Micro Results: Lab Results-Last 24 Hours 08/23/24 08/23/24 08/23/24 Range/Units 15:00 15:00 15:00 WBC 5.9 (4.23-9.07) x10^3/uL RBC 4.13 L (4.63-6.08) x10^6/uL Hgb 11.9 L (13.7-17.5) g/dL Hct 36.8 L (40.1-51.0) % MCV 89.1 (79.0-92.2) fL MCH 28.8 (25.7-32.2) pg MCHC 32.3 (32.3-36.5) g/dL RDW 17.0 H (11.6-14.4) % Plt Count 250 (163-337) x10^3/uL MPV 10.3 (9.4-12.4) fL Gran % 72.2 H (34.0-67.9) % Immature Gran % (Auto) 0.5 H (0.001-0.429) % Nucleat RBC Rel Count 0.0 (0.00-0.2) % Eos # (Auto) 0.15 (0.04-0.54) x10^3/uL Immature Gran # (Auto) 0.03 (0.001-0.031) x10^3u/L Absolute Lymphs (auto) 0.91 L (1.32-3.57) x10^3/uL Absolute Monos (auto) 0.48 (0.30-0.82) x10^3/uL Absolute Nucleated RBC 0.00 (0.00-0.012) x10^3u/L Lymphocytes % 15.5 L (21.8-53.1) % Monocytes % 8.2 (5.3-12.2) % Eosinophils % 2.6 (0.8-7.0) % Basophils % 1.0 (0.2-1.2) % Absolute Granulocytes 4.23 (1.78-5.38) x10^3/uL Basophils # 0.06 (0.01-0.08) x10^3/uL Sodium 136 (135-145) mmol/L Potassium 4.0 (3.5-5.1) mmol/L Chloride 100 (98-107) mmol/L Carbon Dioxide 25 (22-30) mmol/L Anion Gap 15.8 H (5-15) MEQ/L BUN 24 H (9-20) mg/dL Creatinine 1.15 (0.66-1.25) mg/dL Estimated GFR 69.8 ML/MIN Glucose 133 H (74-106) mg/dL POC Glucometer (74 to 106) mg/dL Lactic Acid (0.4-2.0) Calcium 9.2 (8.4-10.2) mg/dL Magnesium 1.6 (1.6-2.3) mg/dL Total Bilirubin 0.40 (0.2-1.3) mg/dL AST 38 (17-59) U/L ALT 55 H (0-50) U/L Alkaline Phosphatase 104 (38-126) U/L Troponin I < 0.012 (0.000-0.033) ng/mL NT-Pro-B Natriuret Pep 1120 (<300) pg/mL Serum Total Protein 6.2 L (6.3-8.2) g/dL Albumin 3.6 (3.5-5.0) g/dL Influenza Type A Ag (NEGATIVE) Influenza Type B Ag (NEGATIVE) RSV (PCR) (NEGATIVE) SARS-CoV-2 (PCR) (NEGATIVE) 08/23/24 08/23/24 08/23/24 Range/Units 15:05 17:24 19:15 WBC (4.23-9.07) x10^3/uL RBC (4.63-6.08) x10^6/uL Hgb (13.7-17.5) g/dL Hct (40.1-51.0) % MCV (79.0-92.2) fL MCH (25.7-32.2) pg MCHC (32.3-36.5) g/dL RDW (11.6-14.4) % Plt Count (163-337) x10^3/uL MPV (9.4-12.4) fL Gran % (34.0-67.9) % Immature Gran % (Auto) (0.001-0.429) % Nucleat RBC Rel Count (0.00-0.2) % Eos # (Auto) (0.04-0.54) x10^3/uL Immature Gran # (Auto) (0.001-0.031) x10^3u/L Absolute Lymphs (auto) (1.32-3.57) x10^3/uL Absolute Monos (auto) (0.30-0.82) x10^3/uL Absolute Nucleated RBC (0.00-0.012) x10^3u/L Lymphocytes % (21.8-53.1) % Monocytes % (5.3-12.2) % Eosinophils % (0.8-7.0) % Basophils % (0.2-1.2) % Absolute Granulocytes (1.78-5.38) x10^3/uL Basophils # (0.01-0.08) x10^3/uL Sodium (135-145) mmol/L Potassium (3.5-5.1) mmol/L Chloride (98-107) mmol/L Carbon Dioxide (22-30) mmol/L Anion Gap (5-15) MEQ/L BUN (9-20) mg/dL Creatinine (0.66-1.25) mg/dL Estimated GFR ML/MIN Glucose (74-106) mg/dL POC Glucometer (74 to 106) mg/dL Lactic Acid 3.8 H (0.4-2.0) Calcium (8.4-10.2) mg/dL Magnesium (1.6-2.3) mg/dL Total Bilirubin (0.2-1.3) mg/dL AST (17-59) U/L ALT (0-50) U/L Alkaline Phosphatase (38-126) U/L Troponin I < 0.012 (0.000-0.033) ng/mL NT-Pro-B Natriuret Pep (<300) pg/mL Serum Total Protein (6.3-8.2) g/dL Albumin (3.5-5.0) g/dL Influenza Type A Ag NEGATIVE (NEGATIVE) Influenza Type B Ag NEGATIVE (NEGATIVE) RSV (PCR) NEGATIVE (NEGATIVE) SARS-CoV-2 (PCR) NEGATIVE (NEGATIVE) 08/23/24 08/23/24 Range/Units 20:55 23:10 WBC (4.23-9.07) x10^3/uL RBC (4.63-6.08) x10^6/uL Hgb (13.7-17.5) g/dL Hct (40.1-51.0) % MCV (79.0-92.2) fL MCH (25.7-32.2) pg MCHC (32.3-36.5) g/dL RDW (11.6-14.4) % Plt Count (163-337) x10^3/uL MPV (9.4-12.4) fL Gran % (34.0-67.9) % Immature Gran % (Auto) (0.001-0.429) % Nucleat RBC Rel Count (0.00-0.2) % Eos # (Auto) (0.04-0.54) x10^3/uL Immature Gran # (Auto) (0.001-0.031) x10^3u/L Absolute Lymphs (auto) (1.32-3.57) x10^3/uL Absolute Monos (auto) (0.30-0.82) x10^3/uL Absolute Nucleated RBC (0.00-0.012) x10^3u/L Lymphocytes % (21.8-53.1) % Monocytes % (5.3-12.2) % Eosinophils % (0.8-7.0) % Basophils % (0.2-1.2) % Absolute Granulocytes (1.78-5.38) x10^3/uL Basophils # (0.01-0.08) x10^3/uL Sodium (135-145) mmol/L Potassium (3.5-5.1) mmol/L Chloride (98-107) mmol/L Carbon Dioxide (22-30) mmol/L Anion Gap (5-15) MEQ/L BUN (9-20) mg/dL Creatinine (0.66-1.25) mg/dL Estimated GFR ML/MIN Glucose (74-106) mg/dL POC Glucometer 248 H (74 to 106) mg/dL Lactic Acid (0.4-2.0) Calcium (8.4-10.2) mg/dL Magnesium (1.6-2.3) mg/dL Total Bilirubin (0.2-1.3) mg/dL AST (17-59) U/L ALT (0-50) U/L Alkaline Phosphatase (38-126) U/L Troponin I < 0.012 (0.000-0.033) ng/mL NT-Pro-B Natriuret Pep (<300) pg/mL Serum Total Protein (6.3-8.2) g/dL Albumin (3.5-5.0) g/dL Influenza Type A Ag (NEGATIVE) Influenza Type B Ag (NEGATIVE) RSV (PCR) (NEGATIVE) SARS-CoV-2 (PCR) (NEGATIVE) Accuchecks Date 08/23/24 Time 21:00 - Radiology Impressions Radiology Exams & Impressions: Radiology Procedures Category Date Time Status CHEST 1 VIEW (PORTABLE) Routine Exams 08/23/24 19:43 Taken CHEST 1 VIEW (PORTABLE) Stat Exams 08/23/24 14:53 Completed ECHO W/2D AND DOPPLER [US] Routine Exams 08/23/24 19:51 Ordered CXR - slight bibasilar atelectasis, no consolidation. No pleural effusion, no pulmonary edema. (images reviewed) - Other Procedures and Tests Respiratory Therapy 08/23/24 15:12 Respiratory Therapy Assessment DAILY 08/23/24 19:38 Oxygen Nasal Cannula 3 lpm 08/23/24 21:37 RT Screen per Nursing Assess ONCE Assessment/Plan (1) COPD with exacerbation Current Visit: Yes Status: Acute Assessment & Plan: 68 y/o m with h/o COPD on home oxygen, HFrEF (last EF 15%), CVA, DM2, A-fib on Xarelto, here with worsening cough and dyspnea consistent with COPD exacerbation. ## COPD with acute exacerbation - patient's symptoms are most consistent with fl are of his COPD, with worsening cough, more sputum production, and more dyspnea. Currently his lungs sound clear, but that is after getting steroids and nebs in the ED. He remains on his baseline oxygen of 2.5-3L. Patient may have component of CHF/fluid retention (see below), with his history of severe ischemic cardiomyopathy and somewhat elevated BNP. However, he lacks the edema, orthopnea, or PND that would be expected if that were the main driving force. As well, there is not a clear pneumonia on his CXR; I suspect this is more URI driving the COPD exacerbation. In either case, it is appropriate for some antibiotic coverage for a severe enough COPD exacerbation to require hospitalization. - continue prednisone 40 mg daily - continue antibiotic coverage with Azithromycin 500 mg IV daily - albuterol nebs q4h PRN - once confirm home inhaler regimen can restart that as well ## Chronic systolic heart failure - due to ischemic cardiomyopathy, with reported last EF 15%. Patient has many risk factors for CHF exacerbation, and his BNP is mildly elevated, although it is slightly lower than his last visit in November. However, he does not have any current CHF symptoms, and had only mild edema seen in original CXR, not seen on the follow-up. He might have a small amount of fluid retained, but that is not his main cause of symptoms. - Give lasix 40 mg IV x1 - follow up [facility] - repeat echo (last done in 2019, although perhaps more recent [facility] - last home med list has him on Coreg 6.25 BID and Jardiance, although it is unclear what hsi current home med list; would also benefit from SHERIF-Inhibitor or Entresto; update meds once have updated list [facility] ## A-fib - possibly chronic A-fib. Currently A-paced rhythm on EKG. - continue Xarelto 20 and Coreg 6.25 BID once confirmed on home med list tomorrow ## Restless legs - the only medication that patient is sure he is still taking is the ropinirole, noting he cannot sleep without it. - resume ropinirole 6 mg QHS ## DM2 - only on oral meds at home. No HbA1c in our system. - place on moderate dose sliding scale insulin - check A1c with AM labs ## elevated lactate - in setting of COPD exacerbation. Initial BP was mildly low, but now rising, up to 116/59, without intervention. - repeat lactate pending Code status: Full code Prophylaxis: Xarelto Diet: low sodium, diabetic diet Dispo: place in observation; if able to ambulate on home oxygen, expect discharge to home in 24-48 hours Code(s): J44.1 - CHRONIC OBSTRUCTIVE PULMONARY DISEASE W (ACUTE) EXACERBATION Telemedicine Encounter - Telemedicine Encounter Telemedicine Encounter: "The entirety of this encounter was performed via Telemedicine" This visit was performed using real-time audio and video connection between my location and thepatients locationwith the assistance of a surrogateat the patients location. Written or verbal consent was obtained from the patient/guardian to perform this visit usingnchrFootbalistictelemedicine technology. Any patient questions regarding the telemedicine interaction were answered.
[2024-08-24] MEDS ORDERED: REQUIP 2MG TAB ONE (00:39)
[2024-08-24] MEDS: REQUIP 2MG TAB PO SCH (00:42)
[2024-08-24] MEDS: HUMALOG SQ PRN (00:43)
[2024-08-24] MEDS: TYLENOL 325 MG PO PRN (00:43)
--- NOTE | 2024-08-24 05:18 | PCM.NOTE ---
Date and Time: 08/24/24 0512 Subjective Assessment: Mr. Harrison is a 68 year old male poor historian with a pmhx of AFIB (on Xarelto), pacemaker/defib, HTN,COPD (on 2.5 L oxygen at baseline), stroke, DM, HLD, [place], CAD, RA,HFref with EF of 15%, and liver disease who presents to the ED 08/23/24 with complaints of productive cough with green blood tinged sputum and chills for the last few days. Patient uses oxygen at home but reports spo2 was in the low 80s. He took his rescue inhaler more frequently but did not note any relief. Eventually, he had some blood in his sputum, so came to the ED today. He denies orthopnea, PND, or leg edema. He does not know his medication list, and [facility]. He thinks he is back on his Lasix, and that the fitness leader told him his heart was worse, "down to 15% now". However, he said he has not been on low-sodium diets because his sodium levels gets too low. He has an ICD and says it fired about a month ago, when he also had pneumonia, but he has not seen cardiology since then. He is on Xarelto, but says it was because of a stroke; he is aware of A-fib, but is unsure if he has even been diagnosed with it. He denies chest pain. Admitted with copd exacerbation.Upon arrival to ED vitals were stable with spo2 at 97% on 2L NC. EKG atrial paced with LBBB. Negative initial troponin. CXR demonstrates hyperinflated with new mild bibasilar nfiltrates/atelectasis, left greater than right. No consolidation/large effusion. Heart not enlarged again with left pacemaker. Lab findings with normocytic anemia with hgb at 11.9, Gap acidosis with anion gap at 15.8 and lactic acid at 2.5<3.8. Patient given levaquin and solumedrol in ED. IP treatment with azithromycin/prednisone. Echo pending. 08/24/24: Met with patient bedside. Endorses improved but continued dyspnea requiring increased oxygen requirements 3L -baseline 2.5L. Productive cough with thompson thick sputum. Patient also reports he is feeling weak. - Review of Systems Constitutional: No Symptoms Eyes: No Symptoms Ears, Nose, & Throat: No Symptoms Respiratory: Cough, Short Of Breath Cardiac: No Symptoms Abdominal/Gastrointestinal: No Symptoms Genitourinary Symptoms: No Symptoms Musculoskeletal: No Symptoms Skin: No Symptoms Neurological: No Symptoms Psychological: No Symptoms Endocrine: No Symptoms Hematologic/Lymphatic: No Symptoms Immunological/Allergic: No Symptoms Objective Exam General Appearance: no apparent distress Neurologic Exam: alert, oriented x 3, cooperative Skin Exam: normal color Eye Exam: PERRL Ears, Nose, Throat Exam: normal ENT inspection Neck Exam: normal inspection Respiratory Exam: diminished breath sounds, crackles/rales Cardiovascular Exam: regular rate/rhythm, normal heart sounds Gastrointestinal/Abdomen Exam: soft, normal bowel sounds Extremity Exam: normal inspection Back Exam: normal inspection Male Genitalia Exam: deferred Rectal Exam: deferred Objective Data Vital Signs: Vital Signs - 24 hr Temp Pulse Resp BP BP Pulse Ox 08/24/24 03:53 97.9 F 73 17 115/59 92 L 08/24/24 00:00 79 23 08/23/24 21:27 74 16 95 08/23/24 20:42 97.9 F 86 18 127/59 92 L 08/23/24 19:01 80 16 116/59 93 L 08/23/24 18:31 87 20 101/87 92 L 08/23/24 18:00 88 21 103/70 08/23/24 17:30 82 19 109/79 08/23/24 17:20 95 08/23/24 17:00 72 20 115/65 90 L 08/23/24 16:30 70 19 118/63 93 L 08/23/24 16:00 71 18 111/76 93 L 08/23/24 15:30 70 20 120/65 91 L 08/23/24 15:20 71 18 93 L 08/23/24 15:12 72 18 93 L 08/23/24 15:10 71 93 L 08/23/24 15:03 93 L 08/23/24 14:30 105/57 95 08/23/24 14:11 96/50 95 08/23/24 14:10 97 08/23/24 13:59 98 F 70 24 100/54 97 Pain Assessment - Last Documented Pain Intensity 10 Pain Scale Used 0-10 Pain Scale Intake and Output: Intake & Output 1008/22/24 08/23/24 08/24/24 11:59 11:59 11:59 11:59 Intake Total 480 Output Total 1900 Balance -1420 Weight 74.4 kg Lab Results: Lab Results-Last 24 Hours 08/23/24 08/23/24 08/23/24 Range/Units 15:00 15:00 15:00 WBC 5.9 (4.23-9.07) x10^3/uL RBC 4.13 L (4.63-6.08) x10^6/uL Hgb 11.9 L (13.7-17.5) g/dL Hct 36.8 L (40.1-51.0) % MCV 89.1 (79.0-92.2) fL MCH 28.8 (25.7-32.2) pg MCHC 32.3 (32.3-36.5) g/dL RDW 17.0 H (11.6-14.4) % Plt Count 250 (163-337) x10^3/uL MPV 10.3 (9.4-12.4) fL Gran % 72.2 H (34.0-67.9) % Immature Gran % (Auto) 0.5 H (0.001-0.429) % Nucleat RBC Rel Count 0.0 (0.00-0.2) % Eos # (Auto) 0.15 (0.04-0.54) x10^3/uL Immature Gran # (Auto) 0.03 (0.001-0.031) x10^3u/L Absolute Lymphs (auto) 0.91 L (1.32-3.57) x10^3/uL Absolute Monos (auto) 0.48 (0.30-0.82) x10^3/uL Absolute Nucleated RBC 0.00 (0.00-0.012) x10^3u/L Lymphocytes % 15.5 L (21.8-53.1) % Monocytes % 8.2 (5.3-12.2) % Eosinophils % 2.6 (0.8-7.0) % Basophils % 1.0 (0.2-1.2) % Absolute Granulocytes 4.23 (1.78-5.38) x10^3/uL Basophils # 0.06 (0.01-0.08) x10^3/uL Sodium 136 (135-145) mmol/L Potassium 4.0 (3.5-5.1) mmol/L Chloride 100 (98-107) mmol/L Carbon Dioxide 25 (22-30) mmol/L Anion Gap 15.8 H (5-15) MEQ/L BUN 24 H (9-20) mg/dL Creatinine 1.15 (0.66-1.25) mg/dL Estimated GFR 69.8 ML/MIN Glucose 133 H (74-106) mg/dL POC Glucometer (74 to 106) mg/dL Lactic Acid (0.4-2.0) Calcium 9.2 (8.4-10.2) mg/dL Magnesium 1.6 (1.6-2.3) mg/dL Total Bilirubin 0.40 (0.2-1.3) mg/dL AST 38 (17-59) U/L ALT 55 H (0-50) U/L Alkaline Phosphatase 104 (38-126) U/L Troponin I < 0.012 (0.000-0.033) ng/mL NT-Pro-B Natriuret Pep 1120 (<300) pg/mL Serum Total Protein 6.2 L (6.3-8.2) g/dL Albumin 3.6 (3.5-5.0) g/dL Influenza Type A Ag (NEGATIVE) Influenza Type B Ag (NEGATIVE) RSV (PCR) (NEGATIVE) SARS-CoV-2 (PCR) (NEGATIVE) 08/23/24 08/23/24 08/23/24 Range/Units 15:05 17:24 19:15 WBC (4.23-9.07) x10^3/uL RBC (4.63-6.08) x10^6/uL Hgb (13.7-17.5) g/dL Hct (40.1-51.0) % MCV (79.0-92.2) fL MCH (25.7-32.2) pg MCHC (32.3-36.5) g/dL RDW (11.6-14.4) % Plt Count (163-337) x10^3/uL MPV (9.4-12.4) fL Gran % (34.0-67.9) % Immature Gran % (Auto) (0.001-0.429) % Nucleat RBC Rel Count (0.00-0.2) % Eos # (Auto) (0.04-0.54) x10^3/uL Immature Gran # (Auto) (0.001-0.031) x10^3u/L Absolute Lymphs (auto) (1.32-3.57) x10^3/uL Absolute Monos (auto) (0.30-0.82) x10^3/uL Absolute Nucleated RBC (0.00-0.012) x10^3u/L Lymphocytes % (21.8-53.1) % Monocytes % (5.3-12.2) % Eosinophils % (0.8-7.0) % Basophils % (0.2-1.2) % Absolute Granulocytes (1.78-5.38) x10^3/uL Basophils # (0.01-0.08) x10^3/uL Sodium (135-145) mmol/L Potassium (3.5-5.1) mmol/L Chloride (98-107) mmol/L Carbon Dioxide (22-30) mmol/L Anion Gap (5-15) MEQ/L BUN (9-20) mg/dL Creatinine (0.66-1.25) mg/dL Estimated GFR ML/MIN Glucose (74-106) mg/dL POC Glucometer (74 to 106) mg/dL Lactic Acid 3.8 H (0.4-2.0) Calcium (8.4-10.2) mg/dL Magnesium (1.6-2.3) mg/dL Total Bilirubin (0.2-1.3) mg/dL AST (17-59) U/L ALT (0-50) U/L Alkaline Phosphatase (38-126) U/L Troponin I < 0.012 (0.000-0.033) ng/mL NT-Pro-B Natriuret Pep (<300) pg/mL Serum Total Protein (6.3-8.2) g/dL Albumin (3.5-5.0) g/dL Influenza Type A Ag NEGATIVE (NEGATIVE) Influenza Type B Ag NEGATIVE (NEGATIVE) RSV (PCR) NEGATIVE (NEGATIVE) SARS-CoV-2 (PCR) NEGATIVE (NEGATIVE) 08/23/24 08/23/24 08/24/24 Range/Units 20:55 23:10 00:02 WBC (4.23-9.07) x10^3/uL RBC (4.63-6.08) x10^6/uL Hgb (13.7-17.5) g/dL Hct (40.1-51.0) % MCV (79.0-92.2) fL MCH (25.7-32.2) pg MCHC (32.3-36.5) g/dL RDW (11.6-14.4) % Plt Count (163-337) x10^3/uL MPV (9.4-12.4) fL Gran % (34.0-67.9) % Immature Gran % (Auto) (0.001-0.429) % Nucleat RBC Rel Count (0.00-0.2) % Eos # (Auto) (0.04-0.54) x10^3/uL Immature Gran # (Auto) (0.001-0.031) x10^3u/L Absolute Lymphs (auto) (1.32-3.57) x10^3/uL Absolute Monos (auto) (0.30-0.82) x10^3/uL Absolute Nucleated RBC (0.00-0.012) x10^3u/L Lymphocytes % (21.8-53.1) % Monocytes % (5.3-12.2) % Eosinophils % (0.8-7.0) % Basophils % (0.2-1.2) % Absolute Granulocytes (1.78-5.38) x10^3/uL Basophils # (0.01-0.08) x10^3/uL Sodium (135-145) mmol/L Potassium (3.5-5.1) mmol/L Chloride (98-107) mmol/L Carbon Dioxide (22-30) mmol/L Anion Gap (5-15) MEQ/L BUN (9-20) mg/dL Creatinine (0.66-1.25) mg/dL Estimated GFR ML/MIN Glucose (74-106) mg/dL POC Glucometer 248 H 213 H (74 to 106) mg/dL Lactic Acid (0.4-2.0) Calcium (8.4-10.2) mg/dL Magnesium (1.6-2.3) mg/dL Total Bilirubin (0.2-1.3) mg/dL AST (17-59) U/L ALT (0-50) U/L Alkaline Phosphatase (38-126) U/L Troponin I < 0.012 (0.000-0.033) ng/mL NT-Pro-B Natriuret Pep (<300) pg/mL Serum Total Protein (6.3-8.2) g/dL Albumin (3.5-5.0) g/dL Influenza Type A Ag (NEGATIVE) Influenza Type B Ag (NEGATIVE) RSV (PCR) (NEGATIVE) SARS-CoV-2 (PCR) (NEGATIVE) Radiology Exams: Radiology Procedures Category Date Time Status CHEST 1 VIEW (PORTABLE) Routine Exams 08/23/24 19:43 Taken CHEST 1 VIEW (PORTABLE) Stat Exams 08/23/24 14:53 Completed ECHO W/2D AND DOPPLER [US] Routine Exams 08/23/24 19:51 Ordered Assessment/Plan (1) COPD with exacerbation Current Visit: Yes Status: Acute Assessment & Plan: -CXR demonstrates hyperinflated with new mild bibasilar nfiltrates/atelectasis, left greater than right. No consolidation/large effusion. Heart not enlarged again with left pacemaker -continue prednisone 40 daily -azithromycin -continue -supplemental oxygen for goal spo2 89-91% - currently at baseline of 2.5-3L -RT eval -Nebs/INH Code(s): J44.1 - CHRONIC OBSTRUCTIVE PULMONARY DISEASE W (ACUTE) EXACERBATION (2) HFrEF (heart failure with reduced ejection fraction) Current Visit: Yes Status: Acute Assessment & Plan: -Echo reviewed from 10/18/2020 EF at 25-30% -reports now at 15% IMPRESSION: 1) MILD DILATED left ventricle with NORMAL WALL THICKNESS, SEVERELY REDUCED left ventricULAR SYSTOLIC FUNCTION WITH ejection fraction OF 25 to 30%. 2) Normal right ventricular size and systolic function. icd LEAD NOTED IN RIGHT VENTRICLE CHAMBER. 3) TRACE AORTIC regurgitation. 4) MILD mitral regurgitation. 5) MILD TO MODERATE tricuspid regurgitation. right ventricular systolic pressure ESTIMATED AT 45 mm of Mercury ASSUMING CENTRAL VENOUS PRESSURE OF 10 mm of Bianka cury. 6) No pericardial effusion. -BNP 1120 -Echo pending -last home med list has him on Coreg 6.25 BID and Jardiance, although it is unclear what hsi current home med list; would also benefit from SHERIF-Inhibitor or Entresto; update meds once have updated list from [place] Code(s): I50.20 - UNSPECIFIED SYSTOLIC (CONGESTIVE) HEART FAILURE (3) Afib Current Visit: Yes Status: Acute Assessment & Plan: continue Xarelto 20 and Coreg 6.25 BID once confirmed on home med list Code(s): I48.91 - UNSPECIFIED ATRIAL FIBRILLATION (4) Restless leg syndrome Current Visit: Yes Status: Acute Assessment & Plan: - resume ropinirole 6 mg QHS (5) Elevated lactic acid level Current Visit: Yes Status: Acute Assessment & Plan: - in setting of COPD exacerbation. Initial BP was mildly low, but now rising, up to 116/59, without intervention. - repeat lactate downtrending Code(s): R79.89 - OTHER SPECIFIED ABNORMAL FINDINGS OF BLOOD CHEMISTRY (6) Diabetes mellitus Current Visit: Yes Status: Acute Assessment & Plan: -ADA diet -SSI -A1c Code status: Full code Prophylaxis: Xarelto Diet: low sodium, diabetic diet Dispo: place in observation; if able to ambulate on home oxygen, expect discharge to home in 24-48 hours Code(s): E11.9 - TYPE 2 DIABETES MELLITUS WITHOUT COMPLICATIONS
[2024-08-24 05:30] LABS: Hematocrit 39.6 % (40.1-51.0); Hemoglobin 12.5 g/dL (13.7-17.5); Mean Cell Volume 88.8 fL (79.0-92.2); Mean Corpuscular Hgb Concent. 31.6 g/dL (32.3-36.5); Mean Platelet Volume 10.2 fL (9.4-12.4); Platelet Count 265 x10^3/uL (163-337); Red Blood Count 4.46 x10^6/uL (4.63-6.08); Red Cell Distribution Width 16.8 % (11.6-14.4); White Blood Count 5.8 x10^3/uL (4.23-9.07)
[2024-08-24 05:38] LABS: ANION GAP 16.3 MEQ/L (5-15); Calcium 9.4 mg/dL (8.4-10.2); Creatinine 1 1.45 mg/dL (0.66-1.25); EST GLOMERULAR FILTRATION RATE 52.8 ML/MIN; Potassium 4.8 mmol/L (3.5-5.1)
[2024-08-24] MEDS: Spiriva 18 Mcg/Cap Inhaler IH SCH (06:26)
[2024-08-24] MEDS: Advair Hfa 115/21 Common canister IH SCH (06:26)
--- NOTE | 2024-08-24 08:53 | XRAY ---
Indication: Short of breath. Comparison: Taken earlier in the day Portable chest demonstrates clearing previous bibasilar infiltrates/atelectasis. There remains left base discoid atelectasis/scarring and small right lung calcified granulomas. Heart not enlarged again with left pacemaker. No new cardiopulmonary abnormalities.
[2024-08-24] MEDS: Zithromax 500 MG/ 250 ML NaCl Premix 500 MG/250 ML IVPB IV SCH (09:19)
[2024-08-24] MEDS: DELTASONE 20 MG PO SCH (09:19)
[2024-08-24] MEDS: XARELTO 10 MG TABLET PO SCH (09:19)
[2024-08-24] MEDS ORDERED: Nitrostat 0.4 MG Tablet SL PRN (15:09)
[2024-08-24] MEDS ORDERED: MEDICATION INTERVENTION MC SCH ×2 (15:45)
[2024-08-24] MEDS: Zocor 10MG PO SCH (16:14)
[2024-08-24] MEDS: DALIRESP PO SCH (16:14)
[2024-08-24] MEDS: CLARITIN 10 MG PO SCH (16:14)
[2024-08-24] MEDS: Protonix 40MG Tablet PO SCH (16:14)
[2024-08-24] MEDS: PROAMATINE PO SCH (16:20)
[2024-08-24] MEDS: Flonase NASAL NS SCH (21:08)
[2024-08-24] MEDS: Ditropan 5 MG PO SCH (21:10)
[2024-08-24] MEDS: VITAMIN D PO SCH (21:10)
[2024-08-24] MEDS: NEURONTIN PO SCH (21:10)
[2024-08-24] MEDS: ENTRESTO 49 MG-51 MG TABLET PO SCH (21:12)
[2024-08-24] MEDS: Cordarone 200 MG PO SCH (21:13)
[2024-08-24] MEDS: MELATONIN PO SCH (21:13)
[2024-08-24] MEDS ORDERED: BETAMETHASONE DIPROPIONATE TOP SCH (22:00)
[2024-08-24] MEDS ORDERED: CALCIPOTRIENE TP SCH (22:00)
--- NOTE | 2024-08-25 05:13 | PCM.NOTE ---
Date and Time: 08/25/24 0511 Subjective Assessment: Mr. Harrison is a 68 year old male poor historian with a pmhx of AFIB (on Xarelto), pacemaker/defib, HTN,COPD (on 2.5 L oxygen at baseline), stroke, DM, HLD, [place], CAD, RA,HFref with EF of 15%, and liver disease who presents to the ED 08/23/24 with complaints of productive cough with green blood tinged sputum and chills for the last few days. Patient uses oxygen at home but reports spo2 was in the low 80s. He took his rescue inhaler more frequently but did not note any relief. Eventually, he had some blood in his sputum, so came to the ED today. He denies orthopnea, PND, or leg edema. He does not know his medication list, and [facility]. He thinks he is back on his Lasix, and that the travel writer told him his heart was worse, "down to 15% now". However, he said he has not been on low-sodium diets because his sodium levels gets too low. He has an ICD and says it fired about a month ago, when he also had pneumonia, but he has not seen cardiology since then. He is on Xarelto, but says it was because of a stroke; he is aware of A-fib, but is unsure if he has even been diagnosed with it. He denies chest pain. Admitted with copd exacerbation.Upon arrival to ED vitals were stable with spo2 at 97% on 2L NC. EKG atrial paced with LBBB. Negative initial troponin. CXR demonstrates hyperinflated with new mild bibasilar nfiltrates/atelectasis, left greater than right. No consolidation/large effusion. Heart not enlarged again with left pacemaker. Lab findings with normocytic anemia with hgb at 11.9, Gap acidosis with anion gap at 15.8 and lactic acid at 2.5<3.8. Patient given levaquin and solumedrol in ED. IP treatment with azithromycin/prednisone initially but azith interact with his other meds - changed to ceftriaxone. Echo pending. 08/24/24: Met with patient bedside. Endorses improved but continued dyspnea requiring increased oxygen requirements 3L -baseline 2.5L. Productive cough with thompson thick sputum. Patient also reports he is feeling weak. Objective Data Vital Signs: Vital Signs - 24 hr Temp Pulse Resp BP Pulse Ox 08/25/24 04:00 96.9 F 72 18 121/59 93 L 08/24/24 23:40 70 08/24/24 20:00 96.7 F 80 18 121/58 93 L 08/24/24 19:28 80 16 93 L 08/24/24 15:55 97.3 F 82 18 132/64 91 L 08/24/24 13:02 95 08/24/24 12:00 97.1 F 83 18 130/57 91 L 08/24/24 07:53 97.1 F 78 20 125/62 91 L 08/24/24 06:30 72 20 91 L Pain Assessment - Last Documented Pain Intensity 10 Pain Scale Used 0-10 Pain Scale Intake and Output: Intake & Output 08/22/24 08/23/24 08/24/24 08/25/24 11:59 11:59 11:59 11:59 Intake Total 720 600 Output Total 2100 1300 Balance -1380 -700 Weight 74 kg Lab Results: Lab Results-Last 24 Hours 08/23/24 08/24/24 08/24/24 Range/Units 05:15 04:57 04:57 WBC 5.8 (4.23-9.07) x10^3/uL RBC 4.46 L (4.63-6.08) x10^6/uL Hgb 12.5 L (13.7-17.5) g/dL Hct 39.6 L (40.1-51.0) % MCV 88.8 (79.0-92.2) fL MCH 28.0 (25.7-32.2) pg MCHC 31.6 L (32.3-36.5) g/dL RDW 16.8 H (11.6-14.4) % Plt Count 265 (163-337) x10^3/uL MPV 10.2 (9.4-12.4) fL Sodium 135 (135-145) mmol/L Potassium 4.8 (3.5-5.1) mmol/L Chloride 97 L (98-107) mmol/L Carbon Dioxide 26 (22-30) mmol/L Anion Gap 16.3 H (5-15) MEQ/L BUN 30 H (9-20) mg/dL Creatinine 1.45 H (0.66-1.25) mg/dL Estimated GFR 52.8 ML/MIN Glucose 173 H (74-106) mg/dL POC Glucometer (74 to 106) mg/dL Hemoglobin A1c (4.5-6.0) % Lactic Acid 2.5 H (0.4-2.0) Calcium 9.4 (8.4-10.2) mg/dL Magnesium 2.0 (1.6-2.3) mg/dL 08/24/24 08/24/24 08/24/24 Range/Units 04:57 05:25 07:01 WBC (4.23-9.07) x10^3/uL RBC (4.63-6.08) x10^6/uL Hgb (13.7-17.5) g/dL Hct (40.1-51.0) % MCV (79.0-92.2) fL MCH (25.7-32.2) pg MCHC (32.3-36.5) g/dL RDW (11.6-14.4) % Plt Count (163-337) x10^3/uL MPV (9.4-12.4) fL Sodium (135-145) mmol/L Potassium (3.5-5.1) mmol/L Chloride (98-107) mmol/L Carbon Dioxide (22-30) mmol/L Anion Gap (5-15) MEQ/L BUN (9-20) mg/dL Creatinine (0.66-1.25) mg/dL Estimated GFR ML/MIN Glucose (74-106) mg/dL POC Glucometer 168 H (74 to 106) mg/dL Hemoglobin A1c 6.22 H (4.5-6.0) % Lactic Acid 2.5 H (0.4-2.0) Calcium (8.4-10.2) mg/dL Magnesium (1.6-2.3) mg/dL 08/24/24 08/24/24 08/24/24 Range/Units 11:31 16:05 20:59 WBC (4.23-9.07) x10^3/uL RBC (4.63-6.08) x10^6/uL Hgb (13.7-17.5) g/dL Hct (40.1-51.0) % MCV (79.0-92.2) fL MCH (25.7-32.2) pg MCHC (32.3-36.5) g/dL RDW (11.6-14.4) % Plt Count (163-337) x10^3/uL MPV (9.4-12.4) fL Sodium (135-145) mmol/L Potassium (3.5-5.1) mmol/L Chloride (98-107) mmol/L Carbon Dioxide (22-30) mmol/L Anion Gap (5-15) MEQ/L BUN (9-20) mg/dL Creatinine (0.66-1.25) mg/dL Estimated GFR ML/MIN Glucose (74-106) mg/dL POC Glucometer 140 H 175 H 180 H (74 to 106) mg/dL Hemoglobin A1c (4.5-6.0) % Lactic Acid (0.4-2.0) Calcium (8.4-10.2) mg/dL Magnesium (1.6-2.3) mg/dL Radiology Exams: Radiology Procedures Category Date Time Status CHEST 1 VIEW (PORTABLE) Routine Exams 08/23/24 19:43 Completed CHEST 1 VIEW (PORTABLE) Stat Exams 08/23/24 14:53 Completed ECHO W/2D AND DOPPLER [US] Routine Exams 08/24/24 08:00 Taken Multi-Disciplinary Progress Notes: Multi-Disciplinary Progress Notes 08/24/24 16:04 Respiratory Note by Malia Ignacio RT REQUALIFIED PATIENT FOR HOME 02 PER [facility] REQUIRE[facility]. SPO2 ON RA @ REST=86%, SPO2 ON 2L AT REST=91%, SPO2 ON 4L WITH EXERTION 89%. Initialized on 08/24/24 16:04 - END OF NOTE 08/24/24 15:34 Pharmacy Note by Alli Grant Please be aware of possible drug interaction with Zithromax and Cordarone. May prolong the QT interval. Initialized on 08/24/24 15:34 - END OF NOTE 08/24/24 15:30 (created 08/24/24 15:47) Case Management Note by Gaby Melara FA[facility]ED RESULTS OF [facility] TO [facility] PER [facility]IR RE[facility]. CONFIRMATION RECEIVED. Initialized on 08/24/24 15:47 - END OF NOTE 08/24/24 13:58 Case Management Note by Neva Vallecillo S/W FLORI (PLATFORM SOFTWARE ENGINEER AT [place]) SHE REPORTS THE OXYGEN DEPARTMENT IS REQUESTING PATIENT TO BE REQUALIFIED FOR HIS OXYGEN. SHE ALSO REPORTS IF PATIENT HAS A RIDE HOME TOMORROW THE OXYGEN COMPANY WILL DELIVER A TANK HERE TO [facility] FOR DELIVERY. PATIENT REPORTS IF A TANK CAN BE DELIVERED HERE TO [facility] HE WILL BE ABLE TO GET A RIDE HOME. FLORI NOTIFIED- SHE WILL CANCEL AMBULANCE AND PUT THE REQUEST IN FOR TANK DELIVERY. Initialized on 08/24/24 13:58 - END OF NOTE 08/24/24 12:29 Case Management Note by Neva Vallecillo PATIENT HAS [facility]. THEY WERE NOTIFIED PATIENT IS OBS. THEY WILL NEED NOTIFIED AT TIME OF DC AT [phone]. THEY WILL NEED FAXED THE DC INSTRUCTIONS, DC MED LIST AND DC SUMMARY TO [phone] Initialized on 08/24/24 12:29 - END OF NOTE 08/24/24 12:12 Case Management Note by Neva Vallecillo PATIENT REPORTS HE IS ALWAYS TAKEN HOME FROM THE HOSPITAL BY AMBULANCE PAID FOR BY THE [place]. 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 SHE REPORTS SHE WILL HAVE AN AMBULANCE HERE FOR PATIENT TOMORROW AT 2PM [facility] IF ANY ISSUES- CALL THE TRAVEL NUMBER AT [phone] Initialized on 08/24/24 12:12 - END OF NOTE Assessment/Plan (1) COPD with exacerbation Current Visit: Yes Status: Acute Assessment & Plan: -CXR demonstrates hyperinflated with new mild bibasilar nfiltrates/atelectasis, left greater than right. No consolidation/large effusion. Heart not enlarged again with left pacemaker -continue prednisone 40 daily -azithromycin -discontinue - change to ceftriaxone due to med interactions -supplemental oxygen for goal spo2 89-91% - currently at baseline of 2.5-3L -RT eval -Nebs/INH Code(s): J44.1 - CHRONIC OBSTRUCTIVE PULMONARY DISEASE W (ACUTE) EXACERBATION (2) HFrEF (heart failure with reduced ejection fraction) Current Visit: Yes Status: Acute Assessment & Plan: -Echo reviewed from 10/18/2020 EF at 25-30% -reports now at 15% IMPRESSION: 1) MILD DILATED left ventricle with NORMAL WALL THICKNESS, SEVERELY REDUCED left ventricULAR SYSTOLIC FUNCTION WITH ejection fraction OF 25 to 30%. 2) Normal right ventricular size and systolic function. icd LEAD NOTED IN RIGHT VENTRICLE CHAMBER. 3) TRACE AORTIC regurgitation. 4) MILD mitral regurgitation. 5) MILD TO MODERATE tricuspid regurgitation. right ventricular systolic pressure ESTIMATED AT 45 mm of Mercury ASSUMING CENTRAL VENOUS PRESSURE OF 10 mm of Mercury. 6) No pericardial effusion. -BNP 1120 -Echo pending -last home med list has him on Coreg 6.25 BID and Jardiance, although it is unclear what hsi current home med list; would also benefit from SHERIF-Inhibitor or Entresto; update meds once have updated list from [place] Code(s): I50.20 - UNSPECIFIED SYSTOLIC (CONGESTIVE) HEART FAILURE ## LORENZO -resolved (3) Afib Current Visit: Yes Status: Acute Assessment & Plan: continue Xarelto 20 and Coreg 6.25 BID once confirmed on home med list Code(s): I48.91 - UNSPECIFIED ATRIAL FIBRILLATION (4) Restless leg syndrome Current Visit: Yes Status: Acute Assessment & Plan: - resume ropinirole 6 mg QHS (5) Elevated lactic acid level Current Visit: Yes Status: Acute Assessment & Plan: - in setting of COPD exacerbation. Initial BP was mildly low, but now rising, up to 116/59, without intervention. - repeat lactate downtrending Code(s): R79.89 - OTHER SPECIFIED ABNORMAL FINDINGS OF BLOOD CHEMISTRY (6) Diabetes mellitus Current Visit: Yes Status: Acute Assessment & Plan: -ADA diet -SSI -A1c Code status: Full code Prophylaxis: Xarelto Diet: low sodium, diabetic diet Dispo: place in observation; if able to ambulate on home oxygen, expect discharge to home in 24-48 hours Code(s): J44.1 - CHRONIC OBSTRUCTIVE PULMONARY DISEASE W (ACUTE) EXACERBATION (2) HFrEF (heart failure with reduced ejection fraction) Current Visit: Yes Status: Acute Code(s): I50.20 - UNSPECIFIED SYSTOLIC (CONGESTIVE) HEART FAILURE (3) Afib Current Visit: Yes Status: Acute Code(s): I48.91 - UNSPECIFIED ATRIAL FIBRILLATION (4) Restless leg syndrome Current Visit: Yes Status: Acute (5) Elevated lactic acid level Current Visit: Yes Status: Acute Code(s): R79.89 - OTHER SPECIFIED ABNORMAL FINDINGS OF BLOOD CHEMISTRY (6) Diabetes mellitus Current Visit: Yes Status: Acute Code(s): E11.9 - TYPE 2 DIABETES MELLITUS WITHOUT COMPLICATIONS (7) LORENZO (acute kidney injury) Current Visit: Yes Status: Acute Code(s): N17.9 - ACUTE KIDNEY FAILURE, UNSPECIFIED
[2024-08-25 05:41] LABS: BASOPHIL % 0.2 % (0.2-1.2); Basophil (Absolute #) 0.02 x10^3/uL (0.01-0.08); Eosinophil % 0.2 % (0.8-7.0); Eosinophil (Absolute #) 0.03 x10^3/uL (0.04-0.54); Hematocrit 36.1 % (40.1-51.0); Hemoglobin 11.4 g/dL (13.7-17.5); IMMATURE GRAN # 0.05 x10^3u/L (0.001-0.031); IMMATURE GRAN % 0.4 % (0.001-0.429); Lymphocyte (Absolute #) 0.89 x10^3/uL (1.32-3.57); Mean Cell Volume 89.1 fL (79.0-92.2); Mean Corpuscular Hemoglobin 28.1 pg (25.7-32.2); Mean Corpuscular Hgb Concent. 31.6 g/dL (32.3-36.5); Monocyte (Absolute #) 0.69 x10^3/uL (0.30-0.82); Monocytes % 5.4 % (5.3-12.2); Neutrophil % 86.8 % (34.0-67.9); Platelet Count 261 x10^3/uL (163-337); Red Blood Count 4.05 x10^6/uL (4.63-6.08); Red Cell Distribution Width 16.8 % (11.6-14.4); White Blood Count 12.8 x10^3/uL (4.23-9.07)
[2024-08-25 05:48] LABS: ALBUMIN 3.6 g/dL (3.5-5.0); ANION GAP 12.8 MEQ/L (5-15); BILIRUBIN,TOTAL 0.4 mg/dL (0.2-1.3); Calcium 8.8 mg/dL (8.4-10.2); Creatinine 1 1.11 mg/dL (0.66-1.25); EST GLOMERULAR FILTRATION RATE 72.8 ML/MIN; Total Protein 6.3 g/dL (6.3-8.2)
[2024-08-25] MEDS: ROCEPHIN 1 GM / 100 ML NaCl 1 GM/100 ML IVPB IV SCH (09:07)
[2024-08-25] MEDS: REQUIP 2MG TAB PO SCH (09:09)
--- NOTE | 2024-08-25 09:20 | PCM.DS ---
Discharge Summary Date of Admission: 08/23/24 19:33 Date of Discharge: 08/25/24 Admitting Physician: MENDOZA BARLOW MD Primary Care Provider: [facility] Allergies Allergies Penicillins Allergy (Intermediate, Verified 08/23/24 14:30) RASH milk Allergy (Mild, Verified 08/23/24 14:30) hornet venom Allergy (Verified 08/23/24 14:30) lithium Allergy (Verified 08/23/24 14:30) verified by [facility] medication list ipratropium Adverse Reaction (Intermediate, Verified 08/23/24 14:30) Vomiting Hospital Summary - Hospital Course Hospital Course: Mr. Harrison is a 68 year old male poor historian with a pmhx of AFIB (on Xarelto), pacemaker/defib, HTN,COPD (on 2.5 L oxygen at baseline), stroke, DM, HLD, [place], CAD, RA,HFref with EF of 15%, and liver disease who presents to the ED 08/23/24 with complaints of productive cough with green blood tinged sputum and chills for the last few days. Patient uses oxygen at home but reports spo2 was in the low 80s. He took his rescue inhaler more frequently but did not note any relief. Eventually, he had some blood in his sputum, so came to the ED today. He denies orthopnea, PND, or leg edema. He does not know his medication list, and [facility]. 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 However, he said he has not been on low-sodium diets because his sodium levels gets too low. He has an ICD and says it fired about a month ago, when he also had pneumonia, but he has not seen cardiology since then. He is on Xarelto, but says it was because of a stroke; he is aware of A-fib, but is unsure if he has even been diagnosed with it. He denies chest pain. Admitted with copd exacerbation.Upon arrival to ED vitals were stable with spo2 at 97% on 2L NC. EKG atrial paced with LBBB. Negative initial troponin. CXR demonstrates hyperinflated with new mild bibasilar nfiltrates/atelectasis, left greater than right. No consolidation/large effusion. Heart not enlarged again with left pacemaker. Lab findings with normocytic anemia with hgb at 11.9, Gap acidosis with anion gap at 15.8 and lactic acid at 2.5<3.8. Patient given levaquin and solumedrol in ED. IP treatment with azithromycin/prednisone initially but azith interact with his other meds - changed to ceftriaxone. Blood and sputum culture pending Dyspnea improved. Labs and vitals stable. Patient requesting discharge. Patient to discharge with prednisone/cefuroxime. Follow up with PCP/pulm. Portable oxygen tank to be delivered. Discharge Note New Diagnosis: COPD exacerbation New Medications:cefuroxime/prednisone Follow Up: pcp/pulm Results pending: blood/sputum culture Latest Assessment & Plan (1) COPD with exacerbation Current Visit: Yes Status: Acute Assessment & Plan: -CXR demonstrates hyperinflated with new mild bibasilar nfiltrates/atelectasis, left greater than right. No consolidation/large effusion. Heart not enlarged again with left pacemaker -continue prednisone 40 daily -azithromycin -discontinue - change to ceftriaxone due to med interactions -supplemental oxygen for goal spo2 89-91% - currently at baseline of 2.5-3L -RT eval -Nebs/INH Code(s): J44.1 - CHRONIC OBSTRUCTIVE PULMONARY DISEASE W (ACUTE) EXACERBATION (2) HFrEF (heart failure with reduced ejection fraction) Current Visit: Yes Status: Acute Assessment & Plan: -Echo reviewed from 10/18/2020 EF at 25-30% -reports now at 15% IMPRESSION: 1) MILD DILATED left ventricle with NORMAL WALL THICKNESS, SEVERELY REDUCED left ventricULAR SYSTOLIC FUNCTION WITH ejection fraction OF 25 to 30%. 2) Normal right ventricular size and systolic function. icd LEAD NOTED IN RIGHT VENTRICLE CHAMBER. 3) TRACE AORTIC regurgitation. 4) MILD mitral regurgitation. 5) MILD TO MODERATE tricuspid regurgitation. right ventricular systolic pressure ESTIMATED AT 45 mm of Mercury ASSUMING CENTRAL VENOUS PRESSURE OF 10 mm of Mercury. 6) No pericardial effusion. -BNP 1120 -Echo pending -last home med list has him on Coreg 6.25 BID and Jardiance, although it is unclear what hsi current home med list; would also benefit from SHERIF-Inhibitor or Entresto; update meds once have updated list from [place] Code(s): I50.20 - UNSPECIFIED SYSTOLIC (CONGESTIVE) HEART FAILURE ## LORENZO -resolved (3) Afib Current Visit: Yes Status: Acute Assessment & Plan: continue Xarelto 20 and Coreg 6.25 BID once confirmed on home med list Code(s): I48.91 - UNSPECIFIED ATRIAL FIBRILLATION (4) Restless leg syndrome Current Visit: Yes Status: Acute Assessment & Plan: - resume ropinirole 6 mg QHS (5) Elevated lactic acid level Current Visit: Yes Status: Acute Assessment & Plan: - in setting of COPD exacerbation. Initial BP was mildly low, but now rising, up to 116/59, without intervention. - repeat lactate downtrending Code(s): R79.89 - OTHER SPECIFIED ABNORMAL FINDINGS OF BLOOD CHEMISTRY (6) Diabetes mellitus Current Visit: Yes Status: Acute Assessment & Plan: -ADA diet -SSI -A1c Code status: Full code Prophylaxis: Xarelto Diet: low sodium, diabetic diet Dispo: place in observation; if able to ambulate on home oxygen, expect discharge to home in 24-48 hours Code(s): J44.1 - CHRONIC OBSTRUCTIVE PULMONARY DISEASE W (ACUTE) EXACERBATION I spent 37 minutes [id number] with the patient on the day of discharge performing discharge exam, discussing hospital stay and discharge instructions with patient and caregivers, preparation of discharge records, prescriptions & referral forms and addressing any questions/concerns the patient had as documented above. - Vitals & Intake/Output Vital Signs: Vital Signs Temperature 96.8 F 08/25/24 07:53 Pulse Rate 74 08/25/24 07:53 Respiratory Rate 18 08/25/24 07:53 Blood Pressure 109/66 08/25/24 07:53 O2 Sat by Pulse Oximetry 93 L 08/25/24 07:53 Intake & Output: Intake & Output 08/22/24 08/23/24 08/24/24 08/25/24 11:59 11:59 11:59 11:59 Intake Total 720 960 Output Total 2100 1600 Balance -1380 -640 Weight 74 kg 74.6 kg - Lab Result Diagrams: 08/25/24 04:25 08/25/24 04:25 Lab Results-Last 24 Hrs: Lab Results-Last 24 Hours 08/24/24 08/24/24 08/24/24 Range/Units 11:31 16:05 20:59 WBC (4.23-9.07) x10^3/uL RBC (4.63-6.08) x10^6/uL Hgb (13.7-17.5) g/dL Hct (40.1-51.0) % MCV (79.0-92.2) fL MCH (25.7-32.2) pg MCHC (32.3-36.5) g/dL RDW (11.6-14.4) % Plt Count (163-337) x10^3/uL MPV (9.4-12.4) fL Gran % (34.0-67.9) % Immature Gran % (Auto) (0.001-0.429) % Nucleat RBC Rel Count (0.00-0.2) % Eos # (Auto) (0.04-0.54) x10^3/uL Immature Gran # (Auto) (0.001-0.031) x10^3u/L Absolute Lymphs (auto) (1.32-3.57) x10^3/uL Absolute Monos (auto) (0.30-0.82) x10^3/uL Absolute Nucleated RBC (0.00-0.012) x10^3u/L Lymphocytes % (21.8-53.1) % Monocytes % (5.3-12.2) % Eosinophils % (0.8-7.0) % Basophils % (0.2-1.2) % Absolute Granulocytes (1.78-5.38) x10^3/uL Basophils # (0.01-0.08) x10^3/uL Sodium (135-145) mmol/L Potassium (3.5-5.1) mmol/L Chloride (98-107) mmol/L Carbon Dioxide (22-30) mmol/L Anion Gap (5-15) MEQ/L BUN (9-20) mg/dL Creatinine (0.66-1.25) mg/dL Estimated GFR ML/MIN Glucose (74-106) mg/dL POC Glucometer 140 H 175 H 180 H (74 to 106) mg/dL Lactic Acid (0.4-2.0) Calcium (8.4-10.2) mg/dL Total Bilirubin (0.2-1.3) mg/dL AST (17-59) U/L ALT (0-50) U/L Alkaline Phosphatase (38-126) U/L Serum Total Protein (6.3-8.2) g/dL Albumin (3.5-5.0) g/dL 08/25/24 08/25/24 08/25/24 Range/Units 04:25 04:25 05:45 WBC 12.8 H (4.23-9.07) x10^3/uL RBC 4.05 L (4.63-6.08) x10^6/uL Hgb 11.4 L (13.7-17.5) g/dL Hct 36.1 L (40.1-51.0) % MCV 89.1 (79.0-92.2) fL MCH 28.1 (25.7-32.2) pg MCHC 31.6 L (32.3-36.5) g/dL RDW 16.8 H (11.6-14.4) % Plt Count 261 (163-337) x10^3/uL MPV 11.0 (9.4-12.4) fL Gran % 86.8 H (34.0-67.9) % Immature Gran % (Auto) 0.4 (0.001-0.429) % Nucleat RBC Rel Count 0.0 (0.00-0.2) % Eos # (Auto) 0.03 L (0.04-0.54) x10^3/uL Immature Gran # (Auto) 0.05 H (0.001-0.031) x10^3u/L Absolute Lymphs (auto) 0.89 L (1.32-3.57) x10^3/uL Absolute Monos (auto) 0.69 (0.30-0.82) x10^3/uL Absolute Nucleated RBC 0.00 (0.00-0.012) x10^3u/L Lymphocytes % 7.0 L (21.8-53.1) % Monocytes % 5.4 (5.3-12.2) % Eosinophils % 0.2 L (0.8-7.0) % Basophils % 0.2 (0.2-1.2) % Absolute Granulocytes 11.10 H (1.78-5.38) x10^3/uL Basophils # 0.02 (0.01-0.08) x10^3/uL Sodium 134 L (135-145) mmol/L Potassium 4.0 (3.5-5.1) mmol/L Chloride 103 (98-107) mmol/L Carbon Dioxide 22 (22-30) mmol/L Anion Gap 12.8 (5-15) MEQ/L BUN 32 H (9-20) mg/dL Creatinine 1.11 (0.66-1.25) mg/dL Estimated GFR 72.8 ML/MIN Glucose 154 H (74-106) mg/dL POC Glucometer (74 to 106) mg/dL Lactic Acid 1.5 (0.4-2.0) Calcium 8.8 (8.4-10.2) mg/dL Total Bilirubin 0.40 (0.2-1.3) mg/dL AST 26 (17-59) U/L ALT 41 (0-50) U/L Alkaline Phosphatase 91 (38-126) U/L Serum Total Protein 6.3 (6.3-8.2) g/dL Albumin 3.6 (3.5-5.0) g/dL 08/25/24 Range/Units 06:34 WBC (4.23-9.07) x10^3/uL RBC (4.63-6.08) x10^6/uL Hgb (13.7-17.5) g/dL Hct (40.1-51.0) % MCV (79.0-92.2) fL MCH (25.7-32.2) pg MCHC (32.3-36.5) g/dL RDW (11.6-14.4) % Plt Count (163-337) x10^3/uL MPV (9.4-12.4) fL Gran % (34.0-67.9) % Immature Gran % (Auto) (0.001-0.429) % Nucleat RBC Rel Count (0.00-0.2) % Eos # (Auto) (0.04-0.54) x10^3/uL Immature Gran # (Auto) (0.001-0.031) x10^3u/L Absolute Lymphs (auto) (1.32-3.57) x10^3/uL Absolute Monos (auto) (0.30-0.82) x10^3/uL Absolute Nucleated RBC (0.00-0.012) x10^3u/L Lymphocytes % (21.8-53.1) % Monocytes % (5.3-12.2) % Eosinophils % (0.8-7.0) % Basophils % (0.2-1.2) % Absolute Granulocytes (1.78-5.38) x10^3/uL Basophils # (0.01-0.08) x10^3/uL Sodium (135-145) mmol/L Potassium (3.5-5.1) mmol/L Chloride (98-107) mmol/L Carbon Dioxide (22-30) mmol/L Anion Gap (5-15) MEQ/L BUN (9-20) mg/dL Creatinine (0.66-1.25) mg/dL Estimated GFR ML/MIN Glucose (74-106) mg/dL POC Glucometer 137 H (74 to 106) mg/dL Lactic Acid (0.4-2.0) Calcium (8.4-10.2) mg/dL Total Bilirubin (0.2-1.3) mg/dL AST (17-59) U/L ALT (0-50) U/L Alkaline Phosphatase (38-126) U/L Serum Total Protein (6.3-8.2) g/dL Albumin (3.5-5.0) g/dL Micro Results-Entire Visit: Microbiology 08/23/24 15:06 Blood Culture - Preliminary Blood 08/23/24 15:00 Blood Culture - Preliminary Blood Accuchecks Date 08/25/24 Date 08/24/24 Date 08/24/24 - Radiology Exams Ordered Rad Exams-Entire Visit: Radiology Procedures Category Date Time Status CHEST 1 VIEW (PORTABLE) Routine Exams 08/23/24 19:43 Completed CHEST 1 VIEW (PORTABLE) Stat Exams 08/23/24 14:53 Completed ECHO W/2D AND DOPPLER [US] Routine Exams 08/24/24 08:00 Taken - Procedures and Test Procedures and Tests throughout Hospitalization: Therapy Orders & Screens 08/23/24 15:12 Respiratory Therapy Assessment DAILY Comment: 08/23/24 19:38 Oxygen Nasal Cannula 3 lpm Comment: 08/23/24 19:50 Respiratory Therapy Consult ONCE Comment: Reason For Exam: Diagnosis: Pneumonia/COPD exacerbation 08/23/24 21:37 RT Screen per Nursing Assess ONCE Comment: Protocol Order Physician Instructions: Greater than 3 points order RT Admission Screen Reason For Exam: Triggered on Admission Diagnosis: Pneumonia/COPD exacerbation Diagnosis: Pneumonia/COPD exacerbation Pneumonia: Yes Home O2: Yes: 2.5L Asthma: No CHF: Yes Home CPAP/BIPAP: No Home Nebs/MDI: Yes Total Points: 16 ST Screen per Nursing Assess ONCE Comment: Protocol Order Physician Instructions: Greater than [address] Admission Screening Reason For Exam: Triggered on Admission Diagnosis: Pneumonia/COPD exacerbation CVA/Dyshpagia/Aphasia: No Cognitive Deficits: No Dehydration/Nutrition Deficit: No Reflux: No Oral-Motor Difficulties: No Pneumonia: Yes Usp Resident: No Total Points: 5 08/24/24 01:46 Respiratory MDI BID Comment: Diagnosis: cough Discharge Exam General Appearance: no apparent distress Neurologic Exam: alert, oriented x 3, cooperative Eye Exam: PERRL Ears, Nose, Throat Exam: normal ENT inspection Neck Exam: normal inspection Respiratory Exam: normal breath sounds, lungs clear Cardiovascular Exam: regular rate/rhythm, normal heart sounds Gastrointestinal/Abdomen Exam: soft, normal bowel sounds Male Genitalia Exam: deferred Rectal Exam: deferred Back Exam: normal inspection Extremity Exam: normal inspection Skin Exam: normal color Final Diagnosis/Problem List - Final Discharge Diagnosis/Problem (1) COPD with exacerbation Current Visit: Yes Status: Acute Code(s): J44.1 - CHRONIC OBSTRUCTIVE PULMONARY DISEASE W (ACUTE) EXACERBATION (2) HFrEF (heart failure with reduced ejection fraction) Current Visit: Yes Status: Chronic Code(s): I50.20 - UNSPECIFIED SYSTOLIC (CONGESTIVE) HEART FAILURE (3) Afib Current Visit: Yes Status: Chronic Code(s): I48.91 - UNSPECIFIED ATRIAL FIBRILLATION (4) Restless leg syndrome Current Visit: Yes Status: Chronic (5) Elevated lactic acid level Current Visit: Yes Status: Resolved Code(s): R79.89 - OTHER SPECIFIED ABNORMAL FINDINGS OF BLOOD CHEMISTRY (6) Diabetes mellitus Current Visit: Yes Status: Chronic Code(s): E11.9 - TYPE 2 DIABETES MELLITUS WITHOUT COMPLICATIONS (7) LORENZO (acute kidney injury) Current Visit: Yes Status: Resolved Code(s): N17.9 - ACUTE KIDNEY FAILURE, UNSPECIFIED - Discharge Discharge Date: 08/25/24 ([facility]) Disposition: HOME HEALTH SERVICE Condition: Stable Prescriptions: New Cefuroxime Axetil [Cefuroxime] 500 mg PO BID 5 Days #10 tablet Prednisone 20 mg [Deltasone 20 mg] 20 mg PO BID 5 Days #10 tablet Continue Cholecalciferol (Vitamin D3) [Vitamin D] 1,000 unit PO TID Ropinirole 2Mg [Requip 2Mg Tab] 2 mg PO DAILY Metformin HCl 500 mg [Glucophage 500 MG] 500 mg PO BIDWM Fluticasone Propionate [Flonase NASAL] 2 sprays NS BID Rivaroxaban [Xarelto] 20 mg PO HS Ropinirole 2Mg [Requip 2Mg Tab] 6 mg PO HS Atorvastatin Calcium 10 mg PO DAILY Empagliflozin [Jardiance] 10 mg PO DAILY Fluticasone Propion/Salmeterol [Wixela 500-50 Inhub] 1 puff IH BID Gabapentin 300 mg PO HS Solifenacin Succinate 10 mg PO DAILY Non-Formulary Drug [Non-Formulary Item] 2 puff IH DAILY Calcipotriene 1 dose TP BID Diclofenac Sodium 2 gm TP UD PRN PRN Reason: Pain Roflumilast [Daliresp] 500 mcg PO DAILY Betamethasone Dipropionate [Diprosone CREAM 0.05% ] 1 dose TOP BID Nitroglycerin 0.4 mg Tablet [Nitrostat 0.4 MG Tablet] 1 tab SL Q5M PRN PRN Reason: Chest Pain Midodrine HCl [Proamatine] 10 mg PO DAILY Melatonin 5 mg PO HS Furosemide 20 mg [Lasix 20 mg] 20 mg PO DAILY Fexofenadine HCl [Aysha Allergy] 60 mg PO BID Sacubitril/Valsartan [Entresto 24 mg-26 mg Tablet] 0.5 tab PO BID Amiodarone HCl 200 mg PO BID Omeprazole 40 mg PO DAILY Spironolactone 25 mg [Aldactone 25 MG] 0.5 tab PO DAILY Follow up with: HOSPITAL,'S [Primary Care Provider] -
[2024-08-25 12:28] VITALS: BP 104/54; PULSE 76; RESP 20; TEMP 96.9; O2SAT 94
== END 2024-08-25 13:55 | disposition home health service (06) ==
LOC: ED 13:58 → MED SURG 19:33
PROVIDERS: ADMIT Internal Medicine; ATTEND Internal Medicine
DX: J44.1 Chronic obstructive pulmonary disease with (acute) exacerbation (principal); I48.91 Unspecified atrial fibrillation; Z59.19 Other inadequate housing; Z59.82 Transportation insecurity; E11.9 Type 2 diabetes mellitus without complications; E78.5 Hyperlipidemia, unspecified; I25.10 Atherosclerotic heart disease of native coronary artery without angina pectoris; I11.0 Hypertensive heart disease with heart failure; I50.20 Unspecified systolic (congestive) heart failure; G25.81 Restless legs syndrome; R79.89 Other specified abnormal findings of blood chemistry; Z86.73 Personal history of transient ischemic attack (TIA), and cerebral infarction without residual deficits; Z99.81 Dependence on supplemental oxygen; Z79.01 Long term (current) use of anticoagulants; Z79.899 Other long term (current) drug therapy
CPT/HCPCS: 0241U; 36000; 36415; 71045; 80048; 80053; 82947; 83036; 83605; 83735; 83880; 84484; 85025; 85027; 87040; 87070; 93005; 93041; 93306; 94640; 94762; 96365; 96366; 96374; 99285; Q3014; 93268; J0456; J0696; J1817; J1940; J1956; J2919; J7609; A9270-GY; G0378

== ENCOUNTER 2024-09-14 11:50 | Emergency (ER) | payer OTHER ==
[2024-09-14] MEDS ORDERED: DUONEB 0.5-3 MG/3 ml Neb IH ONE (11:54)
[2024-09-14] MEDS ORDERED: PROVENTIL 2.5 MG/3 ML NEB IH ONE ×2 (11:58→12:04)
[2024-09-14] MEDS: PROVENTIL 2.5 MG/3 ML NEB IH ONE ×2 (12:01→12:06)
[2024-09-14 12:04] VITALS: TEMP 97.9
[2024-09-14] MEDS: DUONEB 0.5-3 MG/3 ml Neb IH ONE (12:10)
[2024-09-14] MEDS ORDERED: Sodium Chloride 0.9% 1000 ML 1,000 ML ONE (12:12)
[2024-09-14] MEDS ORDERED: Sterile H2O 10 ml IJ ONE (12:12)
[2024-09-14] MEDS ORDERED: solu-MEDROL ONE (12:12)
[2024-09-14] MEDS: Sodium Chloride 0.9% 1000 ML 1,000 ML IV STA (12:14)
[2024-09-14] MEDS: solu-MEDROL 125 MG, Sterile H2O 10 ml 2 ML IV ONE (12:14)
[2024-09-14] MEDS ORDERED: Zithromax 500 MG/ 250 ML NaCl Premix 500 MG/250 ML IVPB IV ONE (12:32)
[2024-09-14] MEDS: Zithromax 500 MG/ 250 ML NaCl Premix 500 MG/250 ML IVPB IV STA (12:33)
--- NOTE | 2024-09-14 12:40 | XRAY ---
Indication: Pneumonia. Comparison: August 23, 2024 Portable apical lordotic chest is now clear again with incidental right base calcified granuloma. Heart not enlarged again with left pacemaker. Bony thorax intact again with osteopenia. Impression: Nonacute chest with chronic features.
--- NOTE | 2024-09-14 12:42 | ERPHSYRPT ---
- History of Present Illness Time Seen by Provider: 09/14/24 11:52 Source: patient Exam Limitations: no limitations Patient Subjective Stated Complaint: C/O increasing SOB with a productive cough X 4 days Triage Nursing Assessment: Patient ambulated back to ER with a cane. He is alert and oriented. Patient is SOB. He has a productive cough with yellow sputum during assessment. Wheezing present. NO edema. Face is flushed. Physician History: Patient here for wheezing, shortness of breath. Has been going on for 2 to 3 days. Patient has tried to avoid coming to the emergency department. Patient has known COPD. States that he now has a productive cough. Therefore is concerned about pneumonia. Therefore presents to the emergency department. He is on his baseline oxygen. As a walk-in he is already getting a breathing treatment via nursing protocols. Patient has audible wheezing and does appear uncomfortable. Patient states he does have a recent hospitalization for this. He has no other falls or trauma. No active chest pain. Patient is taking PO well. Same number of urinations and defecations. The patient has no signs of altered mental status, nuchal rigidity, signs of meningitis. The patient is up-to-date on all vaccinations. Allergies/Adverse Reactions: Penicillins Allergy (Intermediate, Verified 09/14/24 11:52) RASH milk Allergy (Mild, Verified 09/14/24 11:52) hornet venom Allergy (Verified 09/14/24 11:52) lithium Allergy (Verified 09/14/24 11:52) verified by [facility] medication list ipratropium Adverse Reaction (Intermediate, Verified 09/14/24 11:52) Vomiting Home Medications: Cholecalciferol (Vitamin D3) [Vitamin D] 1,000 unit PO TID 10/31/17 [History] Ropinirole 2Mg [Requip 2Mg Tab] 2 mg PO DAILY 01/26/20 [History] Fluticasone Propionate [Flonase NASAL] 2 sprays NS BID 03/31/20 [History] Metformin HCl 500 mg [Glucophage 500 MG] 500 mg PO BIDWM 03/31/20 [History] Rivaroxaban [Xarelto] 20 mg PO HS 03/31/20 [History] Ropinirole 2Mg [Requip 2Mg Tab] 6 mg PO HS 03/31/20 [History] Atorvastatin Calcium 10 mg PO DAILY 11/19/23 [History] Empagliflozin [Jardiance] 10 mg PO DAILY 11/19/23 [History] Fluticasone Propion/Salmeterol [Wixela 500-50 Inhub] 1 puff IH BID 11/19/23 [History] Gabapentin 300 mg PO HS 11/19/23 [History] Solifenacin Succinate 10 mg PO DAILY 11/19/23 [History] Amiodarone HCl 200 mg PO BID 08/24/24 [History] Betamethasone Dipropionate [Diprosone CREAM 0.05% ] 1 dose TOP BID 08/24/24 [History] Calcipotriene 1 dose TP BID 08/24/24 [History] Diclofenac Sodium 2 gm TP UD PRN 08/24/24 [History] Fexofenadine HCl [Aysha Allergy] 60 mg PO BID 08/24/24 [History] Furosemide 20 mg [Lasix 20 mg] 20 mg PO DAILY 08/24/24 [History] Melatonin 5 mg PO HS 08/24/24 [History] Midodrine HCl [Proamatine] 10 mg PO DAILY 08/24/24 [History] Nitroglycerin 0.4 mg Tablet [Nitrostat 0.4 MG Tablet] 1 tab SL Q5M PRN 08/24/24 [History] Non-Formulary Drug [Non-Formulary Item] 2 puff IH DAILY 08/24/24 [History] Omeprazole 40 mg PO DAILY 08/24/24 [History] Roflumilast [Daliresp] 500 mcg PO DAILY 08/24/24 [History] Sacubitril/Valsartan [Entresto 24 mg-26 mg Tablet] 0.5 tab PO BID 08/24/24 [History] Spironolactone 25 mg [Aldactone 25 MG] 0.5 tab PO DAILY 08/24/24 [History] Hx Tetanus, Diphtheria Vaccination/Date Given: Yes Hx Influenza Vaccination/Date Given: Yes Hx Pneumococcal Vaccination/Date Given: Yes Immunizations Up to Date: Yes Travel Risk - International Travel Have you traveled outside of the country in past 3 weeks: No - Emerging Infectious Disease Are you exhibiting symptoms associated with any current EIDs: Yes Symptoms: Headaches/Body Aches/, Shortness of Breath - Past Medical History Pertinent Past Medical History: Yes Neurological History: Other ENT History: No Pertinent History Cardiac History: Arrhythmia, Coronary Artery Disease, High Cholesterol, Hypertension, Myocardial Infarction ([place]) Respiratory History: COPD Endocrine Medical History: Diabetes Type II, Liver Disease Musculoskeletal History: Arthritis, Rheumatoid Arthritis GI Medical History: No Pertinent History History: Other Psycho-Social History: No Pertinent History Male Reproductive Disorders: No Pertinent History Other Medical History: Book[place]: Dr. Yanni Maldonado - Past Surgical History Past Surgical History: Yes Neuro Surgical History: No Pertinent History Cardiac: Internal Defibrillator, Pacemaker Respiratory: No Pertinent History Gastrointestinal: Appendectomy, Cholecystectomy Genitourinary: No Pertinent History Musculoskeletal: Orthopedic Surgery Male Surgical History: No Pertinent History Other Surgical History: BACK SURG Significant Family History: no pertinent family hx - Social History Smoking Status: Former smoker Exposure to second hand smoke: No Drug Use: none Patient Lives Alone: No - Social Determinants of Health Will the patient participate in the screening: Declined to provide - Nursing Vital Signs Nursing Vital Signs: Initial Vital Signs Temperature 97.9 F 09/14/24 11:53 Pulse Rate 88 09/14/24 11:53 Respiratory Rate 26 H 09/14/24 11:53 Blood Pressure 117/68 09/14/24 11:53 O2 Sat by Pulse Oximetry 98 09/14/24 11:53 Pain Scale Pain Intensity 0 - Physical Exam SpO2: 99 Comments: 09/14/24 12:40 Review of Systems Constitutional: Negative for fever. HENT: Negative for congestion. Respiratory: Shortness of breath, wheezing, productive cough Cardiovascular: Negative for chest pain. Gastrointestinal: Negative for abdominal pain. Genitourinary: Negative for dysuria. Musculoskeletal: Negative for back pain. Skin: Negative for rash. Neurological: Negative for headaches. Psychiatric/Behavioral: Negative for behavioral problems. All other systems reviewed and are negative. Physical Exam Vitals signs and nursing note reviewed. Constitutional: Appearance: Patient is well-developed. HENT: Head: Normocephalic and atraumatic. Lips are cracked, does appear dehydrated Eyes: Conjunctiva/sclera: Conjunctivae normal. Neck: Musculoskeletal: Normal range of motion. Trachea: No tracheal deviation. Cardiovascular: Rate and Rhythm: Normal rate. No lower extremity swelling, no edema Pulmonary: Effort: Tachypnea, wheezing, productive cough Abdominal: Palpations: Abdomen is soft. Musculoskeletal: General: No deformity. Skin: General: Skin is warm and dry. 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 STAT Care 09/14/24 12:04 Active EKG-ER Only STAT Care 09/14/24 12:03 Active IV Insertion STAT Care 09/14/24 12:03 Active CHEST 1 VIEW (PORTABLE) Stat Exams 09/14/24 12:03 Completed BLOOD CULTURE Stat Lab 09/14/24 12:35 Received CBC W DIFF Stat Lab 09/14/24 12:00 Completed CMP Stat Lab 09/14/24 12:00 Completed NT PRO BNPII Stat Lab 09/14/24 12:00 Completed Sputum Culture [CULTURE,SPUTUM] Stat Lab 09/14/24 12:02 Received TROPONIN Q4H Lab 09/14/24 12:00 Completed TROPONIN Q4H Lab 09/14/24 16:15 Ordered TROPONIN Q4H Lab 09/14/24 20:15 Ordered Respiratory Therapy Assessment DAILY RT 09/14/24 12:07 Completed Medication Summary Discontinued Medications Generic Name Dose Route Start Last Admin Trade Name Freq PRN Reason Stop Dose Admin Albuterol Sulfate Confirm 09/14/24 11:58 Albuterol Sulfate 2.5 Mg/3 Ml Neb Administered 09/14/24 11:59 Dose 2.5 mg .STK-MED ONE Albuterol Sulfate 2.5 mg 09/14/24 11:58 09/14/24 12:01 Albuterol Sulfate 2.5 Mg/3 Ml Neb 09/14/24 11:59 2.5 mg STAT ONE Administration Albuterol Sulfate 2.5 mg 09/14/24 12:03 09/14/24 12:06 Albuterol Sulfate 2.5 Mg/3 Ml Neb IH 09/14/24 12:04 2.5 mg STAT ONE Administration Albuterol Sulfate Confirm 09/14/24 12:04 Albuterol Sulfate 2.5 Mg/3 Ml Neb Administered 09/14/24 12:05 Dose 2.5 mg IH .STK-MED ONE Albuterol/Ipratropium Confirm 09/14/24 11:54 Ipratropium/Albuterol Sulfate 3 Ml Ampul.Neb Administered 09/14/24 11:55 Dose 3 ml IH .STK-MED ONE Albuterol/Ipratropium 3 ml 09/14/24 11:56 09/14/24 12:10 Ipratropium/Albuterol Sulfate 3 Ml Ampul.Neb IH 09/14/24 11:57 Not Given STAT ONE Methylprednisolone Sodium 0 mg 09/14/24 12:03 09/14/24 12:14 Succinate 125 mg/ Sterile IV 09/14/24 12:04 125 mg Water 2 ml STAT ONE Administration Sodium Chloride 1,000 mls @ 999 mls/hr 09/14/24 12:03 09/14/24 13:15 Sodium Chloride 0.9% 1000 Ml IV 09/14/24 13:03 Infused .Q1H1M STA Infusion Azithromycin 500 mg in 250 mls @ 250 mls/hr 09/14/24 12:03 09/14/24 13:40 Zithromax 500 Mg/ 250 Ml Nacl Premix IV 09/14/24 13:02 Infused STAT STA Infusion Sodium Chloride Confirm 09/14/24 12:12 Sodium Chloride 0.9% 1000 Ml Administered 09/14/24 12:13 Dose 1,000 mls @ ud .ROUTE .STK-MED ONE Azithromycin Confirm 09/14/24 12:32 Zithromax 500 Mg/ 250 Ml Nacl Premix Administered 09/14/24 12:33 Dose 500 mg in 250 mls @ ud IV .STK-MED ONE Methylprednisolone Sodium Succinate Confirm 09/14/24 12:12 Methylprednis Sod Succ 125 Mg/2 Ml Vial Administered 09/14/24 12:13 Dose 125 mg .ROUTE .STK-MED ONE Sterile Water Confirm 09/14/24 12:12 Water For Injection,Sterile 10 Ml Vial Administered 09/14/24 12:13 Dose 10 ml IJ .STK-MED ONE Lab/Rad Data: Laboratory Result Diagrams 09/14/24 12:00 09/14/24 12:00 Laboratory Results 09/14/24 09/14/24 09/14/24 Range/Units 12:40 12:00 12:00 WBC (4.23-9.07) x10^3/uL RBC (4.63-6.08) x10^6/uL Hgb (13.7-17.5) g/dL Hct (40.1-51.0) % MCV (79.0-92.2) fL MCH (25.7-32.2) pg MCHC (32.3-36.5) g/dL RDW (11.6-14.4) % Plt Count (163-337) x10^3/uL MPV (9.4-12.4) fL Gran % (34.0-67.9) % Immature Gran % (Auto) (0.001-0.429) % Nucleat RBC Rel Count (0.00-0.2) % Eos # (Auto) (0.04-0.54) x10^3/uL Immature Gran # (Auto) (0.001-0.031) x10^3u/L Absolute Lymphs (auto) (1.32-3.57) x10^3/uL Absolute Monos (auto) (0.30-0.82) x10^3/uL Absolute Nucleated RBC (0.00-0.012) x10^3u/L Lymphocytes % (21.8-53.1) % Monocytes % (5.3-12.2) % Eosinophils % (0.8-7.0) % Basophils % (0.2-1.2) % Absolute Granulocytes (1.78-5.38) x10^3/uL Basophils # (0.01-0.08) x10^3/uL Sodium 140 (135-145) mmol/L Potassium 3.9 (3.5-5.1) mmol/L Chloride 102 (98-107) mmol/L Carbon Dioxide 24 (22-30) mmol/L Anion Gap 17.5 H (5-15) MEQ/L BUN 27 H (9-20) mg/dL Creatinine 1.31 H (0.66-1.25) mg/dL Estimated GFR 59.7 ML/MIN Glucose 130 H (74-106) mg/dL Calcium 9.0 (8.4-10.2) mg/dL Total Bilirubin 0.40 (0.2-1.3) mg/dL AST 38 (17-59) U/L ALT 56 H (0-50) U/L Alkaline Phosphatase 100 (38-126) U/L Troponin I < 0.012 (0.000-0.033) ng/mL NT-Pro-B Natriuret Pep 2320 (<300) pg/mL Serum Total Protein 6.7 (6.3-8.2) g/dL Albumin 4.0 (3.5-5.0) g/dL Influenza Type A Ag NEGATIVE (NEGATIVE) Influenza Type B Ag NEGATIVE (NEGATIVE) RSV (PCR) NEGATIVE (NEGATIVE) SARS-CoV-2 (PCR) NEGATIVE (NEGATIVE) 09/14/24 Range/Units 12:00 WBC 8.3 (4.23-9.07) x10^3/uL RBC 4.36 L (4.63-6.08) x10^6/uL Hgb 12.5 L (13.7-17.5) g/dL Hct 38.7 L (40.1-51.0) % MCV 88.8 (79.0-92.2) fL MCH 28.7 (25.7-32.2) pg MCHC 32.3 (32.3-36.5) g/dL RDW 17.0 H (11.6-14.4) % Plt Count 220 (163-337) x10^3/uL MPV 10.2 (9.4-12.4) fL Gran % 79.1 H (34.0-67.9) % Immature Gran % (Auto) 0.2 (0.001-0.429) % Nucleat RBC Rel Count 0.0 (0.00-0.2) % Eos # (Auto) 0.07 (0.04-0.54) x10^3/uL Immature Gran # (Auto) 0.02 (0.001-0.031) x10^3u/L Absolute Lymphs (auto) 0.89 L (1.32-3.57) x10^3/uL Absolute Monos (auto) 0.70 (0.30-0.82) x10^3/uL Absolute Nucleated RBC 0.00 (0.00-0.012) x10^3u/L Lymphocytes % 10.8 L (21.8-53.1) % Monocytes % 8.5 (5.3-12.2) % Eosinophils % 0.8 (0.8-7.0) % Basophils % 0.6 (0.2-1.2) % Absolute Granulocytes 6.54 H (1.78-5.38) x10^3/uL Basophils # 0.05 (0.01-0.08) x10^3/uL Sodium (135-145) mmol/L Potassium (3.5-5.1) mmol/L Chloride (98-107) mmol/L Carbon Dioxide (22-30) mmol/L Anion Gap (5-15) MEQ/L BUN (9-20) mg/dL Creatinine (0.66-1.25) mg/dL Estimated GFR ML/MIN Glucose (74-106) mg/dL Calcium (8.4-10.2) mg/dL Total Bilirubin (0.2-1.3) mg/dL AST (17-59) U/L ALT (0-50) U/L Alkaline Phosphatase (38-126) U/L Troponin I (0.000-0.033) ng/mL NT-Pro-B Natriuret Pep (<300) pg/mL Serum Total Protein (6.3-8.2) g/dL Albumin (3.5-5.0) g/dL Influenza Type A Ag (NEGATIVE) Influenza Type B Ag (NEGATIVE) RSV (PCR) (NEGATIVE) SARS-CoV-2 (PCR) (NEGATIVE) Sinus rhythm, rate of 87, NC interval 208, QRS 135, QTc 474 - Progress Progress: improved Progress Note: 09/14/24 12:41 Differential diagnosis includes pneumonia, other infection, COPD exacerbation, ACS, other cardiac issue. Plan for basic labs, breathing treatment, steroids, chest x-ray, EKG. EKG shows no ST changes as above. 09/14/24 14:32 Patient given 2 breathing treatments, steroids in the emergency department. He looks and sounds much improved. Patient's BNP was elevated today. It does appear chronically elevated, reviewing previous echocardiograms and charts patient does have congestive heart failure. Patient does not appear to be in acute congestive heart failure today. His wheezing has resolved with breathing treatments. His lung sounds are now clear. Chest x-ray demonstrates no pneumonia or volume overload. Patient's lower extremities do not demonstrate any edema. Patient did receive some fluids as he appeared dehydrated from insatiable losses secondary to the COPD exacerbation. We did discuss this with him and he will watch his intake over the next few days and his overall weight. Patient received first dose of antibiotics here in the emergency department. He does appear to have acute bronchitis causing a COPD exacerbation. Patient's COVID influenza and RSV were negative. We did obtain a walking sat on the patient via RT. He was on his home 4 L and his O2 was between 93-94% and had no increase in work of breathing, did not look uncomfortable. Given this I did discuss patient staying in the emergency department for continued close observation, potential admission to the hospital. I also discussed going home with watchful waiting and returning should anything change. Patient stated he would rather trial as an outpatient. He states that he will go home, take antibiotics and steroids. He states that he will return should anything change. States that he does have access to a vehicle and is able to drive. He is able to bulk picker his medications and has no barriers to this. He also states that he has the ability to call 911 and return should things get worse. I did discuss all this with the patient and he states his understanding. Plan for discharge home at this point in time. Counseled pt/family regarding: lab results, diagnosis, need for follow-up, rad results Medical Desision Making - Diagnostic Testing Diagnostic test were ordered, analyzed, and reviewed by me: Yes Radiological Interpretation: Reviewed by me - Departure Departure Disposition: Home Clinical Impression: COPD exacerbation, Acute bronchitis Condition: Stable Critical Care Time: No Referrals: HOSPITAL,'S [Primary Care Provider] - Follow up/PCP as directed Instructions: Chronic Obstructive Pulmonary Disease, Exacerbation of COPD ([place]) Prescriptions: Prednisone 10 mg [Deltasone 10 mg] 40 mg PO DAILY 5 Days #100 tablet Azithromycin 250 mg [Zithromax 250 MG TABLET] 250 mg PO ZPACK #6 tablet
[2024-09-14 12:47] LABS: Absolute Neutrophil Ct (ANC) 6.54 x10^3/uL (1.78-5.38); BASOPHIL % 0.6 % (0.2-1.2); Basophil (Absolute #) 0.05 x10^3/uL (0.01-0.08); Eosinophil % 0.8 % (0.8-7.0); Eosinophil (Absolute #) 0.07 x10^3/uL (0.04-0.54); Hematocrit 38.7 % (40.1-51.0); Hemoglobin 12.5 g/dL (13.7-17.5); IMMATURE GRAN # 0.02 x10^3u/L (0.001-0.031); IMMATURE GRAN % 0.2 % (0.001-0.429); Lymphocyte (Absolute #) 0.89 x10^3/uL (1.32-3.57); Lymphocytes % 10.8 % (21.8-53.1); Mean Cell Volume 88.8 fL (79.0-92.2); Mean Corpuscular Hemoglobin 28.7 pg (25.7-32.2); Mean Corpuscular Hgb Concent. 32.3 g/dL (32.3-36.5); Mean Platelet Volume 10.2 fL (9.4-12.4); Monocytes % 8.5 % (5.3-12.2); Neutrophil % 79.1 % (34.0-67.9); Platelet Count 220 x10^3/uL (163-337); Red Blood Count 4.36 x10^6/uL (4.63-6.08); White Blood Count 8.3 x10^3/uL (4.23-9.07)
[2024-09-14 13:11] LABS: ANION GAP 17.5 MEQ/L (5-15); BILIRUBIN,TOTAL 0.4 mg/dL (0.2-1.3); Creatinine 1 1.31 mg/dL (0.66-1.25); EST GLOMERULAR FILTRATION RATE 59.7 ML/MIN; Potassium 3.9 mmol/L (3.5-5.1); Total Protein 6.7 g/dL (6.3-8.2)
[2024-09-14 13:21] LABS: INFLUENZA A NEGATIVE (NEGATIVE); INFLUENZA B NEGATIVE (NEGATIVE); RESPIRATORY SYNCTIAL VIRUS NEGATIVE (NEGATIVE); SARS-CoV-2 Xpert Express NEGATIVE (NEGATIVE)
[2024-09-14 14:22] VITALS: O2SAT 99
[2024-09-14 14:25] VITALS: BP 103/63; PULSE 77; RESP 23
== END 2024-09-14 14:35 | disposition home or self-care (01) ==
LOC: ED 11:50
DX: J44.1 Chronic obstructive pulmonary disease with (acute) exacerbation (principal); J20.9 Acute bronchitis, unspecified; J44.0 Chronic obstructive pulmonary disease with (acute) lower respiratory infection; Z79.899 Other long term (current) drug therapy; R51.9 Headache, unspecified; E86.0 Dehydration
CPT/HCPCS: 0241U; 36000; 36415; 71045; 80053; 83880; 84484; 85025; 87040; 87070; 87077; 93005; 93041; 94640; 96365; 96374; 99284; J0456; J2919; J7609; A9270-GY

== ENCOUNTER 2024-10-28 22:28 | Observation (INO) | payer OTHER ==
[2024-10-28] MEDS ORDERED: DUONEB 0.5-3 MG/3 ml Neb IH ONE (22:57)
[2024-10-28] MEDS ORDERED: PROVENTIL 2.5 MG/3 ML NEB IH ONE (23:00)
[2024-10-28] MEDS: PROVENTIL 2.5 MG/3 ML NEB IH ONE (23:10)
--- NOTE | 2024-10-28 23:22 | ERPHSYRPT ---
- History of Present Illness Time Seen by Provider: 10/28/24 22:38 Source: patient, EMS Exam Limitations: no limitations Patient Subjective Stated Complaint: SOB for a couple days, chest pressure Triage Nursing Assessment: 68 yr old male pt arrives to ED via EMS. Pt presents with complaints of SOB for a couple days as well as some chest pressure a few days ago. Pt is on 4L via nasal cannula all the time. Pt has wheezing on expiration. Pt denies N/D but states that he did vomit last night from coughing so hard. Pt is alert, oriented and not in distress. Physician History: 68-year-old male with multiple medical problems including atrial fibrillation status post pacemaker/defibrillator implant on Xarelto, congestive heart failure, hypertension, diabetes mellitus, COPD with chronic respiratory failure on 4 L oxygen presented in the ER with increasing cough and difficulty breathing for the last couple of days. Patient reports diffuse wheezing and chest tightness/pressure. No fever or chills reported. Patient reports coughing up clear sputum small in amount. Patient oxygen saturation is in low 90s on 4 L nasal cannula. Reports improvement of the chest tightness after having a breathing treatment in route. Denies any lower extremity swelling. No fever or chills reported. No known sick contact. Patient has bilateral minimal wheezing during my evaluation. He is given DuoNeb and Solu-Medrol. EKG showed sinus rhythm with left bundle branch block but no ST elevations. No EKG changes when compared with previous. Patient is not in any apparent distress. Allergies/Adverse Reactions: Penicillins Allergy (Intermediate, Verified 10/28/24 22:30) RASH milk Allergy (Mild, Verified 10/28/24 22:30) hornet venom Allergy (Verified 10/28/24 22:30) lithium Allergy (Verified 10/28/24 22:30) verified by [facility] medication list ipratropium Adverse Reaction (Intermediate, Verified 10/28/24 22:30) Vomiting Home Medications: Cholecalciferol (Vitamin D3) [Vitamin D] 1,000 unit PO TID 10/31/17 [History] Ropinirole 2Mg [Requip 2Mg Tab] 2 mg PO DAILY 01/26/20 [History] Fluticasone Propionate [Flonase NASAL] 2 sprays NS BID 03/31/20 [History] Metformin HCl 500 mg [Glucophage 500 MG] 500 mg PO BIDWM 03/31/20 [History] Rivaroxaban [Xarelto] 20 mg PO HS 03/31/20 [History] Ropinirole 2Mg [Requip 2Mg Tab] 6 mg PO HS 03/31/20 [History] Atorvastatin Calcium 10 mg PO DAILY 11/19/23 [History] Empagliflozin [Jardiance] 10 mg PO DAILY 11/19/23 [History] Fluticasone Propion/Salmeterol [Wixela 500-50 Inhub] 1 puff IH BID 11/19/23 [History] Gabapentin 300 mg PO HS 11/19/23 [History] Solifenacin Succinate 10 mg PO DAILY 11/19/23 [History] Amiodarone HCl 200 mg PO BID 08/24/24 [History] Betamethasone Dipropionate [Diprosone CREAM 0.05% ] 1 dose TOP BID 08/24/24 [History] Calcipotriene 1 dose TP BID 08/24/24 [History] Diclofenac Sodium 2 gm TP UD PRN 08/24/24 [History] Fexofenadine HCl [Aysha Allergy] 60 mg PO BID 08/24/24 [History] Furosemide 20 mg [Lasix 20 mg] 20 mg PO DAILY 08/24/24 [History] Melatonin 5 mg PO HS 08/24/24 [History] Midodrine HCl [Proamatine] 10 mg PO DAILY 08/24/24 [History] Nitroglycerin 0.4 mg Tablet [Nitrostat 0.4 MG Tablet] 1 tab SL Q5M PRN 08/24/24 [History] Non-Formulary Drug [Non-Formulary Item] 2 puff IH DAILY 08/24/24 [History] Omeprazole 40 mg PO DAILY 08/24/24 [History] Roflumilast [Daliresp] 500 mcg PO DAILY 08/24/24 [History] Sacubitril/Valsartan [Entresto 24 mg-26 mg Tablet] 0.5 tab PO BID 08/24/24 [History] Spironolactone 25 mg [Aldactone 25 MG] 0.5 tab PO DAILY 08/24/24 [History] Hx Tetanus, Diphtheria Vaccination/Date Given: Yes Hx Influenza Vaccination/Date Given: Yes Hx Pneumococcal Vaccination/Date Given: Yes Travel Risk - International Travel Have you traveled outside of the country in past 3 weeks: No - Emerging Infectious Disease Are you exhibiting symptoms associated with any current EIDs: Yes Symptoms: Shortness of Breath - Review of Systems Constitutional: No Symptoms Ears, Nose, & Throat: No Symptoms Respiratory: Cough, Dyspnea, Dyspnea on Exertion (MADERA), Wheezing Cardiac: Chest Pain Abdominal/Gastrointestinal: No Symptoms Genitourinary Symptoms: No Symptoms Musculoskeletal: Arthralgias Skin: No Symptoms Neurological: No Symptoms Hematologic/Lymphatic: Easy Bleeding Immunological/Allergic: No Symptoms - Past Medical History Pertinent Past Medical History: Yes Neurological History: Other ENT History: No Pertinent History Cardiac History: Arrhythmia, Coronary Artery Disease, High Cholesterol, Hypertension, Myocardial Infarction ([place]) Respiratory History: COPD Endocrine Medical History: Diabetes Type II, Liver Disease Musculoskeletal History: Arthritis, Rheumatoid Arthritis GI Medical History: No Pertinent History History: Other Psycho-Social History: No Pertinent History Male Reproductive Disorders: No Pertinent History 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 - Past Surgical History Past Surgical History: Yes Neuro Surgical History: No Pertinent History Cardiac: Internal Defibrillator, Pacemaker Respiratory: No Pertinent History Gastrointestinal: Appendectomy, Cholecystectomy Genitourinary: No Pertinent History Musculoskeletal: Orthopedic Surgery Male Surgical History: No Pertinent History Other Surgical History: BACK SURG Significant Family History: no pertinent family hx - Social History Smoking Status: Former smoker Exposure to second hand smoke: No Drug Use: none Patient Lives Alone: No - Social Determinants of Health Will the patient participate in the screening: Declined to provide - Nursing Vital Signs Nursing Vital Signs: Initial Vital Signs Temperature 97.4 F 10/28/24 22:29 Pulse Rate 82 10/28/24 22:29 Respiratory Rate 18 10/28/24 22:29 Blood Pressure 98/68 10/28/24 22:29 O2 Sat by Pulse Oximetry 99 10/28/24 22:29 Pain Scale Pain Intensity 0 - Physical Exam General Appearance: no apparent distress, alert Eye Exam: PERRL/EOMI Ears, Nose, Throat Exam: hearing grossly normal Neck Exam: normal inspection, non-tender, supple, full range of motion Respiratory Exam: diminished breath sounds, wheezing Cardiovascular/Chest Exam: normal heart sounds, regular rate/rhythm Abdominal/Gastrointestinal Exam: soft, normal bowel sounds, No tenderness Extremity Exam: non-tender, normal range of motion Neurologic Exam: alert, oriented x 3, cooperative Skin Exam: normal color SpO2 Interpretation: O2 applied SpO2: 96 O2 Delivery: Nasal Cannula - Course EKG Interpreted by Me: RATE (82), Sinus Rhythm, NORMAL AXIS, Left Bundle Branch Block, Q-wave, Non-specific ST Changes Ordered Tests: Active Orders 24 hr Category Date Time 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 STAT Care 10/28/24 23:03 Active EKG-ER Only STAT Care 10/28/24 23:03 Active Oxygen-ED Only Nasal Cannula 4 lpm Care 10/28/24 23:03 Active CHEST 1 VIEW (PORTABLE) Stat Exams 10/28/24 23:03 Taken CBC W DIFF Stat Lab 10/28/24 23:21 Completed CMP Stat Lab 10/28/24 23:21 Completed Lactic Acid Stat Lab 10/28/24 23:20 Completed MAGNESIUM Stat Lab 10/28/24 23:21 Completed NT PRO BNPII Stat Lab 10/28/24 23:21 Completed TROPONIN Q4H Lab 10/28/24 23:21 Completed TROPONIN Q4H Lab 10/29/24 02:28 Completed TROPONIN Q4H Lab 10/29/24 07:15 Ordered Respiratory Therapy Assessment DAILY RT 10/28/24 23:11 Active Transfer Order Routine Transfer 10/29/24 Ordered Medication Summary Discontinued Medications Generic Name Dose Route Start Last Admin Trade Name Freq PRN Reason Stop Dose Admin Albuterol Sulfate Confirm 10/28/24 23:00 Albuterol Sulfate 2.5 Mg/3 Ml Neb Administered 10/28/24 23:01 Dose 2.5 mg IH .STK-MED ONE Albuterol Sulfate 2.5 mg 10/28/24 23:10 10/28/24 23:10 Albuterol Sulfate 2.5 Mg/3 Ml Neb IH 10/28/24 23:11 2.5 mg STAT ONE Administration Albuterol Sulfate Confirm 10/29/24 04:29 Albuterol Sulfate 2.5 Mg/3 Ml Neb Administered 10/29/24 04:30 Dose 2.5 mg IH .STK-MED ONE Albuterol Sulfate 2.5 mg 10/29/24 04:49 10/29/24 04:51 Albuterol Sulfate 2.5 Mg/3 Ml Neb IH 10/29/24 04:50 2.5 mg STAT ONE Administration Albuterol/Ipratropium Confirm 10/28/24 22:57 Ipratropium/Albuterol Sulfate 3 Ml Ampul.Neb Administered 10/28/24 22:58 Dose 3 ml IH .STK-MED ONE Methylprednisolone Sodium 0 mg 10/28/24 23:03 Succinate 125 mg/ Sterile IV 10/28/24 23:04 Water 2 ml STAT ONE Methylprednisolone Sodium 0 mg 10/29/24 00:47 10/29/24 00:52 Succinate 125 mg/ Sterile IM 10/29/24 00:48 125 mg Water 2 ml STAT ONE Administration Doxycycline Hyclate 100 mg 10/29/24 00:45 10/29/24 00:52 Doxycycline Hyclate 100 Mg Tablet PO 10/29/24 00:46 100 mg STAT ONE Administration Doxycycline Hyclate Confirm 10/29/24 00:49 Doxycycline Hyclate 100 Mg Tablet Administered 10/29/24 00:50 Dose 100 mg .ROUTE .STK-MED ONE Levofloxacin/Dextrose 750 mg in 150 mls @ 100 mls/hr 10/29/24 00:27 10/29/24 00:45 Levofloxacin 750mg/150ml D5w IV 10/29/24 01:56 Not Given STAT STA Doxycycline Hyclate 100 mg/ 100 mls @ 100 mls/hr 10/29/24 10:00 Dextrose IV 11/28/24 09:59 Q12HT GINA Methylprednisolone Sodium Succinate Confirm 10/29/24 00:49 Methylprednis Sod Succ 125 Mg/2 Ml Vial Administered 10/29/24 00:50 Dose 125 mg .ROUTE .STK-MED ONE Sterile Water Confirm 10/29/24 00:49 Water For Injection,Sterile 10 Ml Vial Administered 10/29/24 00:50 Dose 10 ml IJ .STK-MED ONE Lab/Rad Data: Laboratory Result Diagrams 10/28/24 23:21 10/28/24 23:21 Laboratory Results 10/29/24 10/28/24 10/28/24 Range/Units 02:28 23:21 23:21 WBC (4.23-9.07) x10^3/uL RBC (4.63-6.08) x10^6/uL Hgb (13.7-17.5) g/dL Hct (40.1-51.0) % MCV (79.0-92.2) fL MCH (25.7-32.2) pg MCHC (32.3-36.5) g/dL RDW (11.6-14.4) % Plt Count (163-337) x10^3/uL MPV (9.4-12.4) fL Gran % (34.0-67.9) % Immature Gran % (Auto) (0.001-0.429) % Nucleat RBC Rel Count (0.00-0.2) % Eos # (Auto) (0.04-0.54) x10^3/uL Immature Gran # (Auto) (0.001-0.031) x10^3u/L Absolute Lymphs (auto) (1.32-3.57) x10^3/uL Absolute Monos (auto) (0.30-0.82) x10^3/uL Absolute Nucleated RBC (0.00-0.012) x10^3u/L Lymphocytes % (21.8-53.1) % Monocytes % (5.3-12.2) % Eosinophils % (0.8-7.0) % Basophils % (0.2-1.2) % Absolute Granulocytes (1.78-5.38) x10^3/uL Basophils # (0.01-0.08) x10^3/uL Sodium (135-145) mmol/L Potassium (3.5-5.1) mmol/L Chloride (98-107) mmol/L Carbon Dioxide (22-30) mmol/L Anion Gap (5-15) MEQ/L BUN (9-20) mg/dL Creatinine (0.66-1.25) mg/dL Estimated GFR ML/MIN Glucose (74-106) mg/dL Lactic Acid (0.4-2.0) Calcium (8.4-10.2) mg/dL Magnesium (1.6-2.3) mg/dL Total Bilirubin (0.2-1.3) mg/dL AST (17-59) U/L ALT (0-50) U/L Alkaline Phosphatase (38-126) U/L Troponin I 0.014 0.012 (0.000-0.033) ng/mL NT-Pro-B Natriuret Pep 4090 (<300) pg/mL Serum Total Protein (6.3-8.2) g/dL Albumin (3.5-5.0) g/dL Influenza Type A Ag NEGATIVE (NEGATIVE) Influenza Type B Ag NEGATIVE (NEGATIVE) RSV (PCR) NEGATIVE (NEGATIVE) SARS-CoV-2 (PCR) NEGATIVE (NEGATIVE) 10/28/24 10/28/24 10/28/24 Range/Units 23:21 23:21 23:20 WBC 7.8 (4.23-9.07) x10^3/uL RBC 4.18 L (4.63-6.08) x10^6/uL Hgb 11.3 L (13.7-17.5) g/dL Hct 37.2 L (40.1-51.0) % MCV 89.0 (79.0-92.2) fL MCH 27.0 (25.7-32.2) pg MCHC 30.4 L (32.3-36.5) g/dL RDW 16.2 H (11.6-14.4) % Plt Count 244 (163-337) x10^3/uL MPV 10.7 (9.4-12.4) fL Gran % 75.8 H (34.0-67.9) % Immature Gran % (Auto) 0.3 (0.001-0.429) % Nucleat RBC Rel Count 0.0 (0.00-0.2) % Eos # (Auto) 0.03 L (0.04-0.54) x10^3/uL Immature Gran # (Auto) 0.02 (0.001-0.031) x10^3u/L Absolute Lymphs (auto) 1.14 L (1.32-3.57) x10^3/uL Absolute Monos (auto) 0.62 (0.30-0.82) x10^3/uL Absolute Nucleated RBC 0.00 (0.00-0.012) x10^3u/L Lymphocytes % 14.6 L (21.8-53.1) % Monocytes % 7.9 (5.3-12.2) % Eosinophils % 0.4 L (0.8-7.0) % Basophils % 1.0 (0.2-1.2) % Absolute Granulocytes 5.91 H (1.78-5.38) x10^3/uL Basophils # 0.08 (0.01-0.08) x10^3/uL Sodium 138 (135-145) mmol/L Potassium 3.5 (3.5-5.1) mmol/L Chloride 102 (98-107) mmol/L Carbon Dioxide 31 H (22-30) mmol/L Anion Gap 8.1 (5-15) MEQ/L BUN 10 (9-20) mg/dL Creatinine 1.10 (0.66-1.25) mg/dL Estimated GFR 73.6 ML/MIN Glucose 95 (74-106) mg/dL Lactic Acid 1.0 (0.4-2.0) Calcium 8.9 (8.4-10.2) mg/dL Magnesium 1.9 (1.6-2.3) mg/dL Total Bilirubin 0.50 (0.2-1.3) mg/dL AST 30 (17-59) U/L ALT 36 (0-50) U/L Alkaline Phosphatase 88 (38-126) U/L Troponin I (0.000-0.033) ng/mL NT-Pro-B Natriuret Pep (<300) pg/mL Serum Total Protein 5.7 L (6.3-8.2) g/dL Albumin 3.6 (3.5-5.0) g/dL Influenza Type A Ag (NEGATIVE) Influenza Type B Ag (NEGATIVE) RSV (PCR) (NEGATIVE) SARS-CoV-2 (PCR) (NEGATIVE) - Progress Progress: improved, re-examined Air Movement: good Progress Note: 10/29/24 03:33 68-year-old with multiple medical problems including atrial fibrillation on oral anticoagulation, CHF, diabetes mellitus, chronic respiratory failure on 4 L oxygen is evaluated for increasing cough and difficulty breathing. Patient oxygen saturation is in upper 90s on 4 L oxygen which normally he is on. He is given another breathing treatment along with Solu-Medrol as patient was still wheezing, on reevaluation he is feeling better. Chest x-ray showed right-sided pneumonia reviewed by me, official report is pending. Patient does not seem to be in CHF although patient has a elevation in BNP to 4000. Negative troponins. Normal white count and chemistries are fairly unremarkable. I believe patient has COPD exacerbation/pneumonia and I will treat him with doxycycline. I do not think patient symptoms are cardiac in nature but have obtained to troponins which are negative and patient is chest pain-free. Discussed with patient about observation admission versus going home and he prefers to go home which is reasonable. I would continue with Doxy, recommended continue with albuterol nebs and inhalers and outpatient follow-up. Discussed signs symptoms of worsening needing return to ER which he seems understanding. Stable for discharge. 10/29/24 05:14 Patient was discharged but has no ride available, was waiting in the ER. Patient went to the bathroom with increasing shortness of breath and wheezing. He is given another breathing treatment. Feeling better on reevaluation but still not back to his baseline. Discussed with Dr. Hannon and patient is being admitted for observation. Blood Culture(s) Obtained: Yes Antibiotics given: Yes Counseled pt/family regarding: lab results, diagnosis, need for follow-up, rad results Medical Desision Making - Diagnostic Testing Diagnostic test were ordered, analyzed, and reviewed by me: Yes Radiological Interpretation: Interpreted by me, Reviewed by me - Risk of complications The pt has a mod risk of morbidity or mortality based on: Need for prescription drug management - Departure Departure Disposition: Observation Clinical Impression: COPD exacerbation, Pneumonia Condition: Stable Critical Care Time: No Instructions: Chronic Obstructive Pulmonary Disease
[2024-10-28 23:29] LABS: Absolute Neutrophil Ct (ANC) 5.91 x10^3/uL (1.78-5.38); Basophil (Absolute #) 0.08 x10^3/uL (0.01-0.08); Eosinophil % 0.4 % (0.8-7.0); Eosinophil (Absolute #) 0.03 x10^3/uL (0.04-0.54); Hematocrit 37.2 % (40.1-51.0); Hemoglobin 11.3 g/dL (13.7-17.5); IMMATURE GRAN # 0.02 x10^3u/L (0.001-0.031); IMMATURE GRAN % 0.3 % (0.001-0.429); Lymphocyte (Absolute #) 1.14 x10^3/uL (1.32-3.57); Lymphocytes % 14.6 % (21.8-53.1); Mean Corpuscular Hgb Concent. 30.4 g/dL (32.3-36.5); Mean Platelet Volume 10.7 fL (9.4-12.4); Monocyte (Absolute #) 0.62 x10^3/uL (0.30-0.82); Monocytes % 7.9 % (5.3-12.2); Neutrophil % 75.8 % (34.0-67.9); Platelet Count 244 x10^3/uL (163-337); Red Blood Count 4.18 x10^6/uL (4.63-6.08); Red Cell Distribution Width 16.2 % (11.6-14.4); White Blood Count 7.8 x10^3/uL (4.23-9.07)
[2024-10-28 23:38] LABS: ALBUMIN 3.6 g/dL (3.5-5.0); ANION GAP 8.1 MEQ/L (5-15); BILIRUBIN,TOTAL 0.5 mg/dL (0.2-1.3); Calcium 8.9 mg/dL (8.4-10.2); Creatinine 1 1.1 mg/dL (0.66-1.25); EST GLOMERULAR FILTRATION RATE 73.6 ML/MIN; MAGNESIUM 1.9 mg/dL (1.6-2.3); Potassium 3.5 mmol/L (3.5-5.1); Total Protein 5.7 g/dL (6.3-8.2)
[2024-10-28 23:51] LABS: TROPONIN 0.012 ng/mL (0.000-0.033)
[2024-10-29 00:03] LABS: INFLUENZA A NEGATIVE (NEGATIVE); INFLUENZA B NEGATIVE (NEGATIVE); RESPIRATORY SYNCTIAL VIRUS NEGATIVE (NEGATIVE); SARS-CoV-2 Xpert Express NEGATIVE (NEGATIVE)
[2024-10-29] MEDS: LEVOFLOXACIN 750MG/150ML D5W 750 MG/150 ML BAG IV STA (00:45)
[2024-10-29] MEDS ORDERED: solu-MEDROL ONE (00:49)
[2024-10-29] MEDS ORDERED: Sterile H2O 10 ml IJ ONE (00:49)
[2024-10-29] MEDS ORDERED: Vibramycin 100 MG ONE (00:49)
[2024-10-29] MEDS: Vibramycin 100 MG PO ONE (00:52)
[2024-10-29] MEDS: solu-MEDROL 125 MG, Sterile H2O 10 ml 2 ML IM ONE (00:52)
[2024-10-29] MEDS ORDERED: PROVENTIL 2.5 MG/3 ML NEB IH ONE (04:29)
[2024-10-29] MEDS: PROVENTIL 2.5 MG/3 ML NEB IH ONE (04:51)
--- NOTE | 2024-10-29 05:28 | PCM.HP ---
History of Present Illness - Chief Complaint Chief Complaint: sob Date: 10/29/24 History of Present Illness: is a 68 year old male with a past medical history significant for COPD, CHF, diabetes and hypertension who presented to the hospital with complaints of increasing shortness of breath associated with wheezing. He was seen in the ER, treated with steroids and duonebs with some improvement in symptoms and was preparing to go home, but did not have a ride. His respiratory status then worsened as he started wheezing again and became short of breath. No fever/chills. No chest pain or palpitations. No nausea, vomiting or diarrhea. Flu/RSV/COVID negative. Initial BNP elevated at 4090. - Review of Systems Constitutional: No Fever, No Chills Eyes: No Vision Changes Ears, Nose, & Throat: No Sinus Drainage, No Stridor Respiratory: Orthopnea, Short Of Breath Cardiac: Chest Pain, No Edema, No Palpitations Abdominal/Gastrointestinal: No Abdominal Pain, No Nausea, No Vomiting, No Diarrhea Genitourinary Symptoms: No Dysuria, No Frequency, No Hematuria, No Urinary Retention Musculoskeletal: No Arthralgias, No Joint Pain Skin: No Cellulitis, No Rash Neurological: No Dizziness Psychological: No Suicidal Ideations Endocrine: No Polyuria, No Polydipsia Medications & Allergies Home Medications: Home Medication List Cholecalciferol (Vitamin D3) [Vitamin D] 1,000 unit PO TID 10/31/17 [History Confirmed 08/24/24] Ropinirole 2Mg [Requip 2Mg Tab] 2 mg PO DAILY 01/26/20 [History Confirmed 08/24/24] Fluticasone Propionate [Flonase NASAL] 2 sprays NS BID 03/31/20 [History Confirmed 08/24/24] Metformin HCl 500 mg [Glucophage 500 MG] 500 mg PO BIDWM 03/31/20 [History Confirmed 08/24/24] Rivaroxaban [Xarelto] 20 mg PO HS 03/31/20 [History Confirmed 08/24/24] Ropinirole 2Mg [Requip 2Mg Tab] 6 mg PO HS 03/31/20 [History Confirmed 08/24/24] Atorvastatin Calcium 10 mg PO DAILY 11/19/23 [History Confirmed 08/24/24] Empagliflozin [Jardiance] 10 mg PO DAILY 11/19/23 [History Confirmed 08/24/24] Fluticasone Propion/Salmeterol [Wixela 500-50 Inhub] 1 puff IH BID 11/19/23 [History Confirmed 08/24/24] Gabapentin 300 mg PO HS 11/19/23 [History Confirmed 08/24/24] Solifenacin Succinate 10 mg PO DAILY 11/19/23 [History Confirmed 08/24/24] Amiodarone HCl 200 mg PO BID 08/24/24 [History Confirmed 08/24/24] Betamethasone Dipropionate [Diprosone CREAM 0.05% ] 1 dose TOP BID 08/24/24 [History Confirmed 08/24/24] Calcipotriene 1 dose TP BID 08/24/24 [History Confirmed 08/24/24] Diclofenac Sodium 2 gm TP UD PRN 08/24/24 [History Confirmed 08/24/24] Fexofenadine HCl [Aysha Allergy] 60 mg PO BID 08/24/24 [History Confirmed 08/24/24] Furosemide 20 mg [Lasix 20 mg] 20 mg PO DAILY 08/24/24 [History Confirmed 08/24/24] Melatonin 5 mg PO HS 08/24/24 [History Confirmed 08/24/24] Midodrine HCl [Proamatine] 10 mg PO DAILY 08/24/24 [History Confirmed 08/24/24] Nitroglycerin 0.4 mg Tablet [Nitrostat 0.4 MG Tablet] 1 tab SL Q5M PRN 08/24/24 [History Confirmed 08/24/24] Non-Formulary Drug [Non-Formulary Item] 2 puff IH DAILY 08/24/24 [History Confirmed 08/24/24] Omeprazole 40 mg PO DAILY 08/24/24 [History Confirmed 08/24/24] Roflumilast [Daliresp] 500 mcg PO DAILY 08/24/24 [History Confirmed 08/24/24] Sacubitril/Valsartan [Entresto 24 mg-26 mg Tablet] 0.5 tab PO BID 08/24/24 [History Confirmed 08/24/24] Spironolactone 25 mg [Aldactone 25 MG] 0.5 tab PO DAILY 08/24/24 [History Confirmed 08/24/24] Prednisone 20 mg [Deltasone 20 mg] 20 mg PO BID 5 Days #10 tablet 08/25/24 [Rx] cefuroxime axetiL [Cefuroxime] 500 mg PO BID 5 Days #10 tablet 08/25/24 [Rx] Azithromycin 250 mg [Zithromax 250 MG TABLET] 250 mg PO ZPACK #6 tablet 09/14/24 [Rx] Prednisone 10 mg [Deltasone 10 mg] 40 mg PO DAILY 5 Days #100 tablet 09/14/24 [Rx] Allergies/Adverse Reactions: Allergies Allergy/AdvReac Type Severity Reaction Status Date / Time Penicillins Allergy Intermediate Verified 10/28/24 22:30 milk Allergy Mild Verified 10/28/24 22:30 hornet venom Allergy Verified 10/28/24 22:30 lithium Allergy Verified 10/28/24 22:30 ipratropium AdvReac Intermediate Vomiting Verified 10/28/24 22:30 - Past Medical History Past Medical History: Yes Neurological History: Other ENT History: No Pertinent History Cardiac History: Arrhythmia, Coronary Artery Disease, High Cholesterol, Hypertension, Myocardial Infarction (NH) Respiratory History: COPD Endocrine Medical History: Diabetes Type II, Liver Disease Musculoskelatal History: Arthritis, Rheumatoid Arthritis GI Medical History: No Pertinent History History: Other Pyscho-Social History: No Pertinent History Male Reproductive Disorders: No Pertinent History Comment: Assistant Project Manager: Dr. Yanni Maldonado - Past Surgical History Past Surgical History: Yes Neuro Surgical History: No Pertinent History Cardiac History: Internal Defibrillator, Pacemaker Respiratory Surgery: No Pertinent History GI Surgical History: Appendectomy, Cholecystectomy Genitourinary Surgical Hx: No Pertinent History Musculskeletal Surgical Hx: Orthopedic Surgery Male Surgical History: No Pertinent History Other Surgical History: BACK SURG Significant Family History: no pertinent family hx - Social History Smoking Status: Former smoker Exposure to second hand smoke: No Alcohol: None Drug Use: none - Social Determinants of Health Will the patient participate in the screening: Declined to provide Do you worry about a steady place to live?: No In the past 12 months,have you had to go without utilities?: No Have you or anyone in your house had to go without enough: No Transportation Issues: Yes Has anyone in your support network made you feel unsafe?: No Does the patient want assistance with any of the above?: No Comment: pt drives but is starting to have problems at times - Physical Exam Vital Signs: Vital Signs - 24 hr Temp Pulse Resp BP BP Pulse Ox 10/29/24 05:15 96 10/29/24 04:40 126 H 32 H 91 L 10/29/24 04:00 94 H 29 H 125/91 95 10/29/24 03:30 92 H 28 H 125/70 96 10/29/24 03:00 87 25 H 128/76 96 10/29/24 02:55 85 23 97 10/29/24 02:30 75 20 124/67 98 10/29/24 02:00 77 21 115/56 97 10/29/24 01:30 74 19 122/60 99 10/29/24 01:00 76 20 123/84 97 10/29/24 00:30 84 28 H 115/66 98 10/29/24 00:00 83 25 H 119/69 98 10/28/24 23:31 79 24 125/63 98 10/28/24 23:11 80 25 H 96 10/28/24 23:07 78 25 H 121/58 99 10/28/24 23:05 88 26 H 100 10/28/24 22:45 22 99 10/28/24 22:32 81 25 H 98/68 99 10/28/24 22:29 97.4 F 82 18 98/68 99 General Appearance: mild distress Neurologic Exam: alert Ears, Nose, Throat Exam: moist mucous membranes Neck Exam: supple Respiratory Exam: wheezing, No respiratory distress Cardiovascular Exam: regular rate/rhythm Gastrointestinal/Abdomen Exam: soft Extremity Exam: No pedal edema, No swelling Skin Exam: normal color, No rash Results - Labs Lab/Micro Results: Lab Results-Last 24 Hours 10/28/24 10/28/24 10/28/24 Range/Units 23:20 23:21 23:21 WBC 7.8 (4.23-9.07) x10^3/uL RBC 4.18 L (4.63-6.08) x10^6/uL Hgb 11.3 L (13.7-17.5) g/dL Hct 37.2 L (40.1-51.0) % MCV 89.0 (79.0-92.2) fL MCH 27.0 (25.7-32.2) pg MCHC 30.4 L (32.3-36.5) g/dL RDW 16.2 H (11.6-14.4) % Plt Count 244 (163-337) x10^3/uL MPV 10.7 (9.4-12.4) fL Gran % 75.8 H (34.0-67.9) % Immature Gran % (Auto) 0.3 (0.001-0.429) % Nucleat RBC Rel Count 0.0 (0.00-0.2) % Eos # (Auto) 0.03 L (0.04-0.54) x10^3/uL Immature Gran # (Auto) 0.02 (0.001-0.031) x10^3u/L Absolute Lymphs (auto) 1.14 L (1.32-3.57) x10^3/uL Absolute Monos (auto) 0.62 (0.30-0.82) x10^3/uL Absolute Nucleated RBC 0.00 (0.00-0.012) x10^3u/L Lymphocytes % 14.6 L (21.8-53.1) % Monocytes % 7.9 (5.3-12.2) % Eosinophils % 0.4 L (0.8-7.0) % Basophils % 1.0 (0.2-1.2) % Absolute Granulocytes 5.91 H (1.78-5.38) x10^3/uL Basophils # 0.08 (0.01-0.08) x10^3/uL Sodium 138 (135-145) mmol/L Potassium 3.5 (3.5-5.1) mmol/L Chloride 102 (98-107) mmol/L Carbon Dioxide 31 H (22-30) mmol/L Anion Gap 8.1 (5-15) MEQ/L BUN 10 (9-20) mg/dL Creatinine 1.10 (0.66-1.25) mg/dL Estimated GFR 73.6 ML/MIN Glucose 95 (74-106) mg/dL Lactic Acid 1.0 (0.4-2.0) Calcium 8.9 (8.4-10.2) mg/dL Magnesium 1.9 (1.6-2.3) mg/dL Total Bilirubin 0.50 (0.2-1.3) mg/dL AST 30 (17-59) U/L ALT 36 (0-50) U/L Alkaline Phosphatase 88 (38-126) U/L Troponin I (0.000-0.033) ng/mL NT-Pro-B Natriuret Pep (<300) pg/mL Serum Total Protein 5.7 L (6.3-8.2) g/dL Albumin 3.6 (3.5-5.0) g/dL Influenza Type A Ag (NEGATIVE) Influenza Type B Ag (NEGATIVE) RSV (PCR) (NEGATIVE) SARS-CoV-2 (PCR) (NEGATIVE) 10/28/24 10/28/24 10/29/24 Range/Units 23:21 23:21 02:28 WBC (4.23-9.07) x10^3/uL RBC (4.63-6.08) x10^6/uL Hgb (13.7-17.5) g/dL Hct (40.1-51.0) % MCV (79.0-92.2) fL MCH (25.7-32.2) pg MCHC (32.3-36.5) g/dL RDW (11.6-14.4) % Plt Count (163-337) x10^3/uL MPV (9.4-12.4) fL Gran % (34.0-67.9) % Immature Gran % (Auto) (0.001-0.429) % Nucleat RBC Rel Count (0.00-0.2) % Eos # (Auto) (0.04-0.54) x10^3/uL Immature Gran # (Auto) (0.001-0.031) x10^3u/L Absolute Lymphs (auto) (1.32-3.57) x10^3/uL Absolute Monos (auto) (0.30-0.82) x10^3/uL Absolute Nucleated RBC (0.00-0.012) x10^3u/L Lymphocytes % (21.8-53.1) % Monocytes % (5.3-12.2) % Eosinophils % (0.8-7.0) % Basophils % (0.2-1.2) % Absolute Granulocytes (1.78-5.38) x10^3/uL Basophils # (0.01-0.08) x10^3/uL Sodium (135-145) mmol/L Potassium (3.5-5.1) mmol/L Chloride (98-107) mmol/L Carbon Dioxide (22-30) mmol/L Anion Gap (5-15) MEQ/L BUN (9-20) mg/dL Creatinine (0.66-1.25) mg/dL Estimated GFR ML/MIN Glucose (74-106) mg/dL Lactic Acid (0.4-2.0) Calcium (8.4-10.2) mg/dL Magnesium (1.6-2.3) mg/dL Total Bilirubin (0.2-1.3) mg/dL AST (17-59) U/L ALT (0-50) U/L Alkaline Phosphatase (38-126) U/L Troponin I 0.012 0.014 (0.000-0.033) ng/mL NT-Pro-B Natriuret Pep 4090 (<300) pg/mL Serum Total Protein (6.3-8.2) g/dL Albumin (3.5-5.0) g/dL Influenza Type A Ag NEGATIVE (NEGATIVE) Influenza Type B Ag NEGATIVE (NEGATIVE) RSV (PCR) NEGATIVE (NEGATIVE) SARS-CoV-2 (PCR) NEGATIVE (NEGATIVE) - Radiology Impressions Radiology Exams & Impressions: Radiology Procedures Category Date Time Status CHEST 1 VIEW (PORTABLE) Stat Exams 10/28/24 23:03 Taken - Other Procedures and Tests Respiratory Therapy 10/28/24 23:11 Respiratory Therapy Assessment DAILY Assessment/Plan (1) COPD exacerbation Current Visit: Yes Status: Acute Assessment & Plan: Acute on chronic COPD exacerbation 1. Admit to observation status 2. Steroids, duonebs, supplemental oxygen 3. Repeat CXR 4. Monitor O2 sats 5. DVT/GI prophylaxis Code(s): J44.1 - CHRONIC OBSTRUCTIVE PULMONARY DISEASE W (ACUTE) EXACERBATION (2) Diabetes mellitus Current Visit: No Status: Acute Qualifiers: Diabetes mellitus type: type 2 Diabetes mellitus group home insulin use: without intermission coordinator use Diabetes mellitus complication status: without complication Qualified Code(s): E11.9 - Type 2 diabetes mellitus without complications Assessment & Plan: Blood sugars have been under control on Metformin, but may rise with IV steroids 1. ADA diet 2. FSBS qAC/HS with SSI 3. Continue Metformin Code(s): E11.9 - TYPE 2 DIABETES MELLITUS WITHOUT COMPLICATIONS (3) Hypertension Current Visit: No Status: Acute Qualifiers: Hypertension type: primary hypertension Qualified Code(s): I10 - Essential (primary) hypertension Assessment & Plan: Blood pressure under reasonable control 1. Continue bp meds 2. Low Na diet 3. Monitor blood pressure readings Code(s): I10 - ESSENTIAL (PRIMARY) HYPERTENSION (4) HFrEF (heart failure with reduced ejection fraction) Current Visit: No Status: Chronic Assessment & Plan: Elevated BNP but does not appear to be in overt failure 1. Encourage PO intake 2. Diuretics prn 3. Follow daily weights Code(s): I50.20 - UNSPECIFIED SYSTOLIC (CONGESTIVE) HEART FAILURE Telemedicine Encounter - Telemedicine Encounter Telemedicine Encounter: "The entirety of this encounter was performed via Telemedicine" This visit was performed using real-time audio and video connection between my location and thepatients locationwith the assistance of a surrogateat the patients location. Written or verbal consent was obtained from the patient/guardian to perform this visit [facility]. Any patient questions regarding the telemedicine interaction were answered.
[2024-10-29] MEDS ORDERED: Zofran 4 MG/2 ML VIAL IV PRN (05:34)
[2024-10-29] MEDS ORDERED: Docusate Sodium 100 MG PO PRN (05:34)
[2024-10-29] MEDS: PATIENT OWN MEDICATION IH SCH ×4 (07:17)
[2024-10-29] MEDS: TYLENOL 325 MG PO PRN (07:52)
--- NOTE | 2024-10-29 09:15 | XRAY ---
Indication: Short of breath. Comparison: September 14, 2024 Portable chest demonstrates new right mid to lower lung interstitial alveolar opacities without consolidation/large effusion. Minimal left base subsegmental atelectasis/scarring. Remaining heart and lungs unremarkable again with incidental right base calcified granuloma. Bony thorax intact again with osteopenia and left pacemaker.
[2024-10-29] MEDS ORDERED: VIBRAMYCIN 100 MG*** 100 MG in Dextrose 5%/Water IV Soln. 100ML PLUS BAG 100 ML IV SCH (10:00)
[2024-10-29] MEDS ORDERED: NON-FORMULARY ITEM (Atorvastatin Calcium [Atorvastatin Calcium] 10 MG Tablet) PO SCH (10:00)
[2024-10-29] MEDS ORDERED: NON-FORMULARY ITEM (Fexofenadine Hcl [Allegra Allergy] 60 MG Tablet) PO SCH (10:00)
[2024-10-29] MEDS ORDERED: ENOXAPARIN SODIUM SQ SCH (10:00)
[2024-10-29] MEDS ORDERED: NON-FORMULARY ITEM (Omeprazole [Omeprazole] 40 MG Capsule.Dr) PO SCH (10:00)
[2024-10-29] MEDS ORDERED: NON-FORMULARY ITEM (Sacubitril/Valsartan [Entresto 24 Mg-26 Mg Tablet] 1 EACH Tablet) PO SCH (10:00)
[2024-10-29] MEDS: HUMALOG SQ PRN (10:29)
[2024-10-29] MEDS: solu-MEDROL 40 MG, Sterile H2O 10 ml 1 ML IV SCH (10:30)
[2024-10-29] MEDS: ENTRESTO 49 MG-51 MG TABLET PO SCH (10:31)
[2024-10-29] MEDS: Cordarone 200 MG PO SCH (10:32)
[2024-10-29] MEDS: LASIX 20 MG PO SCH (10:32)
[2024-10-29] MEDS: Aldactone 25 MG PO SCH (10:32)
[2024-10-29] MEDS: CLARITIN 10 MG PO SCH (10:33)
[2024-10-29] MEDS: Protonix 40MG Tablet PO SCH (10:33)
[2024-10-29] MEDS: Glucophage 500 MG PO SCH (10:33)
[2024-10-29] MEDS: JARDIANCE PO SCH (10:33)
[2024-10-29] MEDS: solu-MEDROL 125 MG, Sterile H2O 10 ml 2 ML IV ONE (11:17)
[2024-10-29] MEDS: PROVENTIL 2.5 MG/3 ML NEB IH SCH (11:50)
[2024-10-29] MEDS ORDERED: PROVENTIL 2.5 MG/3 ML NEB IH SCH (13:00)
[2024-10-29] MEDS: DUONEB 0.5-3 MG/3 ml Neb IH SCH (17:53)
[2024-10-29] MEDS ORDERED: NON-FORMULARY ITEM (Rivaroxaban [Xarelto] 20 MG Tablet) PO SCH (22:00)
[2024-10-29] MEDS ORDERED: NON-FORMULARY ITEM (Melatonin [Melatonin] 5 MG Capsule) PO SCH (22:00)
[2024-10-29] MEDS: NEURONTIN PO SCH (22:53)
[2024-10-29] MEDS: XARELTO 10 MG TABLET PO SCH (22:53)
[2024-10-29] MEDS: MELATONIN PO SCH (22:54)
[2024-10-29] MEDS: Levofloxacin 500MG/100ML D5W 500 MG/100 ML BAG IV SCH (22:54)
[2024-10-29] MEDS: Zocor 10MG PO SCH (22:55)
[2024-10-30] MEDS ORDERED: REQUIP 2MG TAB ONE (02:13)
[2024-10-30] MEDS: REQUIP 2MG TAB PO SCH ×2 (02:16→10:22)
[2024-10-30 04:52] LABS: Absolute Neutrophil Ct (ANC) 9.82 x10^3/uL (1.78-5.38); Basophil (Absolute #) 0 x10^3/uL (0.01-0.08); Eosinophil (Absolute #) 0 x10^3/uL (0.04-0.54); Hematocrit 31.4 % (40.1-51.0); Hemoglobin 9.8 g/dL (13.7-17.5); IMMATURE GRAN # 0.06 x10^3u/L (0.001-0.031); IMMATURE GRAN % 0.6 % (0.001-0.429); Lymphocyte (Absolute #) 0.29 x10^3/uL (1.32-3.57); Lymphocytes % 2.8 % (21.8-53.1); Mean Cell Volume 86.5 fL (79.0-92.2); Mean Corpuscular Hgb Concent. 31.2 g/dL (32.3-36.5); Mean Platelet Volume 11.1 fL (9.4-12.4); Monocyte (Absolute #) 0.26 x10^3/uL (0.30-0.82); Monocytes % 2.5 % (5.3-12.2); Neutrophil % 94.1 % (34.0-67.9); Platelet Count 247 x10^3/uL (163-337); Red Blood Count 3.63 x10^6/uL (4.63-6.08); Red Cell Distribution Width 16.1 % (11.6-14.4); White Blood Count 10.4 x10^3/uL (4.23-9.07)
[2024-10-30 05:17] VITALS: RESP 16
[2024-10-30 05:18] LABS: ALBUMIN 3.4 g/dL (3.5-5.0); ANION GAP 9.5 MEQ/L (5-15); BILIRUBIN,TOTAL 0.3 mg/dL (0.2-1.3); Calcium 9.1 mg/dL (8.4-10.2); Creatinine 1 1.08 mg/dL (0.66-1.25); EST GLOMERULAR FILTRATION RATE 75.2 ML/MIN; Potassium 3.5 mmol/L (3.5-5.1); Total Protein 5.8 g/dL (6.3-8.2)
--- NOTE | 2024-10-30 05:25 | PCM.NOTE ---
Date and Time: 10/30/24520 Subjective Assessment: HPI: is a 68 year old male with a past medical history significant for COPD -chronic respiratory failure (4L oxygen at baseline), CHF, diabetes, Afib (pacemaker/defibrillator on Xarelto), and hypertension who presented to the hospital 10/29/24 with complaints of increasing shortness of breath associated with wheezing. Initial lab findings remarkable for normocytic anemia with hgb at 11.3 and BNP at 4090. EKG showed sinus rhythm with left bundle branch block but no ST elevations. No EKG changes when compared with previous. CXR demonstrates new right mid to lower lung interstitial alveolar opacities. Patient admitted with pneumonia. IP treatment with Levaquin. Objective Data Vital Signs: Vital Signs - 24 hr Temp Pulse Resp BP Pulse Ox 10/30/24 05:15 80 16 98 10/30/24 03:00 97.8 F 85 17 111/59 96 10/30/24 00:45 88 16 95 10/29/24 23:22 97.9 F 88 17 109/58 98 10/29/24 19:29 97.1 F 93 H 16 111/59 96 10/29/24 16:50 83 18 97 10/29/24 16:00 97.8 F 83 18 118/58 97 10/29/24 12:00 97.3 F 80 20 124/59 97 10/29/24 11:51 84 20 98 10/29/24 08:02 97.6 F 99 H 19 125/63 96 10/29/24 08:00 97.9 F 86 18 114/63 94 L 10/29/24 07:23 91 H 20 97 10/29/24 06:07 96 Pain Assessment - Last Documented Pain Intensity 0 Pain Scale Used 0-10 Pain Scale Intake and Output: Intake & Output 10/27/24 10/28/24 10/29/24 10/30/24 11:59 11:59 11:59 11:59 Intake Total 480 2960 Output Total 300 1700 Balance 180 1260 Weight 76.1 kg Lab Results: Lab Results-Last 24 Hours 10/29/24 10/29/24 10/29/24 Range/Units 07:34 07:40 11:20 WBC (4.23-9.07) x10^3/uL RBC (4.63-6.08) x10^6/uL Hgb (13.7-17.5) g/dL Hct (40.1-51.0) % MCV (79.0-92.2) fL MCH (25.7-32.2) pg MCHC (32.3-36.5) g/dL RDW (11.6-14.4) % Plt Count (163-337) x10^3/uL MPV (9.4-12.4) fL Gran % (34.0-67.9) % Immature Gran % (Auto) (0.001-0.429) % Nucleat RBC Rel Count (0.00-0.2) % Eos # (Auto) (0.04-0.54) x10^3/uL Immature Gran # (Auto) (0.001-0.031) x10^3u/L Absolute Lymphs (auto) (1.32-3.57) x10^3/uL Absolute Monos (auto) (0.30-0.82) x10^3/uL Absolute Nucleated RBC (0.00-0.012) x10^3u/L Lymphocytes % (21.8-53.1) % Monocytes % (5.3-12.2) % Eosinophils % (0.8-7.0) % Basophils % (0.2-1.2) % Absolute Granulocytes (1.78-5.38) x10^3/uL Basophils # (0.01-0.08) x10^3/uL POC Glucometer 160 H 254 H (74 to 106) mg/dL Troponin I 0.019 (0.000-0.033) ng/mL 10/29/24 10/29/24 10/30/24 Range/Units 16:42 20:57 04:09 WBC 10.4 H (4.23-9.07) x10^3/uL RBC 3.63 L (4.63-6.08) x10^6/uL Hgb 9.8 L (13.7-17.5) g/dL Hct 31.4 L (40.1-51.0) % MCV 86.5 (79.0-92.2) fL MCH 27.0 (25.7-32.2) pg MCHC 31.2 L (32.3-36.5) g/dL RDW 16.1 H (11.6-14.4) % Plt Count 247 (163-337) x10^3/uL MPV 11.1 (9.4-12.4) fL Gran % 94.1 H (34.0-67.9) % Immature Gran % (Auto) 0.6 H (0.001-0.429) % Nucleat RBC Rel Count 0.0 (0.00-0.2) % Eos # (Auto) 0 L (0.04-0.54) x10^3/uL Immature Gran # (Auto) 0.06 H (0.001-0.031) x10^3u/L Absolute Lymphs (auto) 0.29 L (1.32-3.57) x10^3/uL Absolute Monos (auto) 0.26 L (0.30-0.82) x10^3/uL Absolute Nucleated RBC 0.00 (0.00-0.012) x10^3u/L Lymphocytes % 2.8 L (21.8-53.1) % Monocytes % 2.5 L (5.3-12.2) % Eosinophils % 0.0 L (0.8-7.0) % Basophils % 0.0 L (0.2-1.2) % Absolute Granulocytes 9.82 H (1.78-5.38) x10^3/uL Basophils # 0 L (0.01-0.08) x10^3/uL POC Glucometer 162 H 182 H (74 to 106) mg/dL Troponin I (0.000-0.033) ng/mL Radiology Exams: Radiology Procedures Category Date Time Status CHEST 1 VIEW (PORTABLE) Stat Exams 10/28/24 23:03 Completed Assessment/Plan (1) Pneumonia Current Visit: Yes Status: Acute Assessment & Plan: -CXR reviewed and demonstrates new right mid to lower lung opacity -Supplemental oxygen with goal spo2 88-92% - at baseline of 4L -Continue Levaquin -Blood and sputum cultures pending -RT eval and follow -Nebs prn -continue home INH -Solumedrol 40 q12h Code(s): J18.9 - PNEUMONIA, UNSPECIFIED ORGANISM (2) COPD exacerbation Current Visit: Yes Status: Acute Assessment & Plan: -2/2 to pneumonia -see plan above Code(s): J44.1 - CHRONIC OBSTRUCTIVE PULMONARY DISEASE W (ACUTE) EXACERBATION (3) Diabetes mellitus Current Visit: No Status: Acute Qualifiers: Diabetes mellitus type: type 2 Diabetes mellitus assistant terminal manager insulin use: without residential use Diabetes mellitus complication status: without complication Qualified Code(s): E11.9 - Type 2 diabetes mellitus without complications Assessment & Plan: -ADA diet -accuchecks achs -SSI -may need dose adjustments Code(s): E11.9 - TYPE 2 DIABETES MELLITUS WITHOUT COMPLICATIONS (4) HTN (hypertension) Current Visit: No Status: Acute Assessment & Plan: -stable - continue home meds Code(s): I10 - ESSENTIAL (PRIMARY) HYPERTENSION (5) HFrEF (heart failure with reduced ejection fraction) Current Visit: No Status: Chronic Assessment & Plan: -Does not appear to be in exacerbation -BNP reviewed on admission at 4090 -CXR demonstrating pneumonia without consolidation/large effusion -continue home meds Code(s): I50.20 - UNSPECIFIED SYSTOLIC (CONGESTIVE) HEART FAILURE (6) Afib Current Visit: No Status: Chronic Assessment & Plan: -pacemaker/defib -EKG showed NS -Monitor on tele -continue home meds Amiodarone/Xarelto Code(s): I48.91 - UNSPECIFIED ATRIAL FIBRILLATION
[2024-10-30 08:12] LABS: Slide Review 1 YES
[2024-10-30 12:04] VITALS: BP 104/55; PULSE 86; TEMP 97.9
--- NOTE | 2024-10-30 12:38 | PCM.DS ---
Discharge Summary Date of Admission: 10/29/24 05:18 Date of Discharge: 10/30/24 Admitting Physician: BRIDGER GORDILLO MD Primary Care Provider: [facility] Allergies Allergies Penicillins Allergy (Intermediate, Verified 10/28/24 22:30) RASH milk Allergy (Mild, Verified 10/28/24 22:30) hornet venom Allergy (Verified 10/28/24 22:30) lithium Allergy (Verified 10/28/24 22:30) verified by [facility] medication list ipratropium Adverse Reaction (Intermediate, Verified 10/28/24 22:30) Vomiting Hospital Summary - Hospital Course Hospital Course: HPI: is a 68 year old male with a past medical history significant for COPD -chronic respiratory failure (4L oxygen at baseline), CHF, diabetes, Afib (pacemaker/defibrillator on Xarelto), and hypertension who presented to the hospital 10/29/24 with complaints of increasing shortness of breath associated with wheezing. Initial lab findings remarkable for normocytic anemia with hgb at 11.3 and BNP at 4090. EKG showed sinus rhythm with left bundle branch block but no ST elevations. No EKG changes when compared with previous. CXR demonstrates new right mid to lower lung interstitial alveolar opacities. Patient admitted with pneumonia. IP treatment with Levaquin. Dyspnea and cough improved. At baseline oxygen of 4L. Patient has been advised to continue nebulizer treatments at home as needed. Will need follow up in a week to recheck CXR. Will send home on Levaquin and prednisone. Discharge Note New Diagnosis:Pneumonia New Medications:levaquin/prednisone Follow Up: PCP Outpatient testing to order: Repeat CXR Latest Assessment & Plan 1) Pneumonia Current Visit: Yes Status: Acute Assessment & Plan: -CXR reviewed and demonstrates new right mid to lower lung opacity -Supplemental oxygen with goal spo2 88-92% - at baseline of 4L -Continue Levaquin -Blood and sputum cultures pending -RT eval and follow -Nebs prn -continue home INH -Solumedrol 40 q12h Code(s): J18.9 - PNEUMONIA, UNSPECIFIED ORGANISM (2) COPD exacerbation Current Visit: Yes Status: Acute Assessment & Plan: -2/2 to pneumonia -see plan above Code(s): J44.1 - CHRONIC OBSTRUCTIVE PULMONARY DISEASE W (ACUTE) EXACERBATION (3) Diabetes mellitus Current Visit: No Status: Acute Qualifiers: Diabetes mellitus type: type 2 Diabetes mellitus terminal supervisor insulin use: without snf use Diabetes mellitus complication status: without complication Qualified Code(s): E11.9 - Type 2 diabetes mellitus without complications Assessment & Plan: -ADA diet -accuchecks achs -SSI -may need dose adjustments Code(s): E11.9 - TYPE 2 DIABETES MELLITUS WITHOUT COMPLICATIONS (4) HTN (hypertension) Current Visit: No Status: Acute Assessment & Plan: -stable - continue home meds Code(s): I10 - ESSENTIAL (PRIMARY) HYPERTENSION (5) HFrEF (heart failure with reduced ejection fraction) Current Visit: No Status: Chronic Assessment & Plan: -Does not appear to be in exacerbation -BNP reviewed on admission at 4090 -CXR demonstrating pneumonia without consolidation/large effusion -continue home meds Code(s): I50.20 - UNSPECIFIED SYSTOLIC (CONGESTIVE) HEART FAILURE (6) Afib Current Visit: No Status: Chronic Assessment & Plan: -pacemaker/defib -EKG showed NS -Monitor on tele -continue home meds Amiodarone/Xarelto I spent 35 minutes [id number] with the patient on the day of discharge performing discharge exam, discussing hospital stay and discharge instructions with patient and caregivers, preparation of discharge records, prescriptions & referral forms and addressing any questions/concerns the patient had as documented above. - Vitals & Intake/Output Vital Signs: Vital Signs Temperature 97.9 F 10/30/24 11:00 Pulse Rate 86 10/30/24 11:00 Respiratory Rate 16 10/30/24 11:00 Blood Pressure 104/55 10/30/24 11:00 O2 Sat by Pulse Oximetry 99 10/30/24 11:00 Intake & Output: Intake & Output 10/28/24 10/29/24 10/30/24 10/31/24 11:59 11:59 11:59 11:59 Intake Total 480 3920 Output Total 300 2900 Balance 180 1020 Weight 76.1 kg - Lab Result Diagrams: 10/30/24 04:09 10/30/24 04:09 Lab Results-Last 24 Hrs: Lab Results-Last 24 Hours 10/29/24 10/29/24 10/30/24 Range/Units 16:42 20:57 04:09 WBC 10.4 H (4.23-9.07) x10^3/uL RBC 3.63 L (4.63-6.08) x10^6/uL Hgb 9.8 L (13.7-17.5) g/dL Hct 31.4 L (40.1-51.0) % MCV 86.5 (79.0-92.2) fL MCH 27.0 (25.7-32.2) pg MCHC 31.2 L (32.3-36.5) g/dL RDW 16.1 H (11.6-14.4) % Plt Count 247 (163-337) x10^3/uL MPV 11.1 (9.4-12.4) fL Gran % 94.1 H (34.0-67.9) % Immature Gran % (Auto) 0.6 H (0.001-0.429) % Nucleat RBC Rel Count 0.0 (0.00-0.2) % Eos # (Auto) 0 L (0.04-0.54) x10^3/uL Immature Gran # (Auto) 0.06 H (0.001-0.031) x10^3u/L Absolute Lymphs (auto) 0.29 L (1.32-3.57) x10^3/uL Absolute Monos (auto) 0.26 L (0.30-0.82) x10^3/uL Absolute Nucleated RBC 0.00 (0.00-0.012) x10^3u/L Lymphocytes % 2.8 L (21.8-53.1) % Monocytes % 2.5 L (5.3-12.2) % Eosinophils % 0.0 L (0.8-7.0) % Basophils % 0.0 L (0.2-1.2) % Absolute Granulocytes 9.82 H (1.78-5.38) x10^3/uL Basophils # 0 L (0.01-0.08) x10^3/uL Sodium (135-145) mmol/L Potassium (3.5-5.1) mmol/L Chloride (98-107) mmol/L Carbon Dioxide (22-30) mmol/L Anion Gap (5-15) MEQ/L BUN (9-20) mg/dL Creatinine (0.66-1.25) mg/dL Estimated GFR ML/MIN Glucose (74-106) mg/dL POC Glucometer 162 H 182 H (74 to 106) mg/dL Calcium (8.4-10.2) mg/dL Total Bilirubin (0.2-1.3) mg/dL AST (17-59) U/L ALT (0-50) U/L Alkaline Phosphatase (38-126) U/L Serum Total Protein (6.3-8.2) g/dL Albumin (3.5-5.0) g/dL Slides for Path Review YES 10/30/24 10/30/24 10/30/24 Range/Units 04:09 07:29 11:44 WBC (4.23-9.07) x10^3/uL RBC (4.63-6.08) x10^6/uL Hgb (13.7-17.5) g/dL Hct (40.1-51.0) % MCV (79.0-92.2) fL MCH (25.7-32.2) pg MCHC (32.3-36.5) g/dL RDW (11.6-14.4) % Plt Count (163-337) x10^3/uL MPV (9.4-12.4) fL Gran % (34.0-67.9) % Immature Gran % (Auto) (0.001-0.429) % Nucleat RBC Rel Count (0.00-0.2) % Eos # (Auto) (0.04-0.54) x10^3/uL Immature Gran # (Auto) (0.001-0.031) x10^3u/L Absolute Lymphs (auto) (1.32-3.57) x10^3/uL Absolute Monos (auto) (0.30-0.82) x10^3/uL Absolute Nucleated RBC (0.00-0.012) x10^3u/L Lymphocytes % (21.8-53.1) % Monocytes % (5.3-12.2) % Eosinophils % (0.8-7.0) % Basophils % (0.2-1.2) % Absolute Granulocytes (1.78-5.38) x10^3/uL Basophils # (0.01-0.08) x10^3/uL Sodium 137 (135-145) mmol/L Potassium 3.5 (3.5-5.1) mmol/L Chloride 103 (98-107) mmol/L Carbon Dioxide 28 (22-30) mmol/L Anion Gap 9.5 (5-15) MEQ/L BUN 19 (9-20) mg/dL Creatinine 1.08 (0.66-1.25) mg/dL Estimated GFR 75.2 ML/MIN Glucose 181 H (74-106) mg/dL POC Glucometer 176 H 209 H (74 to 106) mg/dL Calcium 9.1 (8.4-10.2) mg/dL Total Bilirubin 0.30 (0.2-1.3) mg/dL AST 40 (17-59) U/L ALT 54 H (0-50) U/L Alkaline Phosphatase 74 (38-126) U/L Serum Total Protein 5.8 L (6.3-8.2) g/dL Albumin 3.4 L (3.5-5.0) g/dL Slides for Path Review Micro Results-Entire Visit: Microbiology 10/28/24 02:28 Blood Culture - Preliminary Blood 10/28/24 23:21 Blood Culture - Preliminary Blood Accuchecks Date 10/30/24 Date 10/29/24 Date 10/29/24 Time 07:42 Time 21:00 - Radiology Exams Ordered Rad Exams-Entire Visit: Radiology Procedures Category Date Time Status CHEST 1 VIEW (PORTABLE) Stat Exams 10/28/24 23:03 Completed - Procedures and Test Procedures and Tests throughout Hospitalization: Therapy Orders & Screens 10/28/24 23:11 Respiratory Therapy Assessment DAILY Comment: 10/29/24 05:25 Oxygen Nasal Cannula 4 lpm Comment: Respiratory Therapy Consult ONCE Comment: Reason For Exam: 10/29/24 19:00 Respiratory MDI BID Comment: WIXELLA BID Diagnosis: sob 10/30/24 07:00 Respiratory MDI DAILY Comment: SPIRIVA DAILY Diagnosis: sob Discharge Exam General Appearance: no apparent distress Neurologic Exam: alert, oriented x 3, cooperative Eye Exam: PERRL Ears, Nose, Throat Exam: normal ENT inspection Neck Exam: normal inspection Respiratory Exam: crackles/rales Cardiovascular Exam: regular rate/rhythm, normal heart sounds Gastrointestinal/Abdomen Exam: soft, normal bowel sounds Male Genitalia Exam: deferred Rectal Exam: deferred Back Exam: normal inspection Extremity Exam: normal inspection Skin Exam: normal color Final Diagnosis/Problem List - Final Discharge Diagnosis/Problem (1) Pneumonia Current Visit: Yes Status: Acute Code(s): J18.9 - PNEUMONIA, UNSPECIFIED ORGANISM (2) COPD exacerbation Current Visit: Yes Status: Acute Code(s): J44.1 - CHRONIC OBSTRUCTIVE PUL MONARY DISEASE W (ACUTE) EXACERBATION (3) Diabetes mellitus Current Visit: No Status: Chronic Code(s): E11.9 - TYPE 2 DIABETES MELLITUS WITHOUT COMPLICATIONS (4) HTN (hypertension) Current Visit: No Status: Chronic Code(s): I10 - ESSENTIAL (PRIMARY) HYPERTENSION (5) HFrEF (heart failure with reduced ejection fraction) Current Visit: No Status: Chronic Code(s): I50.20 - UNSPECIFIED SYSTOLIC (CONGESTIVE) HEART FAILURE (6) Afib Current Visit: No Status: Chronic Code(s): I48.91 - UNSPECIFIED ATRIAL FIBRILLATION - Discharge Discharge Date: 10/30/24 Disposition: Home, Self-Care Condition: Stable Prescriptions: New Prednisone 20 mg [Deltasone 20 mg] 20 mg PO BID 5 Days #10 tablet levoFLOXacin [Levofloxacin] 750 mg PO DAILY 7 Days #7 tablet Continue Cholecalciferol (Vitamin D3) [Vitamin D] 1,000 unit PO TID Ropinirole 2Mg [Requip 2Mg Tab] 2 mg PO DAILY Metformin HCl 500 mg [Glucophage 500 MG] 500 mg PO BIDWM Fluticasone Propionate [Flonase NASAL] 2 sprays NS BID PRN PRN Reason: Allergies Rivaroxaban [Xarelto] 20 mg PO HS Ropinirole 2Mg [Requip 2Mg Tab] 6 mg PO HS Atorvastatin Calcium 10 mg PO HS Empagliflozin [Jardiance] 10 mg PO DAILY Fluticasone Propion/Salmeterol [Wixela 500-50 Inhub] 1 puff IH BID Gabapentin 300 mg PO HS Solifenacin Succinate 10 mg PO DAILY Non-Formulary Drug [Non-Formulary Item] 2 puff IH DAILY Roflumilast [Daliresp] 500 mcg PO DAILY Nitroglycerin 0.4 mg Tablet [Nitrostat 0.4 MG Tablet] 1 tab SL Q5M PRN PRN Reason: Chest Pain Midodrine HCl [Proamatine] 10 mg PO BIDWM Melatonin 5 mg PO HS Furosemide 20 mg [Lasix 20 mg] 20 mg PO DAILY Fexofenadine HCl [Aysha Allergy] 60 mg PO BID Sacubitril/Valsartan [Entresto 24 mg-26 mg Tablet] 0.5 tab PO BID Amiodarone HCl 200 mg PO BID Omeprazole 20 mg PO BREAKFAST Follow up with: [facility] [Primary Care Provider] - (Needs appt this week for f/u CXR)
[2024-10-30 13:02] VITALS: O2SAT 98
== END 2024-10-30 13:47 | disposition home or self-care (01) ==
LOC: ED 22:28 → MED SURG 10-29 05:18
PROVIDERS: ADMIT Internal Medicine Nephrology; ATTEND Internal Medicine Nephrology
DX: J18.9 Pneumonia, unspecified organism (principal); J44.1 Chronic obstructive pulmonary disease with (acute) exacerbation; Z59.82 Transportation insecurity; E11.9 Type 2 diabetes mellitus without complications; I11.0 Hypertensive heart disease with heart failure; I50.20 Unspecified systolic (congestive) heart failure; I48.91 Unspecified atrial fibrillation; I25.2 Old myocardial infarction; Z79.01 Long term (current) use of anticoagulants; Z79.899 Other long term (current) drug therapy; Z99.81 Dependence on supplemental oxygen
CPT/HCPCS: 0241U; 36415; 71045; 80053; 82947; 83605; 83735; 83880; 84484; 85025; 87040; 93005; 93041; 94640; 94760; 96372; 99285; G0378; Q3014; J1817; J1956; J2919; J7609; A9270-GY

== ENCOUNTER 2025-01-10 10:11 | Emergency (ER) | payer OTHER ==
[2025-01-10 10:27] VITALS: PULSE 88; TEMP 96.7
[2025-01-10 10:40] LABS: Absolute Neutrophil Ct (ANC) 5.42 x10^3/uL (1.78-5.38); BASOPHIL % 0.5 % (0.2-1.2); Basophil (Absolute #) 0.04 x10^3/uL (0.01-0.08); Eosinophil % 6.2 % (0.8-7.0); Eosinophil (Absolute #) 0.48 x10^3/uL (0.04-0.54); Hematocrit 35.4 % (40.1-51.0); IMMATURE GRAN # 0.03 x10^3u/L (0.001-0.031); IMMATURE GRAN % 0.4 % (0.001-0.429); Lymphocytes % 14.2 % (21.8-53.1); Mean Cell Volume 81.6 fL (79.0-92.2); Mean Corpuscular Hemoglobin 25.3 pg (25.7-32.2); Mean Corpuscular Hgb Concent. 31.1 g/dL (32.3-36.5); Mean Platelet Volume 10.7 fL (9.4-12.4); Monocyte (Absolute #) 0.67 x10^3/uL (0.30-0.82); Monocytes % 8.7 % (5.3-12.2); Platelet Count 257 x10^3/uL (163-337); Red Blood Count 4.34 x10^6/uL (4.63-6.08); White Blood Count 7.7 x10^3/uL (4.23-9.07)
[2025-01-10] MEDS ORDERED: Zofran 4 MG/2 ML VIAL ONE (10:44)
[2025-01-10] MEDS ORDERED: SUBLIMAZE 100 MCG/2 ML ONE (10:45)
[2025-01-10] MEDS: SUBLIMAZE 100 MCG/2 ML IV ONE (10:46)
[2025-01-10] MEDS: Zofran 4 MG/2 ML VIAL IV ONE (10:47)
[2025-01-10 10:52] LABS: ALBUMIN 3.9 g/dL (3.5-5.0); ANION GAP 15.4 MEQ/L (5-15); BILIRUBIN,TOTAL 0.5 mg/dL (0.2-1.3); Creatinine 1 1.08 mg/dL (0.66-1.25); EST GLOMERULAR FILTRATION RATE 74.8 ML/MIN; Potassium 3.6 mmol/L (3.5-5.1); Total Protein 6.5 g/dL (6.3-8.2)
--- NOTE | 2025-01-10 12:06 | XRAY ---
Indication: Right flank pain. Multiple contiguous axial images obtained through the abdomen and pelvis without contrast using renal stone protocol. Comparison: June 22, 2021 Lung bases again demonstrates pulmonary emphysema and small right lower lobe calcified granuloma. New mild bilateral dependent atelectasis. Heart not enlarged again with incidental pacer leads. No renal calculus or evidence for obstructive uropathy in either system. Noncontrasted stomach and bowel loops appear nonobstructed. Again minimal sigmoid diverticulosis, appendectomy, and cholecystectomy. No free fluid/air. Remaining liver, pancreas, spleen, adrenal glands, kidneys, ureters, and bladder are unremarkable for noncontrast exam. Again extensive scattered vascular calcifications including both renal arteries. No AAA. Osseous structures intact again with osteopenia and minimal/mild degenerative changes throughout the spine. Impression: 1. Again negative renal calculus or evidence for obstructive uropathy. 2. Chronic findings including pulmonary emphysema, sigmoid diverticulosis, arteriosclerotic disease, chronic bony findings, and old granulomatous disease. 3. Remaining CT abdomen/pelvis without contrast exam continues to be negative.
--- NOTE | 2025-01-10 12:08 | ERPHSYRPT ---
- History of Present Illness Time Seen by Provider: 01/10/25 10:18 Historian: patient Exam Limitations: no limitations Patient Subjective Stated Complaint: pt c/o of right flank pain since yesterday Triage Nursing Assessment: Pt brought self to the ER, vitals wnl, rates pain as 9.5/10, pulses normal, skin n/w/d, pain to the right flank, denies hx of kidney stone, no difficulty breathing, denies chest pain, on 4L NC at all times Physician History: 69 years old male with history of multiple medical problems including atrial fibrillation with pacemaker/defibrillator, diabetes mellitus, COPD with chronic respiratory failure on 4 L oxygen presented in the ER with complaint of right flank pain since yesterday moderate to severe sharp shooting, aggravated with palpation movements and associated nausea and an episode of none projectile, nonbilious vomiting prior to arrival. Denies any urinary complaints. No fever or chills reported. Allergies/Adverse Reactions: Penicillins Allergy (Intermediate, Verified 01/10/25 10:27) RASH milk Allergy (Mild, Verified 01/10/25 10:27) hornet venom Allergy (Verified 01/10/25 10:27) lithium Allergy (Verified 01/10/25 10:27) verified by [facility] medication list ipratropium Adverse Reaction (Intermediate, Verified 01/10/25 10:27) Vomiting Home Medications: Cholecalciferol (Vitamin D3) [Vitamin D] 1,000 unit PO TID 10/31/17 [History] Ropinirole 2Mg [Requip 2Mg Tab] 2 mg PO DAILY 01/26/20 [History] Fluticasone Propionate [Flonase NASAL] 2 sprays NS BID PRN 03/31/20 [History] Metformin HCl 500 mg [Glucophage 500 MG] 500 mg PO BIDWM 03/31/20 [History] Rivaroxaban [Xarelto] 20 mg PO HS 03/31/20 [History] Ropinirole 2Mg [Requip 2Mg Tab] 6 mg PO HS 03/31/20 [History] Atorvastatin Calcium 10 mg PO HS 11/19/23 [History] Empagliflozin [Jardiance] 10 mg PO DAILY 11/19/23 [History] Fluticasone Propion/Salmeterol [Wixela 500-50 Inhub] 1 puff IH BID 11/19/23 [History] Gabapentin 300 mg PO HS 11/19/23 [History] Solifenacin Succinate 10 mg PO DAILY 11/19/23 [History] Amiodarone HCl 200 mg PO BID 08/24/24 [History] Fexofenadine HCl [Asyha Allergy] 60 mg PO BID 08/24/24 [History] Furosemide 20 mg [Lasix 20 mg] 40 mg PO DAILY 08/24/24 [History] Melatonin 5 mg PO HS 08/24/24 [History] Midodrine HCl [Proamatine] 10 mg PO BIDWM 08/24/24 [History] Nitroglycerin 0.4 mg Tablet [Nitrostat 0.4 MG Tablet] 1 tab SL Q5M PRN 08/24/24 [History] Non-Formulary Drug [Non-Formulary Item] 2 puff IH DAILY 08/24/24 [History] Roflumilast [Daliresp] 500 mcg PO DAILY 08/24/24 [History] Sacubitril/Valsartan [Entresto 24 mg-26 mg Tablet] 0.5 tab PO BID 08/24/24 [History] Omeprazole 20 mg PO BREAKFAST 10/29/24 [History] Hx Tetanus, Diphtheria Vaccination/Date Given: Yes Hx Influenza Vaccination/Date Given: Yes Hx Pneumococcal Vaccination/Date Given: Yes Travel Risk - International Travel Have you traveled outside of the country in past 3 weeks: No - Emerging Infectious Disease Are you exhibiting symptoms associated with any current EIDs: No Symptoms: Shortness of Breath - Review of Systems Constitutional: No Symptoms Eyes: No Symptoms Ears, Nose, & Throat: No Symptoms Respiratory: No Symptoms Cardiac: No Symptoms Abdominal/Gastrointestinal: Abdominal Pain, Nausea, Vomiting Genitourinary Symptoms: Flank Pain Musculoskeletal: Back Pain Skin: No Symptoms Neurological: No Symptoms Psychological: No Symptoms - Past Medical History Pertinent Past Medical History: Yes Neurological History: Other ENT History: No Pertinent History Cardiac History: Arrhythmia, Congestive Heart Failure, Coronary Artery Disease, High Cholesterol, Hypertension, Myocardial Infarction ([place]) Respiratory History: COPD Endocrine Medical History: Diabetes Type II, Liver Disease Musculoskeletal History: Arthritis, Rheumatoid Arthritis GI Medical History: No Pertinent History History: No Pertinent History Psycho-Social History: No Pertinent History Male Reproductive Disorders: No Pertinent History Other Medical History: organical brain disorder. Facility Planner: Dr. Yanni Maldonado - Past Surgical History Past Surgical History: Yes Neuro Surgical History: No Pertinent History Cardiac: Internal Defibrillator, Pacemaker Respiratory: No Pertinent History Gastrointestinal: Appendectomy, Cholecystectomy Genitourinary: No Pertinent History Musculoskeletal: Orthopedic Surgery Male Surgical History: No Pertinent History Other Surgical History: BACK SURG Significant Family History: no pertinent family hx - Social History Smoking Status: Former smoker Exposure to second hand smoke: No Drug Use: none - Social Determinants of Health Will the patient participate in the screening: Yes Do you worry about a steady place to live?: No Do you have any problems with any of the following?: No known problems In the past 12 months,have you had to go without utilities?: No Transportation Issues: No Has anyone in your support network made you feel unsafe?: No Have you or anyone in your house had to go w/o enough food: No - Nursing Vital Signs Nursing Vital Signs: Initial Vital Signs Temperature 96.7 F 01/10/25 10:20 Pulse Rate 88 01/10/25 10:20 Blood Pressure 102/67 01/10/25 10:20 O2 Sat by Pulse Oximetry 99 01/10/25 10:20 Pain Scale Pain Intensity 9 - Physical Exam General Appearance: no apparent distress, alert Eye Exam: PERRL/EOMI Ears, Nose, Throat Exam: normal ENT inspection, pharynx normal, moist mucous me mbranes Neck Exam: normal inspection, non-tender, supple, full range of motion Respiratory Exam: normal breath sounds, lungs clear Cardiovascular Exam: regular rate/rhythm, normal heart sounds Gastrointestinal/Abdomen Exam: soft, normal bowel sounds, tenderness Back Exam: CVA tenderness (Right side) Extremity Exam: normal inspection, normal range of motion Neurologic Exam: alert, oriented x 3, cooperative SpO2 Interpretation: normal SpO2: 96 O2 Delivery: Room Air Ordered Tests: Active Orders 24 hr Category Date Time Status IV Insertion STAT Care 01/10/25 10:21 Active ABDOMEN AND PELVIS W/0 CONTRAS [CT] Stat Exams 01/10/25 10:21 Completed CBC W DIFF Stat Lab 01/10/25 10:40 Completed CMP Stat Lab 01/10/25 10:40 Completed LIPASE Stat Lab 01/10/25 10:40 Completed UA W/RFX UR CULTURE Stat Lab 01/10/25 11:56 Completed Medication Summary Discontinued Medications Generic Name Dose Route Start Last Admin Trade Name Tyrone PRN Reason Stop Dose Admin Fentanyl Citrate 50 mcg 01/10/25 10:21 01/10/25 10:46 Fentanyl Citrate 100 Mcg/2 Ml* Vial IV 01/10/25 10:22 50 mcg STAT ONE Administration Fentanyl Citrate Confirm 01/10/25 10:45 Fentanyl Citrate 100 Mcg/2 Ml* Vial Administered 01/10/25 10:46 Dose 100 mcg .ROUTE .STK-MED ONE Ondansetron HCl 4 mg 01/10/25 10:21 01/10/25 10:47 Ondansetron Hcl 4 Mg/2 Ml Vial IV 01/10/25 10:22 4 mg STAT ONE Administration Ondansetron HCl Confirm 01/10/25 10:44 Ondansetron Hcl 4 Mg/2 Ml Vial Administered 01/10/25 10:45 Dose 4 mg .ROUTE .STK-MED ONE Lab/Rad Data: Laboratory Result Diagrams 01/10/25 10:40 01/10/25 10:40 Laboratory Results 01/10/25 01/10/25 01/10/25 Range/Units 11:56 10:40 10:40 WBC 7.7 (4.23-9.07) x10^3/uL RBC 4.34 L (4.63-6.08) x10^6/uL Hgb 11.0 L (13.7-17.5) g/dL Hct 35.4 L (40.1-51.0) % MCV 81.6 (79.0-92.2) fL MCH 25.3 L (25.7-32.2) pg MCHC 31.1 L (32.3-36.5) g/dL RDW 16.0 H (11.6-14.4) % Plt Count 257 (163-337) x10^3/uL MPV 10.7 (9.4-12.4) fL Gran % 70.0 H (34.0-67.9) % Immature Gran % (Auto) 0.4 (0.001-0.429) % Nucleat RBC Rel Count 0.0 (0.00-0.2) % Eos # (Auto) 0.48 (0.04-0.54) x10^3/uL Immature Gran # (Auto) 0.03 (0.001-0.031) x10^3u/L Absolute Lymphs (auto) 1.10 L (1.32-3.57) x10^3/uL Absolute Monos (auto) 0.67 (0.30-0.82) x10^3/uL Absolute Nucleated RBC 0.00 (0.00-0.012) x10^3u/L Lymphocytes % 14.2 L (21.8-53.1) % Monocytes % 8.7 (5.3-12.2) % Eosinophils % 6.2 (0.8-7.0) % Basophils % 0.5 (0.2-1.2) % Absolute Granulocytes 5.42 H (1.78-5.38) x10^3/uL Basophils # 0.04 (0.01-0.08) x10^3/uL Sodium 134 L (135-145) mmol/L Potassium 3.6 (3.5-5.1) mmol/L Chloride 96 L (98-107) mmol/L Carbon Dioxide 26 (22-30) mmol/L Anion Gap 15.4 H (5-15) MEQ/L BUN 20 (9-20) mg/dL Creatinine 1.08 (0.66-1.25) mg/dL Estimated GFR 74.8 ML/MIN Glucose 114 H (74-106) mg/dL Calcium 9.0 (8.4-10.2) mg/dL Total Bilirubin 0.50 (0.2-1.3) mg/dL AST 70 H (17-59) U/L ALT 116 H (0-50) U/L Alkaline Phosphatase 121 (38-126) U/L Serum Total Protein 6.5 (6.3-8.2) g/dL Albumin 3.9 (3.5-5.0) g/dL Lipase 85 (23-300) U/L Urine Color Yellow (Yellow) Urine Appearance Clear (Clear) Urine pH 6.5 (4.6-8.0) Ur Specific [place] >=1.030 A (1.005-1.030) Urine Protein Negative (Negative) Urine Glucose (UA) >=1000 A (Negative) mg/dL Urine Ketones Negative (Negative) Urine Blood Negative (Negative) Urine Nitrite Negative (Negative) Urine Bilirubin Negative (Negative) Urine Urobilinogen 1.0 A (0.2) mg/dL Ur Leukocyte Esterase Negative (Negative) U Hyaline Cast (Auto) NONE SEEN (0-2) /LPF Urine Microscopic RBC 0-2 (0-5) /HPF Urine Microscopic WBC 0-2 (0-5) /HPF Ur Epithelial Cells None Seen (None Seen) /HPF Urine Bacteria None Seen (None Seen) /HPF Urine Culture Reflexed NO (NO) - Progress Progress: improved Progress Note: 01/10/25 13:08 69 years old with multiple medical problems including A-fib on Xarelto, diabetes mellitus, chronic respiratory failure is evaluated in the ER for right flank pain. He is given symptomatic treatment, feeling much better on reevaluation. Workup showed normal white count, chemistries fairly unremarkable with stable renal functions. Does not have a UTI. CT abdomen pelvis without contrast is negative for any stone, pyelonephritis, obstruction, perforation, any other acute intra-abdominal pelvic findings. I believe patient's pain is more of a musculoskeletal, recommended taking Tylenol and continue with Flexeril which she has at home. Discussed signs symptoms of worsening needing return to ER which she seems understanding. Stable for discharge. Complexity of problems addressed: Moderate acute Complexity of data reviewed/analyzed: Moderate Risk of complication/morbidity/mortality with current condition: Mild to moderate Counseled pt/family regarding: lab results, diagnosis, need for follow-up, rad results Medical Desision Making - Diagnostic Testing Diagnostic test were ordered, analyzed, and reviewed by me: Yes Radiological Interpretation: Reviewed by me - Risk of complications The pt has a mod risk of morbidity or mortality based on: Need for prescription drug management - Departure Departure Disposition: Home Clinical Impression: Acute right flank pain, Back strain Condition: Stable Critical Care Time: No Referrals: [facility] [Primary Care Provider] - Follow up with PCP 1 day Instructions: Flank Pain Additional Instructions: Take Tylenol as needed. Continue with Flexeril. Follow-up with primary care for reevaluation. Return to ER for any worsening.
[2025-01-10 12:41] LABS: Appearance Clear (Clear); Bacteria None Seen /HPF (None Seen); Bilirubin Negative (Negative); Blood Negative (Negative); Epithelial Cells None Seen /HPF (None Seen); Glucose, Urine >=1000 mg/dL (Negative); Hyaline Casts NONE SEEN /LPF (0-2); Ketones Negative (Negative); Leukocyte Esterase Negative (Negative); Nitrite Negative (Negative); Ph 6.5 (4.6-8.0); Protein,Urine Dip Negative (Negative); RBC 0-2 /HPF (0-5); Specific Gravity >=1.030 (1.005-1.030); WBC 0-2 /HPF (0-5)
[2025-01-10 13:09] VITALS: BP 115/75
[2025-01-10 13:12] VITALS: O2SAT 96
== END 2025-01-10 14:43 | disposition home or self-care (01) ==
LOC: ED 10:11
DX: R10.9 Unspecified abdominal pain (principal); S39.012A Strain of muscle, fascia and tendon of lower back, initial encounter; R11.2 Nausea with vomiting, unspecified; E11.9 Type 2 diabetes mellitus without complications; E78.5 Hyperlipidemia, unspecified; Z79.84 Long term (current) use of oral hypoglycemic drugs; Z79.01 Long term (current) use of anticoagulants; Z79.899 Other long term (current) drug therapy
CPT/HCPCS: 36415; 74176; 80053; 81001; 83690; 85025; 96374; 96375; 99284; J2405; J3010